=== PATIENT | male | born 1950 | race Caucasian/White ===

== ENCOUNTER 2021-01-02 08:30 | Day surgery (SDC) | payer MEDICARE, SELFPAY ==
[2020-12-22 12:40] VITALS: BMI 29.0
--- NOTE | 2020-12-29 07:45 | MHC.SHP ---
Pre-Procedural Eval Section A Date of Service: 12/29/20 The patient is an INPATIENT: No The History & Physical has been completed within 30 days and I have reviewed it.: Yes Section B Chief Complaint: Cataract Right Eye Allergies: Allergies Allergy/AdvReac Type Severity Reaction Status Date / Time bee pollen Allergy Severe RASH , Unverified 12/20/20 15:01 SWELLING, Anaphylaxis Plan Diagnosis/Plan: Unchanged I have reviewed the history and physical and performed a pertinent physical examination on my patient. No changes have occurred unless specified.
--- NOTE | 2020-12-30 10:06 | P.CONAN_ITS ---
Documented by User: Abby Wellerney 12/30/20 10:08 HPI - Anesthesia Eval Consult details Narrative: 70yo M for Right Cataract Extraction IOL Insertion PCP cleared No prev cataract on file Eliquis for afib PMFSH Past Medical History Medical History Atrial fibrillation COVID-19 vaccine series completed Decreased right ventricular systolic function Diverticulosis Dyspnea on exertion Elevated cholesterol Gout HTN (hypertension) Insomnia On anticoagulant therapy MUMTAZ (obstructive sleep apnea) Pulmonary hypertension Vertigo Surgical History Surgical History History of total right knee replacement (TKR) Hx of colonoscopy Social History Social History Are you a primary disabilities caregiver to a significant other at home: No Do you presently have visiting nurse or other home services: No Patient Tobacco Use Status: Former Tobacco user Quit Date: 1972 Tobacco use type: Cigarette Use of substances other than those prescribed or required for medical reasons: No Have you been hit, kicked, punched, or otherwise hurt by someone within the past year? If so, by whom?: No Are you DNR?: No Advance Directives: No Advance Directives Information Provided: No Advance Directives on File: No Recently lost weight without trying: No Eating poorly because of decreased appetite: No Nutrition Risks: No Nutritional Risk Meds Allergies Allergy/AdvReac Type Severity Reaction Status Date / Time bee pollen Allergy Severe RASH , Verified 01/02/21 09:17 SWELLING, Anaphylaxis Home Medications Medication Instructions Recorded Confirmed Last Taken Type allopurinol 300 mg PO DAILY 12/20/20 12/22/20 01/02/21 History apixaban [Eliquis] 5 mg PO BID 12/20/20 12/22/20 01/01/21 History diltiazem HCl 300 mg PO DAILY 12/20/20 12/22/20 01/02/21 History furosemide 40 mg PO DAILY 12/20/20 12/22/20 Unknown History multivitamin 1 tab PO DAILY 12/20/20 12/22/20 Unknown History pravastatin 80 mg PO DAILY 12/20/20 12/22/20 Unknown History turmeric root extract 1,500 mg PO DAILY 12/20/20 12/22/20 Unknown History valsartan 320 mg PO DAILY 12/20/20 12/22/20 Unknown History Exam Exam Date and Time: December 30, 2020 1006 Height,Weight and Vital Signs: Height 5 ft 7 in Weight 83.915 kg Assessment and Plan Assessment Anesthesia Assessment: Chart Reviewed Documented by User: Braxton Hilton 01/02/21 09:51 [facility] Past Medical History Medical History Atrial fibrillation COVID-19 vaccine series completed Decreased right ventricular systolic function Diverticulosis Dyspnea on exertion Elevated cholesterol Gout HTN (hypertension) Insomnia On anticoagulant therapy MUMTAZ (obstructive sleep apnea) Pulmonary hypertension Vertigo Surgical History Surgical History History of total right knee replacement (TKR) Hx of colonoscopy Social History Social History Are you a primary disabilities caregiver to a significant other at home: No Do you presently have visiting nurse or other home services: No Patient Tobacco Use Status: Former Tobacco user Quit Date: 1972 Tobacco use type: Cigarette Use of substances other than those prescribed or required for medical reasons: No Have you been hit, kicked, punched, or otherwise hurt by someone within the past year? If so, by whom?: No Are you DNR?: No Advance Directives: No Advance Directives Information Provided: No Advance Directives on File: No Recently lost weight without trying: No Eating poorly because of decreased appetite: No Nutrition Risks: No Nutritional Risk Meds Allergies Allergy/AdvReac Type Severity Reaction Status Date / Time bee pollen Allergy Severe RASH , Verified 01/02/21 09:17 SWELLING, Anaphylaxis Home Medications Medication Instructions Recorded Confirmed Last Taken Type allopurinol 300 mg PO DAILY 12/20/20 12/22/20 01/02/21 History apixaban [Eliquis] 5 mg PO BID 12/20/20 12/22/20 01/01/21 History diltiazem HCl 300 mg PO DAILY 12/20/20 12/22/20 01/02/21 History furosemide 40 mg PO DAILY 12/20/20 12/22/20 Unknown History multivitamin 1 tab PO DAILY 12/20/20 12/22/20 Unknown History pravastatin 80 mg PO DAILY 12/20/20 12/22/20 Unknown History turmeric root extract 1,500 mg PO DAILY 12/20/20 12/22/20 Unknown History valsartan 320 mg PO DAILY 12/20/20 12/22/20 Unknown History Exam Airway Mallampati Class: II TM Dist: >3cm Neck ROM: Full Loose/Missing/Broken Teeth: No Heart: irreg irreg s1s2 Lungs: +b/s bilaterally Assessment and Plan Assessment Anesthesia Assessment: Anesthesia Plan Discussed, PAT Visit and Chart Reviewed Final Anesthetic Review NPO: Yes ASA Class: III Final Preanesthetic Review: No Changes in Pt Med Stat, Meds/Allgs Chart Reviewed, Consent Obtained/Reviewed and Anes Risks/Benef Reviewed Patient Risk: Intermediate Procedure Risk: Low Assessment/Block/Sedation in SS: Assess/Block/Sedation-SS Anesthetic Plan Anesthetic Plan: MAC: and Agree w/ Assess. and Plan Disposition: Standard PACU
[2021-01-02 09:29] VITALS: BP 181/109; PULSE 65; RESP 20; TEMP 36.9; O2SAT 98
[2021-01-02] MEDS: Tropicamide 1 % Ophth Sol 3 ML BTL 1 DROP EYE-RIGHT ×3 (09:33→09:35)
[2021-01-02] MEDS: Tetracaine HCl/PF 0.5% Oph Sol 4 ML DROPS 1 DROP EYE-RIGHT (09:33)
[2021-01-02] MEDS: Lactated Ringers 500 ML 50 ML IV (09:33)
[2021-01-02] MEDS: Phenylephrine HCL 2.5% Oph SoL 2 ML BOTTLE 1 DROP EYE-RIGHT ×3 (09:34→09:35)
[2021-01-02 09:44] VITALS: BP 176/91; PULSE 59
--- NOTE | 2021-01-02 09:44 | PC.NURSE ---
anesthesia aware of b/p
--- NOTE | 2021-01-02 11:53 | HO.PNOPHT ---
Ophthalmology Procedure Procedure Date of Service: 01/02/21 Ophthalmology Viscoelastic: Healbrina Salast Dual Pack Pro Ophthalmology Lenses: TECVALORIE [id number] (16) Procedure Notes: PREOPERATIVE DIAGNOSIS: Decreased visual acuity right eye secondary to cataract POSTOPERATIVE DIAGNOSIS: Same PROCEDURE: Right cataract extraction with intraocular lens insertion SURGEON: Vikas Negron M.D. ANESTHESIA: Topical/MAC ESTIMATED BLOOD LOSS: None COMPLICATIONS: None After obtaining informed consent, the patient was brought to the operating room suite and placed in the supine position. After adequate sedation per anesthesia, topical drops of Tetracaine were given to the right eye. The eye was then prepped and draped in the usual sterile fashion. The operating room microscope was then positioned over the operative eye and a lid speculum placed. A paracentesis was created. Viscoelastic was then instilled into the anterior chamber. A three plane incision was then created temporally, utilizing a 2.85 mm keratome. Capsulotomy forceps were then utilized to create a circular tear capsulotomy. Hydrodissection and hydrodelineation were carried out until adequate mobilization of the nucleus occurred. Phacoemulsification was then utilized to remove the dense central nucleus followed by removal of the cortical material utilizing the automated aspiration irrigation unit. Viscoelastic was instilled into the posterior capsular bag followed by placement of a posterior chamber intraocular lens without difficulty. The residual Viscoelastic was then removed utilizing the automated IA machine. The wound was checked and found to be watertight. The patient tolerated the procedure well and the lid speculum was removed. Intracameral injection of Vigamox 0.1 mL followed by a subtenon injection of Kenalog-40 0.2 mL were administered. The patient will be seen in the a.m.
[2021-01-02 12:18] VITALS: BP 147/95; PULSE 60; RESP 16; TEMP 36.2; O2SAT 99
== END 2021-01-02 12:58 | disposition home or self-care (01) ==
PROVIDERS: PCP Internal Medicine; Visit Provider Ophthalmology
PROC: (CPT 66985; principal; 2021-01-02 10:50)
DX: H25.11 Age-related nuclear cataract, right eye (principal); H54.7 Unspecified visual loss; G47.33 Obstructive sleep apnea (adult) (pediatric); I10 Essential (primary) hypertension; I27.20 Pulmonary hypertension, unspecified; I48.91 Unspecified atrial fibrillation; Z79.01 Long term (current) use of anticoagulants; Z87.891 Personal history of nicotine dependence; Z79.899 Other long term (current) drug therapy
CPT/HCPCS: 66984; J2250; J3010; J3300; V2632

== ENCOUNTER 2021-01-16 05:48 | Day surgery (SDC) | payer MEDICARE, SELFPAY ==
[2020-12-22 12:47] VITALS: BMI 29.0
--- NOTE | 2021-01-11 09:24 | MHC.SHP ---
Pre-Procedural Eval Section A Date of Service: 01/11/21 The patient is an INPATIENT: No The History & Physical has been completed within 30 days and I have reviewed it.: Yes Section B Chief Complaint: Cataract Left Eye Allergies: Allergies Allergy/AdvReac Type Severity Reaction Status Date / Time bee pollen Allergy Severe RASH , Verified 01/02/21 09:17 SWELLING, Anaphylaxis Plan Diagnosis/Plan: Unchanged I have reviewed the history and physical and performed a pertinent physical examination on my patient. No changes have occurred unless specified.
--- NOTE | 2021-01-13 08:19 | HO.ANESPROP2 ---
Documented by User: Abby Wellerney 01/13/21 08:19 HPI - Anesthesia Eval Consult details Narrative: Left Cataract Extraction IOL Insertion PCP cleared Right eye 01/02/21 with Fent 75 PMFSH Past Medical History Medical History Atrial fibrillation COVID-19 vaccine series completed Decreased right ventricular systolic function Diverticulosis Dyspnea on exertion Elevated cholesterol Gout HTN (hypertension) Insomnia On anticoagulant therapy MUMTAZ (obstructive sleep apnea) Pulmonary hypertension Vertigo Surgical History Surgical History History of total right knee replacement (TKR) Hx of colonoscopy Social History Social History Are you a primary landcare facilitator to a significant other at home: No Do you presently have visiting nurse or other home services: No Patient Tobacco Use Status: Former Tobacco user Quit Date: 1972 Tobacco use type: Cigarette Use of substances other than those prescribed or required for medical reasons: No Have you been hit, kicked, punched, or otherwise hurt by someone within the past year? If so, by whom?: No Are you DNR?: No Advance Directives: No Advance Directives Information Provided: No Advance Directives on File: No Recently lost weight without trying: No Eating poorly because of decreased appetite: No Nutrition Risks: No Nutritional Risk Meds Allergies Allergy/AdvReac Type Severity Reaction Status Date / Time bee pollen Allergy Severe RASH , Verified 01/16/21 06:06 SWELLING, Anaphylaxis Home Medications Medication Instructions Recorded Confirmed Last Taken Type allopurinol 300 mg PO DAILY 12/20/20 12/22/20 01/02/21 History apixaban [Eliquis] 5 mg PO BID 12/20/20 12/22/20 01/15/21 20:00 History diltiazem HCl 300 mg PO DAILY 12/20/20 12/22/20 01/02/21 History furosemide 40 mg PO DAILY 12/20/20 12/22/20 Unknown History multivitamin 1 tab PO DAILY 12/20/20 12/22/20 Unknown History pravastatin 80 mg PO DAILY 12/20/20 12/22/20 Unknown History turmeric root extract 1,500 mg PO DAILY 12/20/20 12/22/20 Unknown History valsartan 320 mg PO DAILY 12/20/20 12/22/20 Unknown History Exam Exam Date and Time: January 13, [id number] Height,Weight and Vital Signs: Height 5 ft 7 in Weight 83.915 kg Assessment and Plan Assessment Anesthesia Assessment: Chart Reviewed Documented by User: Yesi Story 01/16/21 08:32 [facility] Past Medical History Medical History Atrial fibrillation COVID-19 vaccine series completed Decreased right ventricular systolic function Diverticulosis Dyspnea on exertion Elevated cholesterol Gout HTN (hypertension) Insomnia On anticoagulant therapy MUMTAZ (obstructive sleep apnea) Pulmonary hypertension Vertigo Surgical History Surgical History History of total right knee replacement (TKR) Hx of colonoscopy Social History Social History Are you a primary landcare facilitator to a significant other at home: No Do you presently have visiting nurse or other home services: No Patient Tobacco Use Status: Former Tobacco user Quit Date: 1972 Tobacco use type: Cigarette Use of substances other than those prescribed or required for medical reasons: No Have you been hit, kicked, punched, or otherwise hurt by someone within the past year? If so, by whom?: No Are you DNR?: No Advance Directives: No Advance Directives Information Provided: No Advance Directives on File: No Recently lost weight without trying: No Eating poorly because of decreased appetite: No Nutrition Risks: No Nutritional Risk Meds Allergies Allergy/AdvReac Type Severity Reaction Status Date / Time bee pollen Allergy Severe RASH , Verified 01/16/21 06:06 SWELLING, Anaphylaxis Home Medications Medication Instructions Recorded Confirmed Last Taken Type allopurinol 300 mg PO DAILY 12/20/20 12/22/20 01/02/21 History apixaban [Eliquis] 5 mg PO BID 12/20/20 12/22/20 01/15/21 20:00 History diltiazem HCl 300 mg PO DAILY 06/12/22/20 01/02/21 History furosemide 40 mg PO DAILY 12/20/20 12/22/20 Unknown History multivitamin 1 tab PO DAILY 12/20/20 12/22/20 Unknown History pravastatin 80 mg PO DAILY 12/20/20 12/22/20 Unknown History turmeric root extract 1,500 mg PO DAILY 12/20/20 12/22/20 Unknown History valsartan 320 mg PO DAILY 12/20/20 12/22/20 Unknown History Exam Airway Mallampati Class: I TM Dist: >3cm Neck ROM: Full Loose/Missing/Broken Teeth: No Heart: RRR Lungs: CTA Assessment and Plan Assessment Anesthesia Assessment: Anesthesia Plan Discussed and Chart Reviewed Final Anesthetic Review NPO: Yes ASA Class: III Final Preanesthetic Review: Meds/Allgs Chart Reviewed, Consent Obtained/Reviewed and Anes Risks/Benef Reviewed Patient Risk: Intermediate Procedure Risk: Low Anesthetic Plan Anesthetic Plan: MAC: Disposition: Standard PACU
[2021-01-16 06:15] VITALS: BP 145/86; PULSE 64; RESP 16; TEMP 36.3; O2SAT 100
[2021-01-16] MEDS: Tetracaine HCl/PF 0.5% Oph Sol 4 ML DROPS 1 DROP EYE-LEFT (06:25)
[2021-01-16] MEDS: Tropicamide 1 % Ophth Sol 3 ML BTL 1 DROP EYE-LEFT ×3 (06:27→06:39)
[2021-01-16] MEDS: Lactated Ringers 500 ML 50 ML IV (06:30)
[2021-01-16] MEDS: Phenylephrine HCL 2.5% Oph SoL 2 ML BOTTLE 1 DROP EYE-LEFT ×3 (06:31→06:43)
--- NOTE | 2021-01-16 08:06 | HO.PNOPHT ---
Ophthalmology Procedure Procedure Date of Service: 01/16/21 Ophthalmology Viscoelastic: Healbrina Duet Dual Pack Pro Ophthalmology Lenses: TECVALORIE [id number] (16) Procedure Notes: PREOPERATIVE DIAGNOSIS: Decreased visual acuity left eye secondary to cataract POSTOPERATIVE DIAGNOSIS: Same PROCEDURE: Left cataract extraction with intraocular lens insertion SURGEON: Vikas Negron M.D. ANESTHESIA: Topical/MAC ESTIMATED BLOOD LOSS: None COMPLICATIONS: None After obtaining informed consent, the patient was brought to the operation room suite and placed in the supine position. After adequate sedation per anesthesia, topical drops of Tetracaine were given to the left eye. The eye was then prepped and draped in the usual sterile fashion. The operating room microscope was then positioned over the operative eye and a lid speculum placed. A paracentesis was created. Viscoelastic was then instilled into the anterior chamber. A three plane incision was then created temporally, utilizing a 2.85 mm keratome. Capsulotomy forceps were then utilized to create a circular tear capsulotomy. Hydrodissection and hydrodelineation were carried out until adequate mobilization of the nucleus occurred. Phacoemulsification was then utilized to remove the dense central nucleus followed by removal of the cortical material utilizing the automated aspiration irrigation unit. Viscoat elastic was instilled into the posterior capsular bag followed by placement of a posterior chamber intraocular lens without difficulty. The residual Viscoat elastic was then removed utilizing the automated IA machine. The wound was check and found to be watertight. The patient tolerated the procedure well and the lid speculum was removed. Intracameral injection of Vigamox 0.1 mL followed by a subtenon injection of Kenalog-40 0.2 mL were administered. The patient will be seen in the a.m.
[2021-01-16 08:49] VITALS: BP 114/85; PULSE 87; RESP 18; TEMP 36.2; O2SAT 96
== END 2021-01-16 09:07 | disposition home or self-care (01) ==
PROVIDERS: PCP Internal Medicine; Visit Provider Ophthalmology
PROC: (CPT 66985; principal; 2021-01-16 08:10)
DX: H25.12 Age-related nuclear cataract, left eye (principal); H52.4 Presbyopia; I10 Essential (primary) hypertension; I48.91 Unspecified atrial fibrillation; M10.9 Gout, unspecified; G47.33 Obstructive sleep apnea (adult) (pediatric); I27.20 Pulmonary hypertension, unspecified; I51.9 Heart disease, unspecified; R42 Dizziness and giddiness; Z79.01 Long term (current) use of anticoagulants; Z79.899 Other long term (current) drug therapy; Z87.891 Personal history of nicotine dependence
CPT/HCPCS: 66984; J2250; J3010; J3300; V2632

== ENCOUNTER 2023-09-26 09:28 | Inpatient (IN) | payer MEDICARE, SELFPAY ==
[2023-09-26] VITALS (8 sets, daily range): BP systolic 109–138; BP diastolic 72–87; PULSE 65–73; RESP 15–30; TEMP 36.2–38.4; O2SAT 93–99; BMI 22.9; BMI 22.8
--- NOTE | ~2023-09-26 | XR_ITS ---
EXAMINATION: XR CHEST CLINICAL INFORMATION: Fever, possible aspiration COMPARISON: None available. TECHNIQUE: AP upright portable view of the chest was obtained. 11:02 AM FINDINGS: The lungs are slightly hypoinflated. Slight streaky density in the left lower lobe is consistent with atelectasis and/or pneumonia. This is not a typical location for aspiration. No interstitial pulmonary edema or pneumothorax. No pleural effusion. There is mild enlargement of the cardiac silhouette. Calcification of the aortic arch is indicative of atherosclerotic disease. AICD projects over the left hemithorax with the tip of the the lead in the region of the ventricle. XR/XR chest 1V IMPRESSION: Left lower lobe atelectasis and/or pneumonia. This is not a typical location for aspiration.
--- NOTE | ~2023-09-26 | CT_ITS ---
EXAMINATION: CT ABDOMEN AND PELVIS WITH CONTRAST CLINICAL INFORMATION: Fever. Abnormal liver function tests. Evaluate for cholecystitis. COMPARISON: None available. TECHNIQUE: Multidetector volumetric images were obtained from the superior aspect of the liver through the pubic symphysis following administration 85 mL of Omnipaque 350 intravenous contrast. Sagittal and coronal reformatted images were obtained on the technologist's workstation. Oral contrast: No This CT examination was performed using dose optimization techniques as appropriate, variously including the following: *Automated exposure control *Adjustment of mA and/or kV according to patient size (this includes techniques or standardized protocols for targeted exams where dose is matched to indication/reason for exam; i.e. extremities or head) *Use of iterative reconstruction technique DLP: 758 mGy-cm FINDINGS: LUNG BASES: Cardiomegaly with enlarged right ventricle, right atrium and left atrium. Aortic valve calcifications are noted. There are coronary artery atherosclerotic calcifications. A right ventricular lead is noted. Consolidative opacity, groundglass opacity and intralobular septal thickening in right lower lobe. Findings are consistent with pneumonia. Trace right pleural effusion is present. There is mild atelectasis in the dependent aspect of the left lower lobe. HEPATOBILIARY: Liver has normal size, shape, and attenuation. Gallbladder appears to contain sludge and possibly a few very small stones. No gallbladder wall thickening or pericholecystic fluid. No dilated bile ducts. PANCREAS: The pancreatic parenchyma is diffusely atrophied. No edema, pancreatic ductal dilatation or mass. SPLEEN: Normal. ADRENAL GLANDS: Normal. KIDNEYS AND URETERS: Kidneys have normal size and cortical thickness. No perinephric fluid collection, urolithiasis or hydroureteronephrosis. BLADDER: Urinary bladder is underdistended. The bladder wall appears to be diffusely, minimally thickened. No focal bladder lesion or stone. BOWEL AND PERITONEUM: Stomach and small bowel are unremarkable. No dilated loops. The appendix is normal. No overt colonic wall thickening or mesenteric fat stranding. There are diverticula of the descending and sigmoid colon without evidence of diverticulitis. No free fluid or pneumoperitoneum. ABDOMINAL WALL: Mild edema of subcutaneous tissues. VASCULATURE: There is extensive atherosclerotic calcification of the abdominal aorta and iliofemoral vessels. The infrarenal abdominal aorta measures up to 2.5 cm AP diameter. LYMPH NODES: No pathologic sized lymph nodes in the abdomen or pelvis. No inguinal lymphadenopathy. PELVIC VISCERA: Prostate gland measures approximately 4.8 x 2.8 x 4 cm. No pelvic free fluid. MUSCULOSKELETAL: Multilevel degenerative disc disease of the visualized lower thoracic and lumbar spine. No acute or suspicious osseous abnormality. Status post open reduction and internal fixation of the left femur. There is a healed intertrochanteric femur fracture. Foci of heterotopic ossification project superolateral to the greater trochanter. CT/CT abdomen pelvis w IV con IMPRESSION: * Right lower lobe pneumonia and trace right pleural effusion. * Cardiomegaly with automatic implantable cardioverter defibrillator generator in place. * Diverticula of the descending and sigmoid colon without diverticulitis. * Gallbladder likely contains sludge and possibly a few very small stones. There is no evidence of cholecystitis.
--- NOTE | 2023-09-26 09:48 | ED.GENADULT ---
HPI - General Adult General Chief complaint: General Medical Stated complaint: DIFF SWALLING,VOMITING,FROM HOME PER EMS Time Seen by Provider: 09/26/23 09:37 History of Present Illness HPI narrative: The patient is a 73-year-old male with a history of some form of dementia, possibly Lewy body dementia. He lives at home with his . His says that he has been doing very poorly over the last several months. He has been much worse over the last 2 days with difficulty swallowing and decreased appetite. Yesterday the patient had an episode of vomiting and the thought he may have aspirated. During the night tonight he seemed febrile and had a temperature of 100.9 degrees at home. Related Data Home Medications ?Medication ?Instructions ?Recorded ?Confirmed allopurinol 300 mg tablet 300 mg PO DAILY 12/20/20 12/22/20 apixaban 5 mg tablet (Eliquis) 5 mg PO BID 12/20/20 12/22/20 diltiazem HCl 300 mg 300 mg PO DAILY 12/20/20 12/22/20 capsule,extended release 24 hr furosemide 40 mg tablet 40 mg PO DAILY 12/20/20 12/22/20 multivitamin 1 tab PO DAILY 12/20/20 12/22/20 pravastatin 80 mg tablet 80 mg PO DAILY 12/20/20 12/22/20 turmeric root extract 500 mg 1,500 mg PO DAILY 12/20/20 12/22/20 capsule valsartan 320 mg tablet 320 mg PO DAILY 12/20/20 12/22/20 Allergies Allergy/AdvReac Type Severity Reaction Status Date / Time bee pollen Allergy Severe RASH , Verified 09/26/23 09:52 SWELLING, Anaphylaxis [facility] Past Medical History Medical History Atrial fibrillation COVID-19 vaccine series completed Decreased right ventricular systolic function Diverticulosis Dyspnea on exertion Elevated cholesterol Gout HTN (hypertension) Insomnia On anticoagulant therapy MUMTAZ (obstructive sleep apnea) Pulmonary hypertension Vertigo Surgical History History of total right knee replacement (TKR) Hx of colonoscopy Social History Social History Are you a primary resident care spec to a significant other at home: No Do you presently have visiting nurse or other home services: No Alcohol intake: former Patient Tobacco Use Status: Former Tobacco user Quit Date: 1972 Tobacco use type: Cigarette Smoked in Last 30 Days: No Use of substances other than those prescribed or required for medical reasons: No Advance Directives: No Advance Directives Information Provided: No Physical Exam ED Vital Signs: Vital Signs - 24 hr 09/26/23 09:40 09/26/23 10:28 09/26/23 10:28 Temperature 101.1 F H Pulse Rate 73 69 Respiratory Rate 24 H 29 H 24 H Blood Pressure 127/83 118/85 Pulse Oximetry 98 96 Oxygen Delivery Method Nasal Cannula Nasal Cannula Oxygen Flow Rate 2 09/26/23 10:28 09/26/23 12:38 09/26/23 13:54 Temperature 98.4 F Pulse Rate 69 66 66 Respiratory Rate 24 H 15 30 H Blood Pressure 113/79 138/85 128/87 Pulse Oximetry 95 97 93 Oxygen Delivery Method Nasal Cannula Nasal Cannula Nasal Cannula Oxygen Flow Rate 2 2 2 BMI result Body Mass Index 22.9 Medications Administered Generic Name Dose Route Start Last Admin Trade Name Freq PRN Reason Stop Dose Admin Sodium Chloride 1,000 mls @ 999 mls/hr 09/26/23 13:15 09/26/23 13:56 Ns IV 09/26/23 14:15 999 mls/hr .Q1H1M NIVIA Administration Discontinued Medications Generic Name Dose Route Start Last Admin Trade Name Freq PRN Reason Stop Dose Admin Sodium Chloride 1,000 mls @ 999 mls/hr 09/26/23 10:00 09/26/23 11:46 Ns IV 09/26/23 11:00 Infused .Q1H1M NIVIA Infusion Ceftriaxone Sodium 1 gm/ 50 mls @ 100 mls/hr 09/26/23 10:06 09/26/23 11:46 Sodium Chloride IV 09/26/23 10:35 Infused ONCE ONE Infusion Metronidazole 500 mg in 100 mls @ 100 mls/hr 09/26/23 10:07 09/26/23 12:41 Flagyl IV 09/26/23 11:06 Infused ONCE ONE Infusion Iohexol 85 ml 09/26/23 11:43 09/26/23 11:45 Iohexol 350 Mg/Ml 100 Ml Infus..Btl IV 09/26/23 11:44 85 ml ONCE ONE Administration Medical Decision Making Lab Data 09/26/23 10:15 09/26/23 10:15 Labs: Lab Results 09/26/23 Range/Units 10:15 WBC 15.7 H (4.8-10.8) X10*3/uL RBC 4.71 (4.60-5.80) X10*6/uL Hgb 14.1 (14.0-18.0) g/dl Hct 39.7 L (42.0-52.0) % MCV 84.3 (80.0-98.0) fL MCH 29.9 (27.0-33.0) pg MCHC 35.5 (31.0-36.0) g/dl RDW 16.9 H (11.0-16.0) % Plt Count 295 D (160-400) X10*3/uL MPV 10.2 (9.4-12.4) fL Immature Gran % (Auto) 1.0 H (0.0-0.4) % Neut % (Auto) 82.6 H (45-73) % Lymph % (Auto) 6.8 L (20-40) % [place] % (Auto) 9.5 (2-11) % Eos % (Auto) 0.0 (0-4) % Baso % (Auto) 0.1 (0-2) % Lymph # (Auto) 1.1 L (1.2-4.9) X10*3/uL [place] # (Auto) 1.5 H (0.1-1.2) X10*3/uL Eos # (Auto) 0.0 (0.0-0.4) X10*3/uL Baso # (Auto) 0.0 (0.0-0.2) X10*3/uL Abs Immat Gran (auto) 0.16 H (0.00-0.03) X10*3/uL Absolute Neuts (auto) 12.9 H (2.0-8.3) x10*3/uL Absolute Nucleated RBC 0.000 (0.0-0.012) X10*3/uL Nucleated RBC % (auto) 0.0 (0.0-0.2) /100WBC PT 20.2 H (11.1-13.3) SEC INR 1.7 H (0.9-1.1) Sodium 134 L (135-145) mmol/L Potassium 3.9 (3.3-5.1) mmol/L Chloride 103 (96-108) mmol/L Carbon Dioxide 22 (22-29) mmol/L Anion Gap 13 (12-20) BUN 19 H (9-16) mg/dL Creatinine 0.82 (0.5-1.4) mg/dL Estim Creat Clear Calc 75.0 Estimated GFR > 60 Random Glucose 105 (60-115) mg/dL Lactic Acid 1.6 (0.5-2.0) mmol/L Calcium 8.5 (8.4-10.2) mg/dL Magnesium 2.2 (1.6-2.6) mg/dL Total Bilirubin 3.0 H (0.0-1.0) mg/dL Direct Bilirubin 1.8 H (0.0-0.5) mg/dL AST 66 H (5-37) U/L ALT 67 H (0-40) U/L Alkaline Phosphatase 124 H (39-117) U/L C-Reactive Protein 24.78 H (< or = 0.50) mg/dL Total Protein 5.9 L (6.5-8.0) g/dL Albumin 2.8 L (3.5-5.0) g/dL Influenza Type A (PCR) NEGATIVE (Negative) Influenza Type B (PCR) NEGATIVE (Negative) RSV RNA Qual (PCR) NEGATIVE (Negative) SARS-CoV-2 RNA (RT-PCR) NEGATIVE (Negative) Discharge Plan Discharge Patient Disposition: Admitted As Inpatient Prescriptions: No Action multivitamin Tablet 1 tab PO DAILY furosemide 40 mg Tablet 40 mg PO DAILY pravastatin 80 mg Tablet 80 mg PO DAILY diltiazem HCl 300 mg Capsule,Extended Release 24hr 300 mg PO DAILY valsartan 320 mg Tablet 320 mg PO DAILY allopurinol 300 mg Tablet 300 mg PO DAILY turmeric root extract 500 mg Capsule 1,500 mg PO DAILY Eliquis 5 mg Tablet 5 mg PO BID Print Language: Khmer
--- NOTE | 2023-09-26 09:49 | ECG_ITS ---
Test Reason : WEAKNESS Blood Pressure : / mmHG Vent. Rate : 071 BPM Atrial Rate : 000 BPM P-R Int : 000 ms QRS Dur : 116 ms QT Int : 360 ms P-R-T Axes : 000 -64 -42 degrees QTc Int : 391 ms Atrial fibrillation Left axis deviation Inferior infarct (cited on or before 26-SEP-2023) Anteroseptal infarct , age undetermined Abnormal ECG When compared with ECG of 17-JAN-2007 14:37, Atrial fibrillation has replaced Sinus rhythm Questionable change in QRS duration Anteroseptal infarct is now Present Referred By: Dexter Dumont Electronically Signed By:CANELO MOCTEZUMA MD
[2023-09-26 10:25] LABS: MANUAL DIFF FLAG NO
[2023-09-26 10:28] LABS: Basophils Percent Auto 0.1 % (0-2); Hematocrit 39.7 % (42.0-52.0); Hemoglobin 14.1 g/dl (14.0-18.0); Imm Gran Abs Auto 0.16 X10*3/uL (0.00-0.03); Lymphocytes Absolute Auto 1.1 X10*3/uL (1.2-4.9); Lymphocytes Percent Auto 6.8 % (20-40); Mean Corpuscular HGB Conc 35.5 g/dl (31.0-36.0); Mean Corpuscular Hemoglobin 29.9 pg (27.0-33.0); Mean Corpuscular Volume 84.3 fL (80.0-98.0); Mean Platelet Volume 10.2 fL (9.4-12.4); Monocytes Absolute Auto 1.5 X10*3/uL (0.1-1.2); Monocytes Percent Auto 9.5 % (2-11); Neutrophils Absolute Auto 12.9 x10*3/uL (2.0-8.3); Neutrophils Percent Auto 82.6 % (45-73); Platelet Count 295 X10*3/uL (160-400); Red Blood Count 4.71 X10*6/uL (4.60-5.80); Red Cell Distribution Width 16.9 % (11.0-16.0); White Blood Count 15.7 X10*3/uL (4.8-10.8)
[2023-09-26] MEDS: 0.9 % Sodium Chloride 1,000 ML 999 ML IV ×2 (10:33→13:56)
[2023-09-26 10:34] LABS: INTERNATIONAL NORM RATIO 1.7 (0.9-1.1); Prothrombin Time 20.2 SEC (11.1-13.3)
--- NOTE | 2023-09-26 10:35 | HO.SKINPHOTO ---
Location:coccyx Category: Stage: Length: Width: Depth: cm Location: Category: Stage: Length: Width: Depth: cm Location: Category: Stage: Length: Width: Depth: cm Location: Category: Stage: Length: Width: Depth: cm Location: Category: Stage: Length: Width: Depth: cm Location: Category: Stage: Length: Width: Depth: cm
[2023-09-26 10:43] LABS: Lactic Acid 1.6 mmol/L (0.5-2.0)
[2023-09-26 10:47] LABS: Alanine Aminotransferase 67 U/L (0-40); Albumin Level 2.8 g/dL (3.5-5.0); Alkaline Phosphatase 124 U/L (39-117); Anion Gap 13 (12-20); Aspartate Amino Transferase 66 U/L (5-37); Bilirubin Direct 1.8 mg/dL (0.0-0.5); Blood Urea Nitrogen 19 mg/dL (9-16); C Reactive Protein 24.78 mg/dL (< or = 0.50); Calcium 8.5 mg/dL (8.4-10.2); Carbon Dioxide 22 mmol/L (22-29); Chloride 103 mmol/L (96-108); Estimated Glomerular Filt Rate > 60; Glucose Random 105 mg/dL (60-115); Magnesium 2.2 mg/dL (1.6-2.6); Potassium 3.9 mmol/L (3.3-5.1); Sodium 134 mmol/L (135-145); Total Protein 5.9 g/dL (6.5-8.0)
[2023-09-26] MEDS: cefTRIAXone sodium 1 GM in 0.9 % Sodium Chloride 50 ML IV (11:00)
[2023-09-26 11:18] LABS: Influenza A PCR NEGATIVE (Negative); Influenza B PCR NEGATIVE (Negative); Resp Syncy Virus RNA Qual PCR NEGATIVE (Negative); SARS COV2 PCR INHOUSE NEGATIVE (Negative)
[2023-09-26] MEDS: iohexoL 350 MG/ML 100 ML INFUS..BTL 85 ML IV (11:45)
[2023-09-26] MEDS: metroNIDAZOLE/NS 500 MG/100 ML PIGGYBACK 100 MG IV (11:47)
--- NOTE | 2023-09-26 14:38 | P.HPHOSP_ITS ---
<Statement entered by Cameron Leiva MD - 09/29/23 15:06> the patient was seen and evaluated with ANNIE Gallagher. I agree with his note, assessment and plan with the following. In summary, A 73 years old male with PMH of Afib, HLD, dementia, CMP w AICD among others who presents with incident of hypoxia after vomiting at home. chest CT suggestive of RLL pneumonia. # Sepsis 2/[address] showing right lower lobe pneumonia Pending cultures IV Zosyn for now BROACH OPERATOR eval Wean O2 down as tolerated Rest of evaluations by ANNIE note. History of Present Illness Date of Service: 09/26/23 Attending physician on admission: Cameron Leiva Chief Complaint: Fever, vomiting Pt is a 73-year-old male with a PMH significant for?HLD, persistent AFib not anticoagulated due to fall risk, HFrEF (EF 30-35% 02/2023), pulmonary hypertension, unspecified dementia, cardiomegaly with implantable cardioverter/defibrillator in place, and hx of gout who presents to the ED for evaluation?of vomiting and possible aspiration. Pt is alert and oriented to self only and thus incapable of providing accurate HPI which is instead taken from chart and provider review. Attempted to contact pt's /HCP but call immediately went to voicemail. Pt apparently has had significant decline over the past few months with difficulty ambulating, frequent falls, increased memory loss and confusion. Patient had recent hospitalization from 07/24-07/26 at [facility] [place] for evaluation of stroke-like symptoms. Workup there was largely negative and patient was discharged to [facility] and then back to home. Pt's reports he has had increased weakness, difficultly swallowing, and decreased appetite the past two days. Last night pt was witnessed to have episode of vomiting and this morning had a temperature of 100.9 at home. brought him to the ED out of concern for aspiration. She also apparently thought he was experiencing some right-sided discomfort. In the ED pt was febrile up to 101.1 and tachypneic to 30. Labs were significant for leukocytosis of 15.7, sodium 134, bilirubin 3.0, AST 66, ALT 67, alk-phos 124, C-reactive protein 24.78, protein 5.9, and albumin 2.8. Tested negative flu, RSV, COVID. CXR showed left lower lobe atelectasis and or pneumonia. CT of abdomen and pelvis found right lower lobe pneumonia and trace right pleural effusion. Also showed likely sludge and possibly small stones in gallbladder, but no evidence of cholecystitis. EKG demonstrated AFib without evidence of significant ST elevations or depressions. Pt was treated with IVF, ceftriaxone, metronidazole, and azithromycin. Pt will be admitted to the hospital for treatment and further evaluation of likely aspiration pneumonia with sepsis. Review of Systems 2 Review of Systems: Difficult to obtain due to pt's mentation, but states he has no acute medical complaints [facility] Medical History (Updated 09/27/23 @ 10:55 by Cameron Leiva MD) HFrEF (heart failure with reduced ejection fraction) CAD (coronary artery disease) COVID-19 vaccine series completed Gout Vertigo Decreased right ventricular systolic function Pulmonary hypertension MUMTAZ (obstructive sleep apnea) Insomnia Diverticulosis Dyspnea on exertion Atrial fibrillation Elevated cholesterol On anticoagulant therapy HTN (hypertension) Surgical History Hx of colonoscopy History of total right knee replacement (TKR) Social History Household Members: Spouse Housing: Apartment Are you a primary health care legal assistant to a significant other at home: No Do you presently have visiting nurse or other home services: No Alcohol intake: former Patient Tobacco Use Status: Former Tobacco user Quit Date: 20 years Tobacco use type: Cigarette Smoked in Last 30 Days: No Use of substances other than those prescribed or required for medical reasons: No Currently Displaying Signs/Symptoms of Drug Intoxication Withdrawal: No Have you been hit, kicked, punched, or otherwise hurt by someone within the past year? If so, by whom?: No Do you feel safe in your current relationship?: Yes Is there a partner from a previous relationship who is making you feel unsafe now?: No Are you made to feel afraid or neglected: No Advance Directives: No Advance Directives Information Provided: No Do you have thoughts of harming others: None Do you have a plan to hurt others: No Plan Recently lost weight without trying: No Eating poorly because of decreased appetite: No Nutrition Risks: On aspiration precautions Poor oral hygiene: No service: No Meds Allergies Allergy/AdvReac Type Severity Reaction Status Date / Time bee pollen Allergy Severe RASH , Verified 09/26/23 09:52 SWELLING, Anaphylaxis Home Medications ?Medication ?Instructions ?Recorded ?Confirmed ?Last Taken ?Type allopurinol 300 mg tablet 300 mg PO DAILY 12/20/20 09/26/23 09/25/23 History furosemide 40 mg tablet 40 mg PO DAILY 12/20/20 09/26/23 09/25/23 History multivitamin 1 tab PO DAILY 12/20/20 09/26/23 09/25/23 History amiodarone 200 mg tablet 200 mg PO DAILY 09/26/23 09/26/23 09/25/23 History aspirin 81 mg chewable tablet 81 mg PO DAILY 09/26/23 09/26/23 09/25/23 History atorvastatin 80 mg tablet 80 mg PO BEDTIME 09/26/23 09/26/23 09/25/23 History fluoxetine 40 mg capsule 40 mg PO DAILY 09/26/23 09/26/23 09/25/23 History metoprolol succinate 25 mg 25 mg PO DAILY 09/26/23 09/26/23 09/25/23 History tablet,extended release 24 hr spironolactone 25 mg tablet 12.5 mg PO DAILY 09/26/23 09/26/23 09/25/23 History terazosin 1 mg capsule 1 mg PO BEDTIME 09/26/23 09/26/23 09/25/23 History trazodone 50 mg tablet 50 mg PO BEDTIME 09/26/23 09/26/23 09/25/23 History Physical Exam 2 Vital Signs and Narrative: Vital Signs: Last Vital Signs Temp 98.4 F 09/26/23 13:54 Pulse 66 09/26/23 13:54 Resp 30 H 09/26/23 13:54 BP 128/87 09/26/23 13:54 Pulse Ox 93 09/26/23 13:54 O2 Del Method Nasal Cannula 09/26/23 13:54 O2 Flow Rate 2 09/26/23 13:54 Oxygen Flow Rate 2 09/26/23 09:40 BMI result Body Mass Index 22.9 Constitutional: Alert, pleasantly confused, in no acute distress. Mental Status: Oriented to person only, not to place, time, or situation. Eyes: Pupils are equal, round, and reactive to light. Ear, Nose, and Throat: Oropharynx clear, mucous membranes moist. Ears and nose without deformities. Trachea midline. Respiratory: Clear to auscultation bilaterally. No wheezing, rales, or rhonchi. Cardiovascular: Irregularly irregular rhythm. No murmurs, rubs, or gallops. Gastrointestinal: Abdomen soft, non-tender, non-distended. Normal bowel sounds. Neurologic: Cranial nerves II-XII are grossly intact bilaterally. No focal neurological deficits. Moves all extremities spontaneously. Skin: Warm, dry. Extremities: No edema. Results Labs 09/28/23 05:20 09/28/23 05:20 Labs: Laboratory Results - last 24 hr 09/26/23 10:15 MCV 84.3 MCH 29.9 MCHC 35.5 RDW 16.9 H Plt Count 295 D MPV 10.2 Immature Gran % (Auto) 1.0 H Neut % (Auto) 82.6 H Lymph % (Auto) 6.8 L Lewis % (Auto) 9.5 Eos % (Auto) 0.0 Baso % (Auto) 0.1 Lymph # (Auto) 1.1 L Lewis # (Auto) 1.5 H Eos # (Auto) 0.0 Baso # (Auto) 0.0 Abs Immat Gran (auto) 0.16 H Absolute Neuts (auto) 12.9 H Absolute Nucleated RBC 0.000 Nucleated RBC % (auto) 0.0 PT 20.2 H INR 1.7 H Anion Gap 13 Estim Creat Clear Calc 75.0 Estimated GFR > 60 Random Glucose 105 Lactic Acid 1.6 Calcium 8.5 Magnesium 2.2 Total Bilirubin 3.0 H Direct Bilirubin 1.8 H AST 66 H ALT 67 H Alkaline Phosphatase 124 H C-Reactive Protein 24.78 H Total Protein 5.9 L Albumin 2.8 L Influenza Type A (PCR) NEGATIVE Influenza Type B (PCR) NEGATIVE RSV RNA Qual (PCR) NEGATIVE SARS-CoV-2 RNA (RT-PCR) NEGATIVE Imaging Radiologist's Impressions: Impressions Chest X-Ray 09/26/23 11:03 IMPRESSION: Left lower lobe atelectasis and/or pneumonia. This is not a typical location for aspiration. Abdomen/Pelvis CT 09/26/23 11:48 IMPRESSION: * Right lower lobe pneumonia and trace right pleural effusion. * Cardiomegaly with automatic implantable cardioverter defibrillator generator in place. * Diverticula of the descending and sigmoid colon without diverticulitis. * Gallbladder likely contains sludge and possibly a few very small stones. There is no evidence of cholecystitis. Assessment and Plan (1) Aspiration pneumonia: Status: Acute Plan Pt is a 73-year-old male with a PMH significant for?HLD, persistent AFib not anticoagulated due to fall risk, HFrEF (EF 30-35% 02/2023), pulmonary hypertension, unspecified dementia, cardiomegaly with implantable cardioverter/defibrillator in place, and hx of gout who presents to the ED for evaluation?of vomiting and possible aspiration. Pt was treated with IVF, ceftriaxone, metronidazole, and azithromycin. Pt will be admitted to the hospital for treatment and further evaluation of likely aspiration pneumonia with sepsis. Likely aspiration pneumonia Patient with reported difficulty swallowing, episode of vomiting, CT showing right lower lobe pneumonia Patient meets sepsis criteria: Fever, tachypnea, leukocytosis; lactic acid WNL at 1.6 Patient given IVF and started on broad-spectrum antibiotics in the ED Will treat with Zosyn Pt chronically on 2L home O2, continue Transaminitis Pt's thought he was favoring right side, pt has no complaints, abd exam benign Unclear etiology: CT of abd/pelvis negative for acute abd, cholecystitis Will repeat CMB in the a.m. Diet Pt with reported difficulty swallowing, concern for aspiration Passed nurse's swallow screen Will get formal speech and swallow eval Mechanically ground diet for now Generalized weakness, hx of recent frequent falls PT consult AFib Not on anticoagulation due to fall risk Continue metoprolol, amiodarone CAD/HLD Continue statin, aspirin HFrEF Not in acute exacerbation Continue furosemide, spironolactone Mood disorder Continue fluoxetine Hx of gout Continue allopurinol Full Code, taken from documentation from recent hospitalization at [facility] [place] on 07/24- 07/26/2023 Attending:? DVT Prophylaxis: Lovenox Pt will require a hospitalization of at least two nights for treatment of likely aspiration with sepsis. Given patient's significant comorbidities and meeting sepsis criteria, patient will require hospitalization for administration of IV antibiotics, close monitoring labs and respiratory status, and ultimately PT consult for safe disposition. Quality Stroke Does the patient have a stroke diagnosis?: No VTE Prior VTE?: No VTE Risk Level:: Medical - moderate - high VTE Device Contraindication: Treatment Not Indicated VTE Drug Contraindication: N/A - Med Ordered
--- NOTE | 2023-09-26 15:22 | PHA.MEDREC ---
Pharmacy Consult ? Medication Reconciliation Pharmacy has completed the medication reconciliation. Patient's confirmed medicaitons. Jailyn Carrillo, DianaD
--- NOTE | 2023-09-26 15:55 | MHC.EDTECH ---
THIS PCT ASSUMED CARE OF PATIENT AT 1500 ,VITALS TAKEN ,PATIENT WAS CLEAN UP AND REPOSITION ON HIS SIDE WITH A PILLOW ,URINE SAMPLE COLLECTED AND SENT TO LAB ,CALL PATRICK WITHIN PATIENT REACH .
[2023-09-26] MEDS: Spironolactone 25 MG TABLET 12.5 MG PO (16:00)
[2023-09-26] MEDS: FLUoxetine HCl 20 MG CAPSULE 40 MG PO (16:00)
[2023-09-26] MEDS: Aspirin 81 MG TAB.CHEW PO (16:00)
[2023-09-26] MEDS: allopurinoL 300 MG TABLET PO (16:01)
[2023-09-26] MEDS: Furosemide 40 MG TABLET PO (16:01)
[2023-09-26] MEDS: Amiodarone HCL 200 MG TABLET PO (16:01)
[2023-09-26] MEDS: Multivitamin TABLET 1 TAB PO (16:01)
[2023-09-26 16:11] LABS: Appearance Urine Clear; Color Urine Dark Yellow; Glucose Urine UA Negative (Negative); Leukocyte Esterase Urine Negative (Negative); Nitrite Urine Negative (Negative); PH 5.5 (5.0-9.0); Specific Gravity - Urine >= 1.030 (1.005-1.025); UMIC TRIGGER UACC YES; Urine Blood Negative (Negative); Urine Ketones Negative (Negative); Urine Protein 30 (1+) mg/dL (Neg-Trace)
[2023-09-26 16:13] LABS: Bacteria Urine None Seen (None Seen); Hyaline Casts Urine 0-2 /LPF (0-2); RBC Urine 0-2 /HPF (0-2); Squamous Epithelial Cell Urine 0-2 /HPF (0-2); WBC Urine 0-5 /HPF (0-5)
--- NOTE | 2023-09-26 16:32 | MHC.EDTECH ---
PATIENT WAS MOVED INTO A HOSPITAL BED ,AND POSITION ON THE SIDE ,BARRIER CREAM APPLY TO COCCYX ,CALL PATRICK WITHIN PT REACH .
[2023-09-26] MEDS: 0.9 % Sodium Chloride Flush 3 ML SYRINGE IVFLUSH ×2 (17:50→21:06)
[2023-09-26] MEDS: Enoxaparin Sodium 40 MG/0.4 ML SYRINGE SUBCUT (17:50)
[2023-09-26] MEDS: Piperacillin Sodium/Tazobactam 3.375 GM in 0.9 % Sodium Chloride 50 ML IV ×2 (17:50→22:54)
[2023-09-26] MEDS: Atorvastatin Calcium 80 MG TABLET PO (21:05)
[2023-09-26] MEDS: Doxazosin Mesylate 1 MG TABLET PO (21:05)
[2023-09-26] MEDS: traZODone HCL 50 MG TABLET PO (21:05)
[2023-09-27 03:56] VITALS: BP 117/78; PULSE 72; RESP 18; TEMP 36.3; O2SAT 98
[2023-09-27] MEDS: Piperacillin Sodium/Tazobactam 3.375 GM in 0.9 % Sodium Chloride 50 ML IV ×4 (04:40→23:03)
[2023-09-27 05:37] LABS: Hematocrit 37.6 % (42.0-52.0); Hematocrit 38.1 % (42.0-52.0); Hemoglobin 13.3 g/dl (14.0-18.0); Hemoglobin 13.4 g/dl (14.0-18.0); Mean Corpuscular HGB Conc 35.2 g/dl (31.0-36.0); Mean Corpuscular HGB Conc 35.4 g/dl (31.0-36.0); Mean Corpuscular Hemoglobin 29.6 pg (27.0-33.0); Mean Corpuscular Hemoglobin 29.7 pg (27.0-33.0); Mean Corpuscular Volume 83.9 fL (80.0-98.0); Mean Corpuscular Volume 84.1 fL (80.0-98.0); Mean Platelet Volume 10.8 fL (9.4-12.4); Platelet Count 282 X10*3/uL (160-400); Platelet Count 287 X10*3/uL (160-400); Red Blood Count 4.48 X10*6/uL (4.60-5.80); Red Blood Count 4.53 X10*6/uL (4.60-5.80); Red Cell Distribution Width 16.8 % (11.0-16.0); Red Cell Distribution Width 16.9 % (11.0-16.0); White Blood Count 12.2 X10*3/uL (4.8-10.8)
[2023-09-27 05:53] LABS: Anion Gap 11 (12-20); Blood Urea Nitrogen 19 mg/dL (9-16); Calcium 8.1 mg/dL (8.4-10.2); Carbon Dioxide 20 mmol/L (22-29); Chloride 106 mmol/L (96-108); Creatinine Clr Calc Pharmacy 87.6; Estimated Glomerular Filt Rate > 60; Glucose Random 114 mg/dL (60-115); Potassium 3.5 mmol/L (3.3-5.1); Sodium 133 mmol/L (135-145)
[2023-09-27 05:54] LABS: Alanine Aminotransferase 53 U/L (0-40); Albumin Level 2.4 g/dL (3.5-5.0); Alkaline Phosphatase 109 U/L (39-117); Anion Gap 11 (12-20); Aspartate Amino Transferase 58 U/L (5-37); Bilirubin Total 2.2 mg/dL (0.0-1.0); Blood Urea Nitrogen 20 mg/dL (9-16); Carbon Dioxide 20 mmol/L (22-29); Chloride 106 mmol/L (96-108); Creatinine Clr Calc Pharmacy 86.4; Estimated Glomerular Filt Rate > 60; Glucose Random 115 mg/dL (60-115); Potassium 3.5 mmol/L (3.3-5.1); Sodium 133 mmol/L (135-145); Total Protein 5.2 g/dL (6.5-8.0)
[2023-09-27 06:58] VITALS: BP 134/86; PULSE 78; RESP 17; TEMP 36.1; O2SAT 94
[2023-09-27 08:22] VITALS: BP 134/86; PULSE 78; O2SAT 94
[2023-09-27] MEDS: Furosemide 40 MG TABLET PO (08:52)
[2023-09-27] MEDS: Aspirin 81 MG TAB.CHEW PO (08:52)
[2023-09-27] MEDS: FLUoxetine HCl 20 MG CAPSULE 40 MG PO (08:53)
[2023-09-27] MEDS: allopurinoL 300 MG TABLET PO (08:53)
[2023-09-27] MEDS: Spironolactone 25 MG TABLET 12.5 MG PO (08:53)
[2023-09-27] MEDS: Amiodarone HCL 200 MG TABLET PO (08:53)
[2023-09-27] MEDS: Metoprolol Succinate ER 25 MG TAB.ER.24H PO (08:53)
[2023-09-27] MEDS: Multivitamin TABLET 1 TAB PO (08:53)
[2023-09-27] MEDS: 0.9 % Sodium Chloride Flush 3 ML SYRINGE IVFLUSH ×3 (08:59→23:03)
--- NOTE | 2023-09-27 10:31 | MHC.CM.PN ---
IMM 09/27/23 DELIVERED TO PT'S /HCP EARL MOTA [phone] AT BEDSIDE, EARL REPORTS PT IS DEPENDENT W/CARE, AMBULATES W/WALKER AND ASSISTANCE BY FAMILY, BEDSIDE COMMODE, SHOWER CHAIR, TOILET RISER W/CARETENDERS (PLAN TO TRABNSITION TO PALLIATIVE FOR SN/PT AND ADDITIONAL PRIVATE DUTY PT BIWKLY AND EARL AND 2 SONS CARE FOR PT AT HOME, EARL ALSO REPORTS THEY HAVE HIRED A PRIVATE DUTTY HEAD OF HOUSEKEEPING/MARBLE MACHINE TENDER FOR SHOWERING. EARL WAS ASKING IF PT COULD BE SEEN BY NEURO BECAUSE PT HAS AN APPT W/NEURO ON 11/21, HOSPITALIST AWARE. COVID VACC X4, PCP VERIFIED ANSLEY HERNANDEZ, EARL BROUGHT IN COPY OF MOLST WHICH HAS BEEN UPLOADED TO [employer] AND PLACED IN CHART AND WILL BRING IN HCP.
--- NOTE | 2023-09-27 10:36 | MHC.SL.SWA ---
Speech Pathologist Impression: Risk of aspiration, oral phase dysphagia Risk of Aspiration Due to: History of Pneumonia Reduced Cognition Dysphasia Diet Status: UPGRADE from NDD2 to NDD3 Liquid Consistency and Strategies for Safe Swallow: Liquid Intake Recommendation: Thin Liquid Intake Strategies: Small Sips No Straws Solid Food Consistency: Dietary Recommendations: Chopped/Advanced (NDD3) Additional Modifications to Solid Foods: Patient seen for bedside dysphagia exam this morning. No overt s/s of aspiration noted with intake of solids and liquids. Patient demonstrated slowed oral phase, characterized by prolonged mastication and presence of oral residuals on harder solids. Recommend CHOPPED/ADVANCED (NDD3) diet for ease of mastication and THIN liquids, pills WHOLE or CRUSHED in PUREE per pt's tolerance. Patient attempts to feed himself, but may need some guidance bringing utensils to his mouth and assistance with tray set up, opening of containers, ensuring foods are within reach and accessible. Standard aspiration precautions apply. Oral Medication Intake: Whole with Puree Please contact the pharmacy regarding appropriate crushable or liquid drug formulations that are available whenever modified delivery is recommended. Compensatory Strategies and Precautions to be Taken for Safe Swallow: Sitting Upright (90 deg) Double Swallow No Straw Small Bites and Sips Alternate Liquids/Solids Rate of Ingestion Change Oral Check Avoid Specific Foods Supervision While Eating and Drinking for Safe Swallow: Total Supervision (1:1) Foods to Avoid: Hard, dry, or sticky foods Swallowing Recommended Treatments: Compens. Strategy Educat. Recommendation for Speech: Inpatient Speech Therapy Comment: APPEALS SPECIALIST will continue to follow while inpatient. Frequency/Duration: M-F PRN Date Range for Service Req: Timeline to reassess: Bias Cutting Machine Operator Clinican/Clinical Fellow: No Supervisory Statement: I have reviewed and agree with the student/clinical fellow's documentation: N/A Speech Language Pathologist: Merari Jenkins M.A., CCC-APPEALS SPECIALIST
--- NOTE | 2023-09-27 10:47 | P.PNIM_ITS ---
Subjective Subjective Date of Service: 09/27/23 Interval History: Seen and evaluated this morning Looks more comfortable No abnormal movements Decrease O2 supplement did well with LOGISTICS ASSISTANT Review of Systems Review of Systems: Yes all other systems are reviewed and are negative Physical Exam 2 Vital Signs: Vital Signs: Last Vital Signs Temp 97 F 09/27/23 06:58 Pulse 78 09/27/23 06:58 Resp 17 09/27/23 06:58 BP 134/86 09/27/23 06:58 Pulse Ox 94 09/27/23 06:58 O2 Del Method Nasal Cannula 09/27/23 06:58 O2 Flow Rate 2 09/27/23 06:58 Oxygen Flow Rate 2 09/26/23 09:40 BMI result Body Mass Index 22.8 Const: Other: Constitutional : Awake, interactive, not in distress Neck : Normal inspection, Supple Cardiovascular : RRR, no JVP, no lower extremity edema Respiratory : good bilateral air entry, basal fine crackles bilaterally Gastrointestinal: soft, lax, Normal bowel sounds, Non tender Skin : Warm, Dry Neurological : Alert & oriented to self and place, No focal deficit Objective Data Active Medications Acetaminophen (Acetaminophen 325 Mg Tablet) 650 mg PO Q6H PRN PRN Reason: Pain, Mild (Pain Scale 1-3) Allopurinol (Allopurinol 300 Mg Tablet) 300 mg PO DAILY [facility] Last Admin: 09/27/23 08:53 Dose: 300 mg Documented By: SOPHIA Amiodarone HCl (Amiodarone Hcl 200 Mg Tablet) 200 mg PO DAILY [facility] Last Admin: 09/27/23 08:53 Dose: 200 mg Documented By: SOPHIA Aspirin (Aspirin 81 Mg Tab.Chew) 81 mg PO DAILY [facility] Last Admin: 09/27/23 08:52 Dose: 81 mg Documented By: SOPHIA Atorvastatin Calcium (Atorvastatin Calcium 80 Mg Tablet) 80 mg PO BEDTIME [facility] Last Admin: 09/26/23 21:05 Dose: 80 mg Documented By: CORINA Benzonatate (Benzonatate 100 Mg Capsule) 100 mg PO TID PRN PRN Reason: Cough Docusate Sodium (Docusate Sodium 100 Mg Capsule) 100 mg PO DAILY PRN PRN Reason: Constipation Doxazosin Mesylate (Doxazosin Mesylate 1 Mg Tablet) 1 mg PO BEDTIME [facility] Last Admin: 09/26/23 21:05 Dose: 1 mg Documented By: CORINA Enoxaparin Sodium (Enoxaparin Sodium 40 Mg/0.4 Ml Syringe) 40 mg SUBCUT Q24H [facility] Last Admin: 09/26/23 17:50 Dose: 40 mg Documented By: MOO Fluoxetine HCl (Fluoxetine Hcl 20 Mg Capsule) 40 mg PO DAILY [facility] Last Admin: 09/27/23 08:53 Dose: 40 mg Documented By: SOPHIA Furosemide (Furosemide 40 Mg Tablet) 40 mg PO DAILY [facility]; Protocol Last Admin: 09/27/23 08:52 Dose: 40 mg Documented By: SOPHIA Piperacillin Sod/Tazobactam (Sod 3.375 gm/ Sodium Chloride) 50 mls @ 100 mls/hr IV Q6H [facility] Last Infusion: 09/27/23 05:17 Dose: Infused Documented By: CORINA Melatonin (Melatonin 3 Mg Tablet) 6 mg PO BEDTIME PRN PRN Reason: Insomnia Metoprolol Succinate (Metoprolol Succinate Er 25 Mg Tab.Er.24h) 25 mg PO DAILY [facility]; Protocol Last Admin: 09/27/23 08:53 Dose: 25 mg Documented By: SOPHIA Multivitamins/Vitamin C (Multivitamin Tablet) 1 tab PO DAILY [facility] Last Admin: 09/27/23 08:53 Dose: 1 tab Documented By: SOPHIA Ondansetron HCl (Ondansetron Hcl 4 Mg/2 Ml Vial) 4 mg IVPUSH Q8H PRN PRN Reason: Nausea and Vomiting Sodium Chloride (0.9 % Sodium Chloride Flush 3 Ml Syringe) 3 ml IVFLUSH QSHIFT [facility] Last Admin: 09/27/23 08:59 Dose: 3 ml Documented By: SOPHIA Spironolactone (Spironolactone 25 Mg Tablet) 12.5 mg PO DAILY [facility]; Protocol Last Admin: 09/27/23 08:53 Dose: 12.5 mg Documented By: SOPHIA Trazodone HCl (Trazodone Hcl 50 Mg Tablet) 50 mg PO BEDTIME [facility] Last Admin: 09/26/23 21:05 Dose: 50 mg Documented By: CORINA Labs 09/27/23 05:16 09/27/23 05:16 Labs: Laboratory Results - last 24 hr 09/26/23 09/26/23 09/27/23 10:15 16:03 05:16 MCV 83.9 MCH MCHC RDW Plt Count MPV Absolute Nucleated RBC Nucleated RBC % (auto) Anion Gap 13 Estim Creat Clear Calc 75.0 Estimated GFR > 60 Random Glucose 105 Calcium 8.5 Magnesium 2.2 Total Bilirubin 3.0 H Direct Bilirubin 1.8 H AST 66 H ALT 67 H Alkaline Phosphatase 124 H C-Reactive Protein 24.78 H Total Protein 5.9 L Albumin 2.8 L Urine Color Dark Yellow Urine Appearance Clear Urine pH 5.5 Ur Specific [place] >= 1.030 H Urine Protein 30 (1+) H Urine Glucose (UA) Negative Urine Ketones Negative Urine Blood Negative Urine Nitrite Negative Ur Leukocyte Esterase Negative Urine RBC 0-2 Urine WBC 0-5 Ur Squamous Epith Cells 0-2 Urine Bacteria None Seen Hyaline Casts 0-2 Influenza Type A (PCR) NEGATIVE Influenza Type B (PCR) NEGATIVE RSV RNA Qual (PCR) NEGATIVE SARS-CoV-2 RNA (RT-PCR) NEGATIVE 09/27/23 09/27/23 09/27/23 05:16 05:16 05:16 MCV 84.1 MCH 29.7 29.6 MCHC 35.4 35.2 RDW 16.8 H Plt Count MPV Absolute Nucleated RBC Nucleated RBC % (auto) Anion Gap Estim Creat Clear Calc Estimated GFR Random Glucose Calcium Magnesium Total Bilirubin Direct Bilirubin AST ALT Alkaline Phosphatase C-Reactive Protein Total Protein Albumin Urine Color Urine Appearance Urine pH Ur Specific [place] Urine Protein Urine Glucose (UA) Urine Ketones Urine Blood Urine Nitrite Ur Leukocyte Esterase Urine RBC Urine WBC Ur Squamous Epith Cells Urine Bacteria Hyaline Casts Influenza Type A (PCR) Influenza Type B (PCR) RSV RNA Qual (PCR) SARS-CoV-2 RNA (RT-PCR) 09/27/23 09/27/23 09/27/23 05:16 05:16 05:16 MCV MCH MCHC RDW 16.9 H Plt Count 282 287 MPV 10.8 10.8 Absolute Nucleated RBC 0.000 Nucleated RBC % (auto) Anion Gap Estim Creat Clear Calc Estimated GFR Random Glucose Calcium Magnesium Total Bilirubin Direct Bilirubin AST ALT Alkaline Phosphatase C-Reactive Protein Total Protein Albumin Urine Color Urine Appearance Urine pH Ur Specific [place] Urine Protein Urine Glucose (UA) Urine Ketones Urine Blood Urine Nitrite Ur Leukocyte Esterase Urine RBC Urine WBC Ur Squamous Epith Cells Urine Bacteria Hyaline Casts Influenza Type A (PCR) Influenza Type B (PCR) RSV RNA Qual (PCR) SARS-CoV-2 RNA (RT-PCR) 09/27/23 09/27/23 09/27/23 05:16 05:16 05:16 MCV MCH MCHC RDW Plt Count MPV Absolute Nucleated RBC 0.000 Nucleated RBC % (auto) 0.0 0.0 Anion Gap 11 L 11 L Estim Creat Clear Calc 86.4 Estimated GFR Random Glucose Calcium Magnesium Total Bilirubin Direct Bilirubin AST ALT Alkaline Phosphatase C-Reactive Protein Total Protein Albumin Urine Color Urine Appearance Urine pH Ur Specific [place] Urine Protein Urine Glucose (UA) Urine Ketones Urine Blood Urine Nitrite Ur Leukocyte Esterase Urine RBC Urine WBC Ur Squamous Epith Cells Urine Bacteria Hyaline Casts Influenza Type A (PCR) Influenza Type B (PCR) RSV RNA Qual (PCR) SARS-CoV-2 RNA (RT-PCR) 09/27/23 09/27/23 09/27/23 05:16 05:16 05:16 MCV MCH MCHC RDW Plt Count MPV Absolute Nucleated RBC Nucleated RBC % (auto) Anion Gap Estim Creat Clear Calc 87.6 Estimated GFR > 60 > 60 Random Glucose 115 114 Calcium 8.0 L Magnesium Total Bilirubin Direct Bilirubin AST ALT Alkaline Phosphatase C-Reactive Protein Total Protein Albumin Urine Color Urine Appearance Urine pH Ur Specific [place] Urine Protein Urine Glucose (UA) Urine Ketones Urine Blood Urine Nitrite Ur Leukocyte Esterase Urine RBC Urine WBC Ur Squamous Epith Cells Urine Bacteria Hyaline Casts Influenza Type A (PCR) Influenza Type B (PCR) RSV RNA Qual (PCR) SARS-CoV-2 RNA (RT-PCR) 09/27/23 05:16 MCV MCH MCHC RDW Plt Count MPV Absolute Nucleated RBC Nucleated RBC % (auto) Anion Gap Estim Creat Clear Calc Estimated GFR Random Glucose Calcium 8.1 L Magnesium Total Bilirubin 2.2 H Direct Bilirubin AST 58 H ALT 53 H Alkaline Phosphatase 109 C-Reactive Protein Total Protein 5.2 L Albumin 2.4 L Urine Color Urine Appearance Urine pH Ur Specific [place] Urine Protein Urine Glucose (UA) Urine Ketones Urine Blood Urine Nitrite Ur Leukocyte Esterase Urine RBC Urine WBC Ur Squamous Epith Cells Urine Bacteria Hyaline Casts Influenza Type A (PCR) Influenza Type B (PCR) RSV RNA Qual (PCR) SARS-CoV-2 RNA (RT-PCR) Assessment and Plan (1) Aspiration pneumonia: Status: Acute (2) Sepsis: Status: Acute (3) Swallowing problem: Status: Acute Plan Pt is a 73-year-old male with a PMH significant for?HLD, persistent AFib not anticoagulated due to fall risk, HFrEF (EF 30-35% 02/2023), pulmonary hypertension, unspecified dementia, cardiomegaly with implantable cardioverter/defibrillator in place, and hx of gout who presents to the ED for evaluation?of vomiting and possible aspiration. Pt was treated with IVF, ceftriaxone, metronidazole, and azithromycin. Pt will be admitted to the hospital for treatment and further evaluation of likely aspiration pneumonia with sepsis. Sepsis 2/2 aspiration pneumonia Pending cultures Continue Zosyn chronically on 2L home O2 LOGISTICS ASSISTANT eval: 1:1, precautions Transaminitis CT of abd/pelvis negative for acute abd, cholecystitis Trending down could be related to sepsis, vomiting follow LFT Diet LOGISTICS ASSISTANT input appreciated, chopped diet Generalized weakness, hx of recent frequent falls PT consult AFib Not on anticoagulation due to fall risk Continue metoprolol, amiodarone CAD/HLD Continue statin, aspirin HFrEF Not in acute exacerbation Continue furosemide, spironolactone Mood disorder Continue fluoxetine Hx of gout Continue allopurinol Full Code DVT Prophylaxis: Lovenox Pt will require a hospitalization overnight for treatment of likely aspiration with sepsis. will require hospitalization for administration of IV antibiotics, close monitoring labs and respiratory status, and ultimately PT consult for safe disposition. Quality Stroke Does the patient have a stroke diagnosis?: No VTE Prior VTE?: No VTE Risk Level:: Medical - moderate - high VTE Device Contraindication: Treatment Not Indicated VTE Drug Contraindication: N/A - Med Ordered
[2023-09-27] MEDS: Docusate Sodium 100 MG CAPSULE PO ×3 (10:58→20:29)
[2023-09-27 11:28] LABS: Glucose, Whole Blood 189 mg/dL (60-115)
[2023-09-27] MEDS: Lactulose 20 GM/30 ML SOLUTION PO (14:48)
[2023-09-27 15:21] VITALS: BP 117/59; PULSE 65; RESP 17; TEMP 36.2; O2SAT 93
[2023-09-27] MEDS: Enoxaparin Sodium 40 MG/0.4 ML SYRINGE SUBCUT (17:31)
[2023-09-27 19:48] VITALS: BP 143/87; PULSE 65; RESP 16; TEMP 36.3; O2SAT 93
[2023-09-27] MEDS: Atorvastatin Calcium 80 MG TABLET PO (20:29)
[2023-09-27] MEDS: traZODone HCL 50 MG TABLET PO (20:29)
[2023-09-27] MEDS: Doxazosin Mesylate 1 MG TABLET PO (20:29)
[2023-09-28 03:22] VITALS: BP 127/86; PULSE 69; RESP 16; TEMP 36.6; O2SAT 97
[2023-09-28 05:45] LABS: Hematocrit 35.4 % (42.0-52.0); Hemoglobin 12.8 g/dl (14.0-18.0); Mean Corpuscular HGB Conc 36.2 g/dl (31.0-36.0); Mean Corpuscular Hemoglobin 29.9 pg (27.0-33.0); Mean Corpuscular Volume 82.7 fL (80.0-98.0); Mean Platelet Volume 10.6 fL (9.4-12.4); Platelet Count 276 X10*3/uL (160-400); Red Blood Count 4.28 X10*6/uL (4.60-5.80); Red Cell Distribution Width 16.8 % (11.0-16.0); White Blood Count 10.2 X10*3/uL (4.8-10.8)
[2023-09-28] MEDS: Piperacillin Sodium/Tazobactam 3.375 GM in 0.9 % Sodium Chloride 50 ML IV ×4 (05:46→22:07)
[2023-09-28 06:01] LABS: Anion Gap 10 (12-20); Blood Urea Nitrogen 19 mg/dL (9-16); Carbon Dioxide 21 mmol/L (22-29); Chloride 105 mmol/L (96-108); Creatinine Clr Calc Pharmacy 82.9; Estimated Glomerular Filt Rate > 60; Glucose Random 102 mg/dL (60-115); Potassium 3.3 mmol/L (3.3-5.1); Sodium 133 mmol/L (135-145)
[2023-09-28 07:01] VITALS: BP 135/72; PULSE 67; RESP 16; TEMP 36.3; O2SAT 97
[2023-09-28] MEDS: Aspirin 81 MG TAB.CHEW PO (08:10)
[2023-09-28] MEDS: FLUoxetine HCl 20 MG CAPSULE 40 MG PO (08:10)
[2023-09-28] MEDS: Multivitamin TABLET 1 TAB PO (08:10)
[2023-09-28] MEDS: Metoprolol Succinate ER 25 MG TAB.ER.24H PO (08:10)
[2023-09-28] MEDS: Lactulose 20 GM/30 ML SOLUTION PO ×2 (08:10→22:08)
[2023-09-28] MEDS: Spironolactone 25 MG TABLET 12.5 MG PO (08:11)
[2023-09-28] MEDS: Amiodarone HCL 200 MG TABLET PO (08:11)
[2023-09-28] MEDS: Docusate Sodium 100 MG CAPSULE PO ×2 (08:11→22:08)
[2023-09-28] MEDS: allopurinoL 300 MG TABLET PO (08:11)
[2023-09-28] MEDS: Furosemide 40 MG TABLET PO (08:11)
[2023-09-28] MEDS: 0.9 % Sodium Chloride Flush 3 ML SYRINGE IVFLUSH ×3 (08:17→22:08)
--- NOTE | 2023-09-28 10:03 | MHC.CM.PN ---
MESSAGE LEFT FOR , EARL, PER PATIENT REQUEST, AT [phone]. PLAN IS TO DISCUSS DC PLAN, P.T. IS RECOMMENDED STR.
--- NOTE | 2023-09-28 10:27 | HO.PM.IMPN ---
Subjective Subjective Date of Service: 09/28/23 Interval History: Seen and evaluated this morning Looks comfortable , on 2L O2 did well with LACE CUTTER Pending final cultures Review of Systems Review of Systems: Yes all other systems are reviewed and are negative Physical Exam Vital Signs: Vital Signs: Last Vital Signs Temp 97.4 F 09/28/23 07:01 Pulse 67 09/28/23 07:01 Resp 16 09/28/23 07:01 BP 135/72 09/28/23 07:01 Pulse Ox 97 09/28/23 07:01 O2 Del Method Nasal Cannula 09/28/23 07:01 O2 Flow Rate 2 09/28/23 07:01 Oxygen Flow Rate 2 09/26/23 09:40 BMI result Body Mass Index 22.8 Const: Other: Constitutional : Awake, interactive, not in distress Neck : Normal inspection, Supple Cardiovascular : RRR, no JVP, no lower extremity edema Respiratory : good bilateral air entry, basal fine crackles bilaterally Gastrointestinal: soft, lax, Normal bowel sounds, Non tender Skin : Warm, Dry Neurological : Alert & oriented to self and place, No focal deficit Objective Data Active Medications Acetaminophen (Acetaminophen 325 Mg Tablet) 650 mg PO Q6H PRN PRN Reason: Pain, Mild (Pain Scale 1-3) Allopurinol (Allopurinol 300 Mg Tablet) 300 mg PO DAILY [facility] Last Admin: 09/28/23 08:11 Dose: 300 mg Documented By: JYOTI Amiodarone HCl (Amiodarone Hcl 200 Mg Tablet) 200 mg PO DAILY [facility] Last Admin: 09/28/23 08:11 Dose: 200 mg Documented By: JYOTI Aspirin (Aspirin 81 Mg Tab.Chew) 81 mg PO DAILY [facility] Last Admin: 09/28/23 08:10 Dose: 81 mg Documented By: JYOTI Atorvastatin Calcium (Atorvastatin Calcium 80 Mg Tablet) 80 mg PO BEDTIME [facility] Last Admin: 09/27/23 20:29 Dose: 80 mg Documented By: LYSZ Benzonatate (Benzonatate 100 Mg Capsule) 100 mg PO TID PRN PRN Reason: Cough Docusate Sodium (Docusate Sodium 100 Mg Capsule) 100 mg PO DAILY PRN PRN Reason: Constipation Last Admin: 09/27/23 10:58 Dose: 100 mg Documented By: GRAZIC Docusate Sodium (Docusate Sodium 100 Mg Capsule) 100 mg PO BID [facility] Last Admin: 09/28/23 08:11 Dose: 100 mg Documented By: JYOTI Doxazosin Mesylate (Doxazosin Mesylate 1 Mg Tablet) 1 mg PO BEDTIME [facility] Last Admin: 09/27/23 20:29 Dose: 1 mg Documented By: KIM Enoxaparin Sodium (Enoxaparin Sodium 40 Mg/0.4 Ml Syringe) 40 mg SUBCUT Q24H [facility] Last Admin: 09/27/23 17:31 Dose: 40 mg Documented By: SOPHIA Fluoxetine HCl (Fluoxetine Hcl 20 Mg Capsule) 40 mg PO DAILY [facility] Last Admin: 09/28/23 08:10 Dose: 40 mg Documented By: JYOTI Furosemide (Furosemide 40 Mg Tablet) 40 mg PO DAILY [facility]; Protocol Last Admin: 09/28/23 08:11 Dose: 40 mg Documented By: JYOTI Piperacillin Sod/Tazobactam (Sod 3.375 gm/ Sodium Chloride) 50 mls @ 100 mls/hr IV Q6H [facility] Last Infusion: 09/28/23 06:56 Dose: Infused Documented By: CALLI Lactulose (Lactulose 20 Gm/30 Ml Solution) 20 gm PO BID [facility] Last Admin: 09/28/23 08:10 Dose: 20 gm Documented By: JYOTI Melatonin (Melatonin 3 Mg Tablet) 6 mg PO BEDTIME PRN PRN Reason: Insomnia Metoprolol Succinate (Metoprolol Succinate Er 25 Mg Tab.Er.24h) 25 mg PO DAILY [facility]; Protocol Last Admin: 09/28/23 08:10 Dose: 25 mg Documented By: JYOTI Multivitamins/Vitamin C (Multivitamin Tablet) 1 tab PO DAILY [facility] Last Admin: 09/28/23 08:10 Dose: 1 tab Documented By: JYOTI Ondansetron HCl (Ondansetron Hcl 4 Mg/2 Ml Vial) 4 mg IVPUSH Q8H PRN PRN Reason: Nausea and Vomiting Sodium Chloride (0.9 % Sodium Chloride Flush 3 Ml Syringe) 3 ml IVFLUSH QSHIFT [facility] Last Admin: 09/28/23 08:17 Dose: 3 ml Documented By: JYOTI Spironolactone (Spironolactone 25 Mg Tablet) 12.5 mg PO DAILY [facility]; Protocol Last Admin: 09/28/23 08:11 Dose: 12.5 mg Documented By: JYOTI Trazodone HCl (Trazodone Hcl 50 Mg Tablet) 50 mg PO BEDTIME [facility] Last Admin: 09/27/23 20:29 Dose: 50 mg Documented By: KIM Labs 09/28/23 05:20 09/28/23 05:20 Labs: Laboratory Results - last 24 hr 09/27/23 09/28/23 11:09 05:20 MCV 82.7 MCH 29.9 MCHC 36.2 H RDW 16.8 H Plt Count 276 MPV 10.6 Absolute Nucleated RBC 0.000 Nucleated RBC % (auto) 0.0 Anion Gap 10 L Estim Creat Clear Calc 82.9 Estimated GFR > 60 POC Glucose 189 H Random Glucose 102 Calcium 8.0 L Microbiology Microbiology Results: Microbiology 09/26/23 10:28 Blood Culture - Preliminary Blood - Venous No growth after 24 hours. 09/26/23 10:15 Blood Culture - Preliminary Blood - Venous No growth after 24 hours. Assessment and Plan (1) Swallowing problem: Status: Acute (2) Sepsis: Status: Acute (3) Aspiration pneumonia: Status: Acute (4) Physical deconditioning: Status: Acute Plan Pt is a 73-year-old male with a PMH significant for?HLD, persistent AFib not anticoagulated due to fall risk, HFrEF (EF 30-35% 02/2023), pulmonary hypertension, unspecified dementia, cardiomegaly with implantable cardioverter/defibrillator in place, and hx of gout who presents to the ED for evaluation?of vomiting and possible aspiration. Pt was treated with IVF, ceftriaxone, metronidazole, and azithromycin. Pt will be admitted to the hospital for treatment and further evaluation of likely aspiration pneumonia with sepsis. Sepsis 2/2 aspiration pneumonia Pending cultures Continue Zosyn chronically on 2L home O2 LACE CUTTER eval: 1:1, precautions Transaminitis CT of abd/pelvis negative for acute abd, cholecystitis Trending down could be related to sepsis, vomiting follow LFT Diet LACE CUTTER input appreciated, chopped diet Generalized weakness, hx of recent frequent falls PT rec STR vs Home 14/01 service Has neurology evaluation by the end of October AFib Not on anticoagulation due to fall risk Continue metoprolol, amiodarone CAD/HLD Continue statin, aspirin HFrEF Not in acute exacerbation Continue furosemide, spironolactone Mood disorder Continue fluoxetine Hx of gout Continue allopurinol Full Code DVT Prophylaxis: Lovenox Pt will require a hospitalization overnight for treatment of likely aspiration with sepsis. will require hospitalization for administration of IV antibiotics, close monitoring labs and respiratory status, and ultimately PT consult for safe disposition. Quality Stroke Does the patient have a stroke diagnosis?: No VTE Prior VTE?: No VTE Risk Level:: Medical - moderate - high VTE Device Contraindication: Treatment Not Indicated VTE Drug Contraindication: N/A - Med Ordered
--- NOTE | 2023-09-28 11:12 | MHC.CM.PN ---
PER DISCUSSION WITH AND HOSPITALIST, NO PLAN FOR DC TODAY. NO SNF REFERRALS WILL BE PLACED. PATIENT HAS AMPLE ASSISTANCE IN THE HOME AND WANTS PATIENT HOME WITH RESUMPTION OF HIS [facility] VNA AND P.T. SERVICES. SON WILL BE HOME AND ABLE TO ASSIST WITH PATIENT CARE THIS COMING SATURDAY, September. PATIENT WILL REQUIRE BLS HOME. , EARL, CAN BE REACHED AT [phone], AND NOT THE NUMBER LISTED IN EXPANSE.
[2023-09-28 15:10] VITALS: BP 134/88; PULSE 62; RESP 18; TEMP 37; O2SAT 97
[2023-09-28] MEDS: Enoxaparin Sodium 40 MG/0.4 ML SYRINGE SUBCUT (17:11)
[2023-09-28 20:00] VITALS: BP 147/91; PULSE 62; RESP 14; TEMP 36.3; O2SAT 98
[2023-09-28] MEDS: traZODone HCL 50 MG TABLET PO (22:08)
[2023-09-28] MEDS: Doxazosin Mesylate 1 MG TABLET PO (22:08)
[2023-09-28] MEDS: Atorvastatin Calcium 80 MG TABLET PO (22:08)
[2023-09-29 03:31] VITALS: BP 125/80; PULSE 64; RESP 18; TEMP 36; O2SAT 96
[2023-09-29] MEDS: Piperacillin Sodium/Tazobactam 3.375 GM in 0.9 % Sodium Chloride 50 ML IV ×4 (05:16→22:37)
[2023-09-29 07:28] VITALS: BP 133/85; PULSE 63; RESP 16; TEMP 36.2; O2SAT 96
[2023-09-29] MEDS: Lactulose 20 GM/30 ML SOLUTION PO ×2 (09:08→20:15)
[2023-09-29] MEDS: 0.9 % Sodium Chloride Flush 3 ML SYRINGE IVFLUSH ×3 (09:08→20:15)
[2023-09-29] MEDS: Aspirin 81 MG TAB.CHEW PO (09:09)
[2023-09-29] MEDS: Spironolactone 25 MG TABLET 12.5 MG PO (09:09)
[2023-09-29] MEDS: Furosemide 40 MG TABLET PO (09:09)
[2023-09-29] MEDS: Multivitamin TABLET 1 TAB PO (09:09)
[2023-09-29] MEDS: allopurinoL 300 MG TABLET PO (09:09)
[2023-09-29] MEDS: FLUoxetine HCl 20 MG CAPSULE 40 MG PO (09:09)
[2023-09-29] MEDS: Metoprolol Succinate ER 25 MG TAB.ER.24H PO (09:09)
[2023-09-29] MEDS: Amiodarone HCL 200 MG TABLET PO (09:10)
[2023-09-29] MEDS: Docusate Sodium 100 MG CAPSULE PO ×2 (09:10→20:15)
--- NOTE | 2023-09-29 12:14 | P.PNIM_ITS ---
Subjective Subjective Date of Service: 09/29/23 Interval History: Seen and evaluated this morning Looks comfortable , weaned down to RA tolerating diet negative final cultures Review of Systems Review of Systems: Yes all other systems are reviewed and are negative Physical Exam 2 Vital Signs: Vital Signs: Last Vital Signs Temp 97.2 F 09/29/23 07:28 Pulse 63 09/29/23 07:28 Resp 16 09/29/23 07:28 BP 133/85 09/29/23 07:28 Pulse Ox 96 09/29/23 07:28 O2 Del Method Room Air 09/29/23 07:28 O2 Flow Rate 2 09/28/23 07:01 Oxygen Flow Rate 2 09/26/23 09:40 BMI result Body Mass Index 22.8 Const: Other: Constitutional : Awake, interactive, not in distress Neck : Normal inspection, Supple Cardiovascular : RRR, no JVP, no lower extremity edema Respiratory : good bilateral air entry, no crackles Gastrointestinal: soft, lax, Normal bowel sounds, Non tender Skin : Warm, Dry Neurological : Alert & oriented to self and place, No focal deficit Objective Data Active Medications Acetaminophen (Acetaminophen 325 Mg Tablet) 650 mg PO Q6H PRN PRN Reason: Pain, Mild (Pain Scale 1-3) Allopurinol (Allopurinol 300 Mg Tablet) 300 mg PO DAILY [facility] Last Admin: 09/29/23 09:09 Dose: 300 mg Documented By: JYOTI Amiodarone HCl (Amiodarone Hcl 200 Mg Tablet) 200 mg PO DAILY [facility] Last Admin: 09/29/23 09:10 Dose: 200 mg Documented By: JYOTI Aspirin (Aspirin 81 Mg Tab.Chew) 81 mg PO DAILY [facility] Last Admin: 09/29/23 09:09 Dose: 81 mg Documented By: JYOTI Atorvastatin Calcium (Atorvastatin Calcium 80 Mg Tablet) 80 mg PO BEDTIME [facility] Last Admin: 09/28/23 22:08 Dose: 80 mg Documented By: LYSZ Benzonatate (Benzonatate 100 Mg Capsule) 100 mg PO TID PRN PRN Reason: Cough Docusate Sodium (Docusate Sodium 100 Mg Capsule) 100 mg PO DAILY PRN PRN Reason: Constipation Last Admin: 09/27/23 10:58 Dose: 100 mg Documented By: GRAZIC Docusate Sodium (Docusate Sodium 100 Mg Capsule) 100 mg PO BID [facility] Last Admin: 09/29/23 09:10 Dose: 100 mg Documented By: JYOTI Doxazosin Mesylate (Doxazosin Mesylate 1 Mg Tablet) 1 mg PO BEDTIME [facility] Last Admin: 09/28/23 22:08 Dose: 1 mg Documented By: KIM Enoxaparin Sodium (Enoxaparin Sodium 40 Mg/0.4 Ml Syringe) 40 mg SUBCUT Q24H [facility] Last Admin: 09/28/23 17:11 Dose: 40 mg Documented By: JYOTI Fluoxetine HCl (Fluoxetine Hcl 20 Mg Capsule) 40 mg PO DAILY [facility] Last Admin: 09/29/23 09:09 Dose: 40 mg Documented By: JYOTI Furosemide (Furosemide 40 Mg Tablet) 40 mg PO DAILY [facility]; Protocol Last Admin: 09/29/23 09:09 Dose: 40 mg Documented By: JYOTI Piperacillin Sod/Tazobactam (Sod 3.375 gm/ Sodium Chloride) 50 mls @ 100 mls/hr IV Q6H [facility] Last Infusion: 09/29/23 11:23 Dose: Infused Documented By: JYOTI Lactulose (Lactulose 20 Gm/30 Ml Solution) 20 gm PO BID [facility] Last Admin: 09/29/23 09:08 Dose: 20 gm Documented By: JYOTI Melatonin (Melatonin 3 Mg Tablet) 6 mg PO BEDTIME PRN PRN Reason: Insomnia Metoprolol Succinate (Metoprolol Succinate Er 25 Mg Tab.Er.24h) 25 mg PO DAILY [facility]; Protocol Last Admin: 09/29/23 09:09 Dose: 25 mg Documented By: JYOTI Multivitamins/Vitamin C (Multivitamin Tablet) 1 tab PO DAILY [facility] Last Admin: 09/29/23 09:09 Dose: 1 tab Documented By: JYOTI Ondansetron HCl (Ondansetron Hcl 4 Mg/2 Ml Vial) 4 mg IVPUSH Q8H PRN PRN Reason: Nausea and Vomiting Sodium Chloride (0.9 % Sodium Chloride Flush 3 Ml Syringe) 3 ml IVFLUSH QSHIFT [facility] Last Admin: 09/29/23 09:08 Dose: 3 ml Documented By: JYOTI Spironolactone (Spironolactone 25 Mg Tablet) 12.5 mg PO DAILY [facility]; Protocol Last Admin: 09/29/23 09:09 Dose: 12.5 mg Documented By: JYOTI Trazodone HCl (Trazodone Hcl 50 Mg Tablet) 50 mg PO BEDTIME [facility] Last Admin: 09/28/23 22:08 Dose: 50 mg Documented By: KIM Labs 09/28/23 05:20 09/28/23 05:20 Microbiology Microbiology Results: Microbiology 09/26/23 10:28 Blood Culture - Preliminary Blood - Venous No growth after 48 hours. 09/26/23 10:15 Blood Culture - Preliminary Blood - Venous No growth after 48 hours. Assessment and Plan (1) Physical deconditioning: Status: Acute (2) Sepsis: Status: Acute (3) Aspiration pneumonia: Status: Acute (4) Swallowing problem: Status: Acute Plan Pt is a 73-year-old male with a PMH significant for?HLD, persistent AFib not anticoagulated due to fall risk, HFrEF (EF 30-35% 02/2023), pulmonary hypertension, unspecified dementia, cardiomegaly with implantable cardioverter/defibrillator in place, and hx of gout who presents to the ED for evaluation?of vomiting and possible aspiration. Pt was treated with IVF, ceftriaxone, metronidazole, and azithromycin. Pt will be admitted to the hospital for treatment and further evaluation of likely aspiration pneumonia with sepsis. Sepsis 2/2 aspiration pneumonia negative cultures Continue Zosyn chronically on 2L home O2 INSIDE UPHOLSTERER eval: 1:1, precautions Transaminitis could be related to sepsis, vomiting CT of abd/pelvis negative for acute abd, cholecystitis Trending down follow LFT Diet INSIDE UPHOLSTERER input appreciated, chopped diet Generalized weakness, hx of recent frequent falls PT rec STR vs Home 14/01 service Has neurology evaluation by the end of October for movement disorder AFib Not on anticoagulation due to fall risk Continue metoprolol, amiodarone CAD/HLD Continue statin, aspirin HFrEF Not in acute exacerbation Continue furosemide, spironolactone Mood disorder Continue fluoxetine Hx of gout Continue allopurinol Full Code DVT Prophylaxis: Lovenox Pt will require a hospitalization overnight for treatment of likely aspiration pneumonia for administration of IV antibiotics pending safe placement as PT rec STR vs 24 hours services. Quality Stroke Does the patient have a stroke diagnosis?: No VTE Prior VTE?: No VTE Risk Level:: Medical - moderate - high VTE Device Contraindication: Treatment Not Indicated VTE Drug Contraindication: N/A - Med Ordered
[2023-09-29 15:04] VITALS: BP 137/79; PULSE 63; RESP 16; TEMP 36.6; O2SAT 96
[2023-09-29] MEDS: Enoxaparin Sodium 40 MG/0.4 ML SYRINGE SUBCUT (16:57)
[2023-09-29 19:28] VITALS: BP 141/94; PULSE 63; RESP 18; TEMP 36.7; O2SAT 94
[2023-09-29] MEDS: traZODone HCL 50 MG TABLET PO (20:15)
[2023-09-29] MEDS: Atorvastatin Calcium 80 MG TABLET PO (20:15)
[2023-09-29] MEDS: Doxazosin Mesylate 1 MG TABLET PO (20:15)
[2023-09-30 02:34] VITALS: BP 149/93; PULSE 64; RESP 18; TEMP 36.3; O2SAT 97
[2023-09-30] MEDS: Piperacillin Sodium/Tazobactam 3.375 GM in 0.9 % Sodium Chloride 50 ML IV ×2 (04:59→10:36)
[2023-09-30 06:59] VITALS: BP 137/78; PULSE 61; RESP 18; TEMP 36.5; O2SAT 95
[2023-09-30] MEDS: Multivitamin TABLET 1 TAB PO (09:11)
[2023-09-30] MEDS: FLUoxetine HCl 20 MG CAPSULE 40 MG PO (09:11)
[2023-09-30] MEDS: Metoprolol Succinate ER 25 MG TAB.ER.24H PO (09:11)
[2023-09-30] MEDS: Amiodarone HCL 200 MG TABLET PO (09:11)
[2023-09-30] MEDS: Furosemide 40 MG TABLET PO (09:11)
[2023-09-30] MEDS: Aspirin 81 MG TAB.CHEW PO (09:11)
[2023-09-30] MEDS: Spironolactone 25 MG TABLET 12.5 MG PO (09:11)
[2023-09-30] MEDS: allopurinoL 300 MG TABLET PO (09:11)
--- NOTE | 2023-09-30 10:17 | MHC.SL.SWA ---
Speech Pathologist Impression: Risk of aspiration Risk of Aspiration Due to: History of Pneumonia Reduced Cognition Dysphasia Diet Status: UPGRADE to REGULAR textures Liquid Consistency and Strategies for Safe Swallow: Liquid Intake Recommendation: Thin Liquid Intake Strategies: Small Sips Solid Food Consistency: Dietary Recommendations: Regular Additional Modifications to Solid Foods: UPGRADE from chopped/advanced (NDD3) diet to REGULAR texture solids, continue on THIN liquids, pills WHOLE in puree or liquid per pt's tolerance, periodic supervision to ensure tolerance, PROCESSING TECH to f/u 1x Oral Medication Intake: Whole with Puree Please contact the pharmacy regarding appropriate crushable or liquid drug formulations that are available whenever modified delivery is recommended. Compensatory Strategies and Precautions to be Taken for Safe Swallow: Sitting Upright (90 deg) Small Bites and Sips Alternate Liquids/Solids Rate of Ingestion Change Supervision While Eating and Drinking for Safe Swallow: Intermittent Supervision Swallowing Recommended Treatments: Compens. Strategy Educat. Recommendation for Speech: 1 f/u Home Health Care Provider Clinican/Clinical Fellow: No Supervisory Statement: I have reviewed and agree with the student/clinical fellow's documentation: N/A Speech Language Pathologist: Merari Jenkins M.A., [facility])-PROCESSING TECH
--- NOTE | 2023-09-30 11:42 | PM.DS ---
DS: Providers Provider Date of Service: 09/30/23 Date of admission: 09/26/23 15:32 Primary care physician: Elmer Puentes MD Consults: 09/28/23 09:49 Consult to Wound Care Routine Reason for consultation: stage 2 to coccyx DS: Diagnosis Discharge Diagnosis (1) Physical deconditioning: Status: Acute (2) Sepsis: Status: Acute (3) Aspiration pneumonia: Status: Acute (4) Swallowing problem: Status: Acute DS: Summary Hospital Course Hospital Course: Admission note Pt is a 73-year-old male with a PMH significant for?HLD, persistent AFib not anticoagulated due to fall risk, HFrEF (EF 30-35% 02/2023), pulmonary hypertension, unspecified dementia, cardiomegaly with implantable cardioverter/defibrillator in place, and hx of gout who presents to the ED for evaluation?of vomiting and possible aspiration. Pt is alert and oriented to self only and thus incapable of providing accurate HPI which is instead taken from chart and provider review. Attempted to contact pt's /HCP but call immediately went to voicemail. Pt apparently has had significant decline over the past few months with difficulty ambulating, frequent falls, increased memory loss and confusion. Patient had recent hospitalization from 07/24-07/26 at [facility] [facility] for evaluation of stroke-like symptoms. Workup there was largely negative and patient was discharged to [facility] and then back to home. Pt's reports he has had increased weakness, difficultly swallowing, and decreased appetite the past two days. Last night pt was witnessed to have episode of vomiting and this morning had a temperature of 100.9 at home. brought him to the ED out of concern for aspiration. She also apparently thought he was experiencing some right-sided discomfort. In the ED pt was febrile up to 101.1 and tachypneic to 30. Labs were significant for leukocytosis of 15.7, sodium 134, bilirubin 3.0, AST 66, ALT 67, alk-phos 124, C-reactive protein 24.78, protein 5.9, and albumin 2.8. Tested negative flu, RSV, COVID. CXR showed left lower lobe atelectasis and or pneumonia. CT of abdomen and pelvis found right lower lobe pneumonia and trace right pleural effusion. Also showed likely sludge and possibly small stones in gallbladder, but no evidence of cholecystitis. EKG demonstrated AFib without evidence of significant ST elevations or depressions. Pt was treated with IVF, ceftriaxone, metronidazole, and azithromycin. Pt will be admitted to the hospital for treatment and further evaluation of likely aspiration pneumonia with sepsis. Hospital course # Sepsis secondary to aspiration pneumonia that was treated with IV Zosyn as blood cultures remained negative. He was evaluated by Speech therapist who recommended upgrading him to regular diet. # Transaminitis likely related to sepsis as CT of abd/pelvis negative for acute abd, cholecystitis. trended down during hospital stay. # Generalized weakness, hx of recent frequent falls. PT rec STR vs Home 14/01 service. His would like to take him back home with services. Has neurology evaluation by the end of October for movement disorder. Discharge Plan Continue Augmentin as prescribed Chew well, take your time with food Continue physical therapy at home Time Attestation Discharge Coordination Time (in mins): 37 Quality: Safe Use of Opioids Does Pt have an Active Cancer Diagnosis on the Problem List?: No Quality: Stroke Does the patient have a stroke diagnosis?: No Physical Exam Vital Signs: Vital Signs: Last Vital Signs Temp 97.7 F 09/30/23 06:59 Pulse 61 09/30/23 06:59 Resp 18 09/30/23 06:59 BP 137/78 09/30/23 06:59 Pulse Ox 95 09/30/23 06:59 O2 Del Method Room Air 09/30/23 06:59 O2 Flow Rate 2 09/28/23 07:01 Oxygen Flow Rate 2 09/26/23 09:40 BMI result Body Mass Index 22.8 Const: Other: Constitutional : Awake, interactive, not in distress Neck : Normal inspection, Supple Cardiovascular : RRR, no JVP, no lower extremity edema Respiratory : good bilateral air entry, no crackles Gastrointestinal: soft, lax, Normal bowel sounds, Non tender Skin : Warm, Dry Neurological : Alert & oriented to self and place, No focal deficit DS: Data Data Completed and Pending Labs on day of discharge: Preliminary micro results at discharge 09/26/23 10:28 Blood Culture - Preliminary Blood - Venous No growth after 48 hours. 09/26/23 10:15 Blood Culture - Preliminary Blood - Venous No growth after 48 hours. Imaging Chest x-ray: Radiologist's impression: ITS Impressions Chest X-Ray 09/26/23 11:03 IMPRESSION: Left lower lobe atelectasis and/or pneumonia. This is not a typical location for aspiration. Abdomen/Pelvis CT 09/26/23 11:48 IMPRESSION: * Right lower lobe pneumonia and trace right pleural effusion. * Cardiomegaly with automatic implantable cardioverter defibrillator generator in place. * Diverticula of the descending and sigmoid colon without diverticulitis. * Gallbladder likely contains sludge and possibly a few very small stones. There is no evidence of cholecystitis. Discharge Plan Discharge Anticipated Discharge Date/Time: 09/30/23 11:22 Patient Disposition: Home Health Service Discharge Diagnosis: Aspiration pneumonia Referrals: Elmer Puentes MD [Primary Care Provider] - 1 Week Discharge Medications: New amoxicillin-pot clavulanate 400-57 mg/5 mL suspension for reconstitution 10 ml PO BID Qty: 100 0RF Continued multivitamin Tablet 1 tab PO DAILY furosemide 40 mg Tablet 40 mg PO DAILY allopurinol 300 mg Tablet 300 mg PO DAILY fluoxetine 40 mg capsule 40 mg PO DAILY atorvastatin 80 mg tablet 80 mg PO BEDTIME trazodone 50 mg tablet 50 mg PO BEDTIME amiodarone 200 mg tablet 200 mg PO DAILY terazosin 1 mg capsule 1 mg PO BEDTIME metoprolol succinate 25 mg tablet extended release 24 hr 25 mg PO DAILY spironolactone 25 mg tablet 12.5 mg PO DAILY aspirin 81 mg Tablet,Chewable 81 mg PO DAILY Discharge Orders: Discharge Order (Routine); Ordered 09/30/23 Ordered By: Cameron Leiva Diet: Advance to usual diet Activity on Discharge: As tolerated Stand Alone Forms: Patient Portal Discharge page Print Language: Polish Care Plan Goals: Read below Health Concerns: Read below Plan of Treatment: Read below Assessment: You were treated for pneumonia with good response over the course of hospital stay. Seen by speech therapist who felt comfortable with you having regular diet. Continue Augmentin as prescribed Chew well, take your time with food Continue physical therapy at home
[2023-09-30 12:41] VITALS: BP 137/78; PULSE 61; O2SAT 95
[2023-09-30 15:04] VITALS: BP 148/78; PULSE 62; RESP 20; TEMP 36.3; O2SAT 93
--- NOTE | 2023-09-30 15:16 | HO.WOUND ---
Wound Consult: Initial 73yr old? admitted to [facility] on 09/26/23 - See progress notes and H&P for detailed history.? Wound consult placed for Coccyx / Sacrum.? Patient agreeable to assessment and photo documentation.? Sacrum Etiology: Deep Tissue Injury in Evolution ??Present on Admission Measurements: see charting for detailed measurement Wound Bed: central adhernt yellow slough, dark purple nonblancahble tissue with epidermal lifting Drainage / Odor: None Edges: ? irregular Millie wound: red pink erythema remains blanchable - ? No Induration, Fluctuance or Warmth noted Pain: denies Goals of Treatment: ? Traid and foam to protect from friction and allow for autolytic healing Recommendations: 1. Turn and Reposition every 2 hours and as needed for patient comfort.? Use pillows or wedges to support off loading positions. 2. Off Load all bony prominences with use of pillows and heel boots if needed.? Apply Preventative foams where needed. ? 3. Monitor for incontinence and moisture control, use barrier creams when needed for prevention and treatment. 4. Provide adequate and supplemental nutrition.? 5. Order or Continue low air loss mattress. 6. When applicable maintain blood glucose levels per Providers order. 7. Sacrum - Off Load Pressure - Cleanse with PH balance spray or wipes, pat dry. ?Apply thin layer of Triad to wound bed. Do not remove all of paste between applications as this may cause further skin damage.? Cover with foam dressing to aid in off loading and protection from friction. Re-consult wound care Nurse for wound deterioration or wound changes.
--- NOTE | 2023-09-30 15:33 | MHC.CLN ---
NUTRITION CONSULT FOR WOUND. SEEN BY WOUND RN. DTI TO SACRUM. PO INTAKE VARIABLE WITH MOST MEALS LESS THAN 50%. ADDING ENSURE TID TO PROMOTE WOUND HEALING AND INCREASE KCAL INTAKE. SUPPLEMENT PROVIDES 1050 KCALS, 60 G PROTEIN. FOLLOW FOR INTAKE AND SKIN INTEGRITY.
--- NOTE | 2023-09-30 16:41 | MHC.CM.PN ---
PT CLEARED TO DC TODAY, HOME WITH RESUMPTION OF FAMILY CARE AND [facility] MET WITH PTS WHO INITIALLY HAD CONCERNS, BUT THEN REPORTED FEELING BETTER AFTER SPEAKING TO THE MD SHE REPORTS THE PT DOES HAVE A HOSPITAL BED COMING, HOWEVER SHE DOES NOT KNOW HOW LONG IT WILL BE, SHE SAYS THE PCP IS WORKING ON IT SHE CONFIRMS PT WAS ACTIVE WITH [facility] [employer] [employer] [facility], AND IS AWARE THEY WILL RESUME SHE SAYS SHE CARES FOR PT PRIMARILY, AND HER SON HELPS DAILY PER DSICUSSION, BLS TRANSPORT BOOKED VIA [employer] FOR 1600 HOURS
== END 2023-09-30 18:47 | disposition home health service (06) | DRG 871 ==
LOC: HO.ED 13:59 → HO.EDOVER 15:49 → HO.S3 16:43
PROVIDERS: Admitting Provider Student in an Organized Health Care Education/Training Program; Emergency Provider Emergency Medicine; PCP Internal Medicine; Visit Provider Student in an Organized Health Care Education/Training Program
DX: A41.9 Sepsis, unspecified organism (principal); J69.0 Pneumonitis due to inhalation of food and vomit; I50.22 Chronic systolic (congestive) heart failure; I48.19 Other persistent atrial fibrillation; I25.10 Atherosclerotic heart disease of native coronary artery without angina pectoris; F03.90 Unspecified dementia, unspecified severity, without behavioral disturbance, psychotic disturbance, mood disturbance, and anxiety; R74.01 Elevation of levels of liver transaminase levels; I27.20 Pulmonary hypertension, unspecified; E78.5 Hyperlipidemia, unspecified; M10.9 Gout, unspecified; G47.33 Obstructive sleep apnea (adult) (pediatric); Z20.822 Contact with and (suspected) exposure to COVID-19; Z95.810 Presence of automatic (implantable) cardiac defibrillator; Z87.891 Personal history of nicotine dependence; Z79.82 Long term (current) use of aspirin; Z79.899 Other long term (current) drug therapy
CPT/HCPCS: 0241U; 36415; 71045; 74177; 80048; 80053; 80076; 81001; 82947; 83605; 83735; 85025; 85027; 85610; 86140; 87040; 92526; 92610; 93005; 97161; 99285; J0696; J1650; J1836; J2543; Q9967

== ENCOUNTER → 2023-09-26 09:49 | Outpatient (BNV) | payer MEDICARE, SELFPAY | PROVIDERS: Admitting Provider Student in an Organized Health Care Education/Training Program; Emergency Provider Emergency Medicine; PCP Internal Medicine; Visit Provider Internal Medicine Cardiovascular Disease | DX: I48.91 Unspecified atrial fibrillation (principal) | CPT/HCPCS: 93010 ==

== ENCOUNTER → 2023-09-26 15:32 | Outpatient (BNV) | payer MEDICARE, SELFPAY | PROVIDERS: Admitting Provider Student in an Organized Health Care Education/Training Program; Emergency Provider Emergency Medicine; PCP Internal Medicine; Visit Provider Student in an Organized Health Care Education/Training Program | DX: R53.81 Other malaise (principal); A41.9 Sepsis, unspecified organism; J69.0 Pneumonitis due to inhalation of food and vomit; R13.10 Dysphagia, unspecified | CPT/HCPCS: 99223; 99232; 99239 ==

== ENCOUNTER 2023-11-21 10:41 | Outpatient (AMB) | payer MEDICARE, SELFPAY ==
--- NOTE | 2023-11-21 10:41 | A.OFFVIS_ITS ---
Intake Visit Reasons: ENP-Movement disorder Intake Note: Pt's , Radha is his historian. She reports about a year ago, he fell and broke his hip and hit his head as well. She has since seen a decline in his mental state despite all imaging was initially negative. He is currently confined to bed and does not speak anymore. Pt is currently on hospice. Chief Investment Officer Required: No Allergies bee pollen Allergy (Severe, Verified 11/21/23 10:44) RASH , SWELLING, Anaphylaxis Medication List - Last Reconciled 11/21/23 by Danielle Mares MD amiodarone 200 mg PO DAILY aspirin 81 mg PO DAILY fluoxetine 40 mg PO DAILY furosemide 40 mg PO DAILY metoprolol succinate ER 25 mg PO DAILY morphine ER 30 mg PO DAILY PRN spironolactone 12.5 mg PO DAILY terazosin 1 mg PO BEDTIME trazodone 50 mg PO BEDTIME HPI Comments Details: TELEVISIT- Patient in bedbound and he unable to get transportation 73y/o male with Dementia diagnosed in 2021 by PCP calls for opinion regrading diagnosis of Parkinsons. His Radha Castro, his HCP is the main historian. He had Congestive heart failure in Feb 2023 but recovered . In Jun 2023 he was admitted with HTN crisis at [facility] - his sytolic was over 200 and diastolic was 145 as per , Buts he says the wait in the ER was long ( 16 hrs ) and he developed mental status changes. Brain MRI showed T2 Flair and chronic small vessel disease.while he was hospitalized he developed hoarseness of voice , swallowing difficulties.He was also diagnosed with parkinsons and started on carbidopa/levodopa . After being on the medication for 1 week everytime he stood up his legs collapsed and it was discontinued. Since then he has declined significantly and mostly bed ridden . He is currently on Hospice services. ON LICENSE OF [facility] Medical History Dysphonia Dysphagia Weakness generalized HFrEF (heart failure with reduced ejection fraction) CAD (coronary artery disease) COVID-19 vaccine series completed Gout Vertigo Decreased right ventricular systolic function Pulmonary hypertension MUMTAZ (obstructive sleep apnea) Insomnia Diverticulosis Dyspnea on exertion Atrial fibrillation Elevated cholesterol On anticoagulant therapy HTN (hypertension) Surgical History Hx of colonoscopy History of total right knee replacement (TKR) Social History Household Members: Spouse Housing: Apartment Are you a primary healthcare business analyst to a significant other at home: No Do you presently have visiting nurse or other home services: No Alcohol intake: former Patient Tobacco Use Status: Former Tobacco user Tobacco use type: Cigarette service: No Physical Exam Const Other: Limited exam as this was a tele visit General: cooperative Nutritional Appearance: thin Orientation/consciousness: oriented to person Neuro Other: follows simple commands Decreased blink and facial expression Voice- hoarse No tremors In hospital bed- he was not able to sit up He was able to move all his extremities FFM decreased General: oriented to person Telehealth Telehealth Telehealth Platform: [employer] Location of provider rendering services: practice address Location of patient: address on file Patient Identification confirmed using: Name, : Yes Telehealth method: video Patient verbally consented to treatment: Yes Patient verbally consented to billing insurance company: Yes Patient informed of any privacy concerns related to visit: Yes Minutes spent on Phone/Video with Pt.: 35 Assessment & Plan Assessment & Plan (1) Weakness generalized: Comment: white matter disease, dementia , encephelopathy related to HTN ? Code(s): R53.1 - Weakness Category: Medical (2) Dysphagia: Code(s): R13.10 - Dysphagia, unspecified Category: Medical (3) Dysphonia: Code(s): R49.0 - Dysphonia Category: Medical Plan Patient had mild parkinsonism - on my limited exam but unlikely to be parkinsons disease due to his acute deterioration , atypical symptoms etc I suggested to continue supportive services He can trial sinemet but his declined as he did not tolerate in the past. Medications: Discontinued amoxicillin-pot clavulanate 400-57 mg/5 mL Discontinued Reason: Patient no longer taking 10 mL PO BID 100 mL 0RF Coding Level of Care Code Tele New Pt Level 4 (00854) Diagnoses Weakness generalized R53.1 Dysphagia R13.10 Dysphonia R49.0 Time Spent (min) 60 Comment 35 min with patient 20 min documenting 15 min reviewing records
--- OUTSIDE RECORDS SUMMARY | 2023-11-21 10:42 | XMS_ITS | Continuity of Care Document ---
Author Organization [facility] Jcarlos lt Address [address] [place] [id number]- Care Team Providers Care Cheese Supervisor Name Role Phone Deloris MEDINA, Elmer Bill Primary Care Physician Encounter [facility] [place] [place] Date(s): 11/20/22 - 12/20/22 [facility] Adult [address] [place] [address]- Allergies, Adverse Reactions, Alerts Substance Reaction Severity Status Bee Stings Active Immunizations Given and Recorded Vaccine Date Status Refusal Reason SARS-CoV-2 mRNA ([id number]) vax 1 03/23/22 Recorded influenza virus vaccine, inactivated 03/23/22 Andrea rded influenza virus vaccine, inactivated 03/29/21 Andrea rded influenza virus vaccine, inactivated 03/21/18 Give n influenza virus vaccine, inactivated 2 03/18/17 Gi ratna influenza virus vaccine, inactivated 04/04/16 Give n influenza virus vaccine, inactivated 03/28/15 Give n influenza virus vaccine, inactivated 04/27/13 Give n influenza virus vaccine, inactivated 04/07/10 Give n influenza virus vaccine, inactivated 04/22/08 Give n SARS-CoV-2 (COVID-19) mRNA BNT-162b2 vac 11/03/21 Given pneumococcal 23-valent vaccine 11/03/21 Given SARS-CoV-2 (COVID-19) mRNA-1273 vaccine 04/14/21 R ecorded SARS-CoV-2 (COVID-19) mRNA-1273 vaccine 08/22/20 R ecorded SARS-CoV-2 (COVID-19) mRNA-1273 vaccine 07/25/20 R ecorded Influenza Virus Vaccine (oldterm) 03/24/20 Recorde d tetanus-diphtheria toxoids (Td) 09/30/19 Given pneumococcal 13-valent vaccine 10/08/14 Given Fluzone (oldterm) 03/10/14 Given Pneumococcal Vacc (oldterm) 10/23/12 Given Fluarix (oldterm) 3 04/14/12 Given FluLaval (oldterm) 4 03/14/11 Given FluLaval (oldterm) 5 04/07/10 Given tetanus/diphtheria/pertussis, acel(Tdap) 09/26/09 Given Zoster Vaccine Live 05/31/09 Given Tetanus Toxoid Vaccine (oldterm) 06/24/99 Given 1Result Comment: Moderna Covid Bivalent Booster, [facility] Pharmacy 2Result Comment: [03/18/2017] [facility]: [id number] HIGH DOSE 3Admin Note: given by LB 4Admin Note: [facility] 5Admin Note: [facility] Medications allopurinol 300 mg oral tablet 1, tablet, By Mouth, Daily, # 90 tablet, Refills 3, Maintenance, 05/29/22 14:30:00 EST, Route to Pharmacy Electronically, [facility] STORE [id number], 175.26, cm, 02/21/22 14:25:00 EDT, Height, 84, kg, 10/31/20 13:29:00 EDT, Dry Weight Start Date: 05/29/22 Status: Ordered celecoxib 200 mg oral capsule 1 capsule = 200 mg, By Mouth, 2 times a day, 0 Refills, Maintenance, 01/02/22 15:27:00 EDT, Capsule, Partial fill upon patient request if the prescription is for a schedule II opioid drug. Start Date: 01/02/22 Status: Ordered DilTIAZem (Eqv-Cardizem CD) 300 mg/24 hours oral capsule, extended release 1 capsule, By Mouth, Daily, # 90 capsule, 3 Refills, Maintenance, 12/03/22 14:08:00 EDT, [facility] STORE [id number], 173, cm, 09/17/22 13:09:00 EDT, Height, 79.5, kg, 06/13/22 15:11:00 EST, Dry Weight Start Date: 12/03/22 Status: Ordered Eliquis 5 mg oral tablet 1 tablet, By Mouth, 2 times a day, # 60 tablet, 11 Refills, Maintenance, 03/12/22 18:53:00 EDT, [id number], 175.26, cm, 02/21/22 14:25:00 EDT, Height, 84, kg, 10/31/20 13:29:00 EDT, Dry Weight Start Date: 03/12/22 Status: Ordered FLUoxetine 20 mg oral capsule 1, capsule, By Mouth, Daily, # 30 capsule, Refills 6, Maintenance, 06/21/22 14:13:00 EST, Route to Pharmacy Electronically, [facility] STORE [id number], 173, cm, 06/14/22 10:32:00 EST, Height, 79.5, kg, 06/13/2215:11:00 EST, Dry Weight Start Date: 06/21/22 Status: Ordered furosemide 40 mg oral tablet 2, tablet, By Mouth, Daily, # 180 tablet, Refills 3, Tot. Refills 3, Maintenance, 06/05/22 16:04:00EST, Route to Pharmacy Electronically, [facility]/pharmacy #[id number], 175.26, cm, 02/21/22 14:25:00 EDT, Height, 84, kg, 10/31/20 13:29:00 EDT, Dry Weight Start Date: 06/05/22 Stop Date: 05/31/23 Status: Ordered Multivitamin By Mouth, Daily, 0 Refills, Maintenance Start Date: 08/19/12 Status: Ordered pravastatin 80 mg oral tablet 1 tablet, By Mouth, Daily, # 90 tablet, 1 Refills, 05/29/22 13:47:00 EST, [facility]/pharmacy #[id number], 175.26, cm, 02/21/22 14:25:00 EDT, Height, 84, kg, 10/31/20 13:29:00 EDT, Dry Weight Start Date: 05/29/22 Status: Ordered terazosin 2 mg oral capsule 2 mg, 1, capsule, By Mouth, Daily at bedtime, # 90 capsule, Refills 3, Tot. Refills 3, Maintenance,11/21/22 13:39:00 EDT, Route to Pharmacy Electronically, [facility]/pharmacy #[id number], Partial fill upon patient request if the prescription is for a schedule II... Start Date: 11/21/22 Stop Date: 11/16/23 Status: Ordered uses nightly uses nightly, See Instructions, # 1 each, Refills 0, Tot. Refills 0, Maintenance, ASV EPAP 6 [facility], 01/05/18 12:43:07 EDT, Compound Start Date: 01/05/18 Status: Ordered valsartan 160 mg oral tablet See Instructions, TAKE 1 + 1/2 TABLET BY MOUTH EVERY DAY, # 135 tablet, Refills 3, Tot. Refills 3, Maintenance, 11/21/22 13:40:00 EDT, Instructions Replace Required Details, Route to Pharmacy Electronically, [facility]/pharmacy #[id number], 173, cm, 09/17/22 13:09... 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 Bee sting-induced anaphylaxis Confirmed Active Chronic low back pain Confirmed Active Colonoscopy 1, 2 Confirmed Active Diastolic dysfunction Confirmed Active Diverticulosis 3 Confirmed Active Dyspnea on exertion Confirmed Active Erectile dysfunction Confirmed Active Gout Confirmed Active H/O total knee replacement 4 Confirmed Active HTN (hypertension) Confirmed Active Hypercholesterolemia Confirmed Active Insomnia Confirmed Active Internal hemorrhoids 5 Confirmed Active Major depression in complete remission Confirmed Active OA (osteoarthritis) of knee Confirmed Active Obstructive sleep apnea Confirmed Active Onychomycosis Confirmed Active Osteoarthritis of shoulder Confirmed Active Left wrist pain Confirmed Active Polyp of colon 6 Confirmed Active Memory loss, short term Confirmed Active Pulmonary hypertension Confirmed Active Decreased right ventricular systolic function Confirmed Active Pain in right shoulder Confirmed Active Vertigo Confirmed Active 1Colonoscopy 2013 positive polyp, repeat 2018. 32316 negative, repeat 2012 3colo 2018 4Right knee 2014. 5colo 2019 6colo 2019 Social History Social History Type Response Smoking Status Former smoker; Tobac co user in household: Yes entered on: 06/03/14 Sex Male Patient Care team information Care Team Personnel Name: Elmer Puentes MD Position: [facility] Physician - Primary Care Member Role: PCP Address: Address: [address] [place] [id number]- Name: Sidra Banda RN Position: [facility] AMB Nurse Member Role: Primary Care Nurse Name: Judith Duron RN Position: [facility] ED RN W/OE and Tasks Member Role: Primary Care Nurse Care Team Related Persons Name: ROBIN MOTA Address: home [address] [address]
--- OUTSIDE RECORDS SUMMARY | 2023-11-21 10:42 | XMS_ITS | Continuity of Care Document ---
Author Organization [facility] Jcarlos Address [address] [place] [id number]- Care Team Providers Care Track Hoe Operator Name Role Phone Deloris MEDINA, Elmer Bill Primary Care Physician [facility]counter [facility] Date(s): 10/05/20 - 11/04/20 [facility] Adult [address] [place] [address]- Allergies, Adverse Reactions, Alerts Substance Reaction Severity Status Bee Stings Active Immunizations Given and Recorded Vaccine Date Status Refusal Reason SARS-CoV-2 (COVID-19) mRNA-1273 vaccine 08/22/20 R ecorded SARS-CoV-2 (COVID-19) mRNA-1273 vaccine 07/25/20 R ecorded Influenza Virus Vaccine (oldterm) 03/24/20 Recorde d tetanus-diphtheria toxoids (Td) 09/30/19 Given influenza virus vaccine, inactivated 03/21/18 Give n influenza virus vaccine, inactivated 1 03/18/17 Gi ratna influenza virus vaccine, inactivated 04/04/16 Give n influenza virus vaccine, inactivated 03/28/15 Give n influenza virus vaccine, inactivated 04/27/13 Give n influenza virus vaccine, inactivated 04/07/10 Give n influenza virus vaccine, inactivated 04/22/08 Give n pneumococcal 13-valent vaccine 10/08/14 Given Fluzone (oldterm) 03/10/14 Given Pneumococcal Vacc (oldterm) 10/23/12 Given Fluarix (oldterm) 2 04/14/12 Given FluLaval (oldterm) 3 03/14/11 Given FluLaval (oldterm) 4 04/07/10 Given tetanus/diphtheria/pertussis, acel(Tdap) 09/26/09 Given Zoster Vaccine Live 05/31/09 Given Tetanus Toxoid Vaccine (oldterm) 06/24/99 Given 1Result Comment: [03/18/2017] [facility] [place]: [id number] HIGH DOSE 2Admin Note: given by LB 3Admin Note: [employer] [facility] 4Admin Note: [employer] [facility] Medications allopurinol 300 mg oral tablet 300 mg, 1, tablet, By Mouth, Daily, # 90 tablet, Refills 0, Tot. Refills 0, Maintenance, 08/27/20 9:17:00 EST, Route to Pharmacy Electronically, [facility]/pharmacy #[id number], 175.26, cm, 04/01/20 11:21:00 EDT,Height Start Date: 08/27/20 Status: Ordered diltiazem 240 mg/24 hours oral capsule, extended release 240 mg, 1, capsule, By Mouth, Daily, # 30 capsule, Refills 0, Tot. Refills 0, Maintenance, 09/02/2013:51:00 EDT, Route to Pharmacy Electronically, [facility]/pharmacy #[id number], 175.26, cm, 08/18/19 14:43:00 EST, Height Start Date: 09/03/19 Status: Ordered Eliquis 5 mg oral tablet 1 tablet = 5 mg, By Mouth, 2 times a day, # 180 tablet, 3 Refills, Maintenance, 12/30/19 15:45:00 EDT, Tablet, [facility]/pharmacy #[id number], 175.26, cm, 09/30/19 10:57:00 EDT, Height Start Date: 12/30/19 Status: Ordered furosemide 40 mg oral tablet 80 mg, 2, tablet, By Mouth, Daily, # 90 tablet, Refills 3, Tot. Refills 3, Maintenance, 03/31/19 11:18:45 EDT, Route to Pharmacy Electronically, [facility]/pharmacy #[id number] Start Date: 03/31/19 Status: Ordered Multivitamin By Mouth, Daily, 0 Refills, Maintenance Start Date: 08/19/12 Status: Ordered pravastatin 80 mg oral tablet See Instructions, TAKE 1 TABLET BY MOUTH EVERY DAY, # 90 tablet, 1 Refills, Soft Stop, 07/20/20 10:47:00 EST, [facility]/pharmacy #1, 175.26, cm, 04/01/20 11:21:00 EDT, Height Start Date: 07/20/20 Status: Ordered turmeric 500 mg oral capsule 3 capsule = 1,500 mg, By Mouth, Daily, # 60 capsule, 0 Refills, Maintenance, 03/31/19 11:20:01 EDT,Capsule Start Date: 03/31/19 Status: Ordered uses nightly uses nightly, See Instructions, # 1 each, Refills 0, Tot. Refills 0, Maintenance, ASV EPAP 6 [facility], 01/05/18 12:43:07 EDT, Compound Start Date: 01/05/18 Status: Ordered valsartan 320 mg oral tablet 1 tablet = 320 mg, By Mouth, Daily, # 90 tablet, 3 Refills, Maintenance, 11/04/20 14:17:00 EDT, Tablet, [facility]/pharmacy #[id number], Partial fill upon patient request if the prescription is for a schedule II opioid drug., 175.26, cm, 11/04/20 14:11:00 EDT, Hei... 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 Bee sting-induced anaphylaxis(Confirmed) Active Chronic low back pain(Confirmed) Active Colonoscopy(Confirmed) 1, 2 Active Diastolic dysfunction(Confirmed) Active Diverticulosis(Confirmed) 3 Active Dyspnea on exertion(Confirmed) Active Erectile dysfunction(Confirmed) Active Gout(Confirmed) Active H/O total knee replacement(C onfirmed) 4 Active HTN (hypertension)(Confirmed) Active Hypercholesterolemia(Confirmed) Active Insomnia(Confirmed) Active Internal hemorrhoids(Confirmed) 5 Active OA (osteoarthritis) of knee(Confirmed) Active Obstructive sleep apnea(Confirmed) Active Osteoarthritis of shoulder(Confirmed) Active Left wrist pain(Confirmed) Active Polyp of colon(Confirmed) 6 Active Memory loss, short term(Confirmed) Active Pulmonary hypertension(Confirmed) Active Decreased right ventricular systolic function(Confirmed) Active Pain in right shoulder(Confirmed) Active Vertigo(Confirmed) Active 1Colonoscopy 2012 positive polyp, repeat 2018. 99565 negative, repeat 2012 3colo 2018 4Right knee 2014. 5colo 2018 6colo 2018 Social History Social History Type Response Smoking Status Former smoker; Tobac co user in household: Yes entered on: 06/03/14 Sex
--- OUTSIDE RECORDS SUMMARY | 2023-11-21 10:42 | XMS_ITS | Continuity of Care Document ---
Author Organization [facility] Jcarlos Address [address] [place] [id number]- Care Team Providers Care Telephone Lines Repairer Name Role Phone Elmer Puentes MD Primary Care Physician [phone] Encounter [facility] Date(s): 05/15/21 - 05/22/21 [facility] Adult [address] [place] [address]- Attending Physician: Elmer Puentes MD Allergies, Adverse Reactions, Alerts Substance Reaction Severity Status Bee Stings Active Immunizations Given and Recorded Vaccine Date Status Refusal Reason SARS-CoV-2 (COVID-19) mRNA-1273 vaccine 04/14/21 R ecorded [...] Vaccine (oldterm) 06/24/99 Given 1Result Comment: [03/18/2017] [facility]: [id number] HIGH DOSE 2Admin Note: given by LB 3Admin Note: [facility] 4Admin Note: [facility] Medications allopurinol 300 mg oral tablet 1, tablet, By Mouth, Daily, # 90 tablet, Refills 1, Route to Pharmacy Electronically, [facility] [id number], 175.26, cm, 01/30/21 16:19:00 EDT, Height, 84, kg, 10/31/20 13:29:00 EDT, Dry Weight Start Date: 02/21/21 Status: Ordered diltiazem 300 mg/24 hours oral capsule, extended release 300 mg, 1, capsule, By Mouth, Daily, # 90 capsule, Refills 3, Tot. Refills 3, Maintenance, 219:53:00 EDT, [id number] Partial fill upon patient request if the prescription is for a schedule II opioid . Start Date: 11/18/20 Status: Ordered Eliquis 5 mg oral tablet 1 tablet, By Mouth, 2 times a day, # 60 tablet, 11 Refills, Maintenance, 02/20/21 9:23:00 EDT, [facility]/pharmacy #[id number], 175.26, cm, 01/30/21 16:19:00 EDT, Height, 84, kg, 10/31/20 13:29:00 EDT, Dry Weight Start Date: 02/20/21 Status: Ordered furosemide 40 mg oral tablet 80 mg, 2, tablet, By Mouth, Daily, # 90 tablet, Refills 3, Tot. Refills 3, Maintenance, 03/31/19 11:18:45 EDT, Route to Pharmacy Electronically, [facility]/pharmacy #[id number] Start Date: 03/31/19 Status: Ordered Multivitamin By Mouth, Daily, 0 Refills, Maintenance Start Date: 08/19/12 Status: Ordered pravastatin 80 mg oral tablet See Instructions, TAKE 1 TABLET BY MOUTH EVERY DAY, # 90 tablet, 1 Refills, Soft Stop, 01/10/21 9:51:00 EDT, [facility]/pharmacy #[id number], 175.26, cm, 12/19/20 9:28:00 EDT, Height, 84, kg, 10/31/20 13:29:00 EDT, Dry Weight Start Date: 01/10/21 Status: Ordered turmeric 500 mg oral capsule 3 capsule = 1,500 mg, By Mouth, Daily, # 60 capsule, 0 Refills, Maintenance, 03/31/19 11:20:01 EDT,Capsule Start Date: 03/31/19 Status: Ordered uses nightly uses nightly, See Instructions, # 1 each, Refills 0, Tot. Refills 0, Maintenance, ASV EPA 6 [facility], 01/05/18 12:43:07 EDT, Compound Start Date: 01/05/18 Status: Ordered valsartan 320 mg oral tablet 1 tablet = 320 mg, By Mouth, Daily, # 90 tablet, 3 Refills, Maintenance, 11/04/20 14:17:00 EDT, Tablet, [id number], Partial fill upon patient request if [...] in right shoulder(Confirmed) Active Vertigo(Confirmed) Active 1Colonoscopy 2013 positive polyp, repeat 2017. negative, repeat 2012 3colo 2018 4Right knee 2013. 5colo 2018 6c2018 Vital Signs Most recent to oldest [Reference Range]: 1 Blood Pressure [90-138/55-84 mm Hg] 120/ 72mm Hg (05/15/21 11:50 AM) Blood pressure sites Arm, left (05/15/21 11:50 AM) Social History Social History Type Response Smoking Status Former smoker; Tobac co user in household: Yes entered on: 06/03/14 Sex Male
--- OUTSIDE RECORDS SUMMARY | 2023-11-21 10:42 | XMS_ITS | Continuity of Care Document ---
Author Organization [facility]ian Jcarlos Address [address] [place] [id number]- Care Team Providers Care Dramatic Coach Name Role Phone Deloris MEDINA, Elmer Bill Primary Care Physician [facility]counter [facility] Date(s): 02/22/23 - 03/24/23 [facility] Adult [address] [place] [address]- Allergies, Adverse Reactions, Alerts Substance Reaction Severity Status Bee Stings Active Immunizations Given and Recorded Vaccine Date Status Refusal Reason influenza virus vaccine, inactivated 03/17/23 Give n influenza virus vaccine, inactivated 03/23/22 Andrea rded [...] virus vaccine, inactivated 04/22/08 Give n SARS-CoV-2 mRNA ([id number]) vax 2 03/23/22 Recorded SARS-CoV-2 (COVID-19) mRNA BNT-162b2 vac 11/03/21 Given [...] Vaccine (oldterm) 06/24/99 Given 1Result Comment: [03/18/2017] [facility]: [id number] HIGH DOSE 2Result Comment: Moderna Covid Bivalent Booster, [facility] Pharm[facility] 3Admin Note: given by LB 4Admin Note: [employer] 5Admin Note: [employer] [facility] Medications acetaminophen 325 mg oral tablet 650 mg, By Mouth, Every 4 hours, PRN, Temperature Greater than 100.5, Refills 0, Maintenance, Pain , Mild, 03/22/23 12:50:00 EDT, Partial fill upon patient request if the prescription is for a schedule II opioid drug. Start Date: 03/22/23 Status: Ordered allopurinol 300 mg oral tablet 1, tablet, By Mouth, Daily, # 90 tablet, Refills 3, Maintenance, 05/29/22 14:30:00 EST, Route to Pharmacy Electronically, [facility]ORE [id number], 175.26, cm, 02/21/22 14:25:00 EDT, Height, 84, kg, 10/31/20 13:29:00 EDT, Dry Weight Start Date: 05/29/22 Status: Ordered amiodarone 200 mg oral tablet 200 mg, 1, tablet, By Mouth, Daily, # 30 tablet, Refills 0, Maintenance, 02/20/23 12:16:00 EDT, Partial fill upon patient request if the prescription is for a schedule II opioid drug. Start Date: 02/20/23 Status: Ordered aspirin 81 mg oral tablet, chewable 81 mg, By Mouth, Daily, Refills 0, Maintenance, 03/22/23 12:50:00 EDT, Partial fill upon patient request if the prescription is for a schedule II opioid drug. Start Date: 03/22/23 Status: Ordered atorvastatin 80 mg oral tablet = 80 mg, By Mouth, Daily at bedtime, 0 Refills, Maintenance, 03/22/23 12:50:00 EDT, Tablet, Partialfill upon patient request if the prescription is for a schedule II opioid drug. Start Date: 03/22/23 Status: Ordered Eliquis 5 mg oral tablet 1 tablet, By Mouth, 2 times a day, # 60 tablet, 11 Refills, Maintenance, 03/12/22 18:53:00 EDT, [facility], 175.26, cm, 02/21/22 14:25:00 EDT, Height, 84, kg, 10/31/20 13:29:00 EDT, Dry Weight Start Date: 03/12/22 Status: Ordered FLUoxetine 20 mg oral capsule 1, capsule, By Mouth, Daily, # 30 capsule, Refills 12, Maintenance, 02/12/23 16:46:00 EDT, Route toPharmacy Electronically, [facility], 173, cm, 09/17/22 13:09:00 EDT, Height, 79.5, kg, 06/13/22 15:11:00 EST, Dry Weight Start Date: 02/12/23 Status: Ordered furosemide 40 mg oral tablet 40 mg, 1, tablet, By Mouth, Daily, # 90 tablet, Refills 3, Tot. Refills 3, Maintenance, 06/05/22 16:04:00 EST, Route to Pharmacy Electronically, [facility]/pharmacy #[id number], 175.26, cm, 02/21/22 14:25:00 EDT,Height, 84, kg, 10/31/20 13:29:00 EDT, Dry Weight Start Date: 06/05/22 Stop Date: 05/31/23 Status: Ordered metoprolol 25 mg oral tablet, extended release 25 mg, By Mouth, Daily, Refills 0, Maintenance, 03/22/23 12:50:00 EDT, Partial fill upon patient request if the prescription is for a schedule II opioid drug. Start Date: 03/22/23 Status: Ordered Multivitamin By Mouth, Daily, 0 Refills, Maintenance Start Date: 08/19/12 Status: Ordered spironolactone 25 mg oral tablet 12.5 mg, By Mouth, Daily, Refills 0, Maintenance, 03/22/23 12:50:00 EDT, Partial fill upon patient request if the prescription is for a schedule II opioid drug. Start Date: 03/22/23 Status: Ordered terazosin 2 mg oral capsule 2 mg, 1, capsule, By Mouth, Daily at bedtime, # 90 capsule, Refills 3, Tot. Refills 3, Maintenance,11/21/22 13:39:00 EDT, Route to Pharmacy Electronically, [facility]/pharmacy #[id number], Partial fill upon patient request if the prescription is for a schedule II... Start Date: 11/21/22 Stop Date: 11/16/23 Status: Ordered traMADol 50 mg oral tablet 1 tablet = 50 mg, By Mouth, Every 6 hours, PRN as needed for pain, # 30 tablet, 1 Refills, Maintenance, 02/20/23 12:17:00 EDT, Tablet, [facility]/pharmacy #[id number], Partial fill upon patient request if the prescription is for a schedule II opioid drug., 173, cm... Start Date: 02/20/23 Status: Ordered uses nightly uses nightly, See Instructions, # 1 each, Refills 0, Tot. Refills 0, Maintenance, ASV EPA 6 [facility], 01/05/18 12:43:07 EDT, Compound Start Date: 01/05/18 Status: Ordered valsartan 160 mg oral tablet 160 mg, 1, tablet, By Mouth, Daily, # 90 tablet, Refills 3, Tot. 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 Bee sting-induced anaphylaxis Confirmed Active Chronic low back pain Confirmed Active Colonoscopy 1, 2 Confirmed Active Diastolic dysfunction Confirmed Active Diverticulosis 3 Confirmed Active Dyspnea on exertion Confirmed Active Erectile dysfunction Confirmed Active Femur fracture 4 Confirmed Active Gout Confirmed Active H/O total knee replacement 5 Confirmed Active HTN (hypertension) Confirmed Active Hypercholesterolemia Confirmed Active Insomnia Confirmed Active Internal hemorrhoids 6 Confirmed Active Major 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 negative, repeat 2012 3colo 2018 4Left femur fracture 2022 5Right knee 2013. 6colo 2018 7colo 2018 Social History Social History Type Response Smoking Status Former smoker; Tobac co user in household: Yes entered on: 06/03/14 Sex Male Patient Care team information Care Team Personnel Name: Elmer Puentes MD Position: [facility] Physician - Primary Care Member Role: PCP Address: Address: [address] [place] [id number]- Name: Solo BURKS, Sidra Rosen Position: [facility] AMB Nurse Member Role: Primary Care Nurse Name: Alyssa Renteria RN Position: [facility] RN Member Role: Primary Care Nurse Name: Judith Duron RN Position: [facility] [place] RN W/OE and Tasks Member Role: Primary Care Nurse Name: Samy Arenas RN Position: [facility] RN Member Role: Primary Care Nurse Care Team Related Persons Name: ROBIN MOTA Address: home [address] [address]
--- OUTSIDE RECORDS SUMMARY | 2023-11-21 10:42 | XMS_ITS | Continuity of Care Document ---
Author Organization [facility] Kristian Jcarlos lt Address [address] [place] [id number]- Care Team Providers Care Pump House Operator Name Role Phone Deloris MEDINA, Elmer Bill Primary Care Physician Encounter [facility] Date(s): 05/24/23 - 06/23/23 [facility] Adult [address] [place] [address]- Allergies, Adverse Reactions, Alerts Substance Reaction Severity Status Bee Stings Active Immunizations Given and Recorded Vaccine Date Status Refusal Reason RSV vaccine preF3, recombinant 04/27/23 Recorded influenza virus vaccine, inactivated 03/17/23 Give n influenza virus vaccine, inactivated 03/23/22 Andrea rded influenza virus vaccine, inactivated 03/29/21 Andrea rded influenza virus vaccine, inactivated 04/02/19 Andrea rded influenza virus vaccine, inactivated 03/21/18 Give n influenza virus vaccine, inactivated 1 03/18/17 Gi ratna influenza virus vaccine, inactivated 04/04/16 Give n influenza virus vaccine, inactivated 03/28/15 Give n influenza virus vaccine, inactivated 04/27/13 Give n influenza virus vaccine, inactivated 04/07/10 Give n influenza virus vaccine, inactivated 04/22/08 Give n SARS-CoV-2 mRNA ([id number]) vax 2 03/23/22 Recorded SARS-CoV-2 (COVID-19) mRNA BNT-162b2 vac 11/03/21 Given pneumococcal 23-valent vaccine 11/03/21 Given SARS-CoV-2 (COVID-19) mRNA-1273 vaccine 04/14/21 R ecorded SARS-CoV-2 (COVID-19) mRNA-1273 vaccine 09/15/20 R ecorded SARS-CoV-2 (COVID-19) mRNA-1273 vaccine 08/22/20 R ecorded SARS-CoV-2 (COVID-19) mRNA-1273 vaccine 08/18/20 R ecorded SARS-CoV-2 (COVID-19) mRNA-1273 vaccine 07/25/20 [...] Vaccine (oldterm) 06/24/99 Given 1Result Comment: [03/18/2017] [facility]: [id number] HIGH DOSE 2Result Comment: Moderna Covid Bivalent Booster, [facility] 3Admin Note: given by LB 4Admin Note: [facility] 5Admin Note: [facility] Medications acetaminophen 325 mg oral tablet 650 mg, By Mouth, Every 4 hours, PRN, Temperature Greater than 100.5, Refills 0, Maintenance, Pain , Mild, 03/22/23 12:50:00 EDT, Partial fill upon patient request if the prescription is for a schedule II opioid drug. Start Date: 03/22/23 Status: Ordered allopurinol 300 mg oral tablet 1, tablet, By Mouth, Daily, # 90 tablet, Refills 1, Tot. Refills 1, Maintenance, 06/18/23 13:03:00 EST, Route to Pharmacy Electronically, [facility] # [facility], 172, cm, 05/17/23 14:43:00 EST, Height, 79.5, kg, 03/16/23 13:06:00 EDT, Dry Weight Start Date: 06/18/23 Status: Ordered amiodarone 200 mg oral tablet [...] Status: Ordered atorvastatin 80 mg oral tablet 1 tablet = 80 mg, By Mouth, Daily at bedtime, # 30 tablet, 11 Refills, Maintenance, 04/08/23 14:31:00 EDT, Tablet, [facility] # [facility], Partial fill upon patient request if the prescription is for a schedule II opioid drug., alexei Thomas, 03/22/23 14:14:00... Start Date: 04/08/23 Stop Date: 04/02/24 Status: Ordered Bedside Commode See Instructions, # 1 each, Maintenance, Bedside commode for generalized weakness, 04/17/23 10:52:00 EDT, Supply Start Date: 04/17/23 Status: Ordered Eliquis 5 mg oral tablet 1 tablet, By Mouth, 2 times a day, # 60 tablet, 11 Refills, Maintenance, 04/08/23 14:30:00 EDT, [facility] # [facility], alexei Thomas, 03/22/23 14:14:00 EDT, Height, 79.5, kg, 03/16/23 13:06:00 EDT, Dry Weight Start Date: 04/08/23 Status: Ordered FLUoxetine 40 mg oral capsule 1 capsule = 40 mg, By Mouth, Daily, # 30 capsule, 11 Refills, Maintenance, 04/08/23 11:49:00 EDT, Capsule, [facility] # [facility], Partial fill upon patient request if the prescription is for a scheduleII opioid drug., alexei Thomas, 03/22/23 14:14:00 EDT, He... Start Date: 04/08/23 Stop Date: 04/02/24 Status: Ordered furosemide 40 mg oral tablet 2, tablet, By Mouth, Daily, # 180 tablet, Refills 1, Maintenance, 06/10/23 6:07:00 EST, Route to Pharmacy Electronically, [id number], alexei Thomas, 05/17/23 14:43:00 EST, Height, 79.5, kg, 03/16/23 13:06:00 EDT, Dry Weight Start Date: 06/10/23 Status: Ordered metoprolol 25 mg oral tablet, extended release 25 mg, 1, tablet, By Mouth, Daily, # 30 tablet, Refills 11, Tot. Refills 11, Maintenance, 04/08/23 14:32:00 EDT, Route to Pharmacy Electronically, [facility] # [facility], Partial fill upon patient request if the prescription is for a schedule II opioid d... Start Date: 04/08/23 Stop Date: 04/02/24 Status: Ordered Multivitamin By Mouth, Daily, 0 Refills, Maintenance Start Date: 08/19/12 Status: Ordered spironolactone 25 mg oral tablet 12.5 mg, 0.5, tablet, By Mouth, Daily, # 15 tablet, Refills 11, Tot. Refills 11, Maintenance, 04/08/23 14:31:00 EDT, Route to Pharmacy Electronically, [facility] # 50, Partial fill upon patient request if the prescription is for a schedule II opio... Start Date: 04/08/23 Stop Date: 04/02/24 Status: Ordered terazosin 2 mg oral capsule 2 mg, 1, capsule, By Mouth, Daily at bedtime, # 90 capsule, Refills 3, Tot. Refills 3, Maintenance,11/21/22 13:39:00 EDT, Route to Pharmacy Electronically, [facility]/pharmacy #[id number], Partial fill upon patient request if the prescription is for a schedule II... Start Date: 11/21/22 Stop Date: 11/16/23 Status: Ordered uses nightly uses nightly, See Instructions, # 1 each, Refills 0, Tot. Refills 0, Maintenance, ASV EPAP 6 [facility], 01/05/18 12:43:07 EDT, Compound Start Date: 01/05/18 Status: Ordered valsartan 160 mg oral tablet 160 mg, 1, tablet, By Mouth, Daily, for 90 days, # 90 tablet, Refills 3, Tot. Refills 3, Hard Stop 02/21/24 11:16:00 EDT, 02/26/23 11:16:00 EDT, Route to Pharmacy Electronically, [facility],173, cm, 02/26/23 11:03:00 EDT, Height, 79.5, kg, 1... 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 Generalized weakness Confirmed Active Bee sting-induced anaphylaxis Confirmed Active Chronic low back pain Confirmed Active Colonoscopy 1, 2 Confirmed Active Coronary artery disease Confirmed Active Decreased appetite Confirmed Active Diastolic dysfunction Confirmed Active Diverticulosis 3 Confirmed Active Dyspnea on exertion Confirmed Active Erectile dysfunction Confirmed Active Femur fracture 4 Confirmed Active Gout Confirmed Active H/O total knee replacement 5 Confirmed Active S/P ICD (internal cardiac defibrillator) procedure Confirmed Active H/O ventricular tachycardia Confirmed Active HTN (hypertension) Confirmed Active Hypercholesterolemia [...] in household: Yes entered on: 06/03/14 Sex Patient Care team information Care Team Personnel Name: Elmer Puentes MD Position: [facility] Physician - Primary Care Member Role: PCP Address: Address: [address] [place] [id number]- Name: Sidra Banda RN Position: [facility] AMB Nurse Member Role: Primary Care Nurse Name: Judith Duron RN Position: [facility] ED RN W/OE and Tasks Member Role: Primary Care Nurse Name: Samy Arenas RN Position: [facility] RN Member Role: Primary Care Nurse Care Team Related Persons Name: ROBIN MOTA Address: home [address] [address]
--- OUTSIDE RECORDS SUMMARY | 2023-11-21 10:42 | XMS_ITS | Continuity of Care Document ---
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 Name Role Phone Deloris MEDINA, Elmer Bill Primary Care Physician [phone] Encounter [facility] Date(s): 03/16/23 - 03/22/[address] [address]- Encounter Diagnosis Monomorphic ventricular tachycardia(Final) - 03/16/23 Chest pain(Final) - 03/16/23 Right ventricular dysfunction(Final) - 03/16/23 Femur fracture(Final) - 03/16/23 Hypertension(Final) - 03/16/23 Hyperlipidemia(Final) - 03/16/23 Discharge Disposition: A-Transfer SNF Attending Physician: Richard Zeng MD Admitting Physician: Richard Zeng MD Referring Physician: Not on Staff, Referring MD Allergies, Adverse Reactions, Alerts Substance Reaction [...] vaccine, inactivated 04/22/08 Give n SARS-CoV-2 mRNA ([id number]) vax 2 03/23/22 Recorded SARS-CoV-2 (COVID-19) mRNA [...] Vaccine (oldterm) 06/24/99 Given 1Result Comment: [03/18/2017] [facility]: [id number] HIGH DOSE 2Result Comment: Moderna Covid Bivalent Booster, [facility] 3Admin Note: given by LB 4Admin Note: [facility] 5Admin Note: [employer] [facility] Medications acetaminophen 325 mg oral tablet 650 [...] 05/29/22 14:30:00 EST, Route to Pharmacy Electronically, [id number], 175.26, cm, 02/21/22 14:25:00 EDT, Height, 84, [...] 11 Refills, Maintenance, 03/12/22 18:53:00 EDT, [id number], 175.26, cm, 02/21/22 14:25:00 EDT, Height, 84, kg, 10/31/20 13:29:00 EDT, Dry Weight Start Date: 03/12/22 Status: Ordered FLUoxetine 20 mg oral capsule 1, capsule, By Mouth, Daily, # 30 capsule, Refills 12, Maintenance, 02/12/23 16:46:00 EDT, Route toPharmacy Electronically, [facility] [id number], 173, cm, 09/17/22 13:09:00 EDT, Height, 79.5, kg, 06/13/22 15:11:00 EST, Dry Weight Start Date: 02/12/23 Status: Ordered furosemide 40 mg oral tablet 40 mg, 1, tablet, By Mouth, Daily, # 90 tablet, Refills 3, Tot. Refills 3, Maintenance, 06/05/22 16:04:00 EST, Route to Pharmacy Electronically, [facility]/pharmacy #[id number], 175.26, cm, 02/21/22 14:25:00 EDT,Height, 84, [...] Maintenance,11/21/22 13:39:00 EDT, Route to Pharmacy Electronically, [facility]/pharmacy #[id number], Partial fill upon patient request if the prescription is for a schedule II... Start Date: 11/21/22 Stop Date: 11/16/23 Status: Ordered traMADol 50 mg oral tablet 1 tablet = 50 mg, By Mouth, Every 6 hours, PRN as needed for pain, # 30 tablet, 1 Refills, Maintenance, 02/20/23 12:17:00 EDT, Tablet, [facility]/pharmacy #[id number], Partial fill upon patient request if the prescription is for a schedule II opioid drug., 173, cm... Start Date: 02/20/23 Status: Ordered uses nightly uses nightly, See Instructions, # 1 each, Refills 0, Tot. Refills 0, Maintenance, [facility], 01/05/18 12:43:07 EDT, Compound Start Date: 01/05/18 Status: Ordered valsartan 160 mg oral tablet 160 mg, 1, tablet, By Mouth, Daily, # 90 tablet, Refills 3, Tot. Refills 3, Maintenance, 02/26/23 11:16:00 EDT, Route to Pharmacy Electronically, [facility] # [facility], 173, cm, 02/26/23 11:03:00 [...] Active 1Colonoscopy 2012 positive polyp, repeat 2017. 26242 negative, repeat 2012 3colo 2018 4Left femur fracture 2022 5Right knee 2013. 6colo 2018 7colo 2018 Results Radiology Reports * Exam Date Time Procedure Performing Provider Status 03/21/23 7:59 AM Chest 2 Views Frontal and Lat Talia Rolon; Alek (Verified) Notes: (Chest 2 Views Frontal and Lat) Reason For Exam: Postop RESULT: Chest 2 Views Frontal and Lat Chest 2 Views Frontal and Lat Reason: Postop; Clinical Question(s): Line Placement; Pneumothorax; COMPARISON: March 19, 2023 FINDINGS: LINES AND TUBES: Single lead left subclavian pacer/ ICD wire is intact. LUNGS AND PLEURA: Clear lungs. Normal pulmonary vascularity. No pleural effusion. No pneumothorax. HEART, MEDIASTINUM AND NORBERTO: Stable cardiac enlargement. Partially calcified aorta. BONES AND SOFT TISSUES: No acute abnormality. IMPRESSION: No acute abnormality. WSN: [id number] Ordering Physician: Shabbir Cedeno Dictated By: Carlos Harrison MD Dictated Date/Time: 03/21/23 8:08 am Reviewed By: Carlos Harrison MD Signed By: Carlos Harrison MD Signed Date/Time: 03/21/23 8:08 am Transcribed By: ARLENE Transcribed Date/Time: 03/21/23 8:04 am * Exam Date Time Procedure Performing Provider Status 03/19/23 12:11 PM Chest Portable Mikey Edwards; Auth (V erified) Notes: (Chest Portable) Reason For Exam: Shortness of Breath RESULT: Chest Portable Chest Portable Reason: Shortness of Breath; Clinical Question(s): CHF COMPARISON: Multiple prior examinations with the most recent dated 03/18/2023 at 7:54 PM. FINDINGS: LINES AND TUBES: None. LUNGS AND PLEURA: Clear lungs. Normal pulmonary vascularity. No pleural effusion. No pneumothorax. HEART, MEDIASTINUM AND NORBERTO: Moderate to moderate cardiomegaly and/or pericardial effusion essentially unchanged. Normal mediastinal and hilar contour. BONES AND SOFT TISSUES: No acute abnormality. Mild degenerative change right shoulder. The left shoulder is not included onthis examination. IMPRESSION: Mild to moderate cardiomegaly and/or pericardial effusion essentially unchanged. WSN: [id number] Ordering Physician: Yolanda Moya Dictated By: Terrence Villalpando MD, V Dictated Date/Time: 03/19/23 3:39 pm Reviewed By: Terrence Villalpando MD, V Signed By: Terrence Villalpando MD, V Signed Date/Time: 03/19/23 3:39 pm Transcribed By: ARLENE Transcribed Date/Time: 03/19/23 3:38 pm * Exam Date Time Procedure Performing Provider Status 03/18/23 8:02 PM Chest Single Frontal View Larry Coyne ; Auth (Verified) Notes: (Chest Single Frontal View) Reason For Exam: CHF RESULT: Chest Single Frontal View Chest Single Frontal View Reason: CHF COMPARISON: CXR 06/13/2022. FINDINGS: LINES AND TUBES: None. LUNGS AND PLEURA: Clear lungs. Normal pulmonary vascularity. No pleural effusion. No pneumothorax. HEART, MEDIASTINUM AND NORBERTO: Moderate prominence of the cardiac silhouette. Aortic calcifications. Normal mediastinal and hilar contour. BONES AND SOFT TISSUES: Degenerative changes of the spine. IMPRESSION: No acute cardiopulmonary abnormality. I have personally reviewed the images and I agree with this report. WSN: [id number] Ordering Physician: Jailyn Ramirez Dictated By: Flaco Lizama MD Dictated Date/Time: 03/18/23 8:23 pm Reviewed By: Tam Kwan MD Signed By: Tam Kwan MD Signed Date/Time: 03/18/23 8:28 pm Transcribed By: ARLENE Transcribed Date/Time: 03/18/23 8:20 pm * Exam Date Time Procedure Performing Provider Status 03/16/23 9:[address] Angio Abdomen Kiel Yesi Z; Au th (Verified) Notes: (CT Angio Abdomen) Reason For Exam: Renal artery dissection suspected;Other: RESULT: CT Angio Abdomen EXAMINATION: CT Angio Chest, CT Angio Abdomen INDICATION: Reason: Other:; Aortic disease, nontraumatic; Clinical Question(s): Other:; Aortic Dissection TECHNIQUE: An initial noncontrast CT of the chest was performed. Spiral CTA of the chest and abdomen was performed after rapid IV contrast administration without cardiac gating triggered by an HITESH onthe aorta. Images are formatted in multiple planes using 2-D multiplanar and 3-D maximum intensity projection. Obliqued images through the aortic root were reconstructed. 100 cc of Omnipaque 300 was administered intravenously. Weight-based protocol using automatic tube modulation was used to optimize exposure parameters. CTDIvol Body: 18.34 mGy, DLP Body: 400 mGy*cm. COMPARISONS: None. ANGIOGRAPHIC FINDINGS: Moderate atherosclerotic calcification of the aortic valve. No aortic dissection or aneurysm. Normal three vessel arch without branch vessel stenosis. Pulmonary arteries are normal in caliber. No evidence of pulmonary embolism. Abdominal aorta: Moderate to severe atherosclerotic calcification. No aortic aneurysm or dissection. Slight focal ectasia of the infrarenal abdominal aortic measuring up to 2.2 cm. Celiac axis: Patent. Superior mesenteric artery: Patent. Right renal artery: Mild atherosclerotic disease at the origin. Patent. Left renal artery: Mild atherosclerotic disease at the origin. Patent. Inferior mesenteric artery: Patent. Visualized iliac arteries: Patent. NON-ANGIOGRAPHIC FINDINGS: Photographic Hand Developer View Findings, Lines and Tubes: None. Trachea and Airways: Patent without evidence of tracheal or endobronchial lesion. Lungs and Pleura: Mild dependent atelectasis. No focal consolidation. No effusion or pneumothorax. Mediastinum and norberto: No mass or hematoma. No mediastinal or hilar lymphadenopathy. No esophageal abnormality. Heart: Moderate cardiomegaly, with prominently biatrial enlargement, right greater than left. Smallpericardial recess fluid. No pericardial effusion. Severe coronary artery calcification. Chest Wall Soft Tissues: Normal. Diaphragm : Diaphragm is intact. Liver: Normal. Gallbladder: Sludge within the gallbladder. No surrounding inflammation. Bile ducts: No bile duct dilation. Spleen: Normal. Pancreas: No peripancreatic inflammatory changes. Adrenal glands: Normal. Kidneys and ureters: No hydronephrosis, stones, or suspicious masses. Stomach, small bowel, and large bowel: The stomach is normal. The visualized loops of small bowel are normal in caliber with no evidence of obstruction. There is mild scattered diverticulosis within the visualized colon. No inflammatory changes. Appendix is normal.. Peritoneum and retroperitoneum: No ascites or pneumoperitoneum. No omental or mesenteric lesions. Lymph nodes: No enlarged lymph nodes. Abdominal wall: Unremarkable. Bones: No acute abnormality. Degenerative changes in the right shoulder. Degenerative changes in the spine. IMPRESSION: 1. No evidence of aortic dissection or aneurysm. 2. No evidence of pulmonary embolism. 3. No acute findings within the chest or abdomen. 4. Moderate cardiomegaly, and severe coronary artery calcification. Moderate aortic valvular calcification. 5. Scattered colonic diverticulosis. WSN: [id number] Ordering Physician: Hong Ordaz Dictated By: Roe Atkins MD Dictated Date/Time: 03/16/23 10:06 a Reviewed By: Roe Atkins MD Signed By: Roe Atkins MD Signed Date/Time: 03/16/23 10:06 am Transcribed By: ARLENE Transcribed Date/Time: 03/16/23 9:54 am * Exam Date Time Procedure Performing Provider Status 03/16/23 9:[address] Angio Chest Yesi Dyson; Auth (Verified) Notes: (CT Angio Chest) Reason For Exam: Aortic disease, nontraumatic;Other: RESULT: CT Angio Chest EXAMINATION: CT Angio Chest, CT Angio Abdomen INDICATION: Reason: Other:; Aortic disease, nontraumatic; Clinical Question(s): Other:; Aortic Dissection TECHNIQUE: An initial noncontrast CT of the chest was performed. Spiral CTA of the chest and abdomen was performed after rapid IV contrast administration without cardiac gating triggered by an HITESH onthe aorta. Images are formatted in multiple planes using 2-D multiplanar and 3-D maximum intensity projection. Obliqued images through the aortic root were reconstructed. 100 cc of Omnipaque 300 was administered intravenously. Weight-based protocol using automatic tube modulation was used to optimize exposure parameters. CTDIvol Body: 18.34 mGy, DLP Body: 400 mGy*cm. COMPARISONS: None. ANGIOGRAPHIC FINDINGS: Moderate atherosclerotic calcification of the aortic valve. No aortic dissection or aneurysm. Normal three vessel arch without branch vessel stenosis. Pulmonary arteries are normal in caliber. No evidence of pulmonary embolism. Abdominal aorta: Moderate to severe atherosclerotic calcification. No aortic aneurysm or dissection. Slight focal ectasia of the infrarenal abdominal aortic measuring up to 2.2 cm. Celiac axis: Patent. Superior mesenteric artery: Patent. Right renal artery: Mild atherosclerotic disease at the origin. Patent. Left renal artery: Mild atherosclerotic disease at the origin. Patent. Inferior mesenteric artery: Patent. Visualized iliac arteries: Patent. NON-ANGIOGRAPHIC FINDINGS: Photographic Hand Developer View Findings, Lines and Tubes: None. Trachea and Airways: Patent without evidence of tracheal or endobronchial lesion. Lungs and Pleura: Mild dependent atelectasis. No focal consolidation. No effusion or pneumothorax. Mediastinum and norberto: No mass or hematoma. No mediastinal or hilar lymphadenopathy. No esophageal abnormality. Heart: Moderate cardiomegaly, with prominently biatrial enlargement, right greater than left. Smallpericardial recess fluid. No pericardial effusion. Severe coronary artery calcification. Chest Wall Soft Tissues: Normal. Diaphragm : Diaphragm is intact. Liver: Normal. Gallbladder: Sludge within the gallbladder. No surrounding inflammation. Bile ducts: No bile duct dilation. Spleen: Normal. Pancreas: No peripancreatic inflammatory changes. Adrenal glands: Normal. Kidneys and ureters: No hydronephrosis, stones, or suspicious masses. Stomach, small bowel, and large bowel: The stomach is normal. The visualized loops of small bowel are normal in caliber with no evidence of obstruction. There is mild scattered diverticulosis within the visualized colon. No inflammatory changes. Appendix is normal.. Peritoneum and retroperitoneum: No ascites or pneumoperitoneum. No omental or mesenteric lesions. Lymph nodes: No enlarged lymph nodes. Abdominal wall: Unremarkable. Bones: No acute abnormality. Degenerative changes in the right shoulder. Degenerative changes in the spine. IMPRESSION: 1. No evidence of aortic dissection or aneurysm. 2. No evidence of pulmonary embolism. 3. No acute findings within the chest or abdomen. 4. Moderate cardiomegaly, and severe coronary artery calcification. Moderate aortic valvular calcification. 5. Scattered colonic diverticulosis. WSN: [id number] Ordering Physician: Hong Ordaz Dictated By: Roe Atkins MD Dictated Date/Time: 03/16/23 10:06 a Reviewed By: Roe Atkins MD Signed By: Roe Atkins MD Signed Date/Time: 03/16/23 10:06 am Transcribed By: ARLENE Transcribed Date/Time: 03/16/23 9:54 am Vital Signs Most recent to oldest [Reference Range]: 1 2 3 Height 172 cm (03/22/23 2:14 PM) 172 cm (03/20/23 8:36 AM) Weight 81.8 kg (03/22/23 4:00 AM) 84.5 kg (03/21/23 4:00 AM) 85.8 kg (03/20/23 8:36 AM) Oxygen Saturation [94-100 %] 96 % (03/22/23 2:14 PM) 96 % (03/22/23 12:00 PM) 99 % (03/22/23 10:00 AM) Pulse Rate [55-90 bpm] 59 bpm (03/22/23 2:14 PM) 56 bpm (03/22/23 12:00 PM) 62 bpm (03/22/23 8:00 AM) Blood Pressure [90-138/55-84 mm Hg] 128/97mm Hg (03/22/23 2:14 PM) 132/92mm Hg (03/22/23 12:00 PM) 127/96mm Hg (03/22/23 10:00 AM) Respiratory Rate [16-30 br/min] 18 br/min (03/22/23 2:14 PM) 20 br/min (03/22/23 12:00 PM) 11 br/min *L* (03/22/23 10:00 AM) Temperature [96.8-100.4 DegF] 97.4 DegF (03/22/23 2:14 PM) 97.6 DegF (03/22/23 12:00 PM) 98.0 DegF (03/22/23 8:00 AM) Liters per Minute 2 L/min (03/21/23 12:00 PM) 2 L/min (03/21/23 10:00 AM) 2 L/min (03/21/23 8:00 AM) Mode of Delivery (Oxygen) Room air (03/22/23 2:14 PM) Room air (03/22/23 12:00 PM) Room air (03/22/23 10:00 AM) Blood pressure sites Arm, left (03/22/23 2:14 PM) Arm, right (03/22/23 12:00 PM) Arm, right (03/22/23 10:00 AM) Temperature Route Oral (03/22/23 2:14 PM) Axillary (03/22/23 12:00 PM) Oral (03/22/23 8:00 AM) Dry Weight 79.5 kg (03/16/23 1:06 PM) 79.5 kg (03/16/23 11:48 AM) 79.5 kg (03/16/23 10:06 AM) Weight Obtained Via Bed scale (03/22/23 4:00 AM) Bed scale (03/21/23 4:00 AM) Bed scale (03/21/23 12:00 AM) Social History Social History Type Response Smoking Status Former smoker; Tobac co user in household: Yes entered on: 06/03/14 Sex Male Note * Event Display: Hemodynamic Procedure Report Authored Date: [id number] * Event Display: Provider Clarification Note Please click on pdf link to open report * Hailey Gallardo RN: PERFORM Event Display: Discharge/Transfer Note Hospital Authored Date: [id number] Nursing Discharge Note Entered On: 03/22/2023 16:29 EDT Performed On: 03/22/2023 16:29 EDT by Hailey Gallardo RN Nursing Discharge Note 2 Discharge Time : 03/22/2023 16:28 EDT Discharge Level of Care at Discharge : nursing home facility Discharge Nursing Homes/Rehab Facilities : [facility] Patient Left Unit Via : Wheelchair Patient Accompanied Off Unit with : Responsible adult DC Instructions Provided & Signed by Pt : Yes Patient Understands D/C Instructions : Yes Patient Instructions Discharge Signed : Yes Did Pt have Specialty Bed or Wound Vac : No Hailey Gallardo RN - 03/22/2023 16:29 EDT * Catracho MEDINA, Alexandr Rosen: PERFORM, MODIFY Event Display: Discharge/Transfer Note Hospital Authored Date: [id number] Patient: ??CARLOS MOTA ? Age:??72 Years?Sex:??Male?:??1950?? Patient Information Discharge Location: Primary Care Physician: Elmer Puentes MD Admit Date/Time: 03/16/23 11:33 Discharge Disposition Discharge Disposition: Shelter Facility/Rehab Discharge Diagnosis Chest pain (R07.9) Monomorphic ventricular tachycardia (I47.29) Biventricular heart failure Ischemic cardiomyopathy Atrial fibrillation Coronary artery disease [D1 90%, OM1 95%] Femur fracture (S72.90XA) Hyperlipidemia (E78.5) Hypertension (I10) Right ventricular dysfunction (I51.9) ?? _ Discharge Medications Acetaminophen (acetaminophen 325 mg oral tablet)?650?Milligram?By Mouth?Every 4 hours?as needed?Temperature Greater than 100.5?Pain , Mild Allopurinol (allopurinol 300 mg oral tablet)?1?tablet?By Mouth?Daily amiODARONE (amiodarone 200 mg oral tablet)?200?Milligram?1?tablet?By Mouth?Daily apixaban (Eliquis 5 mg oral tablet)?1?tab(s)?By Mouth?2 times a day Aspirin (aspirin 81 mg oral tablet, chewable)?81?Milligram?By Mouth?Daily Atorvastatin (atorvastatin 80 mg oral tablet)?80?Milligram?By Mouth?Daily at bedtime Durable Medical Equipment (uses nightly)?See Instructions?[facility] Fluoxetine (FLUoxetine 20 mg oral capsule)?1?capsule?By Mouth?Daily Furosemide (furosemide 40 mg oral tablet)?40?Milligram?1?tablet?By Mouth?Daily?for 90?Days Metoprolol (metoprolol 25 mg oral tablet, extended release)?25?Milligram?By Mouth?Daily Multivitamin?By Mouth?Daily Spironolactone (spironolactone 25 mg oral tablet)?12.5?Milligram?By Mouth?Daily Terazosin (terazosin 2 mg oral capsule)?2?Milligram?1?capsule?By Mouth?Daily at bedtime?for 90?Days Tramadol (traMADol 50 mg oral tablet)?1?tab(s)?50?Milligram?By Mouth?Every 6 hours?as needed?as needed for pain Valsartan (valsartan 160 mg oral tablet)?160?Milligram?1?tablet?By Mouth?Daily?for 90?Days ? Medications Started Metoprolol 25mg BID Spironolactone 25 mg daily Lasix 40 mg daily Atorvastatin 80 mg daily ?? Medications Discontinued Diltiazem Pravastatin Doses Changed none PCP Follow-Up/Heads-Up ensure follow up with EP and [facility] cardiology ensure follow up with PCP need outpatient cardiac MRI ? Future Appointments Saturday 10:10 AM EDT ?? With: Deloris MEDINA, Elmer Bill Where: [facility] [address] [place] [address]- Status: Pending Hospital Course This 72-year-old male with past medical medical dementia, A-fib on amiodarone, hypertension, hyperlipidemia, noncompliant with CPAP, right heart failure with pulmonary hypertension, moderate to severe TR, fracture status post internal fixation??(2 years ago), who??presents to the ED for nausea/vomiting, chest pain, and??back pain and was??found to be in monomorphic V tach.?? Heart rate was in tex519g??and he was??mentating well and not hypotensive at that time. He underwent cardioversion with success, underlying rhythm subsequently showed A- fib rate controlled.??Started on heparin drip, loaded with amiodarone by EMS.?? ECHO 2018, EF of 55-60% ECHO 03/17/23 : Left ventricular systolic function moderately reduced 30 to 35% EF.?? LA severely dilated.?? Mild .?? Moderate MR.?? Right ventricle severely dilated. Flattening of interventricular septum consistent with RV volume overload. RA massively dilated. Moderate TR.?? Of note patient underwent successful??cardioversion [address] Barajas at [facility] forhis afib. Patient is currently on amiodarone. Patient has had some intermittent bouts of atrial fibrillation since that cardioversion that he??picked up on his [employer]. ?? CT scan upon admission showed severe coronary artery calcification.?? Cardiac cath on??03/18 showed LM 20%, left circumflex 50% ostial stenosis, OM1 95%, RCA 70%. ??Also showed elevated biventricular filling pressure with pulmonary hypertension. ??Recommendation was aggressive cardiovascular risk factor modification no stenting was done as it was felt that coronary artery disease is not contributing to VT ?? Patient received ICD 03/20 . ??No postprocedure??complications. ??Patient need cardiac MRI to evaluate for??infiltrative cardiomyopathy??however can be done outpatient ? Monomorphic VT s/p shock x1 Afib on??Amiodarone and Eliquis Biventricular??ischemic cardiomyopathy, EF 30%. Coronary artery disease [D1??50%, OM1 90%,??RCA 70%) HTN HLD Presenting to the ED with monomorphic VT heart rate of??170. ??Patient was??mentating well and not hypotensive.?? Patient??underwent??cardioversion with success, with HR subsequently A-fib with rate in 80s. Patient's heart rate now currently A-fib??rate controlled.?? CT scan upon admission showed severe coronary artery calcification.?? Cardiac cath on??03/18 showed LM 20%, left circumflex 50% ostial stenosis, OM1 95%, RCA 70%. ??Also showed elevated biventricular filling pressure with pulmonary hypertension. ??Recommendation was aggressive cardiovascular risk factor modification no stenting was done as it was felt that coronary artery disease is not contributing to VT ?? Patient received ICD 03/20 . ??No postprocedure??complications. ??Patient need cardiac MRI to evaluate for??infiltrative cardiomyopathy??however can be done outpatient ?? Recommendations Continue??amiodarone 200 mg??daily Continue metoprolol 25 mg??twice daily Continue apixaban??5 mg twice daily Continue valsartan??160 mg Continue spironolactone 12.5 mg daily Continue aspirin 81 mg daily Acute atorvastatin 80 mg daily Cardiac MRI outpatient Follow-up with cardiology [facility]??outpatient Follow-up with EP, device clinic outpatient ? Resolved medical problems ?? Gastroenteritis Nausea and Vomiting High Anion Gap Metabolic Acidosis Lactic Acidosis JED on CKD (stage??3a??Baseline Cr of 1.3 to 1.2) ? Chronic Medical Conditions Sleep apnea - CPAP bedtime BP: home prazosin Depression - we will restart fluoxetine, Objective Measurements?? Height: 172 cm (03/20/23) Weight: 81.8 kg (03/22/23) Dry Weight: 79.5 kg (03/16/23) ? Vital Signs?? Temperature: 97.6 DegF (03/22/23 12:00:00) Temperature Route: Axillary (03/22/23 12:00:00) Pulse Rate: 56 bpm (03/22/23 12:00:00) Heart Rate Monitored: 57 bpm (03/22/23 10:00:00) Respiratory Rate: 20 br/min (03/22/23 12:00:00) Systolic Blood Pressure: 132 mm Hg (03/22/23 12:00:00) Diastolic Blood Pressure:??92 mm Hg??High (03/22/23 12:00:00) Blood pressure sites: Arm, right (03/22/23 12:00:00) Pulse Pressure: 40 mm Hg (03/22/23 12:00:00) Oxygen Saturation: 96 % (03/22/23 12:00:00) Mode of Delivery (Oxygen): Room air (03/22/23 12:00:00) Early Warning Score: 2 (03/22/23 12:12:46) ? . Physical Exam General: In no acute distress HEENT: Sclerae anicteric Cardiovascular: Regular rhythm, normal first and second heart sounds. No Murmur . No JVP Respiratory: Clear to auscultation all lung anna GI: Normoactive bowel sounds, soft Extremities: Warm, no edema Neuro: Nonfocal? Consultants EP: Charlie Acosta Interventional Cardiology: Shaniqua MEDINA, Vinnie Martínez ?? Patient Education Titles Ventricular Arrhythmia?? Follow-Up Appointments Added Follow Up ?Time Frame ?Comments Deloris MEDINA, Elmer Bill?Within one week?call for appointment Patient Instructions You were found to be in an abnormal heart arrhythmia called ventricular tachycardia that required shocking. You were treated with some medications and were started on new ones. Please continue to take them as prescribed. Please follow up [facility] cardiology for further management. Please follow up with your PCP in 1-2 weeks. ?? If you feel chest pain, short of breath, fast heart rate, please come back to the ED or go to a health care provider. Post Discharge Care Rehab Results Discharge Labs BLOOD COUNT & DIFF WBC 7.3 k/mm3 ()?? 03/22/2023 00:37 RBC 4.01 m/mm3 (Low)?? 03/22/2023 00:37 Hgb 12.9 Gm/dL (Low)?? 03/22/2023 00:37 Hct 37.9 % (Low)?? 03/22/2023 00:37 MCV 94.5 femtoliters (High)?? 03/22/2023 00:37 MCH 32.2 pg ()?? 03/22/2023 00:37 MCHC 34.0 g/dL ()?? 03/22/2023 00:37 Platelet Count 184 k/mm3 ()?? 03/22/2023 00:37 RDW-SD 44.1 femtoliters ()?? 03/22/2023 00:37 MPV 11.3 femtoliters ()?? 03/22/2023 00:37 Nucleated RBC (Automated) 0.0 #/100 WBC'S ()?? 03/22/2023 00:37 Abs. NRBC 0.0 k/mm3 ()?? 03/22/2023 00:37 Abs. Neut 7.7 k/mm3 (High)?? 03/16/2023 08:53 Abs. Lymph 1.4 k/mm3 ()?? 03/16/2023 08:53 Abs. [place] 0.5 k/mm3 ()?? 03/16/2023 08:53 Abs. Eo 0.0 k/mm3 ()?? 03/16/2023 08:53 Abs. Baso 0.0 k/mm3 ()?? 03/16/2023 08:53 Neut % 79.8 % (High)?? 03/16/2023 08:53 Lymph % 14.4 % (Low)?? 03/16/2023 08:53 [place] % 4.9 % ()?? 03/16/2023 08:53 Eos % 0.0 % ()?? 03/16/2023 08:53 Baso % 0.1 % ()?? 03/16/2023 08:53 Hemoglobin (POC) POC Cartridge 15.3 Gm/dL ()?? 03/16/2023 08:49 Hematocrit (POC) POC Cartridge 45 % ()?? 03/16/2023 08:49 Imm Gran 0.8 % ()?? 03/16/2023 08:53 Abs. Imm Gran 0.1 k/mm3 ()?? 03/16/2023 08:53 ?? BLOOD GAS pH Venous (POC) POC Cartridge 7.42 ()?? 03/16/2023 08:49 pCO2 Venous (POC) POC Cartridge 22.2 mm Hg (Low)?? 03/16/2023 08:49 pO2 Venous (POC) POC Cartridge 38 mm Hg ()?? 03/16/2023 08:49 Est Bicarbonate (POC) POC Cartridge 14.3 mmol/L (Low)?? 03/16/2023 08:49 % O2 Sat Venous (POC) POC Cartridge 75 ()?? 03/16/2023 08:49 Base Excess (POC) POC Cartridge NEGATIVE 10 ()?? 03/16/2023 08:49 Specimen Type - Blood Gas VENOUS ()?? 03/16/2023 08:49 ? CARDIAC Nt-Probnp 7734 pg/mL (High)?? 03/18/2023 06:11 High Sensitivity Troponin (HSTnT) 959 ng/L (Critical)?? 03/20/2023 06:49 ?? CHEM GENERAL Sodium 138 mmol/L ()?? 03/22/2023 00:37 Potassium 3.6 mmol/L ()?? 03/22/2023 00:37 Chloride 102 mmol/L ()?? 03/22/2023 00:37 Bicarbonate Level 22 mmol/L ()?? 03/22/2023 00:37 Anion Gap 14 ()?? 03/22/2023 00:37 Sodium (POC) POC Cartridge 133 mmol/L ()?? 03/16/2023 08:49 Potassium (POC) POC Cartridge 4.8 mmol/L ()?? 03/16/2023 08:49 Glucose Level 91 mg/dL ()?? 03/22/2023 00:37 Glucose (POC) POC Cartridge 162 (High)?? 03/16/2023 08:49 Hemoglobin A1C (Monitoring) 5.5 % ()?? 03/16/2023 08:53 BUN 27 mg/dL (High)?? 03/22/2023 00:37 Creatinine-Blood 1.6 mg/dL (High)?? 03/22/2023 00:37 Estimated GFR Creatinine 47 ML/MIN/1.73 M2 ()?? 03/22/2023 00:37 Calcium 8.6 mg/dL ()?? 03/22/2023 00:37 Ionized Calcium (POC) POC Cartridge 0.99 mmol/L (Critical)?? 03/16/2023 08:49 Phosphorus 3.0 mg/dL ()?? 03/19/2023 01:14 Magnesium 2.5 mg/dL (High)?? 03/19/2023 01:14 Protein, Total 5.4 Gm/dL (Low)?? 03/22/2023 00:37 Albumin 3.3 Gm/dL (Low)?? 03/22/2023 00:37 AG Ratio 1.6 ()?? 03/22/2023 00:37 Alkaline Phosphatase 172 units/L (High)?? 03/22/2023 00:37 Lipase 25 units/L ()?? 03/16/2023 08:53 AST (SGOT) 33 units/L ()?? 03/22/2023 00:37 ALT (SGPT) 43 units/L (High)?? 03/22/2023 00:37 Bilirubin, Total 0.6 mg/dL ()?? 03/22/2023 00:37 Lactate 1.7 mmol/L ()?? 03/22/2023 00:37 ?? COAG INR 2.0 (High)?? 03/16/2023 00:05 Protime (PT) 19.7 seconds (High)?? 03/16/2023 00:05 APTT 36.9 seconds (High)?? 03/22/2023 00:37 POC ACT-LR 284.0 seconds ()?? 03/18/2023 14:22 ?? ENDOCRINE/TUMOR MARKER TSH 4.03 uIU/mL ()?? 03/16/2023 11:30 Free T4 2.30 ng/dL (High)?? 03/16/2023 11:30 ?? HEME OTHER Hold Lavender Top SPECIMEN DISCARDED AFTER 24 HOURS. ()?? 03/21/2023 07:23 ? LIPID STUDIES Cholesterol 145 mg/dL ()?? 03/16/2023 11:30 Triglycerides 78 mg/dL ()?? 03/16/2023 11:30 HDL Cholesterol 35 mg/dL (Low)?? 03/16/2023 11:30 LDL Cholesterol 94 mg/dL ()?? 03/16/2023 11:30 Non HDL Cholesterol 110 mg/dL ()?? 03/16/2023 11:30 ? UA/URINALYSIS Appear/Color, Urine YELLOW ()?? 03/16/2023 21:30 Specific [place], Urine 1.045 (High)?? 03/16/2023 21:30 pH, Urine 5.5 ()?? 03/16/2023 21:30 Albumin, Urine 1+ (Abnormal)?? 03/16/2023 21:30 Glucose, Urine NEGATIVE ()?? 03/16/2023 21:30 Ketones, Urine NEGATIVE ()?? 03/16/2023 21:30 Bilirubin, Urine NEGATIVE ()?? 03/16/2023 21:30 Hemoglobin, Urine NEGATIVE ()?? 03/16/2023 21:30 Nitrite, Urine NEGATIVE ()?? 03/16/2023 21:30 Leukocyte, Urine NEGATIVE ()?? 03/16/2023 21:30 Urobilinogen NORMAL mg/dL ()?? 03/16/2023 21:30 WBC's, Urine 4 /HPF ()?? 03/16/2023 21:30 RBC's, Urine NONE SEEN /HPF ()?? 03/16/2023 21:30 Squamous Epith <1 /HPF ()?? 03/16/2023 21:30 Mucus SLIGHT /LPF ()?? 03/16/2023 21:30 ? URINE OTHER Creatinine, Urine Random 151.6 mg/dL ()?? 03/16/2023 21:30 Sodium, Urine Random <20 mmol/L ()?? 03/16/2023 21:30 Urea Nitrogen, Urine Random 555.7 mg/dL ()?? 03/16/2023 21:30 Est Creatinine Clearance 38.81 mL/min ()?? 03/21/2023 08:16 ?? VIROLOGY COVID-19 by RT-PCR NEGATIVE ()?? 03/16/2023 08:52 ? Blood Glucose Trend Glucose Level: 91 mg/dL (03/22/23 00:37:00) ? Microbiology ?? COVID-19 (Novel Coronavirus), Rapid PCR?? Completed?? Source: Nasal Body Site: Nose Collected Dt/Tm: 03/16/2023 10:59 Last Updated Dt/Tm: 03/16/2023 12:33 ?(03/19/2023 12:11 EDT Chest Portable) * Final Report * ?? Reason For Exam Shortness of Breath ?? RESULT: Chest Portable Chest Portable? Reason: Shortness of Breath; Clinical Question(s): CHF ?? COMPARISON: Multiple prior examinations with the most recent dated 03/18/2023 at 7:54 PM. ?? FINDINGS: ?? LINES AND TUBES:?? None. ?? LUNGS AND PLEURA: Clear lungs. Normal pulmonary vascularity.?? No pleural effusion.?? No pneumothorax. ?? HEART, MEDIASTINUM AND NORBERTO:?? Moderate to moderate cardiomegaly and/or pericardial effusion essentially unchanged. Normal mediastinal and hilar contour. ?? BONES AND SOFT TISSUES:?? No acute abnormality. Mild degenerative change right shoulder. The left shoulder is not included onthis examination. ?? IMPRESSION: ?? Mild to moderate cardiomegaly and/or pericardial effusion essentially unchanged. ? WSN: [id number] [1] (03/18/2023 20:02 EDT Chest Single Frontal View) ?? * Final Report * ?? Reason For Exam CHF ?? RESULT: Chest Single Frontal View Chest Single Frontal View? Reason: CHF ?? COMPARISON: CXR 06/13/2022. ?? FINDINGS: ?? LINES AND TUBES:?? None. ?? LUNGS AND PLEURA: Clear lungs. Normal pulmonary vascularity.?? No pleural effusion.?? No pneumothorax. ?? HEART, MEDIASTINUM AND NORBERTO:?? Moderate prominence of the cardiac silhouette. Aortic calcifications. Normal mediastinal and hilar contour. ?? BONES AND SOFT TISSUES:?? Degenerative changes of the spine. ?? IMPRESSION: ?? No acute cardiopulmonary abnormality. ?? I have personally reviewed the images and I agree with this report. WSN: [id number] ? [2] (03/16/2023 09:[address] Angio Chest) ?? Reason For Exam Aortic disease, nontraumatic;Other: ?? RESULT: CT Angio Chest EXAMINATION: CT Angio Chest, CT Angio Abdomen? INDICATION: Reason: Other:; Aortic disease, nontraumatic; Clinical Question(s): Other:; Aortic Dissection ?? TECHNIQUE: An initial noncontrast CT of the chest was performed. Spiral CTA of the chest and abdomen was performed after rapid IV contrast administration without cardiac gating triggered by an HITESH onthe aorta. Images are formatted in multiple planes using 2-D multiplanar and 3-D maximum intensity projection. Obliqued images through the aortic root were reconstructed. 100 cc of Omnipaque 300 was administered intravenously. Weight-based protocol using automatic tube modulation was used to optimize exposure parameters.? CTDIvol Body: 18.34 mGy, ??DLP Body: 400 mGy*cm. ? COMPARISONS: None. ?? ANGIOGRAPHIC FINDINGS: ?? Moderate atherosclerotic calcification of the aortic valve. No aortic dissection or aneurysm. Normal three vessel arch without branch vessel stenosis.? Pulmonary arteries are normal in caliber. No evidence of pulmonary embolism.? Abdominal aorta: Moderate to severe atherosclerotic calcification. No aortic aneurysm or dissection. Slight focal ectasia of the infrarenal abdominal aortic measuring up to 2.2 cm. ?? Celiac axis: Patent. ?? Superior mesenteric artery: Patent. ?? Right renal artery: Mild atherosclerotic disease at the origin. Patent. ?? Left renal artery: Mild atherosclerotic disease at the origin. Patent. ?? Inferior mesenteric artery: Patent. ?? Visualized iliac arteries: Patent. ?? NON-ANGIOGRAPHIC FINDINGS: ?? Photographic Hand Developer View Findings, Lines and Tubes: None. ?? Trachea and Airways: Patent without evidence of tracheal or endobronchial lesion. ?? Lungs and Pleura: Mild dependent atelectasis. No focal consolidation. ??No effusion or pneumothorax. ?? Mediastinum and norberto: No mass or hematoma. No mediastinal or hilar lymphadenopathy. No esophageal abnormality. ?? Heart: Moderate cardiomegaly, with prominently biatrial enlargement, right greater than left. Smallpericardial recess fluid. ??No pericardial effusion. Severe coronary artery calcification. ?? Chest Wall Soft Tissues: Normal.? Diaphragm : Diaphragm is intact.? Liver: Normal. ?? Gallbladder: Sludge within the gallbladder. No surrounding inflammation.? Bile ducts: No bile duct dilation.? Spleen: Normal.? Pancreas: No peripancreatic inflammatory changes.? Adrenal glands: Normal. ?? Kidneys and ureters: No hydronephrosis, stones, or suspicious masses. ?? Stomach, small bowel, and large bowel: The stomach is normal. The visualized loops of small bowel are normal in caliber with no evidence of obstruction. There is mild scattered diverticulosis within the visualized colon. No inflammatory changes. Appendix is normal..? Peritoneum and retroperitoneum: No ascites or pneumoperitoneum. No omental or mesenteric lesions. ?? Lymph nodes: No enlarged lymph nodes. ?? Abdominal wall: Unremarkable. ?? Bones: No acute abnormality. Degenerative changes in the right shoulder. Degenerative changes in the spine. ?? IMPRESSION:? 1. ??No evidence of aortic dissection or aneurysm. 2. ??No evidence of pulmonary embolism. 3. ??No acute findings within the chest or abdomen. 4. ??Moderate cardiomegaly, and severe coronary artery calcification. Moderate aortic valvular calcification.?? 5. ??Scattered colonic diverticulosis. ? WSN: [id number] ? Ordering Physician: Hong Ordaz?? [3] ?? Echo Complete-Doppler, Colorflow, M-Mode Transthoracic Echocardiography Report (TTE) ?Patient Demographics ?Patient Name ?CARLOS MOTA ?Date of Study ?03/17/2023 ?Corporate ?Gender ? Male ?Facility ?Race ? Ethnicity ?Date of ? 1950 ? Height: ?67.72 inches ?Age ? 72 year(s) ? Weight: ?185 pounds ?Accession Number ?[id number] ? BSA: ? 1.97 m2 ?Room Number ? M510 ? BMI: ? 28.37 kg/m2 ?Referring Physician Pam Martínez DO ?Interpreting Physician Jcarlos Conner MD ?[employer]r ? Delvis Castro RDCS ?? Indications Arrhythmia. ?? Clinical History Hypertension. Hypercholesterolemia. Atrial fibrillation. MUMTAZ ?? Study Data ?? Type of Study ?TTE procedure:Echo Complete-Doppler, Colorflow, M-Mode. ?? Study Date03/17/2023 Start Time: 01:51 PM Study Location: [facility] [place] Adult Echo Study Status: Echo lab Patient Status: Routine Technical Quality: Fair EKG: Atrial fibrillation HR: 73 bpm ?? 2D Measurements ?LV Diastolic Dimension: 4.9 cm LV Systolic Dimension: 3.8 cm ??LV Septum Diastolic: 1.3 cm ??LV PW Diastolic: 1 cm ?AO Root Dimension: 4 cm ?LA ESV (BP):106 ml ??LVOT Stroke Volume: 38.58 ml ?? LA ESV Index: 54 ml/m2 ??Stroke Volume Index19.58 ml/m2 LVOT: 2.6 cm ??Cardiac Index:1.43 l/min/m2 ?? Doppler Measurements ?AV Peak Velocity: 152 cm/s ??AV Peak Gradient: 9.24 mmHg ??AV Mean Gradient: 6 mmHg ??AV VTI:25.9 cm ??LVOT Peak Velocity: 47.9 cm/s ??LVOT VTI7.27 cm ??AV Area (Continuity):1.49 cm2 ?TR Velocity:250 cm/s ??TR Gradient:25 mmHg ??Estimated RAP:8 mmHg ??Estimated RVSP: 33 mmHg ?Cardiac Anatomy ?Left Ventricle/Interventricular Septum ??The left ventricular size is normal. The left ventricular wall thickness is ??mildly increased. The LV systolic function is moderately reduced. The left ??ventricular ejection fraction is 30-35%. No obvious wall motion ??abnormalities seen on limited views. Unable to assess diastolic function due ??to atrial fibrillation. ?Left Atrium/Interatrial Septum ??The left atrium is severely dilated. ??The left atrial volume index is 75 mL/m2. ??The interatrial septum appears intact. ?Aortic Valve ??The aortic valve is trileaflet . The aortic valve appears moderately ??calcified. The aortic valve leaflet opening is moderately decreased. ??There is trace aortic regurgitation. ??There is mild aortic stenosis. ??The aortic valve area is 1.5 cm by continuity equation . ??The mean gradient is 6 mmHg. ?Mitral Valve ??Mitral leaflet excursion is mildly reduced . There is moderate mitral ??regurgitation. ??The mitral valve appears mildly thickened. ?Aorta ??There is mild dilation of the aortic root (4.0 cm) and ascending aorta (4.2 ??cm). ??The aorta is not well visualized. ?Right Ventricle ??The right ventricle is severely dilated. Right ventricular systolic function ??is moderate to severely reduced. There is flattening of the interventricular ??septum during diastole consistent with RV volume overload . ?Right Atrium ??The right atrium is massively dilated. The right atrial volume index is 115 ??mL/m2. ?Pulmonic Valve ??The pulmonic valve is poorly visualized. ??The pulmonic valve is functionally normal. ?Tricuspid Valve ??The tricuspid valve appears mildly thickened. There is moderate tricuspid ??valve regurgitation. ?Pumonary Artery ??The pulmonary artery appears normal. ??The pulmonary artery systolic pressure estimation is 30-35 mmHg. ?Venous Structures ??The inferior vena cava appears moderately dilated. ??Inferior vena cava inspiratory collapse is blunted . ??The central venous pressure estimation is 8 mmHg. ?Pericardium/Extracardiac ??There is no significant pericardial effusion. ?Summary ??1. The LV systolic function is moderately reduced. The left ventricular ??ejection fraction is 30-35%. No obvious wall motion abnormalities seen on ??limited views. ??2. The left atrium is severely dilated. The left atrial volume index is 75 ??mL/m2. ??3. There is mild aortic stenosis. The aortic valve area is 1.5 cm by ??continuity equation. The mean gradient is 6 mmHg. ??4. There is moderate mitral regurgitation. ??5. The right ventricle is severely dilated. Right ventricular systolic ??function is moderate to severely reduced. ??6. There is flattening of the interventricular septum during diastole ??consistent with RV volume overload . ??7. The right atrium is massively dilated. The right atrial volume index is ??115 mL/m2. ??8. There is moderate tricuspid valve regurgitation. ?Comparison ??Comparison is made to the study of November 29, 2017. The LVEF appears lower. ?Signature ? [4] (03/16/2023 09:[address] Angio Abdomen) ?? Reason For Exam Renal artery dissection suspected;Other: ?? RESULT: CT Angio Abdomen EXAMINATION: CT Angio Chest, CT Angio Abdomen? INDICATION: Reason: Other:; Aortic disease, nontraumatic; Clinical Question(s): Other:; Aortic Dissection ?? TECHNIQUE: An initial noncontrast CT of the chest was performed. Spiral CTA of the chest and abdomen was performed after rapid IV contrast administration without cardiac gating triggered by an [facility] aorta. Images are formatted in multiple planes using 2-D multiplanar and 3-D maximum intensity projection. Obliqued images through the aortic root were reconstructed. 100 cc of Omnipaque 300 was administered intravenously. Weight-based protocol using automatic tube modulation was used to optimize exposure parameters.? CTDIvol Body: 18.34 mGy, ??DLP Body: 400 mGy*cm. ? COMPARISONS: None. ?? ANGIOGRAPHIC FINDINGS: ?? Moderate atherosclerotic calcification of the aortic valve. No aortic dissection or aneurysm. Normal three vessel arch without branch vessel stenosis.? Pulmonary arteries are normal in caliber. No evidence of pulmonary embolism.? Abdominal aorta: Moderate to severe atherosclerotic calcification. No aortic aneurysm or dissection. Slight focal ectasia of the infrarenal abdominal aortic measuring up to 2.2 cm. ?? Celiac axis: Patent. ?? Superior mesenteric artery: Patent. ?? Right renal artery: Mild atherosclerotic disease at the origin. Patent. ?? Left renal artery: Mild atherosclerotic disease at the origin. Patent. ?? Inferior mesenteric artery: Patent. ?? Visualized iliac arteries: Patent. ?? NON-ANGIOGRAPHIC FINDINGS: ?? Photographic Hand Developer View Findings, Lines and Tubes: None. ?? Trachea and Airways: Patent without evidence of tracheal or endobronchial lesion. ?? Lungs and Pleura: Mild dependent atelectasis. No focal consolidation. ??No effusion or pneumothorax. ?? Mediastinum and norberto: No mass or hematoma. No mediastinal or hilar lymphadenopathy. No esophageal abnormality. ?? Heart: Moderate cardiomegaly, with prominently biatrial enlargement, right greater than left. Smallpericardial recess fluid. ??No pericardial effusion. Severe coronary artery calcification. ?? Chest Wall Soft Tissues: Normal.? Diaphragm : Diaphragm is intact.? Liver: Normal. ?? Gallbladder: Sludge within the gallbladder. No surrounding inflammation.? Bile ducts: No bile duct dilation.? Spleen: Normal.? Pancreas: No peripancreatic inflammatory changes.? Adrenal glands: Normal. ?? Kidneys and ureters: No hydronephrosis, stones, or suspicious masses. ?? Stomach, small bowel, and large bowel: The stomach is normal. The visualized loops of small bowel are normal in caliber with no evidence of obstruction. There is mild scattered diverticulosis within the visualized colon. No inflammatory changes. Appendix is normal..? Peritoneum and retroperitoneum: No ascites or pneumoperitoneum. No omental or mesenteric lesions. ?? Lymph nodes: No enlarged lymph nodes. ?? Abdominal wall: Unremarkable. ?? Bones: No acute abnormality. Degenerative changes in the right shoulder. Degenerative changes in the spine. ?? IMPRESSION:? 1. ??No evidence of aortic dissection or aneurysm. 2. ??No evidence of pulmonary embolism. 3. ??No acute findings within the chest or abdomen. 4. ??Moderate cardiomegaly, and severe coronary artery calcification. Moderate aortic valvular calcification.?? 5. ??Scattered colonic diverticulosis. ?? [5] * Final Report * ?? Diagnostic Cardiac Cath Cardiac Diagnostic Report ?Demographics ?Patient Name ?NAKUL CARLOS ? Gender ? Male ?Corporate ?Race ?Facility MRN ?[id number] ?Room Number ?M510 ? Height ? 67.72 inches ?Date of ? 1950 ? Weight ? 185 pounds ?Age ? 72 year(s) ? BSA ?1.97 m2 ?Accession Number ?[id number] ? BMI ?28.37 kg/m2 ?Referring Physician ? Vinnie Mcgovern MD ??Date of Study ??03/18/2023 ?Performing Physician ?Vinnie Mcgovern MD ??Fellow ?Interventional Physician ?Procedure ?? Procedure Type ?Diagnostic procedure:Coronary Angiography, RHC, LHC ?Miscellaneous:ACT , ULTRASOUND GUIDANCE ?? ACC Diagnostic Catheterization Status:Urgent ?Indications ?Indications: ??Chest pain. ?Clinical History ?? Clinical Evaluation Leading to Procedure ?- There were no CAD presentation symptoms. ?- The patient was diagnosed with a heart failure condition. Heart failure ?type: Systolic. ?- The patient's heart failure status was assessed as NYHA Class III ?ACC Risk Factors ?The patient risk factors include:hypercholesterolemia, hypertension, chronic ??lung disease, last creatinine: 1.5 mg/dl, creatinine clearance: 51.28 ??ml/min, dyslipidemia and former tobacco use. ?? Additional Clinical History:72-year-old male with past medical history of mild dementia, A-fib on amiodarone and Eliquis, hypertension, hyperlipidemia, sleep apnea non compliant with CPAP recent, Progressive Right HF with Pulmonary HTN and Moderate to severe tricuspid regurgitation EF of 55 to 60% back in 2018, presenting to the ED for nausea and vomiting as well as a 2-day history of chest and back pain now being admitted to PCU for monomorphic VT. Echo now shows moderately reduced LVEF 30-35% with moderate MR and moderate TR. He is referred to the roofing laborer for right and left heart catheterization. ?Procedure Data ?? Procedure Date Date: 03/18/2023Start: 13:27End: 14:41 ?? The procedure was explained in detail to the patient. Risks, complications and alternative treatments were reviewed. Written consent was obtained. ?? Entry Locations ?- Percutaneous access was performed through the Right Radial artery. A 6 Fr ?sheath was inserted. Hemostasis was successfully obtained using Prelude ?Sync EZ. ?? Closure Comments: 11 cc. ?- Antegrade Percutaneous access was performed through the Right Brachial ?vein. A 5 Fr sheath was inserted. Hemostasis was successfully obtained ?using Manual Compression. ?? Procedure Medications ?- Versed (Midazolam) I.V. 0.5 mg. ?- Fentanyl I.V. 25 mcg. ?- Lidocaine 2% S.C. Right Wrist 5 ml. ?- Heparin I.V. 5000 units. ?? Sedation: My intra-service moderate sedation time was: from 13:44 to 14:39. Refer to procedural log for detailed chronological information. ?? Contrast Material ?- Omnipaque 50 ml ?? Diagnostic Catheters ?- A5F JR 4.0 DxTERITY DIAGNOSTIC CATHETERwas used for: Left heart ?catheterization. ?- A5F JL 3.5 INFINITI CATHETERwas used for: Left coronary angiography.Unable ?to cannulate the vessel. ?- A5F JL 4.0 DxTERITY DIAGNOSTIC CATHETERwas used for: Left coronary ?angiography. ?- [id number] BALLOON WEDGE PRESSURE CATHETERwas used for: Right heart ?catheterization. ?? Fluoroscopy Time: Diagnostic: 6:57 minutes. Total: 6:57 minutes. ?? Fluoroscopy Dose: Diagnostic: 229 mGy. Total: 229 mGy. ?? Dose Area Product:Diagnostic: 74673 mGy/cm2. Total: 81173 mGy/cm2. ?Procedure Narrative ?Timeout was performed prior to the procedure. Right ultrasound-guided radial ??access obtained using a 6 Kuwaiti sheath. Selective right coronary ??angiography was performed using a 5 Kuwaiti JR4 catheter. Selective left ??coronary angiography was performed using a 5 Kuwaiti JL 4 catheter. Left ??heart catheterization was performed using a 5 [place]i JR4 catheter. Right ??ultrasound-guided right basilic venous access obtained using a 5 [place]i ??sheath. Right heart catheterization was performed using a 5 [place]i Perry-Max ??catheter. Hemostasis of the right basilic vein was performed using manual ??compression. Hemostasis of the right radial artery was performed using a TR ??band. ?Angiographic Findings ?Cardiac Arteries and Lesion Findings ?? LMCA: ?Lesion in LMCA: Ostial.20% stenosis . ?? LAD: ?Lesion in Mid LAD: 30% stenosis . ?Lesion in 1st Diag: Mid subsection.90% stenosis . ?? LCx: ?Lesion in 2nd Ob Shruthi: Proximal subsection.95% stenosis . ?Lesion in Prox CX: Ostial.50% stenosis . ?? RCA: ?Lesion in Mid RCA: 65% stenosis . ?Hemodynamics ?Condition: Rest ?O2 Consumption: Estimated: 226.30Heart Rate: 70 bpm ?? Oxygen Saturation +--------+-----+----+ +----+ + !Location!pCO2 !pO2 !% Saturation!Hgb !O2 Content! +--------+-----+----+ +----+ + !PA ?! ? ! ?!44 ?!11.8! ?! +--------+-----+----+ +----+ + !AO ?! ? ! ?!94.6 ?!11.8! ?! +--------+-----+----+ +----+ + !RA ?! ? ! ?!45.5 ?!11.8! ?! +--------+-----+----+ +----+ + ?? Pressures (mmHg) +-----+ + !Site !Pressure ?! +-----+ + !LV ?? !134/76 ,69 ??! +-----+ + !AO ?? !129/86 (105)! +-----+ + !RA ?? ! () ??! +-----+ + !RA ?? !06/06 () ??! +-----+ + !RV ?? !37 ,13 ?! +-----+ + !RV ?? !36/ ,12 ?! +-----+ + !PCW ??! (16) ??! +-----+ + !PCW ??! (15) ??! +-----+ + !PA ?? !37/16 (25) ??! +-----+ + !PA ?? !37 (26) ??! +-----+ + ?? Cardiac Output +------+ + +-------+ !Method!CO (l/min)!CI (l/min/m2)!SV (ml)! +------+ + +-------+ !Juan ??!1.73 ?!0.9 ?!24.79 ??! +------+ + +-------+ ?? Vascular Resistance (dynes x sec x cm-5) ?? +---------+-----+-----+-----+----+---------+-------+ !CO method!TSVR !SVR ??!TPVR !PVR !TPVR/TSVR!PVR/SVR! +---------+-----+-----+-----+----+---------+-------+ !Juan ? !60.48!54.05!14.79!5.85!0.24 ? !0.11 ?? ! +---------+-----+-----+-----+----+---------+-------+ !Qp or Qs !58.78!52.53! ? ! ?! ? ! ? ! +---------+-----+-----+-----+----+---------+-------+ Shunts ?? Oxygen Values ?O2 Consumption 226.3 ?Flows (l/min) ?Qs 1.78 ?Interventional Procedure ?Conclusions ?Diagnostic Summary ??RHC showed: RA mean 11 mmHg, RV 37/6, PCWP mean 15 mmHg, PA 37/16 (25 mmHg). ?Coronary angiogram showed: ??1. Co-dominant circulation. ??2. Left main is a large size vessel. There is 20% ostial left main stenosis. ??3. LAD is a large size vessel and gives a moderate size first diagonal ??branch. There is 30% mid LAD stenosis. There is 90% mid D1 stenosis. ??4. LCx is a large size vessel. There is 50% ostial stenosis of the LCx. OM2 ??or the inferior branch of OM1 has a 95% diffuse proximal stenosis. ??5. RCA is a large size vessel with moderate diffuse disease. There is 60-70% ??tubular distal RCA stenosis. ??6. LVEDP is 15 mmHg. ?Conclusion: ??1. Elevated biventricular filling pressures with mild pre-capillary ??pulmonary HTN and Low cardiac output. ??2. Severe CAD involving small-moderate size branches (OM2 and D1). ?Diagnostic Recommendations ??Aggressive cardiovascular risk factor modification. ??Evidence based optimal medical therapy. ??Hydrate with IV NS to prevent REX. ??Heart team discussion including CCU team, EP and interventional team on ??medical management versus PCI of OM +/- Diagonal. ?Complications:None. ?Signatures [6] 50_ minutes spent on discharge ?? Case discussed with Dr. Montes [1]??Chest Portable; Irasema MEDINA, Terrence V 03/19/2023 12:11 EDT [2]??Chest Single Frontal View; Tam Kwan MD 03/18/2023 20:02 EDT [3]??CT Angio Chest; Roe Atkins MD 03/16/2023 09:36 EDT [4]??Echo Complete-Doppler, Colorflow, M-Mode; Jcarlos Conner MD 03/17/2023 13:51 EDT [5]??CT Angio Abdomen; Roe Atkins MD 03/16/2023 09:36 EDT [6]??Diagnostic Cardiac Cath; Shaniqua MEDINA, Vinnie Martínez 03/18/2023 13:27 EDT * Chuck Montes MD: PERFORM Event Display: Discharge/Transfer Note Hospital Authored Date: [id number] ?Patient was seen and examined along with the CCU team. ??We reviewed the past history, current hospital course, physical exam. ??We reviewed all of the current problems and all of the currentdata including any imaging studies such as echo and cardiac cath. ??We reviewed the EKGs, radiology. ??Medications and laboratories. ??We answered all questions in layman's terms to the best of our ability. I am responsible for the clinical decision making outlined in our note. I agree with the current medical regimen.?? He will be following up with [facility] cardiology.?? They can order an MRI to be done in the future. * Pennie CRYSTAL EVALUATOR, Savanna Escalante: PERFORM Event Display: Discharge/Transfer Note Hospital Authored Date: PAP therapy order: ?? iVAPS intel Vol ASS Pressure Support for MUMTAZ Epap 9cmH2O, Tvi Liters 3.0 ,TVa 6.3L, PS min20 cm H2O, target pt rate 20bpm, Rise time 300, Timin (secs) 0.3 ,Timax (secs) 2.0, ex sense trigger medium, insp sensitivity cycle medium, hgt 70 FiO2 none - use daily at bedtime and with naps; sleep study; mask per pt comfort ?? * Scoo Capone RN: PERFORM, SIGN, VERIFY Event Display: Case Management Discharge Plan Authored Date: [id number] Patient: CARLOS MOTA Age: 72 years Sex: Male : 1950 Associated Diagnoses: None Author: Soco Capone RN Discharge Plan Case Management Discharge Plan : Case Management Discharge Plan Data 03/22/2023 12:05 EDT Discharge Level of Care at Discharge nursing home facility Discharge Nursing Homes/Rehab Facilities [facility] Discharge Transportation Arranged [facility] [address] [place] [id number] [phone] Discharge Arranged Transport Date/Time 03/22/2023 15:30 Mode of Transportation Arranged Ambulance * Hailey Gallardo RN: PERFORM Event Display: Patient Education/Instruction Authored Date: [id number] Inpatient Adult Discharge Instructions [address] [id number] Name: CARLOS MOTA : 1950 Visit: 03/16/2023 11:33:00 Current Date: 03/22/2023 14:55 Account: [id number] Inpatient Adult Discharge Instructions We would like to thank you for allowing us to assist you with your healthcare needs. The following includes patient education materials and information regarding your injury/illness. Our entire staffstrives to provide an excellent experience for our patients and their families. PLEASE ENSURE YOU FOLLOW-UP PER THE INSTRUCTIONS BELOW! ?? YOUR OPINION IS IMPORTANT TO US! Please complete the survey you may receive by mail or email. Your feedback will be used to make improvements to the healthcare experiences of our patients and their families. Surveys are administered by [employer]. ?? If further treatment with your primary care physician or another doctor is recommended, it is important for you to keep the appointment. Call your primary care physician or return to the Emergency Department immediately if your condition worsens, fails to improve, or new symptoms develop. If you need to find a doctor, you can call [facility] for a referral at [phone] or toll free at [phone] [email or web address] [phone]) or log in to [email or web address].. ?? [facility], in keeping with [facility] guidance, no longer requires face masks for staff, patientsor visitors in most situations. Similiar to time spent indoors at other locations, there is the chance that you were exposed to repiratory viruses during your time with us (such as flu or COVID-19). If you develop symptoms concerning for a viral respiratory infection, please seek testing (and treatment if indicated) from your medical provider or home test kit. ?? You can view and manage your care through the patient portal or by using a health care isi of your choosing. [employer] is a website that allows you to securely view your medical information including your hospital discharge summary, office visit summaries, medications and follow-up visits. You can also request appointments, renew medications, and request access to your medical information using a health care isi of your choosing, or just ask a question. You can enroll at [email or web address] or register during your next office visit. You have been discharged from [facility], Patient Care Unit: S3. If you have any questions regarding these instructions after you leave, please call us and we will be happy to assist you. [facility] Your Care Team Attending Physician Karri MEDINA, Richard Kamara Consulting Providers Ron MEDINA, Barrett; Richard Zeng MD; Carlos MEDINA, Juan Reynaga; Dank Luciano MD Discharging Providers Catracho MEDINA, Alexandr Rosen Reason for Admission General medical Your Diagnosis Monomorphic ventricular tachycardia Chest pain Right ventricular dysfunction Femur fracture Hypertension Hyperlipidemia Tests Performed Below is a partial list of the tests performed during your hospitalization. You may have had other tests and procedures not included in this list. Please discuss all test results with your provider. Alk Phos ALT AST BASE EXCESS POC CARTRIDGE Basic Metabolic Panel BUN CALCIUM IONIZED POC CART Calcium Level CBC CBC w/ Differential Comprehensive Metabolic Panel COVID-19 (Novel Coronavirus), Rapid PCR Creatinine Electrolytes FREE T4 Glucose Level GLUCOSE POC CARTRIDGE HEMATOCRIT POC CARTRIDGE HEMOGLOBIN A1C HEMOGLOBIN POC CARTRIDGE High Sensitivity Troponin T HOLD LAVENDER TUBE INR Lactate Level LACTIC ACID Lipase LIPID PANEL Magnesium Level Phosphorus Level POC Hemochron ACT-LR Potassium Level POTASSIUM POC CARTRIDGE ProBNP PROBNP PTT SODIUM POC CARTRIDGE Total Bilirubin Troponin T, High Sensitivity TSH WITH REFLEX TO FT4 UREA NITROGEN, URINE MG/DL Urinalysis Complete Urine Creatinine Urine Sodium Urine Urea Nitrogen?-- Results Pending -- VBG POC CARTRIDGE CT Angio Abdomen CT Angio Chest CXR Portable MRI Cardiac W+W/O Contrast?-- Results Pending -- XR Chest 2 Views Frontal and Lat XR Chest Single Frontal View You will be contacted within 72 hours with your results. Primary Care Provider Deloris MEDINA, Elmer Bill Advance Directive Health Care Proxy on File Yes - Health Care Proxy Discharge Vitals Temperature: 97.4 DegF Height: 172 cm Pulse Rate: 59 bpm Weight: 81.8 kg Respiratory Rate: 18 br/min ?? Systolic Blood Pressure: 128 mm Hg ?? Diastolic Blood Pressure:??97 mm Hg??High ?? Oxygen Saturation: 96 % ?? Studies Pending All tests and labs ordered during this hospital stay have been completed unless listed below. Please discuss all pending results with your provider listed above in these instructions. ?? Add On Lab Order CBC Comprehensive Metabolic Panel Lactic Acid Level (Lactate Level) MRI Cardiac W+W/O Contrast PTT Urea Nitrogen Urine (Urine Urea Nitrogen) What to do next Instructions From Your Doctor You were found to be in an abnormal heart arrhythmia called ventricular tachycardia that required shocking. You were treated with some medications and were started on new ones. Please continue to take them as prescribed. Please follow up [facility] cardiology for further management. Please follow up with your PCP in 1-2 weeks. ?? If you feel chest pain, short of breath, fast heart rate, please come back to the ED or go to a health care provider. Discharge Orders Scheduled Follow-Up Appointments Saturday 10:10 AM EDT ?? With: Elmer Puentes MD Where: [address] [address]- Status: Pending You Need to Schedule the Following Appointments Follow Up with??Elmer Puentes MD When:??Within Within one week Why: call for appointment Where: ?? Discharge Medications CARLOS MOTA :1950 Visit Date:03/16/2023 Medications: Please continue your medications until treatment is completed or stopped by your provider. Medications not listed below should be discontinued. Discuss any questions related to medications with your provider. What How Much When Instructions Next Dose New Acetaminophen (acetaminophen 325 mg oral tablet) 650 Milligram Oral Every 4 hours as needed for Pain , Mild Temperature Greater than 100.5 ?? as needed New Aspirin (aspirin 81 mg oral tablet, chewable) 81 Milligram Oral Daily 03/23 AM New Atorvastatin (atorvastatin 80 mg oral tablet) 80 Milligram Oral Daily at Bedtime 03/22 PM New Metoprolol (metoprolol 25 mg oral tablet, extended release) 25 Milligram Oral Daily 03/23 AM New Spironolactone (spironolactone 25 mg oral tablet) 12.5 Milligram Oral Daily 03/23 AM Unchanged Allopurinol (allopurinol 300 mg oral tablet) 1 tab(s) Oral Daily 03/23 AM Unchanged amiODARONE (amiodarone 200 mg oral tablet) 1 tab(s) Oral Daily 03/23 AM Unchanged apixaban (Eliquis 5 mg oral tablet) 1 tab(s) Oral Twice a day 03/22 PM Unchanged Fluoxetine (FLUoxetine 20 mg oral capsule) 1 capsule Oral Daily 03/23 AM Unchanged Furosemide (furosemide 40 mg oral tablet) 1 tab(s) Oral Daily Duration: 90 Days 03/23 AM Unchanged Multivitamin Oral Daily 03/23 AM Unchanged Terazosin (terazosin 2 mg oral capsule) 1 capsule Oral Daily at Bedtime Duration: 90 Days 03/22 PM Unchanged Tramadol (traMADol 50 mg oral tablet) 1 tab(s) Oral Every 6 hours as needed for as needed for pain as needed Unchanged Valsartan (valsartan 160 mg oral tablet) 1 tab(s) Oral Daily Duration: 90 Days 03/23 AM ?? What How Much When Comments Stop Taking Diltiazem (DilTIAZem (Eqv-Cardizem CD) 120 mg/ 24 hours oral capsule, extended release) 1 capsule Oral Daily Stop Taking Pravastatin (pravastatin 80 mg oral tablet) 1 tab(s) Oral Daily Test Results Below is a partial list of the most recent Laboratory test results done prior to this discharge. You may have had other tests and procedures not included in this list. Please discuss all test resultswith your provider. Est Creatinine Clearance - 38.81 mL/min (03/21/2023) Alk Phos (03/16/2023) ???Alkaline Phosphatase - 261 units/L ALT (03/16/2023) ???ALT (SGPT) - 134 units/L AST (03/16/2023) ???AST (SGOT) - 171 units/L BASE EXCESS POC CARTRIDGE (03/16/2023) ???Base Excess (POC) POC Cartridge - NEGATIVE 10 Basic Metabolic Panel (03/19/2023) ???Sodium - 135 mmol/L???Potassium - 3.8 mmol/L???Chloride - 101 mmol/L???Bicarbonate Level - 20 mmol/L???Anion Gap - 14???Glucose Level - 112 mg/dL???BUN - 24 mg/dL???Creatinine-Blood - 1.3 mg/dL???Estimated GFR Creatinine - 56 ML/MIN/1.73 M2???Calcium - 8.9 mg/dL BUN (03/16/2023) ???BUN - 34 mg/dL CALCIUM IONIZED POC CART (03/16/2023) ???Ionized Calcium (POC) POC Cartridge - 0.99 mmol/L Calcium Level (03/16/2023) ???Calcium - 9.9 mg/dL CBC (03/22/2023) ???WBC - 7.3 k/mm3???RBC - 4.01 m/mm3???Hgb - 12.9 Gm/dL???Hct - 37.9 %???MCV - 94.5 femtoliters???MCH - 32.2 pg???MCHC - 34.0 g/dL???Platelet Count - 184 k/mm3???RDW-SD - 44.1 femtoliters???MPV - 11.3 femtoliters???Nucleated RBC (Automated) - 0.0 #/100 WBC'S???Abs. NRBC - 0.0 k/mm3 CBC w/ Differential (03/16/2023) ???WBC - 9.6 k/mm3???RBC - 5.24 m/mm3???Hgb - 16.4 Gm/dL???Hct - 48.9 %???MCV - 93.3 femtoliters???MCH - 31.3 pg???MCHC - 33.5 g/dL???Platelet Count - 316 k/mm3???RDW-SD - 43.4 femtoliters???MPV - 11.2 femtoliters???Nucleated RBC (Automated) - 0.2 #/100 WBC'S???Abs. NRBC - 0.0 k/mm3???Abs. Neut - 7.7 k/mm3???Abs. Lymph - 1.4 k/mm3???Abs. [place] - 0.5 k/mm3???Abs. Eo - 0.0 k/mm3???Abs. Baso - 0.0 k/mm3???Neut % - 79.8 %???Lymph % - 14.4 %???[place] % - 4.9 %???Eos % - 0.0 %???Baso % - 0.1 %???Imm Gran - 0.8 %???Abs. Imm Gran - 0.1 k/mm3 Comprehensive Metabolic Panel (03/22/2023) ???Sodium - 138 mmol/L???Potassium - 3.6 mmol/L???Chloride - 102 mmol/L???Bicarbonate Level - 22 mmol/L???Anion Gap - 14???Glucose Level - 91 mg/dL???BUN - 27 mg/dL???Creatinine-Blood - 1.6 mg/dL???Estimated GFR Creatinine - 47 ML/MIN/1.73 M2???Calcium - 8.6 mg/dL???Protein, Total - 5.4 Gm/dL???[place] min - 3.3 Gm/dL???AG Ratio - 1.6???Alkaline Phosphatase - 172 units/L???AST (SGOT) - 33 units/L???ALT (SGPT) - 43 units/L???Bilirubin, Total - 0.6 mg/dL COVID-19 (Novel Coronavirus), Rapid PCR (03/16/2023) ???COVID-19 by RT-PCR - NEGATIVE Creatinine (03/16/2023) ???Creatinine-Blood - 2.5 mg/dL???Estimated GFR Creatinine - 26 ML/MIN/1.73 M2 Electrolytes (03/16/2023) ???Sodium - 139 mmol/L???Potassium - HEMOLYZED???Chloride - 97 mmol/L???Bicarbonate Level - 15 mmol/L???Anion Gap - 27 FREE T4 (03/16/2023) ???Free T4 - 2.30 ng/dL Glucose Level (03/16/2023) ???Glucose Level - 162 mg/dL GLUCOSE POC CARTRIDGE (03/16/2023) ???Glucose (POC) POC Cartridge - 162 HEMATOCRIT POC CARTRIDGE (03/16/2023) ???Hematocrit (POC) POC Cartridge - 45 % HEMOGLOBIN A1C (03/16/2023) ???Hemoglobin A1C (Monitoring) - 5.5 % HEMOGLOBIN POC CARTRIDGE (03/16/2023) ???Hemoglobin (POC) POC Cartridge - 15.3 Gm/dL High Sensitivity Troponin T (03/19/2023) ???High Sensitivity Troponin (HSTnT) - 969 ng/L HOLD LAVENDER TUBE (03/21/2023) ???Hold Lavender Top - SPECIMEN DISCARDED AFTER 24 HOURS. INR (03/16/2023) ???INR - 2.0???Protime (PT) - 19.7 seconds Lactate Level (03/22/2023) ???Lactate - 1.7 mmol/L LACTIC ACID (03/19/2023) ???Lactate - 2.0 mmol/L Lipase (03/16/2023) ???Lipase - 25 units/L LIPID PANEL (03/16/2023) ???Cholesterol - 145 mg/dL???Triglycerides - 78 mg/dL???HDL Cholesterol - 35 mg/dL???LDL Cholesterol - 94 mg/dL???Non HDL Cholesterol - 110 mg/dL Magnesium Level (03/19/2023) ???Magnesium - 2.5 mg/dL Phosphorus Level (03/19/2023) ???Phosphorus - 3.0 mg/dL POC Hemochron ACT-LR (03/18/2023) ???POC ACT-LR - 284.0 seconds Potassium Level (03/16/2023) ???Potassium - 4.0 mmol/L POTASSIUM POC CARTRIDGE (03/16/2023) ???Potassium (POC) POC Cartridge - 4.8 mmol/L ProBNP (03/16/2023) ???Nt-Probnp - 77872 pg/mL PROBNP (03/18/2023) ???Nt-Probnp - 7734 pg/mL PTT (03/22/2023) ???APTT - 36.9 seconds SODIUM POC CARTRIDGE (03/16/2023) ???Sodium (POC) POC Cartridge - 133 mmol/L Total Bilirubin (03/16/2023) ???Bilirubin, Total - 1.0 mg/dL Troponin T, High Sensitivity (03/20/2023) ???High Sensitivity Troponin (HSTnT) - 959 ng/L TSH WITH REFLEX TO FT4 (03/16/2023) ???TSH - 4.03 uIU/mL UREA NITROGEN, URINE MG/DL (03/16/2023) ???Urea Nitrogen, Urine Random - 555.7 mg/dL Urinalysis Complete (03/16/2023) ???Appear/Color, Urine - YELLOW???Specific [place], Urine - 1.045???pH, Urine - 5.5???Albumin, Urine - 1+???Glucose, Urine - NEGATIVE???Ketones, Urine - NEGATIVE???Bilirubin, Urine - NEGATIVE???Hemoglobin, Urine - NEGATIVE???Nitrite, Urine - NEGATIVE???Leukocyte, Urine - NEGATIVE???Urobilinogen - NORMAL? ?WBC's, Urine - 4 /HPF? ?RBC's, Urine - NONE SEEN? ?Squamous Epith - <1 /HPF? ?Mucus - SLIGHT Urine Creatinine (03/16/2023) ???Creatinine, Urine Random - 151.6 mg/dL Urine Sodium (03/16/2023) ? ?Sodium, Urine Random - <20 mmol/L VBG POC CARTRIDGE (03/16/2023) ???pH Venous (POC) POC Cartridge - 7.42???pCO2 Venous (POC) POC Cartridge - 22.2 mm Hg???pO2 Venous(POC) POC Cartridge - 38 mm Hg???Est Bicarbonate (POC) POC Cartridge - 14.3 mmol/L???% O2 Sat Venous (POC) POC Cartridge - 75???Specimen Type - Blood Gas - VENOUS Immunizations This Visit Given Vaccine Date influenza virus vaccine, inactivated 03/17/2023 Allergies (NKA means No Known Allergies) Bee Stings Problems Active Problems??(31) Adenomatous polyp of colon?? AF (atrial fibrillation)?? Alcohol withdrawal?? Anomalous muscle bands, right ventricle?? Bee sting-induced anaphylaxis?? Chronic low back pain?? Colonoscopy?? Decreased right ventricular systolic function?? Diastolic dysfunction?? Diverticulosis?? Dyspnea on exertion?? Elevated alkaline phosphatase level?? Erectile dysfunction?? Femur fracture?? Gout?? H/O total knee replacement?? HTN (hypertension)?? Hypercholesterolemia?? Insomnia?? Internal hemorrhoids?? Left wrist pain?? Major depression in complete remission?? Memory loss, short term?? OA (osteoarthritis) of knee?? Obstructive sleep apnea?? Onychomycosis?? Osteoarthritis of shoulder?? Pain in right shoulder?? Polyp of colon?? Pulmonary hypertension?? Vertigo?? Education Materials Below is the list of Educational Leaflet Providered with your Discharge Instructions. Ventricular Arrhythmia?? Valuables and Belongings I fully understand and agree that [facility] accepts no responsibility for all my personal property including clothing, toilet articles, radios, jewelry, dentures, hearing aids, rings, money, or any other property that is in my possession or is brought to me after admission. I understand certain valuables may be placed in a hospital safe for a short period of time. I understand that the hospital is not liable for loss or damage due to accident, fire, or other natural occurrence while said property is in the safe. I accept full responsibility for any personal property that I keep with me, and will not hold the hospital responsible in case of loss or disappearance. I acknowledge that i have been encouraged to send valuables and belongings home. ?? No Valuables/Belongings: No valuables/belongings present Date for Pt to Sign Valuables/Belongings: 03/22/23 14:14:00 ?? Other Discharge Information ? Case Management Discharge Plan?? Discharge Plan?? Discharge Level of Care at Discharge: nursing home facility Discharge Transportation Arranged: [facility] [address] [facility] [address] [phone] Mode of Transportation Arranged: Ambulance Discharge Arranged Transport Date/Time: 03/22/23 15:30:00 Discharge Nursing Homes/Rehab Facilities: [facility] ?? Pulmonary Rehab Status?? Pulmonary Rehab Discharge Status?? CPAP/BiPAP Mask Type: Full CPAP/BiPAP Mask Size: Medium Respiratory Rate: 18 br/min ? Common Emergency Awareness Tips IS IT A STROKE? Act FAST and Check for these signs: FACE Does the face look uneven? ARM Does one arm drift down? SPEECH Does their speech sound strange? TIME Call at any sign of stroke ?? Heart Attack Signs Chest discomfort: Most heart attacks involve discomfort in the center of the chest and lasts more than a few minutes, or goes away and comes back. It can feel like uncomfortable pressure, squeezing, fullness or pain. Discomfort in upper body: Symptoms can include pain or discomfort in one or both arms, back, neck, jaw or stomach. Shortness of breath: With or without discomfort. Other signs: Breaking out in a cold sweat, nausea, or lightheaded. Remember, MINUTES DO MATTER. If you experience any of these heart attack warning signs, call to get immediate medical attention! ?? Smoking can increase your chances of developing chronic health problems and can cause harmful effects to other family members in your house. If you smoke, you are strongly encouraged to quit. Please call [facility] at [phone] or [phone] or log in to [email or web address] for referrals to smoking cessation programs. ?? 819 Suicide & Crisis Lifeline is available 14/01 if you or someone you know needs to find a reason to keep living. By calling 780 you'll be connected to a skilled, trained counselor at a crisis center in your area. INPATIENT DISCHARGE INSTRUCTIONS SIGNATURE PAGE CARLOS MOTA Location:[facility] Registration Date and Time:03/16/2023 11:33 EDT Primary Care Physician: Deloris MEDINA, Elmer Bill, Attending Physician: Karri MEDINA, Richard Kamara, I CARLOS MOTA, have received the above patient education materials/instructions and have verbalized understanding. If ambulance or transport services are being used I further acknowledge being given a choice of service. ?? If you need to contact me, please call me at this number: . Patient/Website Designer Name: Patient/Website Designer Signature: Relationship to Patient: Witness Name/Signature: Date: * Catracho MEDINA, Alexandr Rosen: PERFORM Event Display: Patient Education Leaflets Authored Date: [id number] Ventricular Arrhythmia ?? [address] Ventricular Arrhythmia The heart has its own electrical system to regulate the heartbeat. An abnormal change in the rate or pattern of the heartbeat is called an arrhythmia. It can cause the heart to move blood less efficiently. Four chambers hold blood as it moves through the heart. The??2 lower chambers of the heart are called ventricles. Problems with the electrical signals in the heart can make the ventricles beat faster than normal. Ventricular tachycardia (VT) Rapid electrical signals from the ventricles can result in a fast heart rhythm called ventricular tachycardia (VT). ??? With VT, abnormal electrical pathways or circuits form in the ventricles. This can be caused byany disease that damages the heart muscle. Or it can be caused by a problem you've inherited. It's most often seen as a result of a heart attack or coronary artery disease. ??? Electrical signals enter the abnormal circuit and loop around. With each loop, the signal tells the ventricles to contract. This makes the heart beat very fast. The heart may be beating too fast to pump blood. This can cause you to pass out. It can also cause cardiac arrest, leading to sudden .? A less serious form of VT happens when overly excited ventricular muscle cells take over the heart rhythm. The heart is otherwise normal. ??? In some cases, VT develops into ventricular fibrillation. This is the most serious type of arrhythmia. It's fatal if not promptly treated. ?? Ventricular fibrillation (VF) At times, electrical signals may be sent so fast and unevenly that the heart muscle quivers and doesn???t beat at all. This is called fibrillation: ??? VF can occur if the ventricles have several abnormal circuits. Or it can happen if the heart muscle is suddenly injured such as from a heart attack, and becomes electrically unstable. ??? Signalscaught in the circuits make the ventricles beat very quickly and unevenly. This keeps the heart muscle from pumping correctly. ??? The heart can get to the point that it can???t pump at all. This is called cardiac arrest. will occur if emergency treatment isn't given to return the heart rhythm to normal. This treatment includes CPR and an energy shock to the heart (defibrillation). ?? Last Reviewed Date: 2021 ?? 5988-1353 [employer]. All rights reserved. This information is not intended as a substitute for professional medical care. Always follow your healthcare professional's instructions. ?? * Event Display: Hemodynamic Procedure Report Authored Date: Cardiac catheterization study * Event Display: Cardiac Glass Forming Engineer Report Authored Date: [id number] Cardiac Diagnostic Report Demographics Patient Name NAKUL ALEJANDRE Gender Male [employer] Room Number M510 Height 67.72 inches Date of 1950 Weight 185 pounds Age 72 year(s) BSA 1.97 m2 Accession Number [id number] BMI 28.37 kg/m2 Referring Physician Vinnie Mcgovern MD Date of Study 03/18/2023 Performing Physician Vinnie Mcgovern MD Fellow Interventional Physician Procedure Procedure Type Diagnostic procedure:Coronary Angiography, RHC, LHC Miscellaneous:ACT , ULTRASOUND GUIDANCE ACC Diagnostic Catheterization Status:Urgent Indications Indications: Chest pain. Clinical History Clinical Evaluation Leading to Procedure - There were no CAD presentation symptoms. - The patient was diagnosed with a heart failure condition. Heart failure type: Systolic. - The patient's heart failure status was assessed as NYHA Class III ACC Risk Factors The patient risk factors include:hypercholesterolemia, hypertension, chronic lung disease, last creatinine: 1.5 mg/dl, creatinine clearance: 51.28 ml/min, dyslipidemia and former tobacco use. Additional Clinical History:72-year-old male with past medical history of mild dementia, A-fib on amiodarone and Eliquis, hypertension, hyperlipidemia, sleep apnea non compliant with CPAP recent, Progressive Right HF with Pulmonary HTN and Moderate to severe tricuspid regurgitation EF of 55 to 60% back in 2018, presenting to the ED for nausea and vomiting as well as a 2-day history of chest and back pain now being admitted to PCU for monomorphic VT. Echo now shows moderately reduced LVEF 30-35% with moderate MR and moderate TR. He is referred to the roofing laborer for right and left heart catheterization. Procedure Data Procedure Date Date: 03/18/2023Start: 13:27End: 14:41 The procedure was explained in detail to the patient. Risks, complications and alternative treatments were reviewed. Written consent was obtained. Entry Locations - Percutaneous access was performed through the Right Radial artery. A 6 Fr sheath was inserted. Hemostasis was successfully obtained using Prelude Sync EZ. Closure Comments: 11 cc. - Antegrade Percutaneous access was performed through the Right Brachial vein. A 5 Fr sheath was inserted. Hemostasis was successfully obtained using Manual Compression. Procedure Medications - Versed (Midazolam) I.V. 0.5 mg. - Fentanyl I.V. 25 mcg. - Lidocaine 2% S.C. Right Wrist 5 ml. - Heparin I.V. 5000 units. Sedation: My intra-service moderate sedation time was: from 13:44 to 14:39. Refer to procedural log for detailed chronological information. Contrast Material - Omnipaque 50 ml Diagnostic Catheters - A5F JR 4.0 DxTERITY DIAGNOSTIC CATHETERwas used for: Left heart catheterization. - A5F JL 3.5 INFINITI CATHETERwas used for: Left coronary angiography.Unable to cannulate the vessel. - A5F JL 4.0 DxTERITY DIAGNOSTIC CATHETERwas used for: Left coronary angiography. - [id number] BALLOON WEDGE PRESSURE CATHETERwas used for: Right heart catheterization. Fluoroscopy Time: Diagnostic: 6:57 minutes. Total: 6:57 minutes. Fluoroscopy Dose: Diagnostic: 229 mGy. Total: 229 mGy. Dose Area Product:Diagnostic: 65617 mGy/cm2. Total: 38639 mGy/cm2. Procedure Narrative Timeout was performed prior to the procedure. Right ultrasound-guided radial access obtained using a 6 Kuwaiti sheath. Selective right coronary angiography was performed using a 5 Kuwaiti JR4 catheter. Selective left coronary angiography was performed using a 5 Kuwaiti JL 4 catheter. Left heart catheterization was performed using a 5 Kuwaiti JR4 catheter. Right ultrasound-guided right basilic venous access obtained using a 5 Kuwaiti sheath. Right heart catheterization was performed using a 5 Kuwaiti Perry-Max catheter. Hemostasis of the right basilic vein was performed using manual compression. Hemostasis of the right radial artery was performed using a TR band. Angiographic Findings Cardiac Arteries and Lesion Findings LMCA: Lesion in LMCA: Ostial.20% stenosis . LAD: Lesion in Mid LAD: 30% stenosis . Lesion in 1st Diag: Mid subsection.90% stenosis . LCx: Lesion in 2nd Ob Shruthi: Proximal subsection.95% stenosis . Lesion in Prox CX: Ostial.50% stenosis . RCA: Lesion in Mid RCA: 65% stenosis . Hemodynamics Condition: Rest O2 Consumption: Estimated: 226.30Heart Rate: 70 bpm Oxygen Saturation +--------+-----+----+ +----+ + !Location!pCO2 !pO2 !% Saturation!Hgb !O2 Content! +--------+-----+----+ +----+ + !PA ! ! !44 !11.8! ! +--------+-----+----+ +----+ + !AO ! ! !94.6 !11.8! ! +--------+-----+----+ +----+ + !RA ! ! !45.5 !11.8! ! +--------+-----+----+ +----+ + Pressures (mmHg) +-----+ + !Site !Pressure ! +-----+ + !LV !134/76 ,69 ! +-----+ + !AO !129/86 (105)! +-----+ + !RA !13/14 (11) ! +-----+ + !RA !/ (11) ! +-----+ + !RV !37/7 ,13 ! +-----+ + !RV !36/6 ,12 ! +-----+ + !PCW ! (16) ! +-----+ + !PCW ! (15) ! +-----+ + !PA !37/ (25) ! +-----+ + !PA !37/ (26) ! +-----+ + Cardiac Output +------+ + +-------+ !Method!CO (l/min)!CI (l/min/m2)!SV (ml)! +------+ + +-------+ !Juan !1.73 !0.9 !24.79 ! +------+ + +-------+ Vascular Resistance (dynes x sec x cm-5) +---------+-----+-----+-----+----+---------+-------+ !CO method!TSVR !SVR !TPVR !PVR !TPVR/TSVR!PVR/SVR! +---------+-----+-----+-----+----+---------+-------+ !Juan !60.48!54.05!14.79!5.85!0.24 !0.11 ! +---------+-----+-----+-----+----+---------+-------+ !Qp or Qs !58.78!52.53! ! ! ! ! +---------+-----+-----+-----+----+---------+-------+ Shunts Oxygen Values O2 Consumption 226.3 Flows (l/min) Qs 1.78 Interventional Procedure Conclusions Diagnostic Summary RHC showed: RA mean 11 mmHg, RV 37/6, PCWP mean 15 mmHg, PA 37/16 (25 mmHg). Coronary angiogram showed: 1. Co-dominant circulation. 2. Left main is a large size vessel. There is 20% ostial left main stenosis. 3. LAD is a large size vessel and gives a moderate size first diagonal branch. There is 30% mid LAD stenosis. There is 90% mid D1 stenosis. 4. LCx is a large size vessel. There is 50% ostial stenosis of the LCx. OM2 or the inferior branch of OM1 has a 95% diffuse proximal stenosis. 5. RCA is a large size vessel with moderate diffuse disease. There is 60-70% tubular distal RCA stenosis. 6. LVEDP is 15 mmHg. Conclusion: 1. Elevated biventricular filling pressures with mild pre-capillary pulmonary HTN and Low cardiac output. 2. Severe CAD involving small-moderate size branches (OM2 and D1). Diagnostic Recommendations Aggressive cardiovascular risk factor modification. Evidence based optimal medical therapy. Hydrate with IV NS to prevent REX. Heart team discussion including CCU team, EP and interventional team on medical management versus PCI of OM +/- Diagonal. Complications:None. Signatures * Event Display: Cardiac Glass Forming Engineer Report Authored Date: [id number] Admission evaluation note * Natanael Orozco DO: PERFORM, MODIFY, MODIFY, MODIFY, MODIFY, MODIFY, MODIFY, MODIFY, MODIFY, MODIFY, MODIFY, MODIFY, MODIFY, MODIFY, MODIFY, MODIFY, MODIFY, MODIFY, MODIFY, MODIFY, MODIFY, MODIFY, MODIFY, MODIFY, MODIFY, MODIFY, MODIFY, MODIFY, MODIFY, MODIFY, MODIFY, MODIFY, MODIFY, MODIFY, MODIFY, MODIFY, MODIFY, MODIFY, MODIFY, MODIFY, MODIFY, MODIFY, MODIFY, MODIFY, MODIFY, MODIFY, MODIFY, MODIFY, MODIFY, MODIFY, MODIFY, MODIFY, MODIFY, MODIFY, MODIFY, MODIFY, MODIFY, MODIFY, MODIFY, MODIFY, MODIFY, MODIFY, MODIFY, MODIFY, MODIFY, MODIFY, MODIFY, MODIFY, MODIFY, MODIFY, MODIFY, MODIFY, MODIFY, MODIFY, MODIFY, MODIFY, MODIFY, MODIFY, MODIFY, MODIFY, MODIFY, MODIFY, MODIFY, MODIFY, MODIFY, MODIFY, MODIFY, MODIFY Event Display: Admission Note Authored Date: [id number] Patient: ??CARLOS MOTA ? Age:??72 Years?Sex:??Male?:??1950?? Chief Complaint/Reason for Consultation VT History of Present Illness 72-year-old male with past medical history of mild dementia,??A-fib on amiodarone and Eliquis, hypertension, hyperlipidemia, sleep apnea non compliant with CPAP recent, Progressive Right HF with Pulmonary HTN and Moderate to severe tricuspid regurgitation, EF??of 55 to 60% back in??2018??left femurfracture status post internal fixation, presenting to the ED for nausea and vomiting as well as a 2-day history of chest and back pain not being admitted to PCU for monomorphic VT. ?? Per ED Note: Per EMS, on their arrival patient to be in a wide-complex tachycardia with a rate in the 170s.?? He continues to mentate appropriately and in no specific complaints aside from reports ofback pain and mild chest pain. On arrival to the ED, patient continues to endorse chest pain and back pain however denies any nausea, vomiting or diaphoresis. Back Pain located on upper back and has never had pain like that before. er EMS he does have mild dementia at baseline and his will be coming to provide additional information. Pt's vitals upon presentation were: afebrile with temp of 97.2, with a HR at 176, BP at 119/109, saturating on 2L NC at 100%. ?? EMS had already administered aspirin and 150 mg of amnio, an additional 150 mg of Amio trialed to see if we could convert patient back to sinus rhythm however this was unsuccessful.?? Patient was then given 10 mg of etomidate and underwent synchronized cardioversion and was found to be back in sinus rhythm after the cardioversion. ?? CT chest abdomen pelvis angio was done to rule out dissection which showed 1.?? No evidence of aortic dissection or aneurysm. 2.?? No evidence of pulmonary embolism. 3.?? No acute findings within the chest or abdomen. 4.?? Moderate cardiomegaly, and severe coronary artery calcification. Moderate aortic valvular calcification. 5.?? Scattered colonic diverticulosis. ?? Pt was started on Heparin drip and continued on Amio gtt with 1mg/min. Labs showed CBC within normal limits, sodium 139, potassium hemolyzed, bicarb of 15, anion gap of 27, glucose of 162, BUN of 34,creatinine of 2.5, alk phos of 261, AST of 171, ALT 134, proBNP is 31,909, high-sensitivity troponin is 495, Baseline Cr is around 1.2 to 1.3, INR is 2,?? EKG upon arrival showed monomorphic VT with rate of 173.? Of Note, Patient??underwent cardioversion in [place] [address] Barajas at [facility]??for his atrial fibrillation and it was successful.?? Patient is currently on amiodarone. Patient has had some intermittent bouts of atrial fibrillation??since his??cardioversion??picked up on his Apple Watch. ?? Upon initial evaluation in the unit, Hemodynamically stable heart rate at 67, in A-fib, blood pressure of 125/92, saturating well on room air at 100%, doing history obtained from patient's . ??On patient had 2 episodes of nausea/vomiting. ??Nonbloody vomitus. ??Denies coffee-ground emesis. ?? reported that he was in A-fib however when she showed the rate on her phone it appeared to be rate controlled in the 70s to 80s. ??Saturday he had the same symptoms and was not able to keep down fluids. ??Patient denies diarrhea. ?? reports that vomitus was dark brown this morning. ??Patient appeared to be pale and struggling to breathe this morning. ??Thus this warranted them to bring him to the hospital. ??Last night he had chest pain that will last for minutes and was not constant. Pt denies chest pain at this time. Pt's chest pain was in the center of his chest but also points to is left upper quadrant. Pt reports that the pain that consists in the center of his chest was non radiating, pressure like, not associated with dizziness/lightheadedness, would last fro a few m inutes at a time and then subside. reports that urine output decreased since last night. was unsure if patient was absorbing medications especially his Eliquis. Pt uses O2 at however familyis unsure of how much he uses. Pt is not compliant with CPAP. Review of Systems Additional review of systems information:??All other systems reviewed and otherwise negative as mentioned above. Objective Measurements?? Dry Weight: 79.5 kg (03/16/23) ?? Vital Signs?? Temperature: 97.2 DegF (03/16/23 09:41:00) Temperature Route: Oral (03/16/23 09:41:00) Pulse Rate: 61 bpm (03/16/23 09:41:00) Respiratory Rate: 16 br/min (03/16/23 09:41:00) Systolic Blood Pressure: 119 mm Hg (03/16/23 09:41:00) Diastolic Blood Pressure:??109 mm Hg??High (03/16/23 09:41:00) Mean Arterial Pressure: 112 mm Hg (03/16/23 09:41:00) Pulse Pressure: 10 mm Hg (03/16/23 09:41:00) Oxygen Saturation: 100 % (03/16/23 09:08:00) Liters per Minute: 2 L/min (03/16/23 09:08:00) Mode of Delivery (Oxygen): Nasal cannula (03/16/23 09:08:00) ? Physical Exam Constitutional: Alert, in no distress. Mental Status: Oriented to person, place and time. Head: Normocephalic. Eyes: Pupils are equal, round and reactive to light. Extraocular muscles intact. Ear, Nose and Throat: Oropharynx clear, mucous membranes moist. Ears and nose without masses, lesions or deformities. Trachea midline. Neck: Supple, Full range of motion. Respiratory: Clear to auscultation. No wheezing, rales or rhonchi. Cardiovascular: S1 S2 normal??regular rate and irregular rhythm. No murmurs, rubs or gallops. No JVD. No peripheral edema. Gastrointestinal: Abdomen soft, non-tender, non-distended. Normal bowel sounds. No pulsatile mass. No hepatosplenomegaly. Neurologic: Cranial nerves II-XII grossly intact. No focal neurological deficits. Moves all extremities spontaneously. Sensation intact bilaterally. Skin: No rashes or lesions. No petechiae or purpura.?? Musculoskeletal: No cyanosis or clubbing. No gross deformities. Normal range of motion. Psychiatric: Normal mood and affect Assessment/Plan 72-year-old male with past medical history of mild dementia, A-fib on amiodarone and Eliquis, hypertension, hyperlipidemia, sleep apnea non compliant with CPAP recent, Progressive Right HF with Pulmonary HTN and Moderate to severe tricuspid regurgitation EF??of 55 to 60% back in??2018??left femur fracture status post internal fixation, presenting to the ED for nausea and vomiting as well as a 2-day history of chest and back pain not being admitted to PCU for monomorphic VT. ?? 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 HTN HLD prolonged QTc Presenting to the ED with monomorphic VT with heart rate of??170. ??Patient was??mentating well andnot hypotensive.?? Patient??underwent??cardioversion with success. Patient's heart rate now currently A-fib??rate controlled.?? Patient was started??on heparin gtt and loaded on Amiodarone by EMS and also started on Amio gtt. EKG after cardioversion showed rate of 80s and in afib Likely trigger unclear, pt did endorse chest pain yesterday and 2 days ago however pt denies chest pain at this time Pt's chest pain was in the center of his chest but also points to is left upper quadrant. Pt reports that the pain that consists in the center of his chest was non radiating, pressure like, not associated with dizziness/lightheadedness, would last fro a few minutes at a time and then subside. Trops have been 495 and then 690 with EKG post cardioversion showing resolution of monomorphic VT with flattened TV in leads V3 to V6, EKG appears to possibly have prolonged QTc Patient appears to be hypovolemic versus euvolemic at this time.?? Patient is saturating well on room air 100%. ??Patient does not appear to be volume overloaded on exam. Pt has never had a cath before however CT scan upon admission showed Moderate cardiomegaly, and severe coronary artery calcification. Moderate aortic valvular calcification. Trigger is likely due to the severe coronary artery calcification vs hypovolemia ?? Plan - DC Amio gtt due to QTc - NPO after midnight for possible cath on Saturday depending on Echo results - Avoid QTc prolonging meds - Heparin gtt - Continue to hold Eliquis - I/Os - Date Night Sitter - trend troponin q6 hours - Echo tomorrow - HbA1c - TSH with reflex T4 - Lipid panel - trend lactate q4 hours - EKG tomorrow in the AM ?? Gastroenteritis Nausea and Vomiting High Anion Gap Metabolic Acidosis Lactic Acidosis JED on CKD (stage??3a??Baseline Cr of 1.3 to 1.2) Most likely prerenal due to hypoperfusion in state of arrhythmia or could be due to hypovolemia in the setting of gastroenteritis Lactate elevated at 4.9 Pt did have urine output of around 350cc when arriving to the unit ?? Plan - trend lactate q4 hours - avoid nephrotoxic drugs - continue to monitor BUN/ Cr - continue to hold home valsartan - holding home lasix - consider maintenance fluids, 75cc/ hr LR for 1LR - bladder scan q 4 hours - U/A - urine studies - Clear Liquid diet, progress if pt tolerates - hold alopurinol due to JED ?? Transaminitis AST/ALT 171??and 134??likely in the setting of Hypoperfusion??from monomorphic VT. ?? Plan - continue to monitor LFTs daily - we will hold pravastatin??at this time and trend LFTs. ?? Chest/ Back Pain- improving Pt's chest pain was in the center of his chest but also points to is left upper quadrant. Pt reports that the pain that consists in the center of his chest was non radiating, pressure like, not associated with dizziness/lightheadedness, would last fro a few minutes at a time and then subside. Back pain is resolved at this time. ??Patient reports that pain??was located in the upper back.?? Patient believes that this is due to??to??staying in bed due to his recent??femur fracture. ?? Plan - EKG PRN - lidocaine patch for back - continue to trend troponin ?? Chronic Medical Conditions sleep apnea- non compliant at home, will order CPAP while inpatient. BPH- hold home prazosin due elevated lactate Depression- continue to hold Fluoxetine due to concern for prolonged QTc ?? Quality Measures Diet: Clear Liquid diet, progress if pt tolerates DVT prophylaxis: Heparin gtt Code Status: Full Code ?? Pt seen and discussed with Attending ??Karri ?? Natanael Orozco,??DO PGY-2 Internal Medicine Pager [phone]/ cortext? Histories Allergies Allergies ?(Active and Proposed Allergies Only) Bee Stings? (Severity: Unknown severity, Onset: Unknown) ? Past Medical History/Problem List Active Problems??(31) Adenomatous polyp of colon AF (atrial fibrillation) Alcohol withdrawal Anomalous muscle bands, right ventricle Bee sting-induced anaphylaxis Chronic low back pain Colonoscopy Decreased right ventricular systolic function Diastolic dysfunction Diverticulosis Dyspnea on exertion Elevated alkaline phosphatase level Erectile dysfunction Femur fracture Gout H/O total knee replacement HTN (hypertension) Hypercholesterolemia Insomnia Internal hemorrhoids Left wrist pain Major depression in complete remission Memory loss, short term OA (osteoarthritis) of knee Obstructive sleep apnea Onychomycosis Osteoarthritis of shoulder Pain in right shoulder Polyp of colon Pulmonary hypertension Vertigo ? Past Surgical History Colonoscopy: 08/20/18 ? Social History Alcohol Details:??Use: Current. ??Frequency: Daily. ??Type: Wine. ??Other: 14 drinks week. 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 Exercise Details:??Self assessment: Excellent condition. Home/Environment Details:??Living situation: Home/Independent. ??Lives with: Spouse. Nutrition/Health Details:??Diet: Regular. Substance Abuse Details:??Use: Never. Tobacco Details:??Former smoker, Tobacco user in household: Yes. Electronic Cigarette/Vaping Details:??Electronic Cigarette Use: Never. ? Family History Mother (): CAD - Coronary artery disease; Hypertension; Stroke Other: Alcoholism ? Medications Home Medications Allopurinol (allopurinol 300 mg oral tablet)?1?tablet?By Mouth?Daily amiODARONE (amiodarone 200 mg oral tablet)?200?Milligram?1?tablet?By Mouth?Daily apixaban (Eliquis 5 mg oral tablet)?1?tab(s)?By Mouth?2 times a day Diltiazem (DilTIAZem (Eqv-Cardizem CD) 120 mg/24 hours oral capsule, extended release)?1?capsule?120?Milligram?By Mouth?Daily Durable Medical Equipment (uses nightly)?See Instructions?ASV EPAP [facility] Fluoxetine (FLUoxetine 20 mg oral capsule)?1?capsule?By Mouth?Daily Furosemide (furosemide 40 mg oral tablet)?40?Milligram?1?tablet?By Mouth?Daily?for 90?Days Multivitamin?By Mouth?Daily Pravastatin (pravastatin 80 mg oral tablet)?1?tab(s)?By Mouth?Daily Terazosin (terazosin 2 mg oral capsule)?2?Milligram?1?capsule?By Mouth?Daily at bedtime?for 90?Days Tramadol (traMADol 50 mg oral tablet)?1?tab(s)?50?Milligram?By Mouth?Every 6 hours?as needed?as needed for pain Valsartan (valsartan 160 mg oral tablet)?160?Milligram?1?tablet?By Mouth?Daily?for 90?Days ? Inpatient Medications Medications (4) Active SCHEDULED: (0) CONTINUOUS: (2) Amiodarone 900 mg Cont IV 900 mg [1 mg/min] + D5%W (500mL) Cont IV 500 mL (amiODARONE Cont IV 900 mg [1 mg/min] + D5%W Normalized 500 mL) ??500 mL, IV Infusion, 33.33 mL/hr Heparin 25,000 units / 250 mL D5W premix 25,000 units [11 units/kg/hr] + D5%W Premixed IV 250 mL (Heparin 25,000 units in 250 mL Premix 25,000 units [11 units/kg/hr] + D5%W Premixed IV 250 mL) ??250 mL, IV Infusion, 8.8 mL/hr PRN: (2) Heparin 5000 units/mL Inj (1 mL) (Heparin Inj) ??5,000 units 1 mL, IV Push, Every 6 hours Heparin 5000 units/mL Inj (1 mL) (Heparin Inj) ??2,500 units 0.5 mL, IV Push, Every 6 hours ? Results Recent Labs BLOOD COUNT & DIFF WBC 9.6 k/mm3 ()?? 03/16/2023 08:53 RBC 5.24 m/mm3 ()?? 03/16/2023 08:53 Hgb 16.4 Gm/dL ()?? 03/16/2023 08:53 Hct 48.9 % ()?? 03/16/2023 08:53 MCV 93.3 femtoliters ()?? 03/16/2023 08:53 MCH 31.3 pg ()?? 03/16/2023 08:53 MCHC 33.5 g/dL ()?? 03/16/2023 08:53 Platelet Count 316 k/mm3 ()?? 03/16/2023 08:53 RDW-SD 43.4 femtoliters ()?? 03/16/2023 08:53 MPV 11.2 femtoliters ()?? 03/16/2023 08:53 Nucleated RBC (Automated) 0.2 #/100 WBC'S ()?? 03/16/2023 08:53 Abs. NRBC 0.0 k/mm3 ()?? 03/16/2023 08:53 Abs. Neut 7.7 k/mm3 (High)?? 03/16/2023 08:53 Abs. Lymph 1.4 k/mm3 ()?? 03/16/2023 08:53 Abs. [place] 0.5 k/mm3 ()?? 03/16/2023 08:53 Abs. Eo 0.0 k/mm3 ()?? 03/16/2023 08:53 Abs. Baso 0.0 k/mm3 ()?? 03/16/2023 08:53 Neut % 79.8 % (High)?? 03/16/2023 08:53 Lymph % 14.4 % (Low)?? 03/16/2023 08:53 [place] % 4.9 % ()?? 03/16/2023 08:53 Eos % 0.0 % ()?? 03/16/2023 08:53 Baso % 0.1 % ()?? 03/16/2023 08:53 Hemoglobin (POC) POC Cartridge 15.3 Gm/dL ()?? 03/16/2023 08:49 Hematocrit (POC) POC Cartridge 45 % ()?? 03/16/2023 08:49 Imm Gran 0.8 % ()?? 03/16/2023 08:53 Abs. Imm Gran 0.1 k/mm3 ()?? 03/16/2023 08:53 ?? BLOOD GAS pH Venous (POC) POC Cartridge 7.42 ()?? 03/16/2023 08:49 pCO2 Venous (POC) POC Cartridge 22.2 mm Hg (Low)?? 03/16/2023 08:49 pO2 Venous (POC) POC Cartridge 38 mm Hg ()?? 03/16/2023 08:49 Est Bicarbonate (POC) POC Cartridge 14.3 mmol/L (Low)?? 03/16/2023 08:49 % O2 Sat Venous (POC) POC Cartridge 75 ()?? 03/16/2023 08:49 Base Excess (POC) POC Cartridge NEGATIVE 10 ()?? 03/16/2023 08:49 Specimen Type - Blood Gas VENOUS ()?? 03/16/2023 08:49 ?? CARDIAC Nt-Probnp 91310 pg/mL (High)?? 03/16/2023 08:53 High Sensitivity Troponin (HSTnT) 495 ng/L (Critical)?? 03/16/2023 08:53 ?? CHEM GENERAL Sodium 139 mmol/L ()?? 03/16/2023 08:53 Potassium HEMOLYZED mmol/L ()?? 03/16/2023 08:53 Chloride 97 mmol/L (Low)?? 03/16/2023 08:53 Bicarbonate Level 15 mmol/L (Low)?? 03/16/2023 08:53 Anion Gap 27 (High)?? 03/16/2023 08:53 Sodium (POC) POC Cartridge 133 mmol/L ()?? 03/16/2023 08:49 Potassium (POC) POC Cartridge 4.8 mmol/L ()?? 03/16/2023 08:49 Glucose Level 162 mg/dL (High)?? 03/16/2023 08:53 Glucose (POC) POC Cartridge 162 (High)?? 03/16/2023 08:49 BUN 34 mg/dL (High)?? 03/16/2023 08:53 Creatinine-Blood 2.5 mg/dL (High)?? 03/16/2023 08:53 Estimated GFR Creatinine 26 ML/MIN/1.73 M2 ()?? 03/16/2023 08:53 Calcium 9.9 mg/dL ()?? 03/16/2023 08:53 Ionized Calcium (POC) POC Cartridge 0.99 mmol/L (Critical)?? 03/16/2023 08:49 Magnesium 2.5 mg/dL (High)?? 03/16/2023 08:53 Alkaline Phosphatase 261 units/L (High)?? 03/16/2023 08:53 Lipase 25 units/L ()?? 03/16/2023 08:53 AST (SGOT) 171 units/L (High)?? 03/16/2023 08:53 ALT (SGPT) 134 units/L (High)?? 03/16/2023 08:53 Bilirubin, Total 1.0 mg/dL ()?? 03/16/2023 08:53 ?? COAG INR 2.0 (High)?? 03/16/2023 00:05 Protime (PT) 19.7 seconds (High)?? 03/16/2023 00:05 APTT 34.7 seconds (High)?? 03/16/2023 00:05 ? * Karri MEDINA, Richard T: PERFORM Event Display: Admission Note Authored Date: Attending Attestation:??I have seen and evaluated this patient. ??I have discussed the case and itsmanagement with the resident and agree with the findings and plan as documented in the resident???snote. EKG study * Event Display: EKG Authored Date: * Event Display: ECG 12-Lead Authored Date: Please click on pdf link to open report * Event Display: ECG 12-Lead Authored Date: Ventricular Rate: 63 BPM QRS Duration: 116 ms Q-T Interval: 492 ms QTC Calculation(Bazett): 503 ms R [place]: -23 degrees T [place]: 127 degrees Atrial fibrillation Septal infarct , age undetermined ST and T wave abnormality, consider lateral ischemia Abnormal ECG Confirmed by ELIEL SMITH ([id number]) on 03/19/2023 4:30:38 PM [place]: ELIEL SMITH * Event Display: ECG 12-Lead Authored Date: Please click on pdf link to open report * Event Display: ECG 12-Lead Authored Date: [id number] Ventricular Rate: 70 BPM QRS Duration: 110 ms Q-T Interval: 448 ms QTC Calculation(Bazett): 483 ms R [place]: -36 degrees T [place]: 98 degrees Atrial fibrillation with premature ventricular or aberrantly conducted complexes Left axis deviation Septal infarct , age undetermined ST and T wave abnormality, consider anterior ischemia Abnormal ECG When compared with ECG of 16-MAR-2023 14:34, No significant change was found Confirmed by RICHARD ZENG MD ([id number]) on 03/20/2023 3:19:54 PM [place]: RICHARD ZENG MD * Event Display: ECG 12-Lead Authored Date: [id number] Please click on pdf link to open report * Event Display: ECG 12-Lead Authored Date: [id number] Ventricular Rate: 66 BPM QRS Duration: 110 ms Q-T Interval: 474 ms QTC Calculation(Bazett): 496 ms R [place]: -37 degrees T [place]: 96 degrees Atrial fibrillation with premature ventricular or aberrantly conducted complexes Left axis deviation ST and T wave abnormality, consider anterior ischemia Prolonged QT Abnormal ECG When compared with ECG of 16-MAR-2023 14:31, No significant change was found Confirmed by RICHARD ZENG MD ([id number]) on 03/20/2023 3:19:42 PM [place]: RICHARD ZENG MD Heart * Event Display: Echocardiogram - Complete Authored Date: [id number] Transthoracic Echocardiography Report (TTE) Patient Demographics Patient Name CARLOS MOTA Date of Study 03/17/2023 Corporate Gender Male Facility Race Ethnicity Date of 1950 Height: 67.72 inches Age 72 year(s) Weight: 185 pounds Accession Number [id number] BSA: 1.97 m2 Room Number [id number] BMI: 28.37 kg/m2 Referring Physician Pam Martínez DO Interpreting Physician Jcarlos Conner MD [employer] Delvis Castro [facility] Indications Arrhythmia. Clinical History Hypertension. Hypercholesterolemia. Atrial fibrillation. MUMTAZ Study Data Type of Study TTE procedure:Echo Complete-Doppler, Colorflow, M-Mode. Study Date03/17/2023 Start Time: 01:51 PM Study Location: [facility] [place] Adult Echo Study Status: Echo lab Patient Status: Routine Technical Quality: Fair EKG: Atrial fibrillation HR: 73 bpm 2D Measurements LV Diastolic Dimension: 4.9 cm LV Systolic Dimension: 3.8 cm LV Septum Diastolic: 1.3 cm LV PW Diastolic: 1 cm AO Root Dimension: 4 cm LA ESV (BP):106 ml LVOT Stroke Volume: 38.58 ml LA ESV Index: 54 ml/m2 Stroke Volume Index19.58 ml/m2 LVOT: 2.6 cm Cardiac Index:1.43 l/min/m2 Doppler Measurements AV Peak Velocity: 152 cm/s AV Peak Gradient: 9.24 mmHg AV Mean Gradient: 6 mmHg AV VTI:25.9 cm LVOT Peak Velocity: 47.9 cm/s LVOT VTI7.27 cm AV Area (Continuity):1.49 cm2 TR Velocity:250 cm/s TR Gradient:25 mmHg Estimated RAP:8 mmHg Estimated RVSP: 33 mmHg Cardiac Anatomy Left Ventricle/Interventricular Septum The left ventricular size is normal. The left ventricular wall thickness is mildly increased. The LV systolic function is moderately reduced. The left ventricular ejection fraction is 30-35%. No obvious wall motion abnormalities seen on limited views. Unable to assess diastolic function due to atrial fibrillation. Left Atrium/Interatrial Septum The left atrium is severely dilated. The left atrial volume index is 75 mL/m2. The interatrial septum appears intact. Aortic Valve The aortic valve is trileaflet . The aortic valve appears moderately calcified. The aortic valve leaflet opening is moderately decreased. There is trace aortic regurgitation. There is mild aortic stenosis. The aortic valve area is 1.5 cm by continuity equation . The mean gradient is 6 mmHg. Mitral Valve Mitral leaflet excursion is mildly reduced . There is moderate mitral regurgitation. The mitral valve appears mildly thickened. Aorta There is mild dilation of the aortic root (4.0 cm) and ascending aorta (4.2 cm). The aorta is not well visualized. Right Ventricle The right ventricle is severely dilated. Right ventricular systolic function is moderate to severely reduced. There is flattening of the interventricular septum during diastole consistent with RV volume overload . Right Atrium The right atrium is massively dilated. The right atrial volume index is 115 mL/m2. Pulmonic Valve The pulmonic valve is poorly visualized. The pulmonic valve is functionally normal. Tricuspid Valve The tricuspid valve appears mildly thickened. There is moderate tricuspid valve regurgitation. Pumonary Artery The pulmonary artery appears normal. The pulmonary artery systolic pressure estimation is 30-35 mmHg. Venous Structures The inferior vena cava appears moderately dilated. Inferior vena cava inspiratory collapse is blunted . The central venous pressure estimation is 8 mmHg. Pericardium/Extracardiac There is no significant pericardial effusion. Summary 1. The LV systolic function is moderately reduced. The left ventricular ejection fraction is 30-35%. No obvious wall motion abnormalities seen on limited views. 2. The left atrium is severely dilated. The left atrial volume index is 75 mL/m2. 3. There is mild aortic stenosis. The aortic valve area is 1.5 cm by continuity equation. The mean gradient is 6 mmHg. 4. There is moderate mitral regurgitation. 5. The right ventricle is severely dilated. Right ventricular systolic function is moderate to severely reduced. 6. There is flattening of the interventricular septum during diastole consistent with RV volume overload . 7. The right atrium is massively dilated. The right atrial volume index is 115 mL/m2. 8. There is moderate tricuspid valve regurgitation. Comparison Comparison is made to the study of November 29, 2017. The LVEF appears lower. Signature * Event Display: Echocardiogram - Complete Authored Date: Cardiology * Event Display: Cardiac Rhythm Strips Authored Date: * Event Display: Cardiac Device Reports Authored Date: Hospital Progress note * Jude Nye RN: PERFORM, SIGN, VERIFY Event Display: Progress Note Hospital Authored Date: Patient: CARLOS MOTA Age: 72 years Sex: Male : 1950 Associated Diagnoses: None Author: Jude Nye RN Findings Problem Related to Alteration in Cardiac Function (new) : Alteration in Cardiac Function/new 03/22/2023 10:00 EDT Alteration in Cardiac Status Related to Dysrhythmia, Heart failure, Hypertension Goals & Outcomes, Cardiac Status Pt will resume/maintain adequate hemodynamic status, Pt will resume/maintain adequate respiratory function, Pt will resume/maintain intact neuro function, Pt willmaintain adequate GI/ function appropriate for pt, Pt will maintain adequate nutrition status, Heart rate control/rhythm is maintained, Pt will state importance of adhering to med regime Cardiac Interventions Implemented Assess/monitor cardiac status, Assess/monitor neuro status, Assess/monitor respiratory status, Ensure adequate caloric intake, Obtain 12 Lead ECG and CXR as ordered,Assess for sleep apnea, caffeine intake, stress, Assess for symptoms: blurred vision, headaches, Other: ICD placement BH Goals/Interventions, Cardiac Yes Cardiac, Problem Start 03/16/2023 15:15 Reviewed Plan with, Cardiac Status Patient Patient Progression, Cardiac Status Patient progressing according to plan Comment: Cardiac Status Patient has ICD . Narrative/Incidental Patient is alert and oriented to person and place. Patient forgetful and is re- directable when confused. Patient reports minimal soreness on left shoulder from ICD placement, patient was given Tylenol with good effect. Reviewed arm restrictions with patient, but does require repetition. Patient was weaned off oxygen and has remained on Room Air successfully. Awaiting for CCU to round for further planning. Case management is searching for a bed at a rehab. . Discharge Information Pulmonary Rehab Discharge : Pulmonary Rehab Discharge Status 03/20/2023 20:06 EDT CPAP/BiPAP Mask Type Full CPAP/BiPAP Mask Size Medium 03/20/2023 4:01 EDT CPAP/BiPAP Mask Type Full CPAP/BiPAP Mask Size Medium 03/19/2023 22:54 EDT CPAP/BiPAP Mask Type Full CPAP/BiPAP Mask Size Medium 03/18/2023 4:22 EDT CPAP/BiPAP Mask Type Full CPAP/BiPAP Mask Size Medium 03/18/2023 1:04 EDT CPAP/BiPAP Mask Type Full CPAP/BiPAP Mask Size Medium Rehabilitation Discharge : Rehab Discharge Index 03/19/2023 8:16 EDT Comments on treatment indicated 72 M p/w nausea and vomiting and 2-day history of chest/back pain found c monomorphic VT. PT to progress functional mobility. Rec home vs. rehab pending progress and stairs Full chart review completed Yes Hospital course See comment Plan of care PT Gait training, Transfer training, Therapeutic exercise, Functional Activities, Balance training * Alyssa Renteria RN: PERFORM, SIGN, VERIFY Event Display: Progress Note Hospital Authored Date: [id number] Patient: CALROS MOTA Age: 72 years Sex: Male : 1950 Associated Diagnoses: None Author: Alyssa Renteria RN Findings Nursing Data Vital Signs : VITAL SIGNS SECTION 03/20/2023 4:00 EDT Temperature 97.4 DegF Temperature Route Axillary Pulse Rate 54 bpm L Respiratory Rate 18 br/min Respiratory Rate 18 br/min Systolic Blood Pressure 116 mm Hg Systolic Blood Pressure 116 mm Hg Diastolic Blood Pressure 89 mm Hg H Diastolic Blood Pressure 89 mm Hg H Blood pressure sites Arm, left Blood pressure sites Arm, left Pulse Pressure 27 mm Hg Pulse Pressure 27 mm Hg Liters per Minute 6 L/min Mode of Delivery (Oxygen) CPAP Mode of Delivery (Oxygen) CPAP . Narrative/Incidental Pt hadan uneventful night. He was slightly confused and impulsive about getting up to use his urinal and he was re-educated several times about the need for him to call before getting out of bed withgood effect. He remains AIB on tele and he was chest pain free. His left chest wall pacer site was also intact. Will continue to monitor & will report any issues to the provider. * Charlie Acosta: PERFORM Event Display: Progress Note Hospital Authored Date: [id number] Patient: ??CARLOS MOTA ? Age:??72 Years?Sex:??Male?:??1950?? History of Present Illness/Interval History Patient seen and examined at bedside HD stable No acute overnight event Review of Systems 12 point review of symptoms as noted in the??HPI and reviewed in detail with the patient; pertinentpositives noted otherwise??negative. Physical Exam Vitals & Measurements T:??97.9?F?? HR:??60??(Monitored)?? RR:??22?? BP:??122/98?? SpO2:??72%?? HT:??172??cm?? WT:??84.5??kg?? Weight lb/oz: 186 lb 5 oz Gen: well appearing, NAD HEENT: mmm, no oral exudates Neck: Normal JVD CV: rrr, no m/r/g Abd: soft, NT, ND Lungs/chest: normal breath sounds, no crackles or wheezes Extremities: no pitting edema, 2+ pulses Neuro: moving all 4 extremities spontaneously Skin: no rash Assessment/Plan 72-year-old male with past medical history of mild dementia, A-fib on amiodarone and Eliquis, hypertension, hyperlipidemia, sleep apnea non compliant with CPAP recent, Progressive Right HF with Pulmonary HTN and Moderate to severe tricuspid regurgitation EF??of 55 to 60% back in??2018??left femur fracture status post internal fixation, presenting to the ED for nausea and vomiting as well as a 2-day history of chest and back pain now being admitted to CCU for monomorphic VT. ? Plan: 1) Vtach - Patient presented to the ED and was found to have monomorphic VT with a heart rate 170 bpm.?? He underwent successful cardioversion.?? History of A-fib with good rate control.?? - Patient underwent [place] Simperium ICD. Post procedure hospitalization was uneventful. Tele revealed paced rhythm, and patient ??denied chest pain, shortness of breath, headache, palpitations, all other systems were reviewed and negative. Chest X-Day showed proper leads and device placement with no signs of pneumothorax. Device interrogation showed normal functioning??with no new events. ??I discussed with patient??device functioning and post care??instructions. -From the EP standpoint patient can be discharged home.?? He will follow-up??in the EP clinic for wound check within??2 weeks. ?? Thank you for allowing us to participate in the care of this patient. EP will sign off at this time. Please call if any questions/concerns or further services needed. ?? Patient seen and discussed with Dr. Zeng. ?? Charlie Candelaria PA-C Cardiac Electrophysiology ?? I personally spent a total of??50 minutes, including both umdn-vq-jijx and lbw-velk-cp-face time onthe date of the encounter, addressing the above diagnoses, and answering all questions.? Available by [employer].?? Please note that this document was generated with the assistance of??DRAGON?voice recognition technology, and may contain vocabulary/syntax errors.?Please do not hesitate to contact me in case of any questions or concerns? Problem List/Past Medical History Ongoing Adenomatous polyp of colon AF (atrial fibrillation) Alcohol withdrawal Anomalous muscle bands, right ventricle Bee sting-induced anaphylaxis Chronic low back pain Colonoscopy Decreased right ventricular systolic function Diastolic dysfunction Diverticulosis Dyspnea on exertion Elevated alkaline phosphatase level Erectile dysfunction Femur fracture Gout H/O total knee replacement HTN (hypertension) Hypercholesterolemia Insomnia Internal hemorrhoids Left wrist pain Major depression in complete remission Memory loss, short term OA (osteoarthritis) of knee Obstructive sleep apnea Onychomycosis Osteoarthritis of shoulder Pain in right shoulder Polyp of colon Pulmonary hypertension Vertigo Procedure/Surgical History Colonoscopy: 08/20/18 Hospital Medications Medications (22) Active SCHEDULED: (10) Amiodarone 200 mg Tablet (amiodarone 200 mg oral tablet) ??200 mg, By Mouth, Daily Aspirin 81 mg Chew Tablet (aspirin 81 mg oral tablet, chewable) ??81 mg, By Mouth, Daily Atorvastatin 80 mg Tablet (atorvastatin 80 mg oral tablet) ??80 mg, By Mouth, Daily at bedtime CeFAZolin 2 Gm Inj (ceFAZolin Inj) ??2 Gm, IV Push, Every 8 hours Fluoxetine 20 mg Capsule (FLUoxetine 20 mg oral capsule) ??20 mg, By Mouth, Daily Furosemide Inj (Lasix ??Inj) ??40 mg 4 mL, IV Push Slowly, 2 times a day Metoprolol 25 mg XL Tablet (metoprolol 25 mg oral tablet, extended release) ??25 mg, By Mouth, Daily Multivitamin Tablet ??1 tablet, By Mouth, Daily NaCl 0.9% Flush 3ml (NaCL 0.9% Flush) ??3 mL, IV Push, Every 8 hours Valsartan 160 mg Tablet (valsartan 160 mg oral tablet) ??160 mg, By Mouth, Daily CONTINUOUS: (2) Lactated Ringers (1000 mL) Cont IV 1,000 mL (LR 1,000 mL) ??1,000 mL, IV Infusion, 100 mL/hr NaCL 0.9% (500 mL) Cont IV 500 mL (NaCL 0.9% 500 mL) ??500 mL, IV Infusion, 75 mL/hr PRN: (10) Acetaminophen 325 mg Tablet (Acetaminophen Tablet) ??650 mg, By Mouth, Every 4 hours Docusate Sodium 100 mg Capsule (Docusate Sodium Capsule) ??100 mg 1 capsule, By Mouth, 2 times a day Heparin 5000 units/mL Inj (1 mL) (Heparin Inj) ??5,000 units 1 mL, IV Push, Every 6 hours Heparin 5000 units/mL Inj (1 mL) (Heparin Inj) ??2,500 units 0.5 mL, IV Push, Every 6 hours hydrALAZINE 10 mg Tablet (hydrALAZINE 10 mg oral tablet) ??10 mg, By Mouth, Every 4 hours HYDROmorphone 2 mg Tablet (Dilaudid 2 mg oral tablet) ??1 mg, By Mouth, Every 4 hours Melatonin 3 mg Tablet (Melatonin Tablet) ??3 mg, By Mouth, Daily at bedtime NaCl 0.9% Flush 3ml (NaCL 0.9% Flush) ??3 mL, IV Push, Every 8 hours Polyethylene Glycol 17 Gm Powder (MiraLax Powder) ??17 Gm 1 pack/packet, By Mouth, Daily Senna Tablet ??8.6 mg 1 tablet, By Mouth, 2 times a day Lab Results Cardiology Labs WBC: 8.5 k/mm3 (03/21/23) RBC:??4.07 m/mm3??Low (03/21/23) Hgb:??13 Gm/dL??Low (03/21/23) Hct:??38.2 %??Low (03/21/23) MCV: 93.9 femtoliters (03/21/23) MCH: 31.9 pg (03/21/23) MCHC: 34 g/dL (03/21/23) Platelet Count: 197 k/mm3 (03/21/23) RDW-SD: 44.1 femtoliters (03/21/23) Nucleated RBC (Automated): 0.2 #/100 WBC'S (03/21/23) Abs. Neut:??7.7 k/mm3??High (03/16/23) Abs. Lymph: 1.4 k/mm3 (03/16/23) Abs. [place]: 0.5 k/mm3 (03/16/23) Abs. Eo: 0 k/mm3 (03/16/23) Abs. Baso: 0 k/mm3 (03/16/23) Neut %:??79.8 %??High (03/16/23) [place] %: 4.9 % (03/16/23) Eos %: 0 % (03/16/23) Baso %: 0.1 % (03/16/23) Imm Gran: 0.8 % (03/16/23) Abs. Imm Gran: 0.1 k/mm3 (03/16/23) INR:??2??High (03/16/23) Protime (PT):??19.7 seconds??High (03/16/23) APTT: 31.8 seconds (03/21/23) Sodium: 137 mmol/L (03/21/23) Potassium: 3.7 mmol/L (03/21/23) Chloride: 103 mmol/L (03/21/23) Bicarbonate Level: 23 mmol/L (03/21/23) Glucose Level:??102 mg/dL??High (03/21/23) Hemoglobin A1C (Monitoring): 5.5 % (03/16/23) BUN:??26 mg/dL??High (03/21/23) Creatinine-Blood:??1.6 mg/dL??High (03/21/23) Calcium: 8.8 mg/dL (03/21/23) Protein, Total:??5.4 Gm/dL??Low (03/21/23) Albumin: 3.4 Gm/dL (03/21/23) Alkaline Phosphatase:??172 units/L??High (03/21/23) AST (SGOT): 40 units/L (03/21/23) ALT (SGPT):??68 units/L??High (03/21/23) Bilirubin, Total: 0.6 mg/dL (03/21/23) Nt-Probnp:??7734 pg/mL??High (03/18/23) Cholesterol: 145 mg/dL (03/16/23) Triglycerides: 78 mg/dL (03/16/23) HDL Cholesterol:??35 mg/dL??Low (03/16/23) LDL Cholesterol: 94 mg/dL (03/16/23) Non HDL Cholesterol: 110 mg/dL (03/16/23) Direct Low Density Lipoprotein: 103 mg/dL (09/25/22) TSH: 4.03 uIU/mL (03/16/23) Free T4:??2.3 ng/dL??High (03/16/23) Diagnostic Impression ECG ECG 12-Lead ?? 13:32:03 Please click on pdf link to open report ?? Signed By: Eliel Smith MD ?? ECG 12-Lead ?? 13:32:03 Ventricular Rate: 63 BPM QRS Duration: 116 ms Q-T Interval: 492 ms QTC Calculation(Bazett): 503 ms R [place]: -23 degrees T [place]: 127 degrees Atrial fibrillation Septal infarct , age undetermined ST and T wave abnormality, consider lateral ischemia Abnormal ECG Confirmed by ELIEL SMITH ([id number]) on 03/19/2023 4:30:38 PM ?? [place]: ELIEL SMITH ?? Signed By: Eliel Smith MD Stress Test NM Myocard Perf SPECT Single ?? 07/29/19 10:43:47 Summary Normal stress only study. No evidence of stress induced ischemia or prior myocardial infarction. Normal left ventricular ejection fraction, no wall motion abnormalities, normal chamber size. Low likelihood of hemodynamically significant coronary artery disease. ?? Compared with report of study from 2018 there has been no change . ?? Signatures ?? Signed By: Ramses Marrufo MD Echo Echocardiogram - Complete ?? 13:51:30 Summary 1. The LV systolic function is moderately reduced. The left ventricular ejection fraction is 30-35%. No obvious wall motion abnormalities seen on limited views. 2. The left atrium is severely dilated. The left atrial volume index is 75 mL/m2. 3. There is mild aortic stenosis. The aortic valve area is 1.5 cm by continuity equation. The mean gradient is 6 mmHg. 4. There is moderate mitral regurgitation. 5. The right ventricle is severely dilated. Right ventricular systolic function is moderate to severely reduced. 6. There is flattening of the interventricular septum during diastole consistent with RV volume overload . 7. The right atrium is massively dilated. The right atrial volume index is 115 mL/m2. 8. There is moderate tricuspid valve regurgitation. ?? Comparison Comparison is made to the study of November 29, 2017. The LVEF appears lower. ?? Signature ?? Signed By: Jcarlos Conner MD VL Studies VL Carotid Duplex Scan Bilat ?? 10:03:17 Summary: Right side: 1-49% stenosis of the Internal Carotid Artery. Antegrade Vertebral artery flow. Multiphasic Subclavian artery flow. ?? Left side: 1-49% stenosis of the Internal Carotid Artery. The Vertebral Artery could not be visualized. The patient has a history of left vertebral occlusion. Multiphasic Subclavian artery flow. ?? Comparison is made to the previous ultrasound study dated 06/26/19. Stable exam. ?? Signed By: Reed Weston MD Patient Care team information Care Team Personnel Name: Elmer Puentes MD Position: [facility] Physician - Primary Care Member Role: PCP Address: Address: [address] [place] [id number] Name: Sidra Banda RN Position: [facility] AMB Nurse Member Role: Primary Care Nurse Name: Alyssa Renteria RN Position: [facility] RN Member Role: Primary Care Nurse Name: Judith Duron RN Position: [facility] ED RN W/OE and Tasks Member Role: Primary Care Nurse Name: Samy Arenas RN Position: [facility] RN Member Role: Primary Care Nurse Name: Jami DAVIS Attending Position: [facility] ED Medicine MD Name: Raya Yepez Position: [facility] ED TA [facility] Member Role: Patient Care Provider Name: Mague Sainz Position: [facility] ED OA Charge Member Role: ED Associate Name: Sunil Ernandez RN Position: [facility] ED RN W/OE and Tasks Member Role: Patient Care Provider Name: Iva Perez MD Position: [facility] Resident Member Role: ED Resident Address: Address: [address] [place] [id number] Name: Alexandra Julio RN Position: [facility] ED RN W/OE and Tasks Member Role: Patient Care Provider Care Team Related Persons Name: ROBIN MOTA Address: home [address] [address]
--- OUTSIDE RECORDS SUMMARY | 2023-11-21 10:42 | XMS_ITS | Continuity of Care Document ---
Author Organization [facility] Jcarlos lt Address [address] [place] [address]- Care Team Providers Care Wall Steamer Name Role Phone Elmer Puentes MD Primary Care Physician [place] [facility] [place] 08/02/21 [facility] Adult [address] [place] [address]- Attending Physician: Elmer Puentes MD Allergies, Adverse Reactions, Alerts Substance Reaction Severity Status Bee Stings Active Immunizations Given and Recorded Vaccine Date Status Refusal Reason SARS-CoV-2 (COVID-19) mRNA-1273 vaccine 04/14/21 R ecorded SARS-CoV-2 (COVID-19) mRNA-1273 vaccine 08/22/20 R ecorded SARS-CoV-2 (COVID-19) mRNA-1273 vaccine 07/25/20 R ecorded influenza virus vaccine, inactivated 03/29/21 Andrea rded influenza virus vaccine, inactivated 03/21/18 Give n influenza virus vaccine, inactivated 1 03/18/17 Gi ratna influenza virus vaccine, inactivated 04/04/16 Give n influenza virus vaccine, inactivated 03/28/15 Give n influenza virus vaccine, inactivated 04/27/13 Give n influenza virus vaccine, inactivated 04/07/10 Give n influenza virus vaccine, inactivated 04/22/08 Give n Influenza Virus Vaccine (oldterm) 03/24/20 Recorde d tetanus-diphtheria toxoids (Td) 09/30/19 Given pneumococcal 13-valent vaccine 10/08/14 Given Fluzone (oldterm) 03/10/14 Given Pneumococcal Vacc (oldterm) 10/23/12 Given Fluarix (oldterm) 2 04/14/12 Given FluLaval (oldterm) 3 03/14/11 Given FluLaval (oldterm) 4 04/07/10 Given tetanus/diphtheria/pertussis, acel(Tdap) 09/26/09 Given Zoster Vaccine Live 05/31/09 Given Tetanus Toxoid Vaccine (oldterm) 06/24/99 Given 1Result Comment: [03/18/2017] [facility]: 69885-007-93 HIGH DOSE 2Admin Note: given by LB 3Admin Note: [employer] 4Admin Note: [employer] [facility] Medications allopurinol 300 mg oral tablet 1, tablet, By Mouth, Daily, # 90 tablet, Refills 1, Route to Pharmacy Electronically, [facility]ORE [id number], 175.26, cm, 06/30/21 15:13:00 EST, Height, 84, kg, 10/31/20 13:29:00 EDT, Dry Weight Start Date: 07/14/21 Status: Ordered Diflucan 200 mg oral tablet 1 tablet = 200 mg, By Mouth, Daily, # 30 tablet, 0 Refills, Maintenance, 05/25/21 11:51:00 EST, Tablet, [facility]/pharmacy #[id number], Partial fill upon patient request if the prescription is for a schedule II opioid drug., 175.26, cm, 05/25/21 11:22:00 EST, Hei... Start Date: 05/25/21 Status: Ordered diltiazem 300 mg/24 hours oral capsule, extended release 300 mg, 1, capsule, By Mouth, Daily, # 90 capsule, Refills 3, Tot. Refills 3, Maintenance, :53:00 EDT, Route to Pharmacy Electronically, [facility]/pharmacy #[id number], Partial fill upon patient request if the prescription is for a schedule II opioid dr... Start Date: 11/18/20 Status: Ordered Eliquis 5 mg oral tablet 1 tablet, By Mouth, 2 times a day, # 60 tablet, 11 Refills, Maintenance, 02/20/21 9:23:00 EDT, [facility]/pharmacy #[id number], 175.26, cm, 01/30/21 16:19:00 EDT, Height, 84, kg, 10/31/20 13:29:00 EDT, Dry Weight Start Date: 02/20/21 Status: Ordered FLUoxetine 20 mg oral capsule 20 mg, 1, capsule, By Mouth, Daily, # 30 capsule, Refills 11, Tot. Refills 11, Maintenance, 05/25/21 11:49:00 EST, Route to Pharmacy Electronically, [facility]/pharmacy #[id number], Partial fill upon patient request if the prescription is for a schedule II opioid... Start Date: 05/25/21 Status: Ordered furosemide 40 mg oral tablet 80 mg, 2, tablet, By Mouth, Daily, # 90 tablet, Refills 3, Tot. Refills 3, Maintenance, 03/31/19 11:18:45 EDT, Route to Pharmacy Electronically, [facility]/pharmacy #[id number] Start Date: 03/31/19 Status: Ordered Multivitamin By Mouth, Daily, 0 Refills, Maintenance Start Date: 08/19/12 Status: Ordered pravastatin 80 mg oral tablet 1 tablet, By Mouth, Daily, # 90 tablet, 1 Refills, [facility] STORE [id number], 175.26, cm, 06/30/21 15:13:00 EST, Height, 84, kg, 10/31/20 13:29:00 EDT, Dry Weight Start Date: 07/14/21 Status: Ordered terazosin 2 mg oral capsule 2 mg, 1, capsule, By Mouth, Daily at bedtime, # 90 capsule, Refills 3, Tot. Refills 3, Maintenance,06/30/21 15:25:00 EST, Route to Pharmacy Electronically, [facility]/pharmacy #[id number], Partial fill upon patient request if the prescription is for a schedule II... Start Date: 06/30/21 Stop Date: 06/25/22 Status: Ordered turmeric 500 mg oral capsule 3 capsule = 1,500 mg, By Mouth, Daily, # 60 capsule, 0 Refills, Maintenance, 03/31/19 11:20:01 EDT,Capsule Start Date: 03/31/19 Status: Ordered uses nightly uses nightly, See Instructions, # 1 each, Refills 0, Tot. Refills 0, Maintenance, ASV EPAP 6 [facility], 01/05/18 12:43:07 EDT, Compound Start Date: 01/05/18 Status: Ordered valsartan 320 mg oral tablet 1 tablet = 320 mg, By Mouth, Daily, # 90 tablet, 3 Refills, Maintenance, 11/04/20 14:17:00 EDT, Tablet, [id number], Partial fill upon patient request if the [...] Active Insomnia(Confirmed) Active Internal hemorrhoids(Confirmed) 5 Active Major depression in complete remission(Confirmed) Active OA (osteoarthritis) of knee(Confirmed) Active Obstructive sleep apnea(Confirmed) Active Onychomycosis(Confirmed) Active Osteoarthritis of shoulder(Confirmed) Active Left wrist pain(Confirmed) Active Polyp of colon(Confirmed) 6 Active Memory loss, short term(Confirmed) Active Pulmonary hypertension(Confirmed) Active Decreased right ventricular systolic function(Confirmed) Active Pain in right shoulder(Confirmed) Active Vertigo(Confirmed) Active 1Colonoscopy 2013 positive polyp, repeat 2018. 91429 negative, repeat 2012 3colo 2018 4Right knee 2014. 5colo 2019 6colo 2019 Social History Social History Type Response Smoking Status Former smoker; Tobac co user in household: Yes entered on: 06/03/14 Sex Male
--- OUTSIDE RECORDS SUMMARY | 2023-11-21 10:43 | XMS_ITS | Continuity of Care Document ---
Author Organization [facility] Kristian Jcarlos Address [address] [place] [address]- Care Team Providers Care A And P Mechanic Name Role Phone Elmer Puentes MD Primary Care Physician Encounter [facility] Date(s): 07/18/23 - 07/25/23 [facility] Olivaley Adult [address] [place] [address]- Encounter Diagnosis AF (atrial fibrillation)(Discharge Diagnosis) - 07/18/23 Dyspnea on exertion(Discharge Diagnosis) - 07/18/23 Attending Physician: Elmer Puentes MD Allergies, Adverse [...] vaccine, inactivated 04/22/08 Give n SARS-CoV-2 mRNA ([id number]) vax 2 03/23/22 Recorded SARS-CoV-2 (COVID-19) mRNA [...] Vaccine (oldterm) 06/24/99 Given 1Result Comment: [03/18/2017] [facility]: 56811-810-99 HIGH DOSE 2Result Comment: Moderna Covid Bivalent Booster, [facility] Pharmacy 3Admin Note: given by LB 4Admin Note: [employer] [facility] 5Admin Note: [employer] [facility] Medications acetaminophen 325 mg oral tablet 650 [...] 11 Refills, Maintenance, 04/08/23 14:31:00 EDT, Tablet, [facility] # 50, Partial fill upon patient request if the prescription is for a schedule II opioid drug., 172, cm, 03/22/23 14:14:00... Start Date: 04/08/23 Stop Date: 04/02/24 Status: Ordered Bedside Commode See Instructions, # 1 each, Maintenance, Bedside commode for generalized weakness, 04/17/23 10:52:00 EDT, Supply Start Date: 04/17/23 Status: Ordered Eliquis 5 mg oral tablet 1 tablet, By Mouth, 2 times a day, # 60 tablet, 11 Refills, Maintenance, 04/08/23 14:30:00 EDT, [facility] # [facility], 172, cm, 03/22/23 14:14:00 EDT, Height, 79.5, kg, 03/16/23 13:06:00 EDT, Dry Weight Start Date: 04/08/23 Status: Ordered FLUoxetine 40 mg oral capsule 1 capsule = 40 mg, By Mouth, Daily, # 30 capsule, 11 Refills, Maintenance, 04/08/23 11:49:00 EDT, Capsule, [facility], Partial fill upon patient request if the prescription is for a scheduleII opioid drug., 172, cm, 03/22/23 14:14:00 EDT, He... Start Date: 04/08/23 Stop Date: 04/02/24 Status: Ordered furosemide 40 mg oral tablet 60 mg, 1.5, tablet, By Mouth, Daily, # 180 tablet, Refills 1, Maintenance, 06/10/23 6:07:00 EST, Route to Pharmacy Electronically, [id number], 172, cm, 05/17/23 14:43:00 EST, Height, 79.5, kg, 03/16/23 13:06:00 EDT, Dry Weight Start Date: 06/10/23 Status: Ordered metoprolol 25 mg oral tablet, extended release 25 mg, 1, tablet, By Mouth, Daily, # 30 tablet, Refills 11, Tot. Refills 11, Maintenance, 04/08/23 14:32:00 EDT, Route to Pharmacy Electronically, [facility], Partial fill upon patient request if the prescription is for a schedule II opioid d... Start Date: 04/08/23 Stop Date: 04/02/24 Status: Ordered Multivitamin By Mouth, Daily, 0 Refills, Maintenance Start Date: 08/19/12 Status: Ordered spironolactone 25 mg oral tablet 25 mg, 1, tablet, By Mouth, Daily, # 30 tablet, Refills 11, Tot. Refills 11, Maintenance, 04/08/23 14:31:00 EDT, Route to Pharmacy Electronically, [facility] # [facility], Partial fill upon patient request if the prescription is for a schedule II opioid d... Start Date: 04/08/23 Stop Date: 04/02/24 Status: Ordered terazosin 2 mg oral capsule 2 mg, 1, capsule, By Mouth, Daily at bedtime, # 90 capsule, Refills 3, Tot. Refills 3, Maintenance,11/21/22 13:39:00 EDT, Route to Pharmacy Electronically, [facility]/pharmacy #[id number], Partial fill upon patient request if the prescription is for a schedule II... Start Date: 11/21/22 Stop Date: 11/16/23 Status: Ordered traZODone 50 mg oral tablet 50 mg, 1, tablet, By Mouth, Daily at bedtime, # 30 tablet, Refills 11, Tot. Refills 11, Maintenance, 07/18/23 11:18:00 EST, Route to Pharmacy Electronically, [facility], Partial fill upon patient request if the prescription is for a schedule... Start Date: 07/18/23 Stop Date: 07/12/24 Status: Ordered uses nightly uses nightly, See Instructions, # 1 each, Refills 0, Tot. Refills 0, Maintenance, ASV EPAP 6 [facility], 01/05/18 12:43:07 EDT, Compound Start Date: 01/05/18 Status: Ordered Problem List Condition Confirmation Course [...] exertion Confirmed Active Erectile dysfunction Confirmed Active Dependent rubor Confirmed Active Femur fracture 4 Confirmed Active Gout Confirmed Active H/O total knee replacement 5 Confirmed Active S/P ICD (internal cardiac defibrillator) procedure Confirmed Active Hearing loss of left ear Confirmed Active H/O ventricular tachycardia Confirmed Active HTN (hypertension) Confirmed Active Hypercholesterolemia Confirmed Active Insomnia Confirmed Active Internal hemorrhoids 6 Confirmed Active Disequilibrium Confirmed Active Major depression in complete remission [...] 2012 positive polyp, repeat 2017. negative, repeat 2012olo 2018 4Left femur fracture 2022 5Right knee 2013. 6colo 2018 7colo 2018 Diagnosis Diagnosis Type Effective Dates Health Status Cl inical Service Informant AF (atrial fibrillation) Discharge Diagnosis 07/18/23 Dyspnea on exertion Discharge Diagnosis 07/18/23 Vital Signs Most recent to oldest [Reference Range]: 1 2 Height 172 cm (07/18/23 10:49 AM) 172 cm (07/18/23 10:37 AM) Oxygen Saturation [94-100 %] 95 % (07/18/23 10:37 AM) Pulse Rate [55-90 bpm] 67 bpm (07/18/23 10:37 AM) Blood Pressure [90-138/55-84 mm Hg] 135/ 89mm Hg (07/18/23 10:49 AM) 142/94mm Hg *H* (07/18/23 10:37 AM) Mode of Delivery (Oxygen) Room air (07/18/23 10:37 AM) Blood pressure sites Arm, left (07/18/23 10:49 AM) Arm, left (07/18/23 10:37 AM) Weight Obtained Via Standing scale (07/18/23 10:37 AM) Social History Social History Type Response Smoking Status Former smoker; Tobac co user in household: Yes entered on: 06/03/14 Sex Patient Care team information Care Team Personnel Name: Elmer Puentes MD Position: [facility] Physician - Primary Care Member Role: PCP Address: Address: [address] [place] [address]- Name: Sidra Banda RN Position: [facility] AMB Nurse Member Role: Primary Care Nurse Name: Judith Duron RN Position: [facility] DOMINGA RN W/OE and Tasks Member Role: Primary Care Nurse Care Team Related Persons Name: ROBIN MOTA Address: home [address] [address]
--- OUTSIDE RECORDS SUMMARY | 2023-11-21 10:43 | XMS_ITS | Continuity of Care Document ---
Author Organization [facility] Jcarlos lt Address [address] [place] [address]- Care Team Providers Care Production Department Supervisor Name Role Phone Deloris MEDINA, Elmer Bill Primary Care Physician Encounter [facility] Date(s): 02/26/23 - 03/28/23 [facility] Adult [address] [place] [address]- Attending Physician: AdmNohemi villafuerte Admitting Physician: AdmtrNohemi Referring Physician: Admtr, Ar8 Allergies, Adverse Reactions, Alerts Substance Reaction Severity [...] vaccine, inactivated 04/22/08 Give n SARS-CoV-2 mRNA ([id number]) vax 2 03/23/22 Recorded SARS-CoV-2 (COVID-19) mRNA [...] Vaccine (oldterm) 06/24/99 Given 1Result Comment: [03/18/2017] [facility]: [id number] HIGH DOSE 2Result Comment: Moderna Covid Bivalent Booster, [facility] Pharmacy 3Admin Note: given by LB 4Admin Note: [employer] 5Admin Note: [employer] Medications acetaminophen 325 mg oral tablet 650 [...] 05/29/22 14:30:00 EST, Route to Pharmacy Electronically, [facility] 80969, 175.26, cm, 02/21/22 14:25:00 EDT, Height, 84, [...] 11 Refills, Maintenance, 03/12/22 18:53:00 EDT, [facility], 175.26, cm, 02/21/22 14:25:00 EDT, Height, 84, kg, 10/31/20 13:29:00 EDT, Dry Weight Start Date: 03/12/22 Status: Ordered FLUoxetine 20 mg oral capsule 1, capsule, By Mouth, Daily, # 30 capsule, Refills 12, Maintenance, 02/12/23 16:46:00 EDT, Route [facility]Ph[facility]acy Electronically, [facility], 173, cm, 09/17/22 13:09:00 EDT, Height, 79.5, kg, 06/13/22 15:11:00 EST, Dry Weight Start Date: 02/12/23 Status: Ordered furosemide 40 mg oral tablet 40 mg, 1, tablet, By Mouth, Daily, # 90 tablet, Refills 3, Tot. Refills 3, Maintenance, 06/05/22 16:04:00 EST, Route to Pharmacy Electronically, [facility]/pharmacy #[id number], 175.26, cm, 02/21/22 14:25:00 EDT,Height, [...] 1 Refills, Maintenance, 02/20/23 12:17:00 EDT, Tablet, [facility]/pharmacy #[id number], Partial fill upon patient request if the prescription is for a schedule II opioid drug., 173, cm... Start Date: 02/20/23 Status: Ordered uses nightly uses nightly, See Instructions, # 1 each, Refills 0, Tot. Refills 0, Maintenance, ASV [facility] 6 [facility], 01/05/18 12:43:07 EDT, Compound Start Date: 01/05/18 Status: Ordered valsartan 160 mg oral tablet 160 mg, 1, tablet, By Mouth, Daily, # 90 tablet, Refills 3, Tot. Refills 3, Maintenance, 02/26/23 11:16:00 EDT, Route to Pharmacy Electronically, [id number] # [facility], 173, cm, 02/26/23 11:03:00 [...] 5Right knee 2013. 6colo 2018 7colo 2018 Vital Signs Most recent to oldest [Reference Range]: 1 2 Pulse Rate [55-90 bpm] 68 bpm (02/27/23 8:45 AM) Blood Pressure [90-138/55-84 mm Hg] 142/ 80mm Hg *H* (02/27/23 8:45 AM) 140/100mm Hg *H* (01/08/14 9:43 AM) Blood pressure sites Arm, left (01/08/14 9:43 AM) Social History Social History Type Response Smoking Status Former smoker; Tobac co user in household: Yes entered on: 06/03/14 Sex Male Cardiology * Event Display: Cardiology Office Note, Non-BH Authored Date: * Event Display: Cardiology Office Note, Non-BH Authored Date: * Event Display: Non BH Cardiovascular Results Authored Date: EKG study * Event Display: EKG Authored Date: * Event Display: EKG Authored Date: Laboratory * Event Display: Non BH Lab Results Authored Date: Cardiology Consult note * Event Display: Consult Note Cardiology Authored Date: Radiology * Event Display: Radiology Result Scanned Authored Date: * Edith Murray: PERFORM Event Display: Radiology Results Scanned Authored Date: * Lesli Epperson: PERFORM Event Display: Radiology Results Scanned Authored Date: [id number] Patient Care team information Care Team Personnel Name: Elmer Puentes MD Position: [facility] Physician - Primary Care Member Role: PCP Address: Address: [address] [place] [address]- Name: Sidra Banda RN Position: [facility] AMB Nurse Member Role: Primary Care Nurse Name: Alyssa Renteria RN Position: [facility] RN Member Role: Primary Care Nurse Name: Judith Duron RN Position: [facility] ED RN W/OE and Tasks Member Role: Primary Care Nurse Name: Samy Arenas RN Position: [facility] RN Member Role: Primary Care Nurse Care Team Related Persons Name: ROBIN MOTA Address: home [address] [address]
--- OUTSIDE RECORDS SUMMARY | 2023-11-21 10:43 | XMS_ITS | Continuity of Care Document ---
Author Organization [facility] Kristian Jcarlos Address [address] [place] [address]- Care Team Providers Care Automatic Driller And Reamer Name Role Phone Elmer Puentes MD Primary Care Physician Encounter [facility] Date(s): 05/25/21 - 06/01/21 [facility] Adult [address] [place] [address]- Encounter Diagnosis AF (atrial fibrillation)(Discharge Diagnosis) - 05/25/21 HTN (hypertension)(Discharge Diagnosis) - 05/25/21 Gout(Discharge Diagnosis) - 05/25/21 Hypercholesterolemia(Discharge Diagnosis) - 05/25/21 Dyspnea on exertion(Discharge Diagnosis) - 05/25/21 Attending Physician: Elmer Puentes MD Allergies, Adverse [...] Vaccine (oldterm) 06/24/99 Given 1Result Comment: [03/18/2017] [facility]: [id number] HIGH DOSE 2Admin Note: given by LB 3Admin Note: [employer] 4Admin Note: [employer] [facility] Medications allopurinol 300 mg oral tablet 1, tablet, By Mouth, Daily, # 90 tablet, Refills 1, Route to Pharmacy Electronically, [facility] STORE 66949, 175.26, cm, 01/30/21 16:19:00 EDT, Height, 84, kg, 10/31/20 13:29:00 EDT, Dry Weight Start Date: 02/21/21 Status: Ordered Diflucan 200 mg oral tablet 1 tablet = 200 mg, By Mouth, Daily, # 30 tablet, 0 Refills, Maintenance, 05/25/21 11:51:00 EST, Tablet, [facility]/pharmacy #[id number], Partial fill upon patient request if the prescription is for a schedule II opioid drug., 175.26, cm, 05/25/21 11:22:00 EST, Hei... Start Date: 05/25/21 Status: Ordered diltiazem 300 mg/24 hours oral capsule, extended release 300 mg, 1, capsule, By Mouth, Daily, # 90 capsule, Refills 3, Tot. Refills 3, Maintenance, :53:00 EDT, Route to Pharmacy Electronically, [facility]/pharmacy #[id number], Partial fill upon patient request if the prescription is for a schedule II opioid dr... Start Date: 11/18/20 Status: Ordered Eliquis 5 mg oral tablet 1 tablet, By Mouth, 2 times a day, # 60 tablet, 11 Refills, Maintenance, 02/20/21 9:23:00 EDT, [facility]/pharmacy #[id number], 175.26, cm, 01/30/21 16:19:00 EDT, Height, 84, kg, 10/31/20 13:29:00 EDT, Dry Weight Start Date: 02/20/21 Status: Ordered FLUoxetine 20 mg oral capsule 20 mg, 1, capsule, By Mouth, Daily, # 30 capsule, Refills 11, Tot. Refills 11, Maintenance, 05/25/21 11:49:00 EST, Route to Pharmacy Electronically, [facility]/pharmacy #[id number], Partial fill upon patient request if the prescription is for a schedule II opioid... Start Date: 05/25/21 Status: Ordered furosemide 40 mg oral tablet 80 mg, 2, tablet, By Mouth, Daily, # 90 tablet, Refills 3, Tot. Refills 3, Maintenance, 03/31/19 11:18:45 EDT, Route to Pharmacy Electronically, [facility]/pharmacy #2071 Start Date: 03/31/19 Status: Ordered Multivitamin By Mouth, Daily, 0 Refills, Maintenance Start Date: 08/19/12 Status: Ordered pravastatin 80 mg oral tablet See Instructions, TAKE 1 TABLET BY MOUTH EVERY DAY, # 90 tablet, 1 Refills, Soft Stop, 01/10/21 9:51:00 EDT, [facility]/pharmacy #[id number], 175.26, cm, 12/19/20 9:28:00 EDT, Height, 84, kg, 10/31/20 13:29:00 EDT, Dry Weight Start Date: 01/10/21 Status: Ordered terazosin 1 mg oral capsule 1 mg, 1, capsule, By Mouth, Daily at bedtime, # 90 capsule, Refills 3, Tot. Refills 3, Maintenance,05/25/21 11:49:00 EST, Route to Pharmacy Electronically, [facility]/pharmacy #[id number], Partial fill upon patient request if the prescription is for a schedule II... Start Date: 05/25/21 Stop Date: 05/20/22 Status: Ordered turmeric 500 mg oral capsule 3 capsule = 1,500 mg, By Mouth, Daily, # 60 capsule, 0 Refills, Maintenance, 03/31/19 11:20:01 EDT,Capsule Start Date: 03/31/19 Status: Ordered uses nightly uses nightly, See Instructions, # 1 each, Refills 0, Tot. Refills 0, Maintenance, ASV EPAP 6 [facility], 01/05/18 12:43:07 EDT, Compound Start Date: 01/05/18 Status: Ordered valsartan 320 mg oral tablet 1 tablet = 320 mg, By Mouth, Daily, # 90 tablet, 3 Refills, Maintenance, 11/04/20 14:17:00 EDT, Tablet, [facility]/pharmacy #[id number], Partial fill upon patient request if the [...] Active Insomnia(Confirmed) Active Internal hemorrhoids(Confirmed) 5 Active Moderate major depression(Confirmed) Active OA (osteoarthritis) of knee(Confirmed) Active Obstructive sleep apnea(Confirmed) Active Onychomycosis(Confirmed) Active Osteoarthritis of shoulder(Confirmed) Active Left wrist pain(Confirmed) Active Polyp of colon(Confirmed) 6 Active Memory loss, short term(Confirmed) Active Pulmonary hypertension(Confirmed) Active Decreased right ventricular systolic function(Confirmed) Active Pain in right shoulder(Confirmed) Active Vertigo(Confirmed) Active 1Colonoscopy 2012 positive polyp, repeat 2018. 87535 negative, repeat 2012 3colo 2018 4Right knee 2014. 5colo 2018 6colo 2018 Diagnosis Diagnosis Type Effective Dates Health Status Clinical Service Informant AF (atrial fibrillation) Discharge Diagnosis 05/25/21 HTN (hypertension) Discharge Diagnosis 05/25/21 Gout Discharge Diagnosis 05/25/21 Hypercholesterolemia Discharge Diagnosis 05/25/21 Dyspnea on exertion Discharge Diagnosis 05/25/21 Vital Signs Most recent to oldest [Reference Range]: 1 2 Height 175.26 cm (05/25/21 11:22 AM) 175.26 cm (05/25/21 11:10 AM) Weight 85.0 kg (05/25/21 11:10 AM) Body Mass Index [18.5-24.99] 27.67 *H* (05/25/21 11:10 AM) Blood Pressure [90-138/55-84 mm Hg] 146/ 86mm Hg *H* (05/25/21 11:22 AM) 162/92mm Hg *H* (05/25/21 11:10 AM) Mode of Delivery (Oxygen) Room air (05/25/21 11:10 AM) Blood pressure sites Arm, left (05/25/21 11:22 AM) Arm, left (05/25/21 11:10 AM) Weight Obtained Via Standing scale (05/25/21 11:10 AM) Social History Social History Type Response Smoking Status Former smoker; Tobac co user in household: Yes entered on: 06/03/14 Sex Male
--- OUTSIDE RECORDS SUMMARY | 2023-11-21 10:43 | XMS_ITS | Continuity of Care Document ---
Author Organization [facility] Kristian Jcarlos lt Address [address] [place] [address]- Care Team Providers Care Dairy Processing Equipment Operator Name Role Phone Deloris MEDINA, Elmer Bill Primary Care Physician [facility] Date[facility]s): 10/03/23 - 11/02/23 [facility] Adult [address] [place] [address]- Allergies, Adverse Reactions, Alerts Substance Reaction Severity [...] vaccine, inactivated 04/22/08 Give n SARS-CoV-2 mRNA ([id number]) vax 2 03/23/22 Recorded SARS-CoV-2 (COVID-19) mRNA [...] Vaccine (oldterm) 06/24/99 Given 1Result Comment: [03/18/2017] [facility]: 07451-760-58 HIGH DOSE 2Result Comment: Moderna Covid Bivalent Booster, [facility] 3Admin Note: given by LB 4Admin Note: [employer] 5Admin Note: [employer] Medications acetaminophen 325 mg oral tablet 650 [...] EDT, Supply Start Date: 04/17/23 Status: Ordered FLUoxetine 40 mg oral capsule [...] 06/10/23 6:07:00 EST, Route to Pharmacy Electronically, [facility], 172, cm, 05/17/23 14:43:00 EST, Height, 79.5, kg, 03/16/23 13:06:00 EDT, Dry Weight Start Date: 06/10/23 Status: Ordered metoprolol 25 mg oral tablet, extended release 25 mg, 1, tablet, By Mouth, Daily, # 30 tablet, Refills 11, Tot. Refills 11, Maintenance, 04/08/23 14:32:00 EDT, Route to Pharmacy Electronically, [facility] # 50, Partial fill upon patient request if the prescription is for a schedule II opioid d... Start Date: 04/08/23 Stop Date: 04/02/24 Status: Ordered Multivitamin By Mouth, Daily, 0 Refills, Maintenance Start Date: 08/19/12 Status: Ordered rollator walker with seat rollator walker with seat, See Instructions, # 1 each, Refills 0, Tot. Refills 0, Maintenance, DX: Dizziness (R42), Generalized weakness (R53.1), H/O total knee replacement (Z96.659), Disequilibrium (R42), Chronic low back pain (M54.5) HT: 170cm WT... Start Date: 09/23/23 Status: Ordered spironolactone 25 mg oral tablet 12.5 mg, 0.5, tablet, By Mouth, Daily, # 15 tablet, Refills 11, Tot. Refills 11, Maintenance, 04/08/23 14:31:00 EDT, Route to Pharmacy Electronically, [facility] # 50, Partial fill upon patient request if the prescription is for a schedule II opio... Start Date: 04/08/23 Stop Date: 04/02/24 Status: Ordered terazosin 2 mg oral capsule 2 mg, 1, capsule, By Mouth, Daily at bedtime, # 90 capsule, Refills 3, Tot. Refills 3, Maintenance,11/21/22 13:39:00 EDT, Route to Pharmacy Electronically, [facility]/pharmacy #[id number], Partial fill upon patient request if the prescription is for a schedule II... Start Date: 11/21/22 Stop Date: 11/16/23 Status: Ordered traZODone 50 mg oral tablet 50 mg, 1, tablet, By Mouth, Daily at bedtime, # 30 tablet, Refills 11, Tot. Refills 11, Maintenance, 07/18/23 11:18:00 EST, Route to Pharmacy Electronically, [facility] # 50, Partial fill upon patient request if the prescription is for a schedule... Start Date: 07/18/23 Stop Date: 07/12/24 Status: Ordered uses nightly uses nightly, See Instructions, # 1 each, Refills 0, Tot. 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 Generalized weakness Confirmed Active Bee sting-induced anaphylaxis Confirmed Active Cardiomyopathy Confirmed Active Chronic low back pain Confirmed Active Colonoscopy 1, 2 Confirmed Active Coronary artery disease Confirmed Active Decreased appetite Confirmed Active Macular degeneration Confirmed Active Dementia Confirmed Active Diastolic dysfunction Confirmed Active Diverticulosis [...] HTN (hypertension) Confirmed Active Hypercholesterolemia Confirmed Active Bowel incontinence Confirmed Active Insomnia Confirmed Active Internal hemorrhoids 6 Confirmed Active Disequilibrium Confirmed Active Major depression in complete remission Confirmed Active Movement disorder Confirmed Active OA (osteoarthritis) of knee Confirmed Active Obstructive sleep apnea Confirmed Active Onychomycosis Confirmed Active Osteoarthritis of shoulder Confirmed Active Left wrist pain Confirmed Active Polyp of colon 7 Confirmed Active Decubitus ulcer of sacral region, stage 2 Confirmed Active Pulmonary hypertension Confirmed Active Decreased right ventricular systolic function Confirmed Active Pain in right shoulder Confirmed Active Bladder incontinence Confirmed Active Vertigo Confirmed Active 1Colonoscopy 2012 positive polyp, repeat 2017. negative, repeat 2012 3colo 2018 4Left femur fracture 2022 5Right knee 2013. 6colo 2018 7colo 2018 Social History Social History Type Response Smoking Status Former smoker; Tobac co user in household: Yes entered on: 06/03/14 Sex Patient Care team information Care Team Personnel Name: Elmer Puentes MD Position: [facility] Physician - Primary Care Member Role: PCP Address: Address: [address] [place] [address]- Name: Sidra Banda RN Position: [facility] ISABELLA Nurse Member Role: Primary Care Nurse Name: Fdielia (Aristeo) Jenni Position: [facility] package line operator Member Role: Brake Lining Maker Name: Judith Duron RN Position: [facility] ED RN W/OE and Tasks Member Role: Primary Care Nurse Name: Jewell Polo Position: [facility] [place] State Archivist Member Role: Brake Lining Maker Care Team Related Persons Name: ROBIN MOTA Address: home [address] [address]
--- OUTSIDE RECORDS SUMMARY | 2023-11-21 10:43 | XMS_ITS | Continuity of Care Document ---
Author Organization [facility] Kristian Jcarlos Address [address] [place] [address]- Care Team Providers Care Annealing Oven Operator Name Role Phone Elmer Puentes MD Primary Care Physician [phone] [facility] Date(s): 07/02/19 - 10/30/19 [facility] Adult [address] [place] [address]- [facility] Attending Physician: Elmer Puentes MD Allergies, Adverse Reactions, Alerts Substance Reaction Severity Status Bee Stings Active Immunizations Given and Recorded Vaccine Date Status Refusal Reason tetanus-diphtheria toxoids (Td) 09/30/19 Given influenza virus [...] Vaccine (oldterm) 06/24/99 Given 1Result Comment: [03/18/2017] [facility]: 89362-060-10 HIGH DOSE 2Admin Note: given by LB 3Admin Note: [facility] [facility] 4Admin Note: [employer] [facility] Medications allopurinol 300 mg oral tablet 300 mg, 1, tablet, By Mouth, Daily, # 90 tablet, Refills 3, Tot. Refills 3, Maintenance, 01/21/19 16:49:02 EDT, Route to Pharmacy Electronically, [id number], [facility]/pharmacy #[id number] Start Date: 01/21/19 Status: Ordered diltiazem 240 mg/24 hours oral capsule, extended release 240 mg, 1, capsule, By Mouth, Daily, # 30 capsule, Refills 0, Tot. Refills 0, Maintenance, 09/02/2013:51:00 EDT, [facility] 175.26, cm, 08/18/19 14:43:00 EST, Height Start Date: 09/03/19 Status: Ordered Eliquis 5 mg oral tablet 1 tablet = 5 mg, By Mouth, 2 times a day, # 180 tablet, 3 Refills, Maintenance, 11/21/18 9:37:08 EDT, Tablet Start Date: 11/21/18 Stop Date: 11/16/19 Status: Ordered furosemide 40 mg oral tablet 80 mg, 2, tablet, By Mouth, Daily, # 90 tablet, Refills 3, Tot. Refills 3, Maintenance, 03/31/19 11:18:45 EDT, Route to Pharmacy Electronically, [facility]/pharmacy #[id number] Start Date: 03/31/19 Status: Ordered losartan 50 mg oral tablet 50 mg, 1, tablet, By Mouth, Daily, # 90 tablet, Refills 3, Tot. Refills 3, Maintenance, 03/31/19 11:17:44 EDT, Route to Pharmacy Electronically, [id number], [facility]/pharmacy #[id number] Start Date: 03/31/19 Status: Ordered Multivitamin By Mouth, Daily, 0 Refills, Maintenance Start Date: 08/19/12 Status: Ordered pravastatin 80 mg oral tablet See Instructions, TAKE 1 TABLET BY MOUTH EVERY DAY, # 90 tablet, 1 Refills, Soft Stop, 07/09/19 14:02:00 EST, [facility][id number], 175.26, cm, 06/26/19 14:39:00 EST, Height Start Date: 07/09/19 Status: Ordered turmeric 500 mg oral capsule 3 capsule = 1,500 mg, By Mouth, Daily, # 60 capsule, 0 Refills, Maintenance, 03/31/19 11:20:01 EDT,Capsule Start Date: 03/31/19 Status: Ordered uses nightly uses nightly, See Instructions, # 1 each, Refills 0, Tot. Refills 0, Maintenance, ASV EPAP 6 [facility], 01/05/18 12:43:07 EDT, Compound Start Date: 01/05/18 Status: Ordered Problem List Condition Effective Dates Status Health Status Inform ant AF (atrial fibrillation)(Confirmed) Active Elevated alkaline phosphatas [...] sleep apnea(Confirmed) Active Osteoarthritis of shoulder(Confirmed) Active Polyp of colon(Confirmed) 6 Active Pulmonary hypertension(Confirmed) Active Decreased right ventricular systolic function(Confirmed) Active Pain in right shoulder(Confirmed) Active Vertigo(Confirmed) Active 1Colonoscopy 2013 positive polyp, repeat 2017. negative, repeat 2012 3colo 2018 4Right knee 2014. 5colo 2019 6colo 2019 Social History Social History Type Response Smoking Status Former smoker; Tobac co user in household: Yes entered on: 06/03/14 Sex
--- OUTSIDE RECORDS SUMMARY | 2023-11-21 10:43 | XMS_ITS | Continuity of Care Document ---
Author Organization [facility] Address [address] [place] [address]- Care Team Providers Care Barrel Lathe Operator Inside Name Role Phone Elmer Puentes MD Primary Care Physician Encounter [facility] Date(s): 04/22/21 - 08/20/21 [facility] [address] [place] [address]- Attending Physician: Johnna PEMBERTON, Treasure Escalante Admitting Physician: Johnna PEMBERTON, Treasure Escalante Referring Physician: Elmer Puentes MD Allergies, Adverse Reactions, [...] Vaccine (oldterm) 06/24/99 Given 1Result Comment: [03/18/2017] [facility]: 55601-847-02 HIGH DOSE 2Admin Note: given by LB 3Admin Note: [employer] 4Admin Note: [email or web address] [facility] Medications allopurinol 300 mg oral tablet 1, tablet, By Mouth, Daily, # 90 tablet, Refills 1, Route to Pharmacy Electronically, [facility]10, 175.26, cm, 06/30/21 15:13:00 EST, Height, 84, kg, 10/31/20 13:29:00 EDT, Dry Weight Start Date: 07/14/21 Status: Ordered Diflucan 200 mg oral tablet 1 tablet = 200 mg, By Mouth, Daily, # 30 tablet, 0 Refills, Maintenance, 05/25/21 11:51:00 EST, Tablet, [facility]/pharmacy #[id number], Partial fill upon patient request if the prescription is for a schedule II opioid drug., 175.26, cm, 05/25/21 11:22:00 EST, Hei... Start Date: 05/25/21 Status: Ordered diltiazem 300 mg/24 hours oral capsule, extended release 300 mg, 1, capsule, By Mouth, Daily, # 90 capsule, Refills 3, Tot. Refills 3, Maintenance, :53:00 EDT, Route to Pharmacy Electronically, [facility]/pharmacy #[id number], Partial fill upon patient request if the prescription is for a schedule II opioid dr... Start Date: 11/18/20 Status: Ordered Eliquis 5 mg oral tablet 1 tablet, By Mouth, 2 times a day, # 60 tablet, 11 Refills, Maintenance, 02/20/21 9:23:00 EDT, [facility]/pharmacy #[id number], 175.26, cm, 01/30/21 16:19:00 EDT, Height, 84, kg, 10/31/20 13:29:00 EDT, Dry Weight Start Date: 02/20/21 Status: Ordered FLUoxetine 20 mg oral capsule 20 mg, 1, capsule, By Mouth, Daily, # 30 capsule, Refills 11, Tot. Refills 11, Maintenance, 05/25/21 11:49:00 EST, Route to Pharmacy Electronically, [facility]/pharmacy #[id number], Partial fill upon patient request if the prescription is for a schedule II opioid... Start Date: 05/25/21 Status: Ordered furosemide 40 mg oral tablet 80 mg, 2, tablet, By Mouth, Daily, # 90 tablet, Refills 3, Tot. Refills 3, Maintenance, 03/31/19 11:18:45 EDT, Route to Pharmacy Electronically, [facility]/pharmacy #[id number] Start Date: 03/31/19 Status: Ordered Multivitamin By Mouth, Daily, 0 Refills, Maintenance Start Date: 08/19/12 Status: Ordered pravastatin 80 mg oral tablet 1 tablet, By Mouth, Daily, # 90 tablet, 1 Refills, [facility]ORE [id number], 175.26, cm, 06/30/21 15:13:00 EST, Height, 84, kg, 10/31/20 13:29:00 EDT, Dry Weight Start Date: 07/14/21 Status: Ordered terazosin 2 mg oral capsule 2 mg, 1, capsule, By Mouth, Daily at bedtime, # 90 capsule, Refills 3, Tot. Refills 3, Maintenance,06/30/21 15:25:00 EST, Route to Pharmacy Electronically, [facility]/pharmacy #[id number], Partial fill upon patient [...] Tot. Refills 0, Maintenance, ASV EPAP 6 [facility], 01/05/18 12:43:07 EDT, Compound Start Date: 01/05/18 Status: Ordered valsartan 320 mg oral tablet 1 tablet = 320 mg, By Mouth, Daily, # 90 tablet, 3 Refills, Maintenance, 11/04/20 14:17:00 EDT, Tablet, [facility]/pharmacy #[id number], Partial fill upon patient request if the prescription is for a schedule II opioid drug., 175.26, cm, 11/04/20 14:11:00 EDT, Her[facility].. Start Date: 11/04/20 Status: Ordered Problem List [...] Active 1Colonoscopy 2013 positive polyp, repeat 2018. 63419 negative, repeat 2012 3colo 2018 4Right knee 2014. 5colo 2018 6colo 2019 Social History Social History Type Response Smoking Status Former smoker; Tobac co user in household: Yes entered on: 06/03/14 Sex Male
--- OUTSIDE RECORDS SUMMARY | 2023-11-21 10:43 | XMS_ITS | Continuity of Care Document ---
Author Organization [facility] Kristian Jcarlos Address [address] [place] [address]- Care Team Providers Care Intern Architect Name Role Phone Elmer Puentes MD Primary Care Physician [facility]counter [facility] Date(s): 09/17/22 - 09/24/22 [facility] Adult [address] [place] [address]- Attending Physician: Elmer Puentes MD Allergies, Adverse Reactions, Alerts Substance Reaction Severity Status Bee Stings Active Immunizations Given and Recorded Vaccine Date Status Refusal Reason SARS-CoV-2 mRNA (psaejlg-[id number]-ppwoj) vax 1 03/23/22 Recorded influenza virus vaccine, [...] Given 1Result Comment: Moderna Covid Bivalent Booster, [facility] 2Result Comment: [03/18/2017] [facility]: 58596-113-01 HIGH DOSE 3Admin Note: given by LB 4Admin Note: [facility] 5Admin Note: [facility] Medications allopurinol 300 mg oral tablet 1, tablet, By Mouth, Daily, # 90 tablet, Refills 3, Maintenance, 05/29/22 14:30:00 EST, Route to Pharmacy Electronically, [facility]4869, 175.26, cm, 02/21/22 14:25:00 EDT, Height, 84, [...] 300 mg/24 hours oral capsule, extended release See Instructions, TAKE 1 CAPSULE BY MOUTH EVERY DAY, # 90 capsule, 3 Refills, [facility] 36446, 175.26, cm, 11/03/21 10:48:00 EDT, Height, 84, kg, 10/31/20 13:29:00 EDT, Dry Weight Start Date: 12/19/21 Status: Ordered Eliquis 5 mg oral tablet 1 tablet, By Mouth, 2 times a day, # 60 tablet, 11 Refills, Maintenance, 03/12/22 18:53:00 EDT, [facility], 175.26, cm, 02/21/22 14:25:00 EDT, Height, 84, kg, 10/31/20 13:29:00 EDT, Dry Weight Start Date: 03/12/22 Status: Ordered FLUoxetine 20 mg oral capsule 1, capsule, By Mouth, Daily, # 30 capsule, Refills 6, Maintenance, 06/21/22 14:13:00 EST, Route to Pharmacy Electronically, [facility] 86401, 173, cm, 06/14/22 10:32:00 EST, Height, 79.5, kg, 06/13/2215:11:00 EST, Dry Weight Start Date: 06/21/22 Status: Ordered furosemide 40 mg oral tablet 2, tablet, By Mouth, Daily, # 180 tablet, Refills 3, Tot. Refills 3, Maintenance, 06/05/22 16:04:00EST, Route to Pharmacy Electronically, [facility]/pharmacy #[id number], 175.26, cm, 02/21/22 14:25:00 EDT, Height, 84, kg, 10/31/20 13:29:00 EDT, Dry Weight Start Date: 06/05/22 Stop Date: 05/31/23 Status: Ordered Multivitamin By Mouth, Daily, 0 Refills, Maintenance Start Date: 08/19/12 Status: Ordered pravastatin 80 mg oral tablet 1 tablet, By Mouth, Daily, # 90 tablet, 1 Refills, 05/29/22 13:47:00 EST, [facility]/pharmacy #[id number], 175.26, cm, 02/21/22 14:25:00 EDT, Height, 84, kg, 10/31/20 13:29:00 EDT, Dry Weight Start Date: 05/29/22 Status: Ordered terazosin 2 mg oral capsule 2 mg, 1, capsule, By Mouth, Daily at bedtime, # 90 capsule, Refills 3, Tot. Refills 3, Maintenance,06/30/21 15:25:00 EST, Route to Pharmacy Electronically, [facility]/pharmacy #[id number], Partial fill upon patient request if the prescription is for a schedule II... Start Date: 06/30/21 Stop Date: 06/25/22 Status: Ordered uses nightly uses nightly, See Instructions, # 1 each, Refills 0, Tot. Refills 0, Maintenance, ASV EPAP 6 [facility], 01/05/18 12:43:07 EDT, Compound Start Date: 01/05/18 Status: Ordered valsartan 160 mg oral tablet See Instructions, TAKE 1 + 1/2 TABLET BY MOUTH EVERY DAY, # 135 tablet, Refills 3, Maintenance, 09/18/22 16:21:00 EDT, Instructions Replace Required Details, Route to Pharmacy Electronically, [facility] 65744, 173, cm, 09/17/22 13:09:00 EDT, Height, 79... Start Date: 09/18/22 Status: Ordered Problem List Condition Confirmation Course [...] Confirmed Active 1Colonoscopy 2012 positive polyp, repeat 2018. 01128 negative, repeat 2012 3colo 2018 4Right knee 2014. 5colo 2018 6colo 2019 Vital Signs Most recent to oldest [Reference Range]: 1 Height 173 cm (09/17/22 1:09 PM) Weight 88.4 kg (09/17/22 1:09 PM) Oxygen Saturation [94-100 %] 99 % (09/17/22 1:09 PM) Pulse Rate [55-90 bpm] 60 bpm (09/17/22 1:09 PM) Body Mass Index [18.5-24.99 kg/m2] 29.54 kg/m2 *H* (09/17/22 1:09 PM) Blood Pressure [90-138/55-84 mm Hg] 132/ 78mm Hg (09/17/22 1:09 PM) Mode of Delivery (Oxygen) Room air (09/17/22 1:09 PM) Blood pressure sites Arm, left (09/17/22 1:09 PM) Weight Obtained Via Standing scale (09/17/22 1:09 PM) Social History Social History Type Response Smoking Status Former smoker; Tobac co user in household: Yes entered on: 06/03/14 Sex Male Note * Edith Madison: PERFORM, SIGN, VERIFY Event Display: Patient Education/Instruction Authored Date: [id number] [facility] *BMP So Kristian Yee Clinical Summary Name HILL MOTA Age 72 Years 1950 PCP Elmer Puentes MD PCP Visit Date 09/17/2022 12:59:00 Additional Instructions: Scheduled Appointments?? Future Appointments ?No Future Appointments Scheduled Follow-Up Instructions ?? With: Address: When: Elmer Puentes MD In 6 months Comments: Physical examination Diagnosis Obstructive sleep apnea (adult) (pediatric); Unspecified atrial fibrillation; Major depressive disorder, single episode, in full remission; Essential (primary) hypertension; Pure hypercholesterolemia, unspecified; Pulmonary hypertension, unspecified; Gout, unspecified Medications: Please continue your medications until treatment is completed or stopped by your provider. Discuss any questions related to medications with your provider. Medications to Continue Taking That Have Changed These medications were not printed or sent to your pharmacy - apixaban (Eliquis 5 mg oral tablet) 1 tab(s) Oral twice a day. Refills: 11. Next Dose: - Diltiazem (DilTIAZem (Eqv-Cardizem CD) 300 mg/24 hours oral capsule, extended release) TAKE 1 CAPSULE BY MOUTH EVERY DAY. Refills: 3. Next Dose: - Terazosin (terazosin 2 mg oral capsule) 1 capsule Oral Daily at Bedtime for 90 Days. Refills: 3. Next Dose: Medications to Continue with No Changes These medications were not printed or sent to your pharmacy Allopurinol (allopurinol 300 mg oral tablet) 1 tab(s) Oral Daily. Refills: 3. Next Dose: Celecoxib (celecoxib 200 mg oral capsule) 1 capsule Oral twice a day. Next Dose: Durable Medical Equipment (uses nightly) ASV EPAP 6 [facility]. Refills: 0. Next Dose: Fluoxetine (FLUoxetine 20 mg oral capsule) 1 capsule Oral Daily. Refills: 6. Next Dose: Furosemide (furosemide 40 mg oral tablet) 2 tab(s) Oral Daily for 90 Days. Refills: 3. Next Dose: Multivitamin Oral Daily. Next Dose: Pravastatin (pravastatin 80 mg oral tablet) 1 tab(s) Oral Daily. Refills: 1. Next Dose: Valsartan (valsartan 160 mg oral tablet) TAKE 1 + 1/2 TABLET BY MOUTH EVERY DAY. Refills: 0. Next Dose: No Longer Take the Following Medications turmeric (turmeric 500 mg oral capsule) 3 capsule Oral Daily. Allergy Info:?? Bee Stings Medications Given This Visit Future Orders ?Direct LDL? Order Date:09/17/22?- Complete on or after?09/17/22 ?Uric Acid? Order Date:09/17/22?- Complete on or after?09/17/22 ?CBC? Order Date:09/17/22?- Complete on or after?09/17/22 ?Comprehensive Metabolic Panel? Order Date:09/17/22?- Complete on or after?09/17/22 ?Hemoglobin A1C (Monitoring)? Order Date:09/17/22?- Complete on or after?09/17/22 ?PSA? Order Date:09/17/22?- Complete on or after?09/17/22 Vital Signs Height 173 cm Weight 88.4 kg BMI 29.54 kg/m2 Blood Pressure 132 mm Hg/78 mm Hg Temperature Pulse Rate 60 bpm Respiratory Rate 02 Sat Mode of Delivery 99 %/Room air You can now view a summary of your hospital visit from the comfort of your home through a free online portal called [employer]. [employer] is a website that allows you to securely view your medical information including discharge summary, medications and follow-up visits. ??You can alsosend a secure electronic message to your doctor???s office to request appointments, renew medications or just ask a question. You can enroll at [email or web address] or register during your next office visit. Disclaimer:?? The information provided is of a general nature and is intended to be used in conjunction with the recommendations and advice of your health care practitioner. ??Every effort has been made to ensure that the information provided is accurate and complete at the time it is provided to you however, as your needs change, or, as new ??information becomes available, different or additional instructions may be required. If you have questions, please consult with your primary care provider or pharmacist, as appropriate. ??This information is not intended to serve as substitution for assessment and evaluation by a qualified health care provider. If you do not have a primary care provider, you may find a [facility] provider by calling [facility] at [phone]. For information about the plan of care including goals and instructions for your diagnosis, please see the patient education orders section of this document. Patient Education Materials?? The content of this educational material or handout may have been modified, supplemented, or adapted from its original content and format to support your individualized medical care. Patient Care team information Care Team Personnel Name: Deloris MEDINA, Elmer Bill Position: [facility] Primary Care Physician Member Role: PCP Address: Address: [address] [place] [id number] Name: Solo BURKS, Sidra Rosen Position: S RN Member Role: Primary Care Nurse Name: Judith Duron RN Position: S RN Member Role: Primary Care Nurse Care Team Related Persons Name: ROBIN MOTA Address: home [address] [address]
--- OUTSIDE RECORDS SUMMARY | 2023-11-21 10:43 | XMS_ITS | Continuity of Care Document ---
Author Organization [facility] Kristian Jcarlos Address [address] [place] [address]- Care Team Providers Care Client Engagement Specialist Name Role Phone Elmer Puentes MD Primary Care Physician [phone] Encounter [facility] Date(s): 06/10/23 - 07/10/23 [facility] Vern Townsend Adult [address] [place] [address]- Allergies, Adverse Reactions, Alerts Substance Reaction Severity [...] vaccine, inactivated 04/22/08 Give n SARS-CoV-2 mRNA ([id number]) vax 2 03/23/22 Recorded SARS-CoV-2 (COVID-19) mRNA [...] Vaccine (oldterm) 06/24/99 Given 1Result Comment: [03/18/2017] [facility]: [id number] HIGH DOSE 2Result Comment: Moderna Covid Bivalent Booster, [facility] Pharm[facility] 3Admin Note: given by LB 4Admin Note: Nulogy 5Admin Note: [facility] Medications acetaminophen 325 mg oral tablet 650 [...] 11 Refills, Maintenance, 04/08/23 14:31:00 EDT, Tablet, [facility] # 50, Partial fill upon [...] tablet, 11 Refills, Maintenance, 04/08/23 14:30:00 EDT, [facility] # [facility], 172, cm, 03/22/23 14:14:00 EDT, Height, 79.5, kg, 03/16/23 13:06:00 EDT, Dry Weight Start Date: 04/08/23 Status: Ordered FLUoxetine 40 mg oral capsule 1 capsule = 40 mg, By Mouth, Daily, # 30 capsule, 11 Refills, Maintenance, 04/08/23 11:49:00 EDT, Capsule, [facility] # 50, Partial fill upon patient request if the prescription is for a scheduleII opioid drug., 172, cm, 03/22/23 14:14:00 EDT, He... Start Date: 04/08/23 Stop Date: 04/02/24 Status: Ordered furosemide 40 mg oral tablet 2, tablet, By Mouth, Daily, # 180 tablet, Refills 1, Maintenance, 06/10/23 6:07:00 EST, Route to Pharmacy Electronically, [id number], 172, cm, 05/17/23 14:43:00 EST, Height, 79.5, kg, 03/16/23 13:06:00 EDT, Dry Weight Start Date: 06/10/23 Status: Ordered metoprolol 25 mg oral tablet, extended release 25 mg, 1, tablet, By Mouth, Daily, # 30 tablet, Refills 11, Tot. Refills 11, Maintenance, 04/08/23 14:32:00 EDT, Route to Pharmacy Electronically, [facility] # [facility], Partial fill upon patient [...] 04/08/23 14:31:00 EDT, Route to Pharmacy Electronically, [facility] # 50, Partial fill upon patient request if the prescription is for a schedule II opio... Start Date: 04/08/23 Stop Date: 04/02/24 Status: Ordered terazosin 2 mg oral capsule 2 mg, 1, capsule, By Mouth, Daily at bedtime, # 90 capsule, Refills 3, Tot. Refills 3, Maintenance,11/21/22 13:39:00 EDT, Route to Pharmacy Electronically, [facility]/pharmacy #[id number], Partial fill upon patient request if the prescription is for a schedule II... Start Date: 11/21/22 Stop Date: 11/16/23 Status: Ordered uses nightly uses nightly, See Instructions, # 1 each, Refills 0, Tot. Refills 0, Maintenance, ASV EPAP 6 [facility], 01/05/18 12:43:07 EDT, Compound Start Date: 01/05/18 Status: Ordered valsartan 160 mg oral tablet 160 mg, 1, tablet, By Mouth, Daily, for 90 days, # 90 tablet, Refills 3, Tot. Refills 3, Hard Stop 02/21/24 11:16:00 EDT, 02/26/23 11:16:00 EDT, Route to Pharmacy Electronically, [facility] # 50,173, cm, 02/26/23 11:03:00 EDT, [...] Confirmed Active 1Colonoscopy 2013 positive polyp, repeat 2017. negative, repeat 2012 3colo 2018 4Left femur fracture 2022 5Right knee 2013. 6colo 2018 7colo 2018 Social History Social History Type Response Smoking Status Former smoker; Tobac co user in household: Yes entered on: 06/03/14 Sex Patient Care team information Care Team Personnel Name: Elmer Puentes MD Position: [facility] Physician - Primary Care Member Role: PCP Address: Address: [address] [place] [address]- Name: Solo BURKS, Sidra Rosen Position: [facility] AMB Nurse Member Role: Primary Care Nurse Name: Judith Duron RN Position: [facility] ED RN W/OE and Tasks Member Role: Primary Care Nurse Name: Samy Arenas RN Position: [facility] RN Member Role: Primary Care Nurse Care Team Related Persons Name: ROBIN MOTA Address: home [address] [address]
--- OUTSIDE RECORDS SUMMARY | 2023-11-21 10:43 | XMS_ITS | Continuity of Care Document ---
Author Organization [facility] Address [address] [place], [place] [address]i ve [address] [place] [address]- Care Team Providers Care Sandwich Maker Name Role Phone Elmer Puentes MD Primary Care Physician [phone] Encounter [facility] Date(s): 10/31/20 - 11/07/20 [facility] [address] [place] [address]- Attending Physician: Tadeo Degroot MD Referring Physician: Elmer Puentes MD Allergies, Adverse [...] Given 1Result Comment: [03/18/2017] [facility]: [id number] HIGH DOSE 2Admin Note: given by LB 3Admin Note: [facility] 4Admin Note: [employer] [facility] Medications allopurinol 300 mg oral tablet 300 mg, 1, tablet, By Mouth, Daily, # 90 tablet, Refills 0, Tot. Refills 0, Maintenance, 08/27/20 9:17:00 EST, Route to Pharmacy Electronically, [facility]/pharmacy #[id number], 175.26, cm, 04/01/20 11:21:00 EDT,Height Start Date: 08/27/20 Status: Ordered diltiazem 240 mg/24 hours oral capsule, extended release 240 mg, 1, capsule, By Mouth, Daily, # 30 capsule, Refills 0, Tot. Refills 0, Maintenance, 09/02/2013:51:00 EDT, Route to Pharmacy Electronically, [facility]/pharmacy #1, 175.26, cm, 08/18/19 14:43:00 EST, Height Start Date: 09/03/19 Status: Ordered Eliquis 5 mg oral tablet 1 tablet = 5 mg, By Mouth, 2 times a day, # 180 tablet, 3 Refills, Maintenance, 12/30/19 15:45:00 EDT, Tablet, [facility]/pharmacy #1, 175.26, cm, 09/30/19 10:57:00 EDT, Height Start Date: 12/30/19 Status: Ordered furosemide 40 mg oral tablet 80 mg, 2, tablet, By Mouth, Daily, # 90 tablet, Refills 3, Tot. Refills 3, Maintenance, 03/31/19 11:18:45 EDT, Route to Pharmacy Electronically, [facility]/pharmacy #[id number] Start Date: 03/31/19 Status: Ordered Multivitamin By Mouth, Daily, 0 Refills, Maintenance Start Date: 08/19/12 Status: Ordered pravastatin 80 mg oral tablet See Instructions, TAKE 1 TABLET BY MOUTH EVERY DAY, # 90 tablet, 1 Refills, Soft Stop, 07/20/20 10:47:00 EST, [facility][id number], 175.26, cm, 04/01/20 11:21:00 EDT, Height Start Date: 07/20/20 Status: Ordered turmeric 500 mg oral capsule 3 capsule = 1,500 mg, By Mouth, Daily, # 60 capsule, 0 Refills, Maintenance, 03/31/19 11:20:01 EDT,Capsule Start Date: 03/31/19 Status: Ordered uses nightly uses nightly, See Instructions, # 1 each, Refills 0, Tot. Refills 0, Maintenance, ASV EPAP 6 [facility], 01/05/18 12:43:07 EDT, [...] Vertigo(Confirmed) Active 1Colonoscopy 2012 positive polyp, repeat 2017. negative, repeat 2013 3colo 2018 4Right knee 2014. 5colo 2018 6colo 2018 Vital Signs Most recent to oldest [Reference Range]: 1 Height 175.26 cm (10/31/20 1:29 PM) Weight 84 kg (10/31/20 1:29 PM) Body Mass Index [18.5-24.99] 27.35 *H* (10/31/20 1:29 PM) Temperature [96.8-100.4 DegF] 98.6 DegF (10/31/20 1:29 PM) Dry Weight 84 kg (10/31/20 1:29 PM) Social History Social History Type Response Smoking Status Former smoker; Tobac co user in household: Yes entered on: 06/03/14 Sex
--- OUTSIDE RECORDS SUMMARY | 2023-11-21 10:43 | XMS_ITS | Continuity of Care Document ---
Author Organization [facility] [place] Jcarlos lt Address [address] [place] [address]- Care Team Providers Care Metallurgical Engineering Technician Name Role Phone Elmer Puentes MD Primary Care Physician Encounter [facility] Date(s): 09/10/23 - 09/17/23 [facility] Adult [address] [place] [address]- Attending Physician: Elmer Puentes MD Allergies, Adverse [...] vaccine, inactivated 04/22/08 Give n SARS-CoV-2 mRNA ([id number]) vax 2 03/23/22 Recorded SARS-CoV-2 (COVID-19) mRNA [...] 1Result Comment: [03/18/2017] [facility]: [id number] HIGH DOSE 2Result Comment: Moderna Covid Bivalent Booster, [facility] Pharmacy 3Admin Note: given by LB 4Admin Note: [facility] 5Admin Note: [facility] Medications acetaminophen 325 mg oral tablet 650 [...] 06/10/23 6:07:00 EST, Route to Pharmacy Electronically, [id number], 172, alexei, 05/17/23 14:43:00 EST, Height, 79.5, kg, 03/16/23 13:06:00 EDT, Dry Weight Start Date: 06/10/23 Status: Ordered metoprolol 25 mg oral tablet, extended release 25 mg, 1, tablet, By Mouth, Daily, # 30 tablet, Refills 11, Tot. Refills 11, Maintenance, 04/08/23 14:32:00 EDT, Route to Pharmacy Electronically, [facility] # 50, Partial fill upon [...] pain (M54.5) HT: 170cm WT... Start Date: 08/21/23 Status: Ordered spironolactone 25 mg oral tablet 12.5 mg, 0.5, tablet, By Mouth, Daily, # 15 tablet, Refills 11, Tot. Refills 11, Maintenance, 04/08/23 14:31:00 EDT, Route to Pharmacy Electronically, [facility] # 50, Partial fill upon patient request if the prescription is for a schedule II opio... Start Date: 04/08/23 Stop Date: 04/02/24 Status: Ordered terazosin 2 mg oral capsule 2 mg, 1, capsule, By Mouth, Daily at bedtime, # 90 capsule, Refills 3, Tot. Refills 3, Maintenance,11/21/22 13:39:00 EDT, Route to Pharmacy Electronically, [facility]/pharmacy #[id number], Partial fill upon patient request if the prescription is for a schedule II... Start Date: 11/21/22 Stop Date: 11/16/23 Status: Ordered traZODone 50 mg oral tablet 50 mg, 1, tablet, By Mouth, Daily at bedtime, # 30 tablet, Refills 11, Tot. Refills 11, Maintenance, 07/18/23 11:18:00 EST, Route to Pharmacy Electronically, [facility] # 50, Partial fill upon patient request if the prescription is for a schedule... Start Date: 07/18/23 Stop Date: 07/12/24 Status: Ordered uses nightly uses nightly, See Instructions, # 1 each, Refills 0, Tot. Refills 0, Maintenance, ASV EPAP 6 [facility], 01/05/18 12:43:07 EDT, Compound Start [...] Active Polyp of colon 7 Confirmed Active Pulmonary hypertension Confirmed Active Decreased right ventricular systolic function Confirmed Active Pain in right shoulder Confirmed Active Bladder incontinence Confirmed Active Vertigo Confirmed Active 1Colonoscopy 2012 positive polyp, repeat 2017. negative, repeat 2012 3colo 2018 4Left femur fracture 2022 5Right knee 2013. 6colo 2018 7colo 2018 Vital Signs Most recent to oldest [Reference Range]: 1 Height 170 cm (09/10/23 10:22 AM) Blood Pressure [90-138/55-84 mm Hg] 138/ 80mm Hg (09/10/23 10:22 AM) Blood pressure sites Arm, left (09/10/23 10:22 AM) Social History Social History Type Response Smoking Status Former smoker; Tobac co user in household: Yes entered on: 06/03/14 Sex Note * Edith Madison: PERFORM, SIGN, VERIFY Event Display: Patient Education/Instruction Authored Date: [id number] [facility] *BMP Miriam Yee Clinical Summary Name HILL MOTA Age 73 Years 1950 PCP [place] Elmer MEDINA PCP Visit Date 09/10/2023 10:26:00 Additional Instructions: Scheduled Appointments?? Future Appointments ?[facility] ?[address]??[place],??[place],??[address] ?Phone:??[phone]?Fax:??-- ?Appt. Date:??09/20/2023?2:30 PM ?Scheduled Provider:??[facility] MRI 1.5T ?*BMP??[facility]??[place] ?[address],??[address] ?Phone:??--?Fax:??-- ?Appt. Date:??10/24/2023?10:30 AM ?Scheduled Provider:??Elmer Puentes MD ?*[facility]Lab??[address] ?Phone:??--?Fax:??-- ?Appt. Date:??11/27/2023?10:00 AM ?Scheduled Provider:??[facility] Room ?*[facility] ?Phone:??--?Fax:??-- ?Appt. Date:??11/27/2023?10:30 AM ?Scheduled Provider:??Ultrasound Room 3 [facility] ?*[facility],??[place],??[address] ?Phone:??--?Fax:??-- ?Appt. Date:??11/28/2023?11:40 AM ?Scheduled Provider:??Hosea MEDINA, Isaiah Dyer Follow-Up Instructions ?? Diagnosis Medications: Please continue your medications until treatment is completed or stopped by your provider. Discuss any questions related to medications with your provider. Medications to Continue Taking That Have Changed These medications were not printed or sent to your pharmacy - Spironolactone (spironolactone 25 mg oral tablet) 0.5 tab(s) Oral Daily for 30 Days. Refills: 11. Next Dose: Medications to Continue with No Changes These medications were not printed or sent to your pharmacy Acetaminophen (acetaminophen 325 mg oral tablet) 650 Milligram Oral every 4 hours as needed Pain , Mild. Temperature Greater than 100.5. Next Dose: Allopurinol (allopurinol 300 mg oral tablet) 1 tab(s) Oral Daily. Refills: 1. Next Dose: amiODARONE (amiodarone 200 mg oral tablet) 1 tab(s) Oral Daily. Next Dose: Aspirin (aspirin 81 mg oral tablet, chewable) 81 Milligram Oral Daily. Next Dose: Atorvastatin (atorvastatin 80 mg oral tablet) 1 tab(s) Oral Daily at Bedtime for 30 Days. Refills: 11. Next Dose: Durable Medical Equipment (Bedside Commode) Bedside commode for generalized weakness. Refills: 0. Next Dose: Durable Medical Equipment (uses nightly) [facility]V [facility] 6 [facility]. Refills: 0. Next Dose: Fluoxetine (FLUoxetine 40 mg oral capsule) 1 capsule Oral Daily for 30 Days. Refills: 11. Next Dose: Furosemide (furosemide 40 mg oral tablet) 1.5 tab(s) Oral Daily. Refills: 1. Next Dose: Metoprolol (metoprolol 25 mg oral tablet, extended release) 1 tab(s) Oral Daily for 30 Days. Refills: 11. Next Dose: Miscellaneous Rx (rollator walker with seat) DX: Dizziness (R42), Generalized weakness (R53.1), H/Ototal knee replacement (Z96.659), Disequilibrium (R42), Chronic low back pain (M54.5) HT: 170cm WT: 76kg Length of Need: Lifetime. Refills: 0. Next Dose: Multivitamin Oral Daily. Next Dose: Terazosin (terazosin 2 mg oral capsule) 1 capsule Oral Daily at Bedtime for 90 Days. Refills: 3. Next Dose: Trazodone (traZODone 50 mg oral tablet) 1 tab(s) Oral Daily at Bedtime for 30 Days. Refills: 11. Next Dose: No Longer Take the Following Medications apixaban (Eliquis 5 mg oral tablet) 1 tab(s) Oral twice a day. Refills: 11. Allergy Info:?? Bee Stings Medications Given This Visit Future Orders ?No future orders Future Orders ?No future orders Vital Signs Height 170 cm Weight BMI Blood Pressure 138 mm Hg/80 mm Hg Temperature Pulse Rate Respiratory Rate 02 Sat Mode of Delivery / You can now view a summary of your hospital visit from the comfort of your home through a free online portal called [employer]. [employer] is a website that allows you to securely view your medical information including discharge summary, medications and follow-up visits. ??You can alsosend a secure electronic message to your doctor???s office to request appointments, renew medications or just ask a question. You can enroll at [email or web address] or register during your next office visit. [...] primary care provider, you may find a [facility] provider by calling [facility] Link at [phone]. [facility], in keeping with [facility] guidance, no longer requires face masks for staff, patientsor visitors in most situations. Similar to time spent indoors at other locations, there is the chance that you were exposed to respiratory viruses during your time with us (such as flu or COVID-19).? If you develop symptoms concerning for a viral respiratory infection, please seek testing (and treatment if indicated) from your medical provider or home test kit. For information about the plan of care [...] Team Personnel Name: Elmer Puentes MD Position: [facility] Physician - Primary Care Member Role: PCP Address: Address: [address] [place] [id number]- Name: Sidra Banda RN Position: [facility] AMB Nurse Member Role: Primary Care Nurse Name: Judith Duron RN Position: [facility] DOMINGA RN W/OE and Tasks Member Role: Primary Care Nurse Name: Jewell Polo Position: [facility] [place] Deaf And Hard Of Hearing Teacher Member Role: Social Worker Psychiatric Care Team Related Persons Name: ROBIN MOTA Address: home [address] [place] [id number]
--- OUTSIDE RECORDS SUMMARY | 2023-11-21 10:43 | XMS_ITS | Continuity of Care Document ---
Author Organization [facility] Address [address] [place] [address]- Care Team Providers Care School Social Worker Name Role Phone Deloris MEDINA, Elmer Bill Primary Care Physician [place] [facility] Date(s): 08/11/21 - 09/10/[address] [address]- Attending Physician: Nohemi Vinson Admitting Physician: Nohemi Vinson Referring Physician: AdmtrNohemi Allergies, Adverse Reactions, Alerts Substance Reaction Severity [...] Vaccine (oldterm) 06/24/99 Given 1Result Comment: [03/18/2017] [facility]: [id number] HIGH DOSE 2Admin Note: given by LB 3Admin Note: [employer] 4Admin Note: [employer] [facility] Medications allopurinol 300 mg oral tablet 1, tablet, By Mouth, Daily, # 90 tablet, Refills 1, Route to Pharmacy Electronically, [facility], 175.26, cm, 06/30/21 15:13:00 EST, Height, 84, kg, 10/31/20 13:29:00 EDT, Dry Weight Start Date: 07/14/21 Status: Ordered Diflucan 200 mg oral tablet 1 tablet = 200 mg, By Mouth, Daily, # 30 tablet, 0 Refills, Maintenance, 05/25/21 11:51:00 EST, Tablet, [facility]/pharmacy #[id number], Partial fill upon patient request if the prescription is for a schedule II opioid drug., 175.26, cm, 05/25/21 11:22:00 EST, Hei... Start Date: 05/25/21 Status: Ordered diltiazem 300 mg/24 hours oral capsule, extended release 300 mg, 1, capsule, By Mouth, Daily, # 90 capsule, Refills 3, Tot. Refills 3, Maintenance, :53:00 EDT, Route to Pharmacy Electronically, [facility]/pharmacy #[id number], Partial fill upon patient request if the prescription is for a schedule II opioid drBruno. Start Date: 11/18/20 Status: Ordered Eliquis 5 mg oral tablet 1 tablet, By Mouth, 2 times a day, # 60 tablet, 11 Refills, Maintenance, 02/20/21 9:23:00 EDT, [facility]/pharmacy #[id number], 175.26, cm, 01/30/21 16:19:00 EDT, Height, 84, kg, 10/31/20 13:29:00 EDT, Dry Weight Start Date: 02/20/21 Status: Ordered FLUoxetine 20 mg oral capsule 20 mg, 1, capsule, By Mouth, Daily, # 30 capsule, Refills 11, Tot. Refills 11, Maintenance, 05/25/21 11:49:00 EST, Route to Pharmacy Electronically, [facility]/pharmacy #[id number], Partial fill upon patient request if the prescription is for a schedule II opioid... Start Date: 05/25/21 Status: Ordered furosemide 40 mg oral tablet 80 mg, 2, tablet, By Mouth, Daily, # 90 tablet, Refills 3, Tot. Refills 3, Maintenance, 03/31/19 11:18:45 EDT, Route to Pharmacy Electronically, [facility]pharmacy #[id number] Start Date: 03/31/19 Status: Ordered Multivitamin By Mouth, Daily, 0 Refills, Maintenance Start Date: 08/19/12 Status: Ordered pravastatin 80 mg oral tablet 1 tablet, By Mouth, Daily, # 90 tablet, 1 Refills, [facility], 175.26, cm, 06/30/21 15:13:00 EST, Height, 84, kg, 10/31/20 13:29:00 EDT, Dry Weight Start Date: 07/14/21 Status: Ordered terazosin 2 mg oral capsule 2 mg, 1, capsule, By Mouth, Daily at bedtime, # 90 capsule, Refills 3, Tot. Refills 3, Maintenance,06/30/21 15:25:00 EST, Route to Pharmacy Electronically, [facility]/pharmacy #[id number], Partial fill upon patient request [...] 0, Maintenance, ASV EPAP 6 [facility], 01/05/18 12:43:07 EDT, Compound Start Date: 01/05/18 [...] Active 1Colonoscopy 2013 positive polyp, repeat 2018. 47320 negative, repeat 2012 3colo 2018 4Right knee 2013. 5colo 2018 6colo 2019 Social History Social History Type Response Smoking Status Former smoker; Tobac co user in household: Yes entered on: 06/03/14 Sex Male
--- OUTSIDE RECORDS SUMMARY | 2023-11-21 10:43 | XMS_ITS | Continuity of Care Document ---
Author Organization [facility] Vern Townsend Jcarlos Address [address] [place] [address]- Care Team Providers Care Flow Floor Attendant Name Role Phone Elmer Puentes MD Primary Care Physician [facility]23 - 05/12/23 [facility] Vern Townsend Adult [address] [place] [address]- Allergies, Adverse Reactions, Alerts Substance Reaction Severity [...] vaccine, inactivated 04/22/08 Give n SARS-CoV-2 mRNA ([id number]-wynt-[id number]) vax 2 03/23/22 Recorded SARS-CoV-2 (COVID-19) mRNA [...] (oldterm) 06/24/99 Given 1Result Comment: [03/18/2017] [facility]: [id number] HIGH DOSE 2Result Comment: Moderna Covid Bivalent Booster, [facility] 3Admin Note: given by LB 4Admin Note: [employer] 5Admin Note: Latio [facility] Medications acetaminophen 325 [...] 05/29/22 14:30:00 EST, Route to Pharmacy Electronically, [facility] 74272, 175.26, cm, 02/21/22 14:25:00 EDT, Height, 84, [...] Maintenance, 04/08/23 14:31:00 EDT, Tablet, [facility] # 50, Partial fill upon [...] tablet, 11 Refills, Maintenance, 04/08/23 14:30:00 EDT, [facility] # 50, 172, cm, 03/22/23 14:14:00 EDT, Height, 79.5, kg, 03/16/23 13:06:00 EDT, Dry Weight Start Date: 04/08/23 Status: Ordered FLUoxetine 40 mg oral capsule 1 capsule = 40 mg, By Mouth, Daily, # 30 capsule, 11 Refills, Maintenance, 04/08/23 11:49:00 EDT, Capsule, [facility] # 50, Partial fill upon patient request if the prescription is for a scheduleII opioid drug., 172, cm, 03/22/23 14:14:00 EDT, He... Start Date: 04/08/23 Stop Date: 04/02/24 Status: Ordered furosemide 40 mg oral tablet 40 mg, 1, tablet, By Mouth, Daily, # 90 tablet, Refills 3, Tot. Refills 3, Maintenance, 06/05/22 16:04:00 EST, Route to Pharmacy Electronically, [facility]/pharmacy #2336, 175.26, cm, 02/21/22 14:25:00 EDT,Height, 84, kg, 10/31/20 13:29:00 EDT, Dry Weight Start Date: 06/05/22 Stop Date: 05/31/23 Status: Ordered metoprolol 25 mg oral tablet, extended release 25 mg, 1, tablet, By Mouth, Daily, # 30 tablet, Refills 11, Tot. Refills 11, Maintenance, 04/08/23 14:32:00 EDT, Route to Pharmacy Electronically, [facility] # 50, Partial fill upon patient [...] 04/08/23 14:31:00 EDT, Route to Pharmacy Electronically, [facility] # 50, Partial fill upon patient request if the prescription is for a schedule II opio... Start Date: 04/08/23 Stop Date: 04/02/24 Status: Ordered terazosin 2 mg oral capsule 2 mg, 1, capsule, By Mouth, Daily at bedtime, # 90 capsule, Refills 3, Tot. Refills 3, Maintenance,11/21/22 13:39:00 EDT, Route to Pharmacy Electronically, [facility]/pharmacy #1171, Partial fill upon patient request if the prescription is for a schedule II... Start Date: 11/21/22 Stop Date: 11/16/23 Status: Ordered uses nightly uses nightly, See Instructions, # 1 each, Refills 0, Tot. Refills 0, Maintenance, ASV EPAP 6 [facility], 01/05/18 12:43:07 EDT, [...] Confirmed Active Coronary artery disease Confirmed Active Diastolic dysfunction Confirmed Active Diverticulosis [...] Team Personnel Name: Elmer Puentes MD Position: [facility] Physician - Primary Care Member Role: PCP Address: Address: [address] [place] [address]- Name: Sidra Banda RN Position: [facility] AMB Nurse Member Role: Primary Care Nurse Name: Judith Duron RN Position: [facility] ED RN W/OE and Tasks Member Role: Primary Care Nurse Name: Samy Arenas RN Position: [facility] RN Member Role: Primary Care Nurse Care Team Related Persons Name: ROBIN MOTA Address: home [address] [address]
--- OUTSIDE RECORDS SUMMARY | 2023-11-21 10:43 | XMS_ITS | Continuity of Care Document ---
Author Organization [facility] Address [address] [place] [address]- Care Team Providers Care Assistant Track Coach Name Role Phone Deloris MEDINA, Elmer Bill Primary Care Physician [phone] [facility] 01/13/21 - 02/12/[address] [address]- Allergies, Adverse Reactions, Alerts Substance Reaction Severity [...] (oldterm) 06/24/99 Given 1Result Comment: [03/18/2017] [facility]: [id number] HIGH DOSE 2Admin Note: given by LB 3Admin Note: [facility] [facility] 4Admin Note: [employer] [facility] Medications allopurinol 300 mg oral tablet 1, tablet, By Mouth, Daily, # 90 tablet, Refills 0, Tot. Refills 0, Maintenance, 12/22/20 11:49:00 EDT, Route to Pharmacy Electronically, [facility], 175.26, cm, 12/19/20 9:28:00 EDT, Height, 84, kg, 10/31/20 13:29:00 EDT, Dry Weight Start Date: 12/22/20 Status: Ordered diltiazem 300 mg/24 hours oral capsule, extended release 300 mg, 1, capsule, By Mouth, Daily, # 90 capsule, Refills 3, Tot. Refills 3, Maintenance, 219:53:00 EDT, Route to Pharmacy Electronically, [facility]/pharmacy #2071, Partial fill upon patient request if the prescription is for a schedule II opioid . Start Date: 11/18/20 Status: Ordered Eliquis 5 mg oral tablet 1 tablet, By Mouth, 2 times a day, # 180 tablet, 3 Refills, Maintenance, 01/16/21 14:07:00 EDT, [facility], 175.26, cm, 12/19/20 9:28:00 EDT, Height, 84, kg, 10/31/20 13:29:00 EDT, Dry Weight Start Date: 01/16/21 Status: Ordered furosemide 40 mg oral tablet 80 mg, 2, tablet, By Mouth, Daily, # 90 tablet, Refills 3, Tot. Refills 3, Maintenance, 03/31/19 11:18:45 EDT, Route to Pharmacy Electronically, [facility]/pharmacy #207 Start Date: 03/31/19 Status: Ordered Multivitamin By [...] Tot. Refills 0, Maintenance, ASV EPAP 6 [facility], 01/05/18 12:43:07 EDT, Compound Start [...] 2018 4Right knee 2013. 5colo 2018 6colo 2018 Social History Social History Type Response Smoking Status Former smoker; Tobac co user in household: Yes entered on: 06/03/14 Sex Male
--- OUTSIDE RECORDS SUMMARY | 2023-11-21 10:43 | XMS_ITS | Continuity of Care Document ---
Author Organization [facility] Kristian Jcarlos Address [address] [place] [address]- Care Team Providers Care Instrumentation Engineer Name Role Phone Deloris MEDINA, Elmer Bill Primary Care Physician [facility] 02[facility]22/23 - 03/24/23 [facility] Adult [address] [place] [address]- Allergies, Adverse Reactions, Alerts Substance Reaction Severity [...] vaccine, inactivated 04/22/08 Give n SARS-CoV-2 mRNA ([id number]-[id number]-[id number]) vax 2 03/23/22 Recorded SARS-CoV-2 (COVID-19) mRNA [...] Vaccine (oldterm) 06/24/99 Given 1Result Comment: [03/18/2017] [facility]: [id number] HIGH DOSE 2Result Comment: Moderna Covid Bivalent Booster, [facility] 3Admin Note: given by LB 4Admin Note: [employer] 5Admin Note: [facility] Medications acetaminophen 325 mg oral tablet 650 [...] 05/29/22 14:30:00 EST, Route to Pharmacy Electronically, [facility] 50510, 175.26, cm, 02/21/22 14:25:00 EDT, Height, 84, [...] 11 Refills, Maintenance, 03/12/22 18:53:00 EDT, [facility], 175.26, cm, 02/21/22 14:25:00 EDT, Height, 84, kg, 10/31/20 13:29:00 EDT, Dry Weight Start Date: 03/12/22 Status: Ordered FLUoxetine 20 mg oral capsule 1, capsule, By Mouth, Daily, # 30 capsule, Refills 12, Maintenance, 02/12/23 16:46:00 EDT, Route [facility]Pharmacy Electronically, [facility], 173, cm, 09/17/22 13:09:00 EDT, Height, 79.5, kg, 06/13/22 15:11:00 EST, Dry Weight Start Date: 02/12/23 Status: Ordered furosemide 40 mg oral tablet 40 mg, 1, tablet, By Mouth, Daily, # 90 tablet, Refills 3, Tot. Refills 3, Maintenance, 06/05/22 16:04:00 EST, Route to Pharmacy Electronically, [facility]/pharmacy #2071, 175.26, cm, 02/21/22 14:25:00 EDT,Height, [...] Maintenance,11/21/22 13:39:00 EDT, Route to Pharmacy Electronically, [facility]/pharmacy #2071, Partial fill upon patient request if the prescription is for a schedule II... Start Date: 11/21/22 Stop Date: 11/16/23 Status: Ordered traMADol 50 mg oral tablet 1 tablet = 50 mg, By Mouth, Every 6 hours, PRN as needed for pain, # 30 tablet, 1 Refills, Maintenance, 02/20/23 12:17:00 EDT, Tablet, [facility]/pharmacy #2071, Partial fill upon patient request if the prescription is for a schedule II opioid drug., 173, cm... Start Date: 02/20/23 Status: Ordered uses nightly uses nightly, See Instructions, # 1 each, Refills 0, Tot. Refills 0, Maintenance, ASV EPA 6 [facility], 01/05/18 12:43:07 EDT, Compound Start Date: 01/05/18 Status: Ordered valsartan 160 mg oral tablet 160 mg, 1, tablet, By Mouth, Daily, # 90 tablet, Refills 3, Tot. Refills 3, Maintenance, 02/26/23 11:16:00 EDT, Route to Pharmacy Electronically, [facility] # 50, 173, cm, 02/26/23 11:03:00 [...] Team Personnel Name: Elmer Puentes MD Position: [facility] Physician - Primary Care Member Role: PCP Address: Address: [address] [place] [address]- Name: Solo BURKS, Sidra Rosen Position: [facility] AMB Nurse Member Role: Primary Care Nurse Name: Alyssa Renteria RN Position: [facility] RN Member Role: Primary Care Nurse Name: Judith Duron RN Position: [facility] [place] RN W/OE and Tasks Member Role: Primary Care Nurse Name: Samy Arenas RN Position: [facility] RN Member Role: Primary Care Nurse Care Team Related Persons Name: ROBIN MOTA Address: home [address] [address]
--- OUTSIDE RECORDS SUMMARY | 2023-11-21 10:44 | XMS_ITS | Continuity of Care Document ---
Author Organization [facility] Jcarlos lt Address [address] [place] [address]- Care Team Providers Care Cover Mat Machine Operator Name Role Phone Deloris MEDINA, Elmer Bill Primary Care Physician [facility] 08/06/23 - 09/05/23 [facility] Adult [address] [place] [address]- Allergies, Adverse Reactions, Alerts Substance Reaction Severity [...] vaccine, inactivated 04/22/08 Give n SARS-CoV-2 mRNA (khitqum-xypw-etjqv) vax 2 03/23/22 Recorded SARS-CoV-2 (COVID-19) mRNA [...] Vaccine (oldterm) 06/24/99 Given 1Result Comment: [03/18/2017] [facility]: [id number] HIGH DOSE 2Result Comment: Moderna Covid Bivalent Booster, [facility] 3Admin Note: given by LB 4Admin Note: [employer] 5Admin Note: [employer] Medications acetaminophen 325 mg oral tablet 650 [...] tablet, 11 Refills, Maintenance, 04/08/23 14:30:00 EDT, [facility] # 50, 172, alexei, 03/22/23 14:14:00 EDT, Height, 79.5, kg, 03/16/23 [...] 06/10/23 6:07:00 EST, Route to Pharmacy Electronically, [facility], 172, cm, 05/17/23 14:43:00 EST, Height, 79.5, kg, 03/16/23 13:06:00 EDT, Dry Weight Start Date: 06/10/23 Status: Ordered metoprolol 25 mg oral tablet, extended release 25 mg, 1, tablet, By Mouth, Daily, # 30 tablet, Refills 11, Tot. Refills 11, Maintenance, 04/08/23 14:32:00 EDT, Route to Pharmacy Electronically, [facility] # 50, Partial fill upon [...] 04/08/23 14:31:00 EDT, Route to Pharmacy Electronically, [facility] # 50, Partial fill upon patient request if the prescription is for a schedule II opioid d... Start Date: 04/08/23 Stop Date: 04/02/24 Status: Ordered terazosin 2 mg oral capsule 2 mg, 1, capsule, By Mouth, Daily at bedtime, # 90 capsule, Refills 3, Tot. Refills 3, Maintenance,11/21/22 13:39:00 EDT, Route to Pharmacy Electronically, [facility]/pharmacy #0421, Partial fill upon patient request if the prescription is for a schedule II... Start Date: 11/21/22 Stop Date: 11/16/23 Status: Ordered traZODone 50 mg oral tablet 50 mg, 1, tablet, By Mouth, Daily at bedtime, # 30 tablet, Refills 11, Tot. Refills 11, Maintenance, 07/18/23 11:18:00 EST, Route to Pharmacy Electronically, [facility] # 50, Partial fill upon patient request if the prescription is for a schedule... Start Date: 07/18/23 Stop Date: 07/12/24 Status: Ordered uses nightly uses nightly, See Instructions, # 1 each, Refills 0, Tot. Refills 0, Maintenance, ASV EPAP 6 [facility], 01/05/18 12:43:07 EDT, Compound Start Date: 01/05/18 [...] Team Personnel Name: Elmer Puentes MD Position: [facility] Physician - Primary Care Member Role: PCP Address: Address: [address] [place] [address]- Name: Sidra Banda RN Position: [facility] Nurse Member Role: Primary Care Nurse Name: Judith Duron RN Position: [facility] ED RN W/OE and Tasks Member Role: Primary Care Nurse Name: Jewell Polo Position: [facility] MA Crown Blocker Member Role: Bulb Brander Care Team Related Persons Name: ROBIN MOTA Address: home [address] [address]
--- OUTSIDE RECORDS SUMMARY | 2023-11-21 10:44 | XMS_ITS | Continuity of Care Document ---
Author Organization [facility] Jcarlos Address [address] [place] [address]- Care Team Providers Care Cement Mason Apprentice Name Role Phone Elmer Puentes MD Primary Care Physician [phone] [facility] 12/30/19 - 01/29/20 [facility] Adult [address] [place] [address]- [facility] Allergies, Adverse Reactions, Alerts Substance Reaction Severity [...] 06/24/99 Given 1Result Comment: [03/18/2017] [facility]: [id number] HIGH DOSE 2Admin Note: given by LB 3Admin Note: [employer] 4Admin Note: [employer] Medications allopurinol 300 mg oral tablet 300 mg, 1, tablet, By Mouth, Daily, # 90 tablet, Refills 0, Tot. Refills 0, Maintenance, 01/19/20 16:22:00 EDT, [facility], 175.26, cm, 09/30/19 10:57:00 EDT, Height Start Date: 01/19/20 Status: Ordered diltiazem 240 mg/24 hours oral capsule, extended release 240 mg, 1, capsule, By Mouth, Daily, # 30 capsule, Refills 0, Tot. Refills 0, Maintenance, 09/02/2013:51:00 EDT, [facility] Pharm[facility]ically, [facility], 175.26, cm, 08/18/19 14:43:00 EST, Height Start Date: 09/03/19 Status: Ordered Eliquis 5 mg oral tablet 1 tablet = 5 mg, By Mouth, 2 times a day, # 180 tablet, 3 Refills, Maintenance, 12/30/19 15:45:00 EDT, Tablet, [facility], 175.26, cm, 09/30/19 10:57:00 EDT, Height Start Date: 12/30/19 Status: Ordered furosemide 40 mg oral tablet 80 mg, 2, tablet, By Mouth, Daily, # 90 tablet, Refills 3, Tot. Refills 3, Maintenance, 03/31/19 11:18:45 EDT, Route to Pharmacy Electronically, [facility]/pharmacy #2070 Start Date: 03/31/19 Status: Ordered losartan 50 mg oral tablet 50 mg, 1, tablet, By Mouth, Daily, # 90 tablet, Refills 3, Tot. Refills 3, Maintenance, 03/31/19 11:17:44 EDT, Route to Pharmacy Electronically, [id number], [facility]/pharmacy #[id number] Start Date: 03/31/19 Status: Ordered Multivitamin By Mouth, Daily, 0 Refills, Maintenance Start Date: 08/19/12 Status: Ordered pravastatin 80 mg oral tablet See Instructions, TAKE 1 TABLET BY MOUTH EVERY DAY, # 90 tablet, 1 Refills, Soft Stop, 01/24/20 22:04:00 EDT, [facility], 175.26, cm, 09/30/19 10:57:00 EDT, Height Start Date: 01/24/20 Status: Ordered turmeric 500 mg oral capsule 3 capsule = 1,500 mg, By Mouth, Daily, # 60 capsule, 0 Refills, Maintenance, 03/31/19 11:20:01 EDT,Capsule Start Date: 03/31/19 Status: Ordered uses nightly uses nightly, See Instructions, # 1 each, Refills 0, Tot. Refills 0, Maintenance, ASV EPAP 6 [facility], 01/05/18 12:43:07 EDT, Compound Start Date: [...] Active 1Colonoscopy 2012 positive polyp, repeat 2018. 29124 negative, repeat 2012 3colo 2019 4Right knee 2014. 5colo 2019 6colo 2019 Social History Social History Type Response Smoking Status Former smoker; Tobac co user in household: Yes entered on: 06/03/14 Sex
--- OUTSIDE RECORDS SUMMARY | 2023-11-21 10:44 | XMS_ITS | Continuity of Care Document ---
Author Organization [facility] Kristian Jcarlos Address [address] [place] [address]- Care Team Providers Care Lease Purchase Driver Name Role Phone Deloris MEDINA, Elmer Bill Primary Care Physician [phone] [facility] 06/14/22 - 07/14/22 [facility] Kristian Adult [address] [place] [address]- Allergies, Adverse Reactions, Alerts Substance Reaction Severity Status Bee Stings Active Immunizations Given and Recorded Vaccine Date Status Refusal Reason SARS-CoV-2 mRNA (iovspyk-blvg-qgnqx) vax 1 03/23/22 Recorded influenza virus vaccine, [...] Given 1Result Comment: Moderna Covid Bivalent Booster, [facility] Pharm[facility] 2Result Comment: [03/18/2017] [facility]: [id number] HIGH DOSE 3Admin Note: given by LB 4Admin Note: [employer] [facility] 5Admin Note: [employer] [facility] Medications allopurinol 300 mg oral tablet 1, tablet, By Mouth, Daily, # 90 tablet, Refills 3, Maintenance, 05/29/22 14:30:00 EST, Route to Pharmacy Electronically, [facility] 71614, 175.26, cm, 02/21/22 14:25:00 EDT, Height, 84, kg, 10/31/20 13:29:00 EDT, Dry Weight Start Date: 05/29/22 Status: Ordered apixaban 2.5 mg oral tablet 1 tablet = 2.5 mg, By Mouth, 2 times a day, # 10 tablet, 0 Refills, Maintenance, 06/13/22 14:47:00 EST, Tablet, [facility]/pharmacy #2071, Partial fill upon patient request if the prescription is for a schedule II opioid drug., 173, cm, 06/13/22 10:53:00 EST... Start Date: 06/13/22 Stop Date: 06/18/22 Status: Ordered celecoxib 200 mg oral capsule [...] EVERY DAY, # 90 capsule, 3 Refills, [facility], 175.26, cm, 11/03/21 10:48:00 EDT, Height, 84, kg, 10/31/20 13:29:00 EDT, Dry Weight Start Date: 12/19/21 Status: Ordered DilTIAZem (Eqv-Dilacor XR) 180 mg/24 hours oral capsule, extended release 1 capsule = 180 mg, By Mouth, Daily, # 8 capsule, 0 Refills, Maintenance, 06/14/22 11:15:00 EST, [facility]/pharmacy #[id number], Partial fill upon patient request if the prescription is for a schedule II opioid drug., 173, cm, 06/14/22 10:32:00 EST, Height, 79.5,... Start Date: 06/14/22 Stop Date: 06/22/22 Status: Ordered Eliquis 5 mg oral tablet 1 tablet, By Mouth, 2 times a day, # 60 tablet, 11 Refills, Maintenance, 03/12/22 18:53:00 EDT, [facility], 175.26, cm, 02/21/22 14:25:00 EDT, Height, 84, kg, 10/31/20 13:29:00 EDT, Dry Weight Start Date: 03/12/22 Status: Ordered FLUoxetine 20 mg oral capsule 1, capsule, By Mouth, Daily, # 30 capsule, Refills 6, Maintenance, 06/21/22 14:13:00 EST, Route to Pharmacy Electronically, [facility], 173, cm, 06/14/22 10:32:00 EST, Height, 79.5, kg, 06/13/2215:11:00 EST, Dry Weight Start Date: 06/21/22 Status: Ordered furosemide 40 mg oral tablet 2, tablet, By Mouth, Daily, # 180 tablet, Refills 3, Tot. Refills 3, Maintenance, 06/05/22 16:04:00EST, Route to Pharmacy Electronically, [facility]/pharmacy #2071, 175.26, cm, 02/21/22 14:25:00 EDT, Height, 84, kg, 10/31/20 13:29:00 EDT, Dry Weight Start Date: 06/05/22 Stop Date: 05/31/23 Status: Ordered Multivitamin By Mouth, Daily, 0 Refills, Maintenance Start Date: 08/19/12 Status: Ordered pravastatin 80 mg oral tablet 1 tablet, By Mouth, Daily, # 90 tablet, 1 Refills, 05/29/22 13:47:00 EST, [facility]/pharmacy #2071, 175.26, cm, 02/21/22 14:25:00 EDT, Height, 84, kg, 10/31/20 13:29:00 EDT, Dry Weight Start Date: 05/29/22 Status: Ordered terazosin 2 mg oral capsule 2 mg, 1, capsule, By Mouth, Daily at bedtime, # 90 capsule, Refills 3, Tot. Refills 3, Maintenance,06/30/21 15:25:00 EST, Route to Pharmacy Electronically, [facility]/pharmacy #[id number], Partial fill upon patient request if [...] each, Refills 0, Tot. Refills 0, Maintenance, [facility] 6 [facility], 01/05/18 12:43:07 EDT, Compound Start Date: 01/05/18 Status: Ordered valsartan 160 mg oral tablet See Instructions, TAKE 1 + 1/2 TABLET BY MOUTH EVERY DAY, # 135 tablet, Refills 0, Maintenance, 05/16/22 15:23:00 EST, Instructions Replace Required Details, Route to Pharmacy Electronically, [facility] 74344, 175.26, cm, 02/21/22 14:25:00 EDT, Height,... Start Date: 05/16/22 Status: Ordered Problem List Condition Confirmation Course [...] Active 1Colonoscopy 2013 positive polyp, repeat 2017. 62140 negative, repeat 2013 3colo 2018 4Right knee 2013. 5colo 2018 6colo 2018 Social History Social History Type Response Smoking Status Former smoker; Tobac co user in household: Yes entered on: 06/03/14 Sex Male Patient Care team information Care Team Personnel Name: Deloris MEDINA, Elmer Bill Position: [facility] Primary Care Physician Member Role: PCP Address: Address: [address] [place] [address]- Name: Sidra Banda RN Position: S RN Member Role: Primary Care Nurse Name: Judith Duron RN Position: S RN Member Role: Primary Care Nurse Care Team Related Persons Name: ROBIN MOTA Address: home [address] [address]
--- OUTSIDE RECORDS SUMMARY | 2023-11-21 10:44 | XMS_ITS | Continuity of Care Document ---
Author Organization [facility] Kristian Jcarlos Address [address] [place] [phone]- Care Team Providers Care Conference Manager Name Role Phone Elmer Puentes MD Primary Care Physician [phone] Encounter [facility] Date(s): 09/30/20 - 10/07/20 [facility] Kristian Adult [address] [place] [address]- Attending Physician: Elmer Puentes MD Allergies, Adverse Reactions, Alerts Substance Reaction Severity Status Bee Stings Active Immunizations Given and Recorded Vaccine Date Status Refusal Reason Influenza Virus Vaccine (oldterm) 03/24/20 Recorde d [...] Vaccine (oldterm) 06/24/99 Given 1Result Comment: [03/18/2017] [facility]: [id number] HIGH DOSE 2Admin Note: given by LB 3Admin Note: [employer] [facility] 4Admin Note: [employer] [facility] Medications allopurinol 300 mg oral tablet 300 mg, 1, tablet, By Mouth, Daily, # 90 tablet, Refills 0, Tot. Refills 0, Maintenance, 08/27/20 9:17:00 EST, [id number] 175.26, cm, 04/01/20 11:21:00 EDT,Height Start Date: 08/27/20 Status: Ordered diltiazem 240 mg/24 hours oral capsule, extended release 240 mg, 1, capsule, By Mouth, Daily, # 30 capsule, Refills 0, Tot. Refills 0, Maintenance, 09/02/2013:51:00 EDT, [facility] 175.26, cm, 08/18/19 14:43:00 EST, Height Start Date: 09/03/19 Status: Ordered Eliquis 5 mg oral tablet 1 tablet = 5 mg, By Mouth, 2 times a day, # 180 tablet, 3 Refills, Maintenance, 12/30/19 15:45:00 EDT, Tablet, [facility]/pharmacy #2070, 175.26, cm, 09/30/19 10:57:00 EDT, Height Start Date: 12/30/19 Status: Ordered furosemide 40 mg oral tablet 80 mg, 2, tablet, By Mouth, Daily, # 90 tablet, Refills 3, Tot. Refills 3, Maintenance, 03/31/19 11:18:45 EDT, Route to Pharmacy Electronically, [facility]/pharmacy #[id number] Start Date: 03/31/19 Status: Ordered losartan 100 mg oral tablet 1 tablet = 100 mg, By Mouth, Daily, # 90 tablet, 3 Refills, Maintenance, 09/30/20 11:09:00 EDT, Tablet, [facility]/pharmacy #[id number], Partial fill upon patient request if the prescription is for a schedule II opioid drug., 175.26, cm, 09/30/20 11:06:00 EDT, Height Start Date: 09/30/20 Status: Ordered Multivitamin By Mouth, Daily, 0 Refills, Maintenance Start Date: 08/19/12 Status: Ordered pravastatin 80 mg oral tablet See Instructions, TAKE 1 TABLET BY MOUTH EVERY DAY, # 90 tablet, 1 Refills, Soft Stop, 07/20/20 10:47:00 EST, [facility]/pharmacy #2071, 175.26, cm, 04/01/20 11:21:00 EDT, Height Start Date: 07/20/20 Status: Ordered turmeric 500 mg oral capsule 3 capsule = 1,500 mg, By Mouth, Daily, # 60 capsule, 0 Refills, Maintenance, 03/31/19 11:20:01 EDT,Capsule Start Date: 03/31/19 Status: Ordered uses nightly uses nightly, See Instructions, # 1 each, Refills 0, Tot. Refills 0, Maintenance, ASV EPAP 6 [facility], 01/05/18 12:43:07 EDT, Compound Start Date: [...] pain(Confirmed) Active Polyp of colon(Confirmed) 6 Active Pulmonary hypertension(Confirmed) Active Decreased right ventricular systolic function(Confirmed) Active Pain in right shoulder(Confirmed) Active Vertigo(Confirmed) Active 1Colonoscopy 2013 positive polyp, repeat 2018. 19117 negative, repeat 2012 3colo 2018 4Right knee 2013. 5colo 2018 6colo 2019 Vital Signs Most recent to oldest [Reference Range]: 1 2 Height 175.26 cm (09/30/20 11:06 AM) 175.26 cm (09/30/20 10:53 AM) Weight 85.7 kg (09/30/20 10:53 AM) Oxygen Saturation [94-100 %] 98 % (09/30/20 10:53 AM) Pulse Rate [55-90 bpm] 52 bpm *L* (09/30/20 10:53 AM) Body Mass Index [18.5-24.99] 27.9 *H* (09/30/20 10:53 AM) Blood Pressure [90-138/55-84 mm Hg] 151/ 84mm Hg *H* (09/30/20 11:06 AM) 150/93mm Hg *H* (09/30/20 10:53 AM) Mode of Delivery (Oxygen) Room air (09/30/20 10:53 AM) Blood pressure sites Arm, left (09/30/20 11:06 AM) Arm, left (09/30/20 10:53 AM) Weight Obtained Via Standing scale (09/30/20 10:53 AM) Social History Social History Type Response Smoking Status Former smoker; Tobac co user in household: Yes entered on: 06/03/14 Sex
--- OUTSIDE RECORDS SUMMARY | 2023-11-21 10:44 | XMS_ITS | Continuity of Care Document ---
Author Organization [facility] Kristian Jcarlos Address [address] [place] [address]- Care Team Providers Care Commercial Artist Lettering Name Role Phone Deloris MEDINA, Elmer Bill Primary Care Physician [facility] Date(s): 07/08/20 - 08/07/20 [facility] [place] Adult [address] [place] [address]- Allergies, Adverse Reactions, Alerts Substance Reaction Severity [...] (oldterm) 06/24/99 Given 1Result Comment: [03/18/2017] [facility]: [id number] HIGH DOSE 2Admin Note: given by LB 3Admin Note: [facility] 4Admin Note: [employer] [facility] Medications allopurinol 300 mg oral tablet 300 mg, 1, tablet, By Mouth, Daily, # 90 tablet, Refills 0, Tot. Refills 0, Maintenance, 07/21/20 8:39:00 EST, [facility] 175.[facility], cm, 04/01/20 11:21:00 EDT,Height Start Date: 07/21/20 Status: Ordered diltiazem 240 mg/24 hours oral capsule, extended release 240 mg, 1, capsule, By Mouth, Daily, # 30 capsule, Refills 0, Tot. Refills 0, Maintenance, 09/02/2013:51:00 EDT, [facility] 175.26, cm, 08/18/19 14:43:00 EST, Height Start Date: 09/03/19 Status: Ordered Eliquis 5 mg oral tablet 1 tablet = 5 mg, By Mouth, 2 times a day, # 180 tablet, 3 Refills, Maintenance, 12/30/19 15:45:00 EDT, Tablet, [facility] 175.26, cm, 09/30/19 10:57:00 EDT, Height Start Date: 12/30/19 Status: Ordered furosemide 40 mg oral tablet 80 mg, 2, tablet, By Mouth, Daily, # 90 tablet, Refills 3, Tot. Refills 3, Maintenance, 03/31/19 11:18:45 EDT, [id number] Start Date: 03/31/19 Status: Ordered losartan 50 mg oral tablet 50 mg, 1, tablet, By Mouth, Daily, # 90 tablet, Refills 1, Tot. Refills 1, Maintenance, 07/08/20 14:04:00 EST, [facility] 175.26, cm, 04/01/20 11:21:00 EDT,Height Start Date: 07/08/20 Status: Ordered Multivitamin By Mouth, Daily, 0 [...] Active 1Colonoscopy 2013 positive polyp, repeat 2018. 51546 negative, repeat 2013 3colo 2019 4Right knee 2014. 5colo 2019 6colo 2019 Social History Social History Type Response Smoking Status Former smoker; Tobac co user in household: Yes entered on: 06/03/14 Sex
--- OUTSIDE RECORDS SUMMARY | 2023-11-21 10:44 | XMS_ITS | Continuity of Care Document ---
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(Discharge Diagnosis) - 02/21/22 OA (osteoarthritis) of knee(Discharge Diagnosis) - 02/21/22 Obstructive sleep apnea(Discharge Diagnosis) - 02/21/22 Gout(Discharge Diagnosis) - 02/21/22 Dyspnea on exertion(Discharge Diagnosis) - 02/21/22 Attending Physician: Elmer Puentes MD Allergies, Adverse Reactions, Alerts Substance Reaction Severity Status Bee Stings Active Immunizations Given and Recorded Vaccine Date Status Refusal Reason SARS-CoV-2 (COVID-19) mRNA BNT-162b2 vac 11/03/21 Given [...] Vaccine (oldterm) 06/24/99 Given 1Result Comment: [03/18/2017] [facility]: [id number] HIGH DOSE 2Admin Note: given by LB 3Admin Note: [employer] 4Admin Note: [employer] Medications allopurinol 300 mg oral tablet 1, tablet, By Mouth, Daily, # 90 tablet, Refills 1, Route to Pharmacy Electronically, [facility], 175.26, cm, 06/30/21 15:13:00 EST, Height, 84, kg, 10/31/20 13:29:00 EDT, Dry Weight Start Date: 07/14/21 Status: Ordered celecoxib 200 mg oral capsule [...] # 90 capsule, 3 Refills, [facility], 175.26, cm, 11/03/21 10:48:00 EDT, Height, 84, kg, 10/31/20 13:29:00 EDT, Dry Weight Start Date: 12/19/21 Status: Ordered Eliquis 5 mg oral tablet 1 tablet, By Mouth, 2 times a day, # 60 tablet, 11 Refills, Maintenance, 02/20/21 9:23:00 EDT, [facility]/pharmacy #2071, 175.26, cm, 01/30/21 16:19:00 EDT, Height, 84, kg, 10/31/20 13:29:00 EDT, Dry Weight Start Date: 02/20/21 Status: Ordered FLUoxetine 20 mg oral capsule 20 mg, 1, capsule, By Mouth, Daily, # 30 capsule, Refills 11, Tot. Refills 11, Maintenance, 05/25/21 11:49:00 EST, Route to Pharmacy Electronically, [facility]/pharmacy #2071, Partial fill upon patient request if the prescription is for a schedule II opioid... Start Date: 05/25/21 Status: Ordered furosemide 40 mg oral tablet 80 mg, 2, tablet, By Mouth, Daily, # 90 tablet, Refills 3, Tot. Refills 3, Maintenance, 12/19/21 9:55:00 EDT, Route to Pharmacy Electronically, [facility]/pharmacy #2071, 175.26, cm, 11/03/21 10:48:00 EDT, Height, 84, kg, 10/31/20 13:29:00 EDT, Dry Weight Start Date: 12/19/21 Status: Ordered Multivitamin By Mouth, Daily, 0 Refills, Maintenance Start Date: 08/19/12 Status: Ordered pravastatin 80 mg oral tablet 1 tablet, By Mouth, Daily, # 90 tablet, 1 Refills, [facility] STORE 01885, 175.26, cm, 11/03/21 10:48:00 EDT, Height, 84, kg, 10/31/20 13:29:00 EDT, Dry Weight Start Date: 01/06/22 Status: Ordered terazosin 2 mg oral capsule 2 mg, 1, capsule, By Mouth, Daily at bedtime, # 90 capsule, Refills 3, Tot. Refills 3, Maintenance,06/30/21 15:25:00 EST, Route to Pharmacy Electronically, [facility]/pharmacy #2071, Partial fill upon patient request [...] 0, Maintenance, ASV EPAP 6 [facility], 01/05/18 12:43:07 EDT, Compound Start Date: 01/05/18 Status: Ordered valsartan 160 mg oral tablet 160 mg, 1, tablet, By Mouth, Daily, # 135 tablet, Refills 0, Route to Pharmacy Electronically, [facility] 95556, 175.26, cm, 09/18/21 13:21:00 EDT, Height, 84, kg, 10/31/20 13:29:00 EDT, Dry Weight Start Date: 10/02/21 Status: Ordered Problem List Condition Effective Dates [...] Active 1Colonoscopy 2013 positive polyp, repeat 2018. 49338 negative, repeat 2012 3colo 2018 4Right knee 2014. 5colo 2018 6colo 2018 Diagnosis Diagnosis Type Effective Dates Health Status Clinical Service Informant AF (atrial fibrillation) Discharge Diagnosis 02/21/22 HTN (hypertension) Discharge Diagnosis 02/21/22 Hypercholesterolemia Discharge Diagnosis 02/21/22 Major depression in complete remission Discharge Diagnosis 02/21/22 OA (osteoarthritis) of knee Discharge Diagnosis 02/21/22 Obstructive sleep apnea Discharge Diagnosis 02/21/22 Gout Discharge Diagnosis 02/21/22 Dyspnea on exertion Discharge Diagnosis 02/21/22 Vital Signs Most recent to oldest [Reference Range]: 1 Height 175.26 cm (02/21/22 2:25 PM) Weight 88.6 kg (02/21/22 2:25 PM) Oxygen Saturation [94-100 %] 94 % (02/21/22 2:25 PM) Pulse Rate [55-90 bpm] 59 bpm (02/21/22 2:25 PM) Body Mass Index [18.5-24.99] 28.84 *H* (02/21/22 2:25 PM) Blood Pressure [90-138/55-84 mm Hg] 112/ 72mm Hg (02/21/22 2:25 PM) Mode of Delivery (Oxygen) Nasal cannula (02/21/22 2:25 PM) Blood pressure sites Arm, left (02/21/22 2:25 PM) Weight Obtained Via Standing scale (02/21/22 2:25 PM) Social History Social History Type Response Smoking Status Former smoker; Tobac co user in household: Yes entered on: 06/03/14 Sex Male Care Team Personnel Name: Deloris MEDINA, Elmer Bill Address: [address] [place] [id number]
--- OUTSIDE RECORDS SUMMARY | 2023-11-21 10:44 | XMS_ITS | Continuity of Care Document ---
Author Organization [facility] Jcarlos lt Address [address] [place] [id number]- Care Team Providers Care Vinyl Installer Name Role Phone Deloris MEDINA, Elmer Bill Primary Care Physician En[place] [facility] Date(s): 11/20/22 - 12/20/22 [facility] Adult [address] [place] [address]- Allergies, Adverse Reactions, Alerts Substance Reaction Severity Status Bee Stings Active Immunizations Given and Recorded Vaccine Date Status Refusal Reason SARS-CoV-2 mRNA (sluseac-[id number]-vxebe) vax 1 03/23/22 Recorded influenza virus vaccine, [...] 07/25/20 R ecorded Influenza Virus Vaccine (oldterm) 10/1/20 Recorde d tetanus-diphtheria toxoids (Td) 09/30/19 Given pneumococcal 13-valent vaccine 10/08/14 Given Fluzone (oldterm) 03/10/14 Given Pneumococcal Vacc (oldterm) 10/23/12 Given Fluarix (oldterm) 3 04/14/12 Given FluLaval (oldterm) 4 03/14/11 Given FluLaval (oldterm) 5 04/07/10 Given tetanus/diphtheria/pertussis, acel(Tdap) 09/26/09 Given Zoster Vaccine Live 05/31/09 Given Tetanus Toxoid Vaccine (oldterm) 06/24/99 Given 1Result Comment: Moderna Covid Bivalent Booster, [facility] Pharmacy 2Result Comment: [03/18/2017] [facility]: [id number] HIGH DOSE 3Admin Note: given by LB 4Admin Note: [employer] [facility] 5Admin Note: [employer] [facility] Medications allopurinol 300 mg oral tablet 1, tablet, By Mouth, Daily, # 90 tablet, Refills 3, Maintenance, 05/29/22 14:30:00 EST, Route to Pharmacy Electronically, [facility] 37743, 175.26, cm, 02/21/22 14:25:00 EDT, Height, 84, [...] capsule, 3 Refills, Maintenance, 12/03/22 14:08:00 EDT, [facility] STORE 58445, 173, cm, 09/17/22 13:09:00 EDT, Height, 79.5, kg, 06/13/22 15:11:00 EST, Dry Weight Start Date: 12/03/22 Status: Ordered Eliquis 5 mg oral tablet 1 tablet, By Mouth, 2 times a day, # 60 tablet, 11 Refills, Maintenance, 03/12/22 18:53:00 EDT[facility], 175.26, cm, 02/21/22 14:25:00 EDT, Height, 84, kg, 10/31/20 13:29:00 EDT, Dry Weight Start Date: 03/12/22 Status: Ordered FLUoxetine 20 mg oral capsule 1, capsule, By Mouth, Daily, # 30 capsule, Refills 6, Maintenance, 06/21/22 14:13:00 EST, Route to Pharmacy Electronically, [facility] STORE 15268, 173, cm, 06/14/22 10:32:00 EST, Height, 79.5, kg, 06/13/2215:11:00 EST, Dry Weight Start Date: 06/21/22 Status: Ordered furosemide 40 mg oral tablet 2, tablet, By Mouth, Daily, # 180 tablet, Refills 3, Tot. Refills 3, Maintenance, 06/05/22 16:04:00EST, Route to Pharmacy Electronically, [facility]/pharmacy #2071, 175.26, cm, 02/21/22 14:25:00 EDT, Height, 84, kg, 10/31/20 13:29:00 EDT, Dry Weight Start Date: 06/05/22 Stop Date: 05/31/23 Status: Ordered Multivitamin By Mouth, Daily, 0 Refills, Maintenance Start Date: 08/19/12 Status: Ordered pravastatin 80 mg oral tablet 1 tablet, By Mouth, Daily, # 90 tablet, 1 Refills, 05/29/22 13:47:00 EST, [facility]/pharmacy #[id number], 175.26, cm, 02/21/22 14:25:00 EDT, Height, 84, kg, 10/31/20 13:29:00 EDT, Dry Weight Start Date: 05/29/22 Status: Ordered terazosin 2 mg oral capsule 2 mg, 1, capsule, By Mouth, Daily at bedtime, # 90 capsule, Refills 3, Tot. Refills 3, Maintenance,11/21/22 13:39:00 EDT, Route to Pharmacy Electronically, [facility]/pharmacy #[id number], Partial fill upon patient request if the prescription is for a schedule II... Start Date: 11/21/22 Stop Date: 11/16/23 Status: Ordered uses nightly uses nightly, See Instructions, # 1 each, Refills 0, Tot. Refills 0, Maintenance, ASV EPAP 6 [facility], 01/05/18 12:43:07 EDT, Compound Start Date: 01/05/18 Status: Ordered valsartan 160 mg oral tablet See Instructions, TAKE 1 + 1/2 TABLET BY MOUTH EVERY DAY, # 135 tablet, Refills 3, Tot. Refills 3, Maintenance, 11/21/22 13:40:00 EDT, Instructions Replace Required Details, Route to Pharmacy Electronically, [facility]/pharmacy #[id number], 173, cm, 09/17/22 13:09... Start Date: [...] Active 1Colonoscopy 2013 positive polyp, repeat 2018. 55790 negative, repeat 2012 3colo 2018 4Right knee 2014. 5colo 2019 6colo 2019 Social History Social History Type Response Smoking Status Former smoker; Tobac co user in household: Yes entered on: 06/03/14 Sex Male Patient Care team information Care Team Personnel Name: Elmer Puentes MD Position: [facility] Physician - Primary Care Member Role: PCP Address: Address: [address] [place] [address]- Name: Sidra Banda RN Position: [facility] AMB Nurse Member Role: Primary Care Nurse Name: Judith Duron RN Position: [facility] ED RN W/OE and Tasks Member Role: Primary Care Nurse Care Team Related Persons Name: ROBIN MOTA Address: home [address] [address]
--- OUTSIDE RECORDS SUMMARY | 2023-11-21 10:44 | XMS_ITS | Continuity of Care Document ---
Author Organization [facility] Vern Townsend Jcarlos Address [address] [place] [address]- Care Team Providers Care Wired Music Operator Name Role Phone Elmer Puentes MD Primary Care Physician Encounter [facility] Date(s): 04/01/20 - 04/08/20 [facility] Vern Townsend Adult [address] [place] [address]- [facility] Encounter Diagnosis AF (atrial fibrillation)(Discharge Diagnosis) - 04/01/20 Dyspnea on exertion(Discharge Diagnosis) - 04/01/20 HTN (hypertension)(Discharge Diagnosis) - 04/01/20 Hypercholesterolemia(Discharge Diagnosis) - 04/01/20 Gout(Discharge Diagnosis) - 04/01/20 Diastolic dysfunction(Discharge Diagnosis) - 04/01/20 Attending Physician: Elmer Puentes MD Allergies, Adverse [...] Comment: [03/18/2017] [facility]: [id number] HIGH DOSE 2Admin Note: given by LB 3Admin Note: [facility] 4Admin Note: [facility] Medications allopurinol 300 mg oral tablet 300 mg, 1, tablet, By Mouth, Daily, # 90 tablet, Refills 0, Tot. Refills 0, Maintenance, 01/19/20 16:22:00 EDT, [id number] 175.26, cm, 09/30/19 10:57:00 EDT, Height Start Date: 01/19/20 Status: Ordered diltiazem 240 mg/24 hours oral capsule, extended release 240 mg, 1, capsule, By Mouth, Daily, # 30 capsule, Refills 0, Tot. Refills 0, Maintenance, 09/02/2013:51:00 EDT, [id number] 175.26, cm, 08/18/19 14:43:00 EST, Height Start Date: 09/03/19 Status: Ordered Eliquis 5 mg oral tablet 1 tablet = 5 mg, By Mouth, 2 times a day, # 180 tablet, 3 Refills, Maintenance, 12/30/19 15:45:00 EDT, Tablet, [id number] 175.26, cm, 09/30/19 10:57:00 EDT, Height Start Date: 12/30/19 Status: Ordered furosemide 40 mg oral tablet 80 mg, 2, tablet, By Mouth, Daily, # 90 tablet, Refills 3, Tot. Refills 3, Maintenance, 03/31/19 11:18:45 EDT, [id number] Start Date: 03/31/19 Status: Ordered losartan 50 mg oral tablet 50 mg, 1, tablet, By Mouth, Daily, # 90 tablet, Refills 3, Tot. Refills 3, Maintenance, 03/31/19 11:17:44 EDT, Route to Pharmacy Electronically, [id number], [id number] Start Date: 03/31/19 Status: Ordered Multivitamin By Mouth, Daily, 0 Refills, Maintenance Start Date: 08/19/12 Status: Ordered pravastatin 80 mg oral tablet See Instructions, TAKE 1 TABLET BY MOUTH EVERY DAY, # 90 tablet, 1 Refills, Soft Stop, 01/24/20 22:04:00 EDT, [facility], 175.26, cm, 09/30/19 10:57:00 EDT, Height Start Date: 01/24/20 Status: Ordered turmeric 500 mg oral capsule 3 capsule = 1,500 mg, By Mouth, Daily, # 60 capsule, 0 Refills, Maintenance, 03/31/19 11:20:01 EDT,Capsule Start Date: 03/31/19 Status: Ordered uses nightly uses nightly, See Instructions, # 1 each, Refills 0, Tot. Refills 0, Maintenance, [facility]V EPAP 6 [facility], 01/05/18 12:43:07 EDT, Compound Start Date: 01/05/18 [...] Active 1Colonoscopy 2013 positive polyp, repeat 2018. 88510 negative, repeat 2012 3colo 2018 4Right knee 2014. 5colo 2018 6colo 2018 Diagnosis Diagnosis Type Effective Dates Health Status Clinical Service Informant AF (atrial fibrillation) Discharge Diagnosis 04/01/20 Dyspnea on exertion Discharge Diagnosis 04/01/20 HTN (hypertension) Discharge Diagnosis 04/01/20 Hypercholesterolemia Discharge Diagnosis 04/01/20 Gout Discharge Diagnosis 04/01/20 Diastolic dysfunction Discharge Diagnosis 04/01/20 Vital Signs Most recent to oldest [Reference Range]: 1 Height 175.26 cm (04/01/20 11:21 AM) Weight 86.4 kg (04/01/20 11:21 AM) Pulse Rate [55-90 bpm] 60 bpm (04/01/20 11:21 AM) Body Mass Index [18.5-24.99] 28.13 *H* (04/01/20 11:21 AM) Blood Pressure [90-138/55-84 mm Hg] 132/ 88mm Hg (04/01/20 11:21 AM) Mode of Delivery (Oxygen) Room air (04/01/20 11:21 AM) Blood pressure sites Arm, left (04/01/20 11:21 AM) Social History Social History Type Response Smoking Status Former smoker; Tobac co user in household: Yes entered on: 06/03/14 Sex
--- OUTSIDE RECORDS SUMMARY | 2023-11-21 10:44 | XMS_ITS | Continuity of Care Document ---
Author Organization [facility] Jcarlos Address [address] [place] [address]- Care Team Providers Care Cook [employer] Name Role Phone Deloris MEDINA, Elmer Bill Primary Care Physician En[facility] [place] Date(s): 02/22/22 - 03/24/22 [facility] Adult [address] [place] [address]- Allergies, Adverse Reactions, Alerts Substance Reaction Severity [...] Vaccine (oldterm) 06/24/99 Given 1Result Comment: [03/18/2017] [facility]: 32329-254-91 HIGH DOSE 2Admin Note: given by LB 3Admin Note: [facility] 4Admin Note: [facility] Medications allopurinol 300 mg oral tablet 1, tablet, By Mouth, Daily, # 90 tablet, Refills 1, Route to Pharmacy Electronically, [facility] 07955, 175.26, cm, 06/30/21 15:13:00 EST, Height, 84, [...] # 90 capsule, 3 Refills, [facility], 175.26, cm, 11/03/21 10:48:00 EDT, Height, 84, kg, 10/31/20 13:29:00 EDT, Dry Weight Start Date: 12/19/21 Status: Ordered Eliquis 5 mg oral tablet 1 tablet, By Mouth, 2 times a day, # 60 tablet, 11 Refills, Maintenance, 03/12/22 18:53:00 EDT, [facility], 175.26, cm, 02/21/22 14:25:00 EDT, Height, 84, kg, 10/31/20 13:29:00 EDT, Dry Weight Start Date: 03/12/22 Status: Ordered FLUoxetine 20 mg oral capsule 20 mg, 1, capsule, By Mouth, Daily, # 30 capsule, Refills 11, Tot. Refills 11, Maintenance, 05/25/21 11:49:00 EST, [id number] Partial fill upon patient request if the prescription is for a schedule II opioid... Start Date: 05/25/21 Status: Ordered furosemide 40 mg oral tablet 80 mg, 2, tablet, By Mouth, Daily, # 90 tablet, Refills 3, Tot. Refills 3, Maintenance, 12/19/21 9:55:00 EDT, Route to Pharmacy Electronically, [facility]/pharmacy #2071, 175.26, cm, 11/03/21 10:48:00 EDT, Height, 84, kg, 10/31/20 13:29:00 EDT, Dry Weight Start Date: 12/19/21 Status: Ordered Multivitamin By Mouth, Daily, 0 Refills, Maintenance Start Date: 08/19/12 Status: Ordered pravastatin 80 mg oral tablet 1 tablet, By Mouth, Daily, # 90 tablet, 1 Refills, [facility] 05221, 175.26, cm, 11/03/21 10:48:00 EDT, Height, 84, kg, 10/31/20 13:29:00 EDT, Dry Weight Start Date: 01/06/22 Status: Ordered terazosin 2 mg oral capsule 2 mg, 1, capsule, By Mouth, Daily at bedtime, # 90 capsule, Refills 3, Tot. Refills 3, Maintenance,06/30/21 15:25:00 EST, [facility], Partial fill upon patient request if [...] Refills 0, Maintenance, ASV EPAP 6 [facility], 01/05/18 12:43:07 EDT, Compound Start Date: 01/05/18 Status: Ordered valsartan 160 mg oral tablet 160 mg, 1, tablet, By Mouth, Daily, # 135 tablet, Refills 0, Route to Pharmacy Electronically, [facility] 86506, 175.26, cm, 09/18/21 13:21:00 EDT, Height, 84, kg, 10/31/20 13:29:00 EDT, Dry Weight Start Date: 10/02/21 Status: Ordered Problem List Condition Confirmation Course [...] 2012 3colo 2018 4Right knee 2013. 5colo 2019 6colo 2018 Social History Social History Type Response Smoking Status Former smoker; Tobac co user in household: Yes entered on: 06/03/14 Sex Male Patient Care team information Personnel Name: Deloris MEDINA, Elmer Bill Address: Address: [address] [place] [id number]
--- OUTSIDE RECORDS SUMMARY | 2023-11-21 10:44 | XMS_ITS | Continuity of Care Document ---
Author Organization [facility] Kristian Jcarlos lt Address [address] [place] [address]- Care Team Providers Care Act English Tutor Name Role Phone Deloris MEDINA, Elmer Bill Primary Care Physician [facility] Date[facility] 08/23/23 - 09/22/23 [facility] [place] Adult [address] [place] [address]- Allergies, Adverse Reactions, Alerts Substance Reaction Severity [...] vaccine, inactivated 04/22/08 Give n SARS-CoV-2 mRNA ([id number]) vax 2 03/23/22 Recorded SARS-CoV-2 (COVID-19) mRNA [...] (oldterm) 06/24/99 Given 1Result Comment: [03/18/2017] [facility]: 34821-455-10 HIGH DOSE 2Result Comment: Moderna Covid Bivalent Booster, [facility] Pharmacy 3Admin Note: given by LB 4Admin Note: [employer] 5Admin Note: [employer] Medications acetaminophen 325 mg oral tablet 650 [...] 06/10/23 6:07:00 EST, Route to Pharmacy Electronically, [facility] 55[facility], 172, cm, 05/17/23 14:43:00 EST, Height, 79.5, kg, 03/16/23 13:06:00 EDT, Dry Weight Start Date: 06/10/23 Status: Ordered metoprolol 25 mg oral tablet, extended release 25 mg, 1, tablet, By Mouth, Daily, # 30 tablet, Refills 11, Tot. Refills 11, Maintenance, 04/08/23 14:32:00 EDT, Route to Pharmacy Electronically, [facility] # [facility], Partial fill upon patient [...] 04/08/23 14:31:00 EDT, Route to Pharmacy Electronically, [facility] # [facility], Partial fill upon patient request if the prescription is for a schedule II opio... Start Date: 04/08/23 Stop Date: 04/02/24 Status: Ordered terazosin 2 mg oral capsule 2 mg, 1, capsule, By Mouth, Daily at bedtime, # 90 capsule, Refills 3, Tot. Refills 3, Maintenance,11/21/22 13:39:00 EDT, Route to Pharmacy Electronically, [facility]/pharmacy #2071, Partial fill upon patient request if the prescription is for a schedule II... Start Date: 11/21/22 Stop Date: 11/16/23 Status: Ordered traZODone 50 mg oral tablet 50 mg, 1, tablet, By Mouth, Daily at bedtime, # 30 tablet, Refills 11, Tot. Refills 11, Maintenance, 07/18/23 11:18:00 EST, Route to Pharmacy Electronically, [facility] # 50, Partial fill upon patient request if the prescription is for a schedule... Start Date: 07/18/23 Stop Date: 07/12/24 Status: Ordered uses nightly uses nightly, See Instructions, # 1 each, Refills 0, Tot. Refills 0, Maintenance, ASV EPA 6 [facility], 01/05/18 12:43:07 EDT, Compound Start [...] Team Personnel Name: Elmer Puentes MD Position: [facility] Physician - Primary Care Member Role: PCP Address: Address: [address] [place] [address]- [place] Name: Sidra Banda RN Position: [facility] AMB Nurse Member Role: Primary Care Nurse Name: Judith Duron RN Position: [facility] ED RN W/OE and Tasks Member Role: Primary Care Nurse Name: Jewell Polo Position: [facility] MA Outside Machinist Helper Member Role: Therapist Respiratory Care Team Related Persons Name: ROBIN MOTA Address: home [address] [address]
--- OUTSIDE RECORDS SUMMARY | 2023-11-21 10:44 | XMS_ITS | Continuity of Care Document ---
Author Organization [facility] Kristian Jcarlos Address [address] [place] [address]- Care Team Providers Care Electronic Scale Assembler And Tester Name Role Phone Deloris MEDINA, Elmer Bill Primary Care Physician [facility] Date[facility]s): 12/21/20 - 01/20/21 [facility] Adult [address] [place] [address]- Allergies, Adverse Reactions, Alerts Substance Reaction Severity [...] Vaccine (oldterm) 06/24/99 Given 1Result Comment: [03/18/2017] [facility]: 15357-827-77 HIGH DOSE 2Admin Note: given by LB 3Admin Note: [employer] [facility] 4Admin Note: [employer] [facility] Medications allopurinol 300 mg oral tablet 1, tablet, By Mouth, Daily, # 90 tablet, Refills 0, Tot. Refills 0, Maintenance, 12/22/20 11:49:00 EDT, Route to [facility]acy [facility]ically, [facility], 175.26, cm, 12/19/20 9:28:00 EDT, Height, 84, kg, 10/31/20 13:29:00 EDT, Dry Weight Start Date: 12/22/20 Status: Ordered diltiazem 300 mg/24 hours oral capsule, extended release 300 mg, 1, capsule, By Mouth, Daily, # 90 capsule, Refills 3, Tot. Refills 3, Maintenance, 219:53:00 EDT, Route to Pharmacy Electronically, [facility]/pharmacy #2071, Partial fill upon patient request if the prescription is for a schedule II opioid . Start Date: 11/18/20 Status: Ordered Eliquis 5 mg oral tablet 1 tablet, By Mouth, 2 times a day, # 180 tablet, 3 Refills, Maintenance, 01/16/21 14:07:00 EDT[facility], 175.26, cm, 12/19/20 9:28:00 EDT, Height, 84, kg, 10/31/20 13:29:00 EDT, Dry Weight Start Date: 01/16/21 Status: Ordered furosemide 40 mg oral tablet 80 mg, 2, tablet, By Mouth, Daily, # 90 tablet, Refills 3, Tot. Refills 3, Maintenance, 03/31/19 11:18:45 EDT, Route to Pharmacy Electronically, [facility]/pharmacy #2071 Start Date: 03/31/19 Status: Ordered Multivitamin [...] 0, Maintenance, ASV EPAP 6 [facility], 01/05/18 12:43:07 EDT, Compound Start Date: 01/05/18 [...]
--- OUTSIDE RECORDS SUMMARY | 2023-11-21 10:44 | XMS_ITS | Continuity of Care Document ---
Author Organization [facility] Jcarlos Address [address] [place] [address]- Care Team Providers Care Starch Cooker Name Role Phone Elmer Puentes MD Primary Care Physician [place] [facility]04[place] 11/11/20 [facility] Adult [address] [place] [address]- Attending Physician: Elmer Puentes MD Allergies, Adverse [...] Given 1Result Comment: [03/18/2017] [facility]: [id number] HIGH DOSE 2Admin Note: given by LB 3Admin Note: [facility] 4Admin Note: [facility] Medications allopurinol 300 mg oral tablet 300 mg, 1, tablet, By Mouth, Daily, # 90 tablet, Refills 0, Tot. Refills 0, Maintenance, 08/27/20 9:17:00 EST, [facility], 175.26, cm, 04/01/20 11:21:00 EDT,Height Start Date: 08/27/20 Status: Ordered diltiazem 240 mg/24 hours oral capsule, extended release 240 mg, 1, capsule, By Mouth, Daily, # 30 capsule, Refills 0, Tot. Refills 0, Maintenance, 09/02/2013:51:00 EDT, Route to Pharmacy Electronically, [facility]/pharmacy #1, 175.26, cm, 08/18/19 14:43:00 EST, Height Start Date: 09/03/19 Status: Ordered Eliquis 5 mg oral tablet 1 tablet = 5 mg, By Mouth, 2 times a day, # 180 tablet, 3 Refills, Maintenance, 12/30/19 15:45:00 EDT, Tablet, [facility]/pharmacy #1, 175.26, cm, 09/30/19 10:57:00 EDT, [...] Stop, 07/20/20 10:47:00 EST, [facility]/pharmacy #2070, 175.26, cm, 04/01/20 11:21:00 EDT, Height Start Date: 07/20/20 Status: Ordered turmeric 500 mg oral capsule 3 capsule = 1,500 mg, By Mouth, Daily, # 60 capsule, 0 Refills, Maintenance, 03/31/19 11:20:01 EDT,Capsule Start Date: 03/31/19 Status: Ordered uses nightly uses nightly, See Instructions, # 1 each, Refills 0, Tot. Refills 0, Maintenance, ASV EPAP 6 [facility], 01/05/18 12:43:07 EDT, Compound Start Date: 01/05/18 Status: Ordered valsartan 320 mg oral tablet 1 tablet = 320 mg, By Mouth, Daily, # 90 tablet, 3 Refills, Maintenance, 11/04/20 14:17:00 EDT, [facility]t, [facility], Partial fill upon patient request if [...] Active 1Colonoscopy 2013 positive polyp, repeat 2018. 35905 negative, repeat 2012 3colo 2018 4Right knee 2014. 5colo 2019 6colo 2019 Vital Signs Most recent to oldest [Reference Range]: 1 2 Height 175.26 cm (11/04/20 2:11 PM) 175.26 cm (11/04/20 1:47 PM) Weight 88.8 kg (11/04/20 1:47 PM) Oxygen Saturation [94-100 %] 98 % (11/04/20 1:47 PM) Pulse Rate [55-90 bpm] 72 bpm (11/04/20 1:47 PM) Body Mass Index [18.5-24.99] 28.91 *H* (11/04/20 1:47 PM) Blood Pressure [90-138/55-84 mm Hg] 150/ 82mm Hg *H* (11/04/20 2:11 PM) 152/90mm Hg *H* (11/04/20 1:47 PM) Respiratory Rate [16-30 br/min] 12 br/mi n *L* (11/04/20 1:47 PM) Mode of Delivery (Oxygen) Room air (11/04/20 1:47 PM) Blood pressure sites Arm, left (11/04/20 2:11 PM) Arm, left (11/04/20 1:47 PM) Weight Obtained Via Standing scale (11/04/20 1:47 PM) Social History Social History Type Response Smoking Status Former smoker; Tobac co user in household: Yes entered on: 06/03/14 Sex
--- OUTSIDE RECORDS SUMMARY | 2023-11-21 10:44 | XMS_ITS | Continuity of Care Document ---
Author Organization [facility] Address [address] [facility], [address] Floor, [address] [place] [address]- Care Team Providers Care Medication Manager Name Role Phone Deloris MEDINA, Elmer Bill Primary Care Physician [phone] [facility] Date[facility]s): 12/05/20 - 01/04/21 [facility] [address] [facility], 3rd Floor, [address] [place] [address]- Allergies, Adverse Reactions, Alerts Substance Reaction Severity [...] Vaccine (oldterm) 06/24/99 Given 1Result Comment: [03/18/2017] [facility]: [id number] HIGH DOSE 2Admin Note: given by LB 3Admin Note: [employer] [facility] 4Admin Note: [employer] [facility] Medications allopurinol 300 mg oral tablet 1, tablet, By Mouth, Daily, # 90 tablet, Refills 0, Tot. Refills 0, Maintenance, 12/22/20 11:49:00 EDT, Route to Pharmacy Electronically, [facility] STORE 87085, 175.26, cm, 12/19/20 9:28:00 EDT, Height, 84, kg, 10/31/20 13:29:00 EDT, Dry Weight Start Date: 12/22/20 Status: Ordered diltiazem 300 mg/24 hours oral capsule, extended release 300 mg, 1, capsule, By Mouth, Daily, # 90 capsule, Refills 3, Tot. Refills 3, Maintenance, 219:53:00 EDT, Route to Pharmacy Electronically, [facility]/pharmacy #207, Partial fill upon patient request if the prescription is for a schedule II opioid . Start Date: 11/18/20 Status: Ordered Eliquis 5 mg oral tablet 1 tablet = 5 mg, By Mouth, 2 times a day, # 180 tablet, 3 Refills, Maintenance, 12/30/19 15:45:00 EDT, Tablet, [facility]/pharmacy #2070, 175.26, cm, 09/30/19 10:57:00 EDT, Height Start Date: 12/30/19 Status: Ordered furosemide 40 mg oral tablet 80 mg, 2, tablet, By Mouth, Daily, # 90 tablet, Refills 3, Tot. Refills 3, Maintenance, 03/31/19 11:18:45 EDT, Route to Pharmacy Electronically, [facility]/pharmacy #207 Start Date: 03/31/19 Status: Ordered Multivitamin By Mouth, Daily, 0 Refills, Maintenance Start Date: 08/19/12 Status: Ordered pravastatin 80 mg oral tablet See Instructions, TAKE 1 TABLET BY MOUTH EVERY DAY, # 90 tablet, 1 Refills, Soft Stop, 07/20/20 10:47:00 EST, [facility]/pharmacy #2071, 175.26, cm, 04/01/20 11:21:00 EDT, Height Start Date: 07/20/20 Status: Ordered turmeric 500 mg oral capsule 3 capsule = 1,500 mg, By Mouth, Daily, # 60 capsule, 0 Refills, Maintenance, 03/31/19 11:20:01 EDT,Capsule Start Date: 03/31/19 Status: Ordered uses nightly uses nightly, See Instructions, # 1 each, Refills 0, Tot. Refills 0, Maintenance, ASV EPAP 6 [facility], 01/05/18 12:43:07 EDT, Compound Start Date: 01/05/18 Status: Ordered valsartan 320 mg oral tablet 1 tablet = 320 mg, By Mouth, Daily, # 90 tablet, 3 Refills, Maintenance, 11/04/20 14:17:00 EDT, Tablet, [facility]/pharmacy #2071, Partial fill upon patient request [...] polyp, repeat 2017. negative, repeat 2012 3colo 2019 4Right knee 2014. 5colo 2019 6colo 2019 Social History Social History Type Response Smoking Status Former smoker; Tobac co user in household: Yes entered on: 06/03/14 Sex
--- OUTSIDE RECORDS SUMMARY | 2023-11-21 10:44 | XMS_ITS | Continuity of Care Document ---
Author Organization [facility] Kristian Jcarlos Address [address] [place] [address]- Care Team Providers Care Heel Stiffener Name Role Phone Deloris MEDINA, Elmer Bill Primary Care Physician [phone] [facility] Date(s): 06/22/22 - 07/22/22 [facility] Adult [address] [place] [address]- Allergies, Adverse Reactions, Alerts Substance Reaction Severity Status Bee Stings Active Immunizations Given and Recorded Vaccine Date Status Refusal Reason SARS-CoV-2 mRNA ([id number]-[id number]-[id number]) vax 1 03/23/22 Recorded influenza virus vaccine, [...] Given 1Result Comment: Moderna Covid Bivalent Booster, [facility] Pharmacy 2Result Comment: [03/18/2017] [facility]: [id number] HIGH DOSE 3Admin Note: given by LB 4Admin Note: [employer] [facility] 5Admin Note: [employer] [facility] Medications allopurinol 300 mg oral tablet 1, tablet, By Mouth, Daily, # 90 tablet, Refills 3, Maintenance, 05/29/22 14:30:00 EST, Route to Pharmacy Electronically, [facility] STORE 72837, 175.26, cm, 02/21/22 14:25:00 EDT, Height, 84, kg, 10/31/20 13:29:00 EDT, Dry Weight Start Date: 05/29/22 Status: Ordered apixaban 2.5 mg oral tablet 1 tablet = 2.5 mg, By Mouth, 2 times a day, # 10 tablet, 0 Refills, Maintenance, 06/13/22 14:47:00 EST, Tablet, [facility]/pharmacy #2071, Partial fill upon patient request if [...] # 90 capsule, 3 Refills, [facility], 175.26, cm, 11/03/21 10:48:00 EDT, Height, 84, kg, 10/31/20 13:29:00 EDT, Dry Weight Start Date: 12/19/21 Status: Ordered DilTIAZem (Eqv-Dilacor XR) 180 mg/24 hours oral capsule, extended release 1 capsule = 180 mg, By Mouth, Daily, # 8 capsule, 0 Refills, Maintenance, 06/14/22 11:15:00 EST, [facility]/pharmacy #2071, Partial fill upon patient request if the prescription is for a schedule II opioid drug., 173, cm, 06/14/22 10:32:00 EST, Height, 79.5,... Start Date: 06/14/22 Stop Date: 06/22/22 Status: Ordered Eliquis 5 mg oral tablet 1 tablet, By Mouth, 2 times a day, # 60 tablet, 11 Refills, Maintenance, 03/12/22 18:53:00 EDT, [facility], 175.26, cm, 02/21/22 14:25:00 EDT, Height, 84, kg, 10/31/20 13:29:00 EDT, Dry Weight Start Date: 03/12/22 Status: Ordered FLUoxetine 20 mg oral capsule 1, capsule, By Mouth, Daily, # 30 capsule, Refills 6, Maintenance, 06/21/22 14:13:00 EST, Route to [facility], [facility], 173, cm, 06/14/22 10:32:00 EST, Height, 79.5, kg, 06/13/2215:11:00 EST, Dry Weight Start Date: 06/21/22 Status: Ordered furosemide 40 mg oral tablet 2, tablet, By Mouth, Daily, # 180 tablet, Refills 3, Tot. Refills 3, Maintenance, 06/05/22 16:04:00EST, Route to Pharmacy Electronically, [facility]/pharmacy #2071, 175.26, cm, 02/21/22 14:25:00 EDT, Height, 84, kg, 10/31/20 13:29:00 EDT, Dry Weight Start Date: 06/05/22 Stop Date: 05/31/23 Status: Ordered Multivitamin By Mouth, Daily, 0 Refills, Maintenance Start Date: 08/19/12 Status: Ordered pravastatin 80 mg oral tablet 1 tablet, By Mouth, Daily, # 90 tablet, 1 Refills, 05/29/22 13:47:00 EST, [facility]/pharmacy #2071, 175.26, cm, 02/21/22 14:25:00 EDT, Height, 84, kg, 10/31/20 13:29:00 EDT, Dry Weight Start Date: 05/29/22 Status: Ordered terazosin 2 mg oral capsule 2 mg, 1, capsule, By Mouth, Daily at bedtime, # 90 capsule, Refills 3, Tot. Refills 3, Maintenance,06/30/21 15:25:00 EST, Route to Pharmacy Electronically, [facility]/pharmacy #2071, Partial fill upon patient request if [...] each, Refills 0, Tot. Refills 0, Maintenance, [facility] 6 [facility], 01/05/18 12:43:07 EDT, Compound Start Date: 01/05/18 Status: Ordered valsartan 160 mg oral tablet See Instructions, TAKE 1 + 1/2 TABLET BY MOUTH EVERY DAY, # 135 tablet, Refills 0, Maintenance, 05/16/22 15:23:00 EST, Instructions Replace Required Details, Route to Pharmacy Electronically, [facility] STORE 13393, 175.26, cm, 02/21/22 14:25:00 EDT, Height,... Start [...] Active 1Colonoscopy 2013 positive polyp, repeat 2017. 49457 negative, repeat 2013 3colo 2018 4Right knee 2013. 5colo 2018 6colo 2018 Social History Social History Type Response Smoking Status Former smoker; Tobac co user in household: Yes entered on: 06/03/14 Sex Male Patient Care team information Care Team Personnel Name: Deloris MEDINA, Elmer Bill Position: [facility] Primary Care Physician Member Role: PCP Address: Address: [address] [place] [address]- Name: Sidra Banda RN Position: S RN Member Role: Primary Care Nurse Name: Judith Duron RN Position: S RN Member Role: Primary Care Nurse Care Team Related Persons Name: ROBIN MOTA Address: home [address] [address]
--- OUTSIDE RECORDS SUMMARY | 2023-11-21 10:44 | XMS_ITS | Continuity of Care Document ---
Author Organization [facility] Kristian Jcarlos lt Address [address] [place] [address]- Care Team Providers Care Medical Appliance Maker Name Role Phone Deloris MEDINA, Elmer Bill Primary Care Physician [facility] Date[facility]): 05/13/23 - 06/12/23 [facility] Adult [address] [place] [address]- Allergies, Adverse Reactions, Alerts Substance Reaction Severity [...] vaccine, inactivated 04/22/08 Give n SARS-CoV-2 mRNA (zubgemr-nqab-uvtkh) vax 2 03/23/22 Recorded SARS-CoV-2 (COVID-19) mRNA [...] (oldterm) 06/24/99 Given 1Result Comment: [03/18/2017] [facility]: [id number] HIGH DOSE 2Result Comment: Moderna Covid Bivalent Booster, [facility] 3Admin Note: given by LB 4Admin Note: [employer] 5Admin Note: [employer] [facility] Medications acetaminophen 325 mg oral tablet 650 [...] 05/29/22 14:30:00 EST, Route to Pharmacy Electronically, [facility] STORE 71484, 175.26, cm, 02/21/22 14:25:00 EDT, Height, 84, [...] tablet, 11 Refills, Maintenance, 04/08/23 14:30:00 EDT, [facility] # 50, 172, cm, [...] 06/10/23 6:07:00 EST, Route to Pharmacy Electronically, [facility] 74011, 172, cm, 05/17/23 14:43:00 EST, Height, 79.5, kg, 03/16/23 13:06:00 EDT, Dry Weight Start Date: 06/10/23 Status: Ordered metoprolol 25 mg oral tablet, extended release 25 mg, 1, tablet, By Mouth, Daily, # 30 tablet, Refills 11, Tot. Refills 11, Maintenance, 04/08/23 14:32:00 EDT, Route to Pharmacy Electronically, [facility] # [facility], Partial fill upon patient [...] 04/08/23 14:31:00 EDT, Route to Pharmacy Electronically, [facility] # 50, Partial fill upon patient request if the prescription is for a schedule II opio... Start Date: 04/08/23 Stop Date: 04/02/24 Status: Ordered terazosin 2 mg oral capsule 2 mg, 1, capsule, By Mouth, Daily at bedtime, # 90 capsule, Refills 3, Tot. Refills 3, Maintenance,11/21/22 13:39:00 EDT, Route to Pharmacy Electronically, [facility]/pharmacy #0961, Partial fill upon patient request if the prescription is for a schedule II... Start Date: 11/21/22 Stop Date: 11/16/23 Status: Ordered uses nightly uses nightly, See Instructions, # 1 each, Refills 0, Tot. Refills 0, Maintenance, ASV EPAP 6 [facility], 01/05/18 12:43:07 EDT, Compound Start Date: 01/05/18 Status: Ordered valsartan 160 mg oral tablet 160 mg, 1, tablet, By Mouth, Daily, for 90 days, # 90 tablet, Refills 3, Tot. Refills 3, Hard Stop 02/21/24 11:16:00 EDT, 02/26/23 11:16:00 EDT, Route to Pharmacy Electronically, [facility] # [facility],173, cm, 02/26/23 11:03:00 EDT, [...] Team Personnel Name: Elmer Puentes MD Position: [facility] Physician - Primary Care Member Role: PCP Address: Address: [address] [place] [address]- Name: Solo BURKS, Sidra Rosen Position: [facility] AMB Nurse Member Role: Primary Care Nurse Name: Judith Duron RN Position: [facility] ED RN W/OE and Tasks Member Role: Primary Care Nurse Name: Samy Arenas RN Position: [facility] RN Member Role: Primary Care Nurse Care Team Related Persons Name: ROBIN MOTA Address: home [address] [address]
--- OUTSIDE RECORDS SUMMARY | 2023-11-21 10:44 | XMS_ITS | Continuity of Care Document ---
Author Organization [facility] Kristian Jcarlos Address [address] [place] [address]- Care Team Providers Care Mathematics Academic Chair Name Role Phone Elmer Puentes MD Primary Care Physician [facility] Date[facility]s): 02/26/23 - 03/05/23 [facility] Adult [address] [place] [address]- Attending Physician: Elmer Puentes MD Allergies, Adverse Reactions, Alerts Substance Reaction Severity Status Bee Stings Active Immunizations Given and Recorded Vaccine Date Status Refusal Reason SARS-CoV-2 mRNA (qzxyhbx-ctvw-attsy) vax 1 03/23/22 Recorded influenza virus vaccine, [...] Given 1Result Comment: Moderna Covid Bivalent Booster, [facility] 2Result Comment: [03/18/2017] [facility]: [id number] HIGH DOSE 3Admin Note: given by LB 4Admin Note: [facility] 5Admin Note: [facility] Medications allopurinol 300 mg oral tablet 1, tablet, By Mouth, Daily, # 90 tablet, Refills 3, Maintenance, 05/29/22 14:30:00 EST, Route to Pharmacy Electronically, [facility] 42035, 175.26, cm, 02/21/22 14:25:00 EDT, Height, 84, kg, 10/31/20 13:29:00 EDT, Dry Weight Start Date: 05/29/22 Status: Ordered amiodarone 200 mg oral tablet 200 mg, 1, tablet, By Mouth, Daily, # 30 tablet, Refills 0, Maintenance, 02/20/23 12:16:00 EDT, Partial fill upon patient request if the prescription is for a schedule II opioid drug. Start Date: 02/20/23 Status: Ordered DilTIAZem (Eqv-Cardizem CD) 120 mg/24 hours oral capsule, extended release 1 capsule = 120 mg, By Mouth, Daily, # 90 capsule, 3 Refills, Maintenance, 02/26/23 11:09:00 EDT, [facility]/pharmacy #[id number], Partial fill upon patient request if the prescription is for a schedule II opioiddrug., 173, cm, 02/26/23 11:03:00 EDT, Height, 79.5... Start Date: 02/26/23 Status: Ordered Eliquis 5 mg oral tablet 1 tablet, By Mouth, 2 times a day, # 60 tablet, 11 Refills, Maintenance, 03/12/22 18:53:00 EDT, [facility], 175.26, cm, 02/21/22 14:25:00 EDT, Height, 84, kg, 10/31/20 13:29:00 EDT, Dry Weight Start Date: 03/12/22 Status: Ordered FLUoxetine 20 mg oral capsule 1, capsule, By Mouth, Daily, # 30 capsule, Refills 12, Maintenance, 02/12/23 16:46:00 EDT, Route toPharmacy Electronically, [facility] 61570, 173, cm, 09/17/22 13:09:00 EDT, Height, 79.5, kg, 06/13/22 15:11:00 EST, Dry Weight Start Date: 02/12/23 Status: Ordered furosemide 40 mg oral tablet 40 mg, 1, tablet, By Mouth, Daily, # 90 tablet, Refills 3, Tot. Refills 3, Maintenance, 06/05/22 16:04:00 EST, Route to Pharmacy Electronically, [facility]/pharmacy #2071, 175.26, cm, 02/21/22 14:25:00 EDT,Height, 84, kg, 10/31/20 13:29:00 EDT, Dry Weight Start Date: 06/05/22 Stop Date: 05/31/23 Status: Ordered Multivitamin By Mouth, Daily, 0 Refills, Maintenance Start Date: 08/19/12 Status: Ordered pravastatin 80 mg oral tablet 1 tablet, By Mouth, Daily, # 90 tablet, 1 Refills, Maintenance, 02/28/23 15:12:00 EDT, [facility] 83786, 173, cm, 02/26/23 11:03:00 EDT, Height, 79.5, kg, 06/13/22 15:11:00 EST, Dry Weight Start Date: 02/28/23 Status: Ordered terazosin 2 mg oral capsule 2 mg, 1, capsule, By Mouth, Daily at bedtime, # 90 capsule, Refills 3, Tot. Refills 3, Maintenance,11/21/22 13:39:00 EDT, Route to Pharmacy Electronically, [facility]/pharmacy #[id number], Partial fill upon patient request if the prescription is for a schedule II... Start Date: 11/21/22 Stop Date: 11/16/23 Status: Ordered traMADol 50 mg oral tablet 1 tablet = 50 mg, By Mouth, Every 6 hours, PRN as needed for pain, # 30 tablet, 1 Refills, Maintenance, 02/20/23 12:17:00 EDT, Tablet, [facility], Partial fill upon patient request if the prescription is for a schedule II opioid drug., 173, cm... Start Date: 02/20/23 Status: Ordered uses nightly uses nightly, See Instructions, # 1 each, Refills 0, Tot. Refills 0, Maintenance, ASV EPAP 6 [facility], 01/05/18 12:43:07 EDT, Compound Start Date: 01/05/18 Status: Ordered valsartan 160 mg oral tablet 160 mg, 1, tablet, By Mouth, Daily, # 90 tablet, Refills 3, Tot. Refills 3, Maintenance, 02/26/23 11:16:00 EDT, Route to Pharmacy Electronically, [facility] # [facility], 173, cm, 02/26/23 11:03:00 [...] femur fracture 2022 5Right knee 2013. 6colo 2019 7colo 2019 Vital Signs Most recent to oldest [Reference Range]: 1 2 Height 173 cm (02/26/23 11:03 AM) 173 cm (02/26/23 10:55 AM) Oxygen Saturation [94-100 %] 95 % (02/26/23 10:55 AM) Pulse Rate [55-90 bpm] 65 bpm (02/26/23 10:55 AM) Blood Pressure [90-138/55-84 mm Hg] 149/ 82mm Hg *H* (02/26/23 11:03 AM) 151/94mm Hg *H* (02/26/23 10:55 AM) Mode of Delivery (Oxygen) Room air (02/26/23 10:55 AM) Blood pressure sites Arm, left (02/26/23 11:03 AM) Arm, left (02/26/23 10:55 AM) Weight Obtained Via Standing scale (02/26/23 10:55 AM) Social History Social History Type Response Smoking Status Former smoker; Tobac co user in household: Yes entered on: 06/03/14 Sex Male Note * Janiya Coleman: PERFORM, SIGN, VERIFY Event Display: Patient Education/Instruction Authored Date: [id number] [facility] *BMP So [place]ian Yee Clinical Summary Name HILL MOTA Age 72 Years 1950 PCP Deloris MEDINA, Elmer Bill PCP Visit Date 02/26/2023 10:45:00 Additional Instructions: Scheduled Appointments?? Future Appointments ?*BMP??So??[place],??[address] ?Phone:??--?Fax:??-- ?Appt. Date:??04/17/2023?10:10 AM ?Scheduled Provider:??Elmer Puentes MD Follow-Up Instructions ?? With: Address: When: Elmer Puentes MD Comments: As scheduled Diagnosis Unspecified atrial fibrillation; Unspecified fracture of unspecified femur, initial encounter for closed fracture; Essential (primary) hypertension; Alcohol use, unspecified with withdrawal, unspecified Medications: Please continue your medications until treatment is completed or stopped by your provider. Discuss any questions related to medications with your provider. Medications to Continue Taking That Have Changed [facility] # [facility], [address] [place], [place] [id number], [phone] - Valsartan (valsartan 160 mg oral tablet) 1 tab(s) Oral Daily for 90 Days. Refills: 3. Next Dose: [facility], [address], [place] [id number], [phone] - Diltiazem (DilTIAZem (Eqv-Cardizem CD) 120 mg/24 hours oral capsule, extended release) 1 capsule Oral Daily. Refills: 3. Next Dose: These medications were not printed or sent to your pharmacy - Furosemide (furosemide 40 mg oral tablet) 1 tab(s) Oral Daily for 90 Days. Refills: 3. Next Dose: Medications to Continue with No Changes These medications were not printed or sent to your pharmacy Allopurinol (allopurinol 300 mg oral tablet) 1 tab(s) Oral Daily. Refills: 3. Next Dose: amiODARONE (amiodarone 200 mg oral tablet) 1 tab(s) Oral Daily. Next Dose: apixaban (Eliquis 5 mg oral tablet) 1 tab(s) Oral twice a day. Refills: 11. Next Dose: Durable Medical Equipment (uses nightly) ASV EPAP 6 [facility]. Refills: 0. Next Dose: Fluoxetine (FLUoxetine 20 mg oral capsule) 1 capsule Oral Daily. Refills: 12. Next Dose: Multivitamin Oral Daily. Next Dose: Pravastatin (pravastatin 80 mg oral tablet) 1 tab(s) Oral Daily. Refills: 1. Next Dose: Terazosin (terazosin 2 mg oral capsule) 1 capsule Oral Daily at Bedtime for 90 Days. Refills: 3. Next Dose: Tramadol (traMADol 50 mg oral tablet) 1 tab(s) Oral every 6 hours as needed as needed for pain. Refills: 1. Next Dose: Allergy Info:?? Bee Stings Medications Given This Visit Future Orders ?No future orders Vital Signs Height 173 cm Weight BMI Blood Pressure 149 mm Hg/82 mm Hg Temperature Pulse Rate 65 bpm Respiratory Rate 02 Sat Mode of Delivery 95 %/Room air You can now view a summary of your hospital visit from the comfort of your home through a free online portal called [employer]. [employer] is a website that allows you to securely view your medical information including discharge summary, medications and follow-up visits. ??You can alsosend a secure electronic message to your doctor???s office to request appointments, renew medications or just ask a question. You can enroll at [email or web address] or register during your next office visit. [...] primary care provider, you may find a [facility] provider by calling [facility] at [phone]. [facility], in keeping with [facility] guidance, no longer requires face masks for [...] Team Personnel Name: Elmer Puentes MD Position: [facility] Physician - Primary Care Member Role: PCP Address: Address: [address] [place] [address]- Name: Sidra Banda RN Position: [facility] AMB Nurse Member Role: Primary Care Nurse Name: Judith Duron RN Position: [facility] DOMINGA RN W/OE and Tasks Member Role: Primary Care Nurse Care Team Related Persons Name: ROBIN MOTA Address: home [address] [address]
--- OUTSIDE RECORDS SUMMARY | 2023-11-21 10:45 | XMS_ITS | Continuity of Care Document ---
Author Organization [facility] Kristian Jcarlos lt Address [address] [place] [address]- Care Team Providers Care Nurse College Name Role Phone Elmer Puentes MD Primary Care Physician [phone] Encounter [facility] Date(s): 05/17/23 - 05/24/23 [facility] Adult [address] [place] [address]- Attending Physician: Elmer Puentes MD Allergies, Adverse [...] vaccine, inactivated 04/22/08 Give n SARS-CoV-2 mRNA (ifsrklf-kell-olwlx) vax 2 03/23/22 Recorded SARS-CoV-2 (COVID-19) mRNA [...] (oldterm) 06/24/99 Given 1Result Comment: [03/18/2017] [facility]: 15493-068-80 HIGH DOSE 2Result Comment: Moderna Covid Bivalent Booster, [facility] Pharm[facility] 3Admin Note: given by LB 4Admin Note: [employer] [facility] 5Admin Note: [employer] [facility] Medications acetaminophen 325 mg oral tablet [...] 05/29/22 14:30:00 EST, Route to Pharmacy Electronically, [facility] STORE 43676, 175.26, cm, 02/21/22 14:25:00 EDT, Height, 84, [...] for a schedule II opioid drug., 172, alexei, 03/22/23 14:14:00... Start Date: 04/08/23 Stop Date: 04/02/24 Status: Ordered Bedside Commode See Instructions, # 1 each, Maintenance, Bedside commode for generalized weakness, 04/17/23 10:52:00 EDT, Supply Start Date: 04/17/23 Status: Ordered Eliquis 5 mg oral tablet 1 tablet, By Mouth, 2 times a day, # 60 tablet, 11 Refills, Maintenance, 04/08/23 14:30:00 EDT, [facility] # 50, 172, alexei, 03/22/23 14:14:00 [...] 06/05/22 16:04:00 EST, Route to Pharmacy Electronically, [facility]/pharmacy #2071, 175.26, cm, 02/21/22 14:25:00 EDT,Height, 84, kg, 10/31/20 13:29:00 EDT, Dry Weight Start Date: 06/05/22 Stop Date: 05/31/23 Status: Ordered metoprolol 25 mg oral tablet, extended release 25 mg, 1, tablet, By Mouth, Daily, # 30 tablet, Refills 11, Tot. Refills 11, Maintenance, 04/08/23 14:32:00 EDT, Route to Pharmacy Electronically, [facility] # 50, Partial fill upon patient [...] 04/08/23 14:31:00 EDT, Route to Pharmacy Electronically, [facility] # 50, Partial fill upon patient request if the prescription is for a schedule II opio... Start Date: 04/08/23 Stop Date: 04/02/24 Status: Ordered terazosin 2 mg oral capsule 2 mg, 1, capsule, By Mouth, Daily at bedtime, # 90 capsule, Refills 3, Tot. Refills 3, Maintenance,11/21/22 13:39:00 EDT, Route to Pharmacy Electronically, [facility]/pharmacy #[id number], Partial fill upon patient request if the prescription is for a schedule II... Start Date: 11/21/22 Stop Date: 11/16/23 Status: Ordered uses nightly uses nightly, See Instructions, # 1 each, Refills 0, Tot. Refills 0, Maintenance, [facility], 01/05/18 12:43:07 EDT, Compound Start Date: [...] recent to oldest [Reference Range]: 1 Height 172 cm (05/17/23 2:43 PM) Weight 76.3 kg (05/17/23 2:43 PM) Oxygen Saturation [94-100 %] 100 % (05/17/23 2:43 PM) Pulse Rate [55-90 bpm] 54 bpm *L* (05/17/23 2:43 PM) Body Mass Index [18.5-24.99 kg/m2] 25.79 kg/m2 *H* (05/17/23 2:43 PM) Blood Pressure [90-138/55-84 mm Hg] 132/ 84mm Hg (05/17/23 2:43 PM) Mode of Delivery (Oxygen) Room air (05/17/23 2:43 PM) Blood pressure sites Arm, right (05/17/23 2:43 PM) Weight Obtained Via Patient/family state d (05/17/23 2:43 PM) Social History Social History Type Response Smoking Status Former smoker; Tobac co user in household: Yes entered on: 06/03/14 Sex Patient Care team information Care Team Personnel Name: Elmer Puentes MD Position: [facility] Physician - Primary Care Member Role: PCP Address: Address: [address] [place] [id number] Name: Solo UBRKS, Sidra Rosen Position: [facility] AMB Nurse Member Role: Primary Care Nurse Name: Judith Duron RN Position: [facility] ED RN W/OE and Tasks Member Role: Primary Care Nurse Name: Samy Arenas RN Position: [facility] RN Member Role: Primary Care Nurse Care Team Related Persons Name: ROBIN MOTA Address: home [address] [address]
--- OUTSIDE RECORDS SUMMARY | 2023-11-21 10:45 | XMS_ITS | Continuity of Care Document ---
Author Organization [facility] [place] Jcarlos lt Address [address] [place] [address]- Care Team Providers Care Bullet Charging Machine Operator Name Role Phone Deloris MEDINA, Elmer Bill Primary Care Physician [facility] Date[facility]s): 08/21/23 - 09/20/23 [facility] Adult [address] [place] [address]- Allergies, Adverse Reactions, Alerts Substance Reaction Severity [...] vaccine, inactivated 04/22/08 Give n SARS-CoV-2 mRNA (nufsykb-fmhx-nhubl) vax 2 03/23/22 Recorded SARS-CoV-2 (COVID-19) mRNA [...] Vaccine (oldterm) 06/24/99 Given 1Result Comment: [03/18/2017] [facility]: [id number] HIGH DOSE 2Result Comment: Moderna Covid Bivalent Booster, [facility] Pharmacy 3Admin Note: given by LB 4Admin Note: [employer] 5Admin Note: [employer] Medications acetaminophen 325 mg oral tablet 650 [...] 06/10/23 6:07:00 EST, Route to Pharmacy Electronically, [facility] 6[facility]25, 172, cm, 05/17/23 14:43:00 EST, Height, 79.5, kg, 03/16/23 13:06:00 EDT, Dry Weight Start Date: 06/10/23 Status: Ordered metoprolol 25 mg oral tablet, extended release 25 mg, 1, tablet, By Mouth, Daily, # 30 tablet, Refills 11, Tot. Refills 11, Maintenance, 04/08/23 14:32:00 EDT, Route to Pharmacy Electronically, [facility] # 50, Partial fill upon patient [...] 04/08/23 14:31:00 EDT, Route to Pharmacy Electronically, [facility] # 50, Partial fill upon patient request if the prescription is for a schedule II opio... Start Date: 04/08/23 Stop Date: 04/02/24 Status: Ordered terazosin 2 mg oral capsule 2 mg, 1, capsule, By Mouth, Daily at bedtime, # 90 capsule, Refills 3, Tot. Refills 3, Maintenance,11/21/22 13:39:00 EDT, Route to Pharmacy Electronically, [facility]/pharmacy #2071, Partial fill upon patient request if the prescription is for a schedule II... Start Date: 11/21/22 Stop Date: 11/16/23 Status: Ordered traZODone 50 mg oral tablet 50 mg, 1, tablet, By Mouth, Daily at bedtime, # 30 tablet, Refills 11, Tot. Refills 11, Maintenance, 07/18/23 11:18:00 EST, Route to Pharmacy Electronically, [facility] # 50, Partial fill upon patient request if the prescription is for a schedule... Start Date: 07/18/23 Stop Date: 07/12/24 Status: Ordered uses nightly uses nightly, See Instructions, # 1 each, Refills 0, Tot. Refills 0, Maintenance, ASV [facility], 01/05/18 12:43:07 EDT, Compound Start Date: [...] Team Personnel Name: Elmer Puentes MD Position: [facility] Physician - Primary Care Member Role: PCP Address: Address: [address] [place] [address]- [place] Name: Sidra Banda RN Position: [facility] AMB Nurse Member Role: Primary Care Nurse Name: Judith Duron RN Position: [facility] ED RN W/OE and Tasks Member Role: Primary Care Nurse Name: Jewell Polo Position: [facility] [place] Penciller Member Role: Shell Maker Lockstitch Care Team Related Persons Name: ROBIN MOTA Address: home [address] [address]
--- OUTSIDE RECORDS SUMMARY | 2023-11-21 10:45 | XMS_ITS | Continuity of Care Document ---
Author Organization [facility] Address [address] [place] [address]- Care Team Providers Care Floor Molder Name Role Phone Deloris MEDINA, Elmer Bill Primary Care Physician [facility] [facility] Date(s): 05/01/22 - 05/31/[address] [address]- Allergies, Adverse Reactions, Alerts Substance Reaction Severity Status Bee Stings Active Immunizations Given and Recorded Vaccine Date Status Refusal Reason SARS-CoV-2 mRNA (qslowzf-rajy-gejjz) vax 1 03/23/22 Recorded influenza virus vaccine, [...] Given 1Result Comment: Moderna Covid Bivalent Booster, [facility] Pharmacy 2Result Comment: [03/18/2017] [facility]: [id number] HIGH DOSE 3Admin Note: given by LB 4Admin Note: [facility] 5Admin Note: [facility] [employer] [facility] Medications allopurinol 300 mg oral tablet 1, tablet, By Mouth, Daily, # 90 tablet, Refills 3, Maintenance, 05/29/22 14:30:00 EST, Route to Pharmacy Electronically, [facility] 05391, 175.26, cm, 02/21/22 14:25:00 EDT, Height, 84, [...] EVERY DAY, # 90 capsule, 3 Refills, [facility] 06044, 175.26, cm, 11/03/21 10:48:00 EDT, Height, 84, kg, 10/31/20 13:29:00 EDT, Dry Weight Start Date: 12/19/21 Status: Ordered Eliquis 5 mg oral tablet 1 tablet, By Mouth, 2 times a day, # 60 tablet, 11 Refills, Maintenance, 03/12/22 18:53:00 EDT, [facility], 175.26, cm, 02/21/22 14:25:00 EDT, Height, 84, kg, 10/31/20 13:29:00 EDT, Dry Weight Start Date: 03/12/22 Status: Ordered FLUoxetine 20 mg oral capsule 20 mg, 1, capsule, By Mouth, Daily, # 30 capsule, Refills 11, Tot. Refills 11, Maintenance, 05/25/21 11:49:00 EST, Route to Pharmacy Electronically, [facility]/pharmacy #2071, Partial fill upon patient request if the prescription is for a schedule II opioid... Start Date: 05/25/21 Status: Ordered furosemide 40 mg oral tablet 80 mg, 2, tablet, By Mouth, Daily, # 90 tablet, Refills 3, Tot. Refills 3, Maintenance, 12/19/21 9:55:00 EDT, Route to Pharmacy Electronically, [facility]/pharmacy #2071, 175.26, cm, 11/03/21 10:48:00 EDT, Height, 84, kg, 10/31/20 13:29:00 EDT, Dry Weight Start Date: 12/19/21 Status: Ordered Multivitamin By Mouth, Daily, 0 Refills, Maintenance Start Date: 08/19/12 Status: Ordered pravastatin 80 mg oral tablet 1 tablet, By Mouth, Daily, # 90 tablet, 1 Refills, 05/29/22 13:47:00 EST, [facility]/pharmacy #2071, 175.26, cm, 02/21/22 14:25:00 EDT, Height, 84, kg, 10/31/20 13:29:00 EDT, Dry Weight Start Date: 05/29/22 Status: Ordered terazosin 2 mg oral capsule 2 mg, 1, capsule, By Mouth, Daily at bedtime, # 90 capsule, Refills 3, Tot. Refills 3, Maintenance,06/30/21 15:25:00 EST, Route to Pharmacy Electronically, [facility]/pharmacy #2071, Partial fill upon patient request if the prescription is for a schedule II... Start Date: 06/30/21 Stop Date: 06/25/22 Status: Ordered turmeric 500 mg oral capsule 3 capsule = 1,500 mg, By Mouth, Daily, # 60 capsule, 0 Refills, Maintenance, 10/08/19 11:20:01 EDT,Capsule Start Date: 03/31/19 Status: Ordered uses nightly uses nightly, See Instructions, # 1 each, Refills 0, Tot. Refills 0, Maintenance, ASV EPAP 6 [facility], 01/05/18 12:43:07 EDT, Compound Start Date: 01/05/18 Status: Ordered valsartan 160 mg oral tablet See Instructions, TAKE 1 + 1/2 TABLET BY MOUTH EVERY DAY, # 135 tablet, Refills 0, Maintenance, 05/16/22 15:23:00 EST, Instructions Replace Required Details, Route to Pharmacy Electronically, [facility] 21125, 175.26, cm, 02/21/22 14:25:00 EDT, Height,... Start [...] polyp, repeat 2017. negative, repeat 2013 3colo 2019 4Right knee 2014. 5colo 2019 6colo 2019 Social History Social History Type Response Smoking Status Former smoker; Tobac co user in household: Yes entered on: 06/03/14 Sex Male Patient Care team information Care Team Personnel Name: Elmer Puentes MD Position: S Primary Care Physician Member Role: PCP Address: Address: [address] [place] [address]- Care Team Related Persons Name: ROBIN MOTA Address: home [address] [address]
--- OUTSIDE RECORDS SUMMARY | 2023-11-21 10:45 | XMS_ITS | Continuity of Care Document ---
Author Organization [facility] Address [address] [place] [address]- Care Team Providers Care Pot Filler Name Role Phone Deloris MEDINA, Elmer Bill Primary Care Physician [phone] [place] [facility] [place]20 - 07/27/20 [facility] [address] [place] [address]- Attending Physician: Nohemi Vinson Admitting Physician: AdmtrNohemi Referring Physician: Admtr, Ar8 [...] Vaccine (oldterm) 06/24/99 Given 1Result Comment: [03/18/2017] ndc: 29807-147-37 HIGH DOSE 2Admin Note: given by LB 3Admin Note: [employer] [facility] 4Admin Note: [employer] [facility] Medications allopurinol 300 mg oral tablet 300 mg, 1, tablet, By Mouth, Daily, # 90 tablet, Refills 0, Tot. Refills 0, Maintenance, 07/21/20 8:39:00 EST, [facility] 175.[facility], cm, 04/01/20 11:21:00 EDT,Height Start Date: 07/21/20 Status: Ordered diltiazem 240 mg/24 hours oral capsule, extended release 240 mg, 1, capsule, By Mouth, Daily, # 30 capsule, Refills 0, Tot. Refills 0, Maintenance, 09/02/2013:51:00 EDT, [facility] 175.26, cm, 08/18/19 14:43:00 EST, Height Start Date: 09/03/19 Status: Ordered Eliquis 5 mg oral tablet 1 tablet = 5 mg, By Mouth, 2 times a day, # 180 tablet, 3 Refills, Maintenance, 12/30/19 15:45:00 EDT, [facility] 175.26, cm, 09/30/19 10:57:00 EDT, Height Start Date: 12/30/19 Status: Ordered furosemide 40 mg oral tablet 80 mg, 2, tablet, By Mouth, Daily, # 90 tablet, Refills 3, Tot. Refills 3, Maintenance, 03/31/19 11:18:45 EDT, [facility] Start Date: 03/31/19 Status: Ordered losartan 50 mg oral tablet 50 mg, 1, tablet, By Mouth, Daily, # 90 tablet, Refills 1, Tot. Refills 1, Maintenance, 07/08/20 14:04:00 EST, [facility] 175.26, cm, 04/01/20 11:21:00 EDT,Height Start Date: 07/08/20 Status: Ordered Multivitamin By Mouth, Daily, 0 Refills, Maintenance Start Date: 08/19/12 Status: Ordered pravastatin 80 mg oral tablet See Instructions, TAKE 1 TABLET BY MOUTH EVERY DAY, # 90 tablet, 1 Refills, Soft Stop, 07/20/20 10:47:00 EST, [facility]/pharmacy #2071, 175.26, cm, 04/01/20 11:21:00 EDT, Height Start Date: 07/20/20 Status: Ordered turmeric 500 mg oral capsule 3 capsule = 1,500 mg, By Mouth, Daily, # 60 capsule, 0 Refills, Maintenance, 03/31/19 11:20:01 EDT,Capsule Start Date: 03/31/19 Status: Ordered uses nightly uses nightly, See Instructions, # 1 each, Refills 0, Tot. Refills 0, Maintenance, ASV EPAP 6 [facility], 01/05/18 12:43:07 EDT, Compound Start Date: [...] Active 1Colonoscopy 2013 positive polyp, repeat 2018. 81753 negative, repeat 2012 3colo 2018 4Right knee 2014. 5colo 2018 6colo 2018 Social History Social History Type Response Smoking Status Former smoker; Tobac co user in household: Yes entered on: 06/03/14 Sex
--- OUTSIDE RECORDS SUMMARY | 2023-11-21 10:45 | XMS_ITS | Continuity of Care Document ---
Author Organization [facility] ter Address [address] [place] [address]- Care Team Providers Care Collet Maker Name Role Phone Deloris MEDINA, Elmer Bill Primary Care Physician [place] [facility] [place](s[place] 07/10/23 - 10/20/[address] [address]- Attending Physician: Cara PEMBERTON, Johanna Escalante Admitting Physician: Cara PEMBERTON, Johanna Escalante Referring Physician: Johanna Marroquin NP Allergies, Adverse Reactions, Alerts Substance Reaction Severity [...] vaccine, inactivated 04/22/08 Give n SARS-CoV-2 mRNA ([id number]) vax 2 03/23/22 Recorded SARS-CoV-2 (COVID-19) mRNA [...] Vaccine (oldterm) 06/24/99 Given 1Result Comment: [03/18/2017] [facility]: [id number] HIGH DOSE 2Result Comment: Moderna Covid Bivalent Booster, [facility] 3Admin Note: given by LB 4Admin Note: [employer] [facility] 5Admin Note: [employer] [facility] Medications acetaminophen 325 mg oral tablet [...] is for a schedule II opioid drug., 172alexei, 03/22/23 14:14:00... Start Date: 04/08/23 Stop Date: [...] is for a scheduleII opioid drug., 172, alexei, 03/22/23 14:14:00 EDT, He... Start Date: 04/08/23 Stop Date: 04/02/24 Status: Ordered furosemide 40 mg oral tablet 60 mg, 1.5, tablet, By Mouth, Daily, # 180 tablet, Refills 1, Maintenance, 06/10/23 6:07:00 EST, Route to Pharmacy Electronically, [facility] [address], alexei Thomas, 05/17/23 14:43:00 EST, Height, 79.5, kg, 03/16/23 13:06:00 EDT, Dry Weight Start Date: 06/10/23 Status: Ordered metoprolol 25 mg oral tablet, extended release 25 mg, 1, tablet, By Mouth, Daily, # 30 tablet, Refills 11, Tot. Refills 11, Maintenance, 04/08/23 14:32:00 EDT, Route to Pharmacy Electronically, [facility] # [facility], Partial fill upon patient [...] 04/08/23 14:31:00 EDT, Route to Pharmacy Electronically, [facility], Partial fill upon patient request if the prescription is for a schedule II opio... Start Date: 04/08/23 Stop Date: 04/02/24 Status: Ordered terazosin 2 mg oral capsule 2 mg, 1, capsule, By Mouth, Daily at bedtime, # 90 capsule, Refills 3, Tot. Refills 3, Maintenance,11/21/22 13:39:00 EDT, Route to Pharmacy Electronically, [facility]/pharmacy #[id number], Partial fill upon patient request if the prescription is for a schedule II... Start Date: 11/21/22 Stop Date: 11/16/23 Status: Ordered traZODone 50 mg oral tablet 50 mg, 1, tablet, By Mouth, Daily at bedtime, # 30 tablet, Refills 11, Tot. Refills 11, Maintenance, 07/18/23 11:18:00 EST, Route to Pharmacy Electronically, [facility], Partial fill upon patient request if the prescription is for a schedule... Start Date: 07/18/23 Stop Date: 07/12/24 Status: Ordered uses nightly uses nightly, See Instructions, # 1 each, Refills 0, Tot. Refills 0, Maintenance, ASV EPAP 6 [facility], 01/05/18 12:43:07 EDT, Compound Start Date: 01/05/18 [...] Active 1Colonoscopy 2012 positive polyp, repeat 2017. 39022 negative, repeat 2012 3colo 2018 4Left femur fracture 2022 5Right knee 2013. 6colo 2018 7colo 2018 Social History Social History Type Response Smoking Status Former smoker; Tobac co user in household: Yes entered on: 06/03/14 Sex Patient Care team information Care Team Personnel Name: Elmer Puentes MD Position: [facility] Physician - Primary Care Member Role: PCP Address: Address: [address] [place] [address]- Name: Sidra Banda RN Position: [facility] AMB Nurse Member Role: Primary Care Nurse Name: Fidelia (Aristeo) Jenni Position: [facility] first coat operator Member Role: Guide Tour Name: Domi BURKS, Judith Position: [facility] ED RN W/OE and Tasks Member Role: Primary Care Nurse Name: Jewell Polo Position: [facility] MA Vice President Network Development Member Role: Guide Tour Care Team Related Persons Name: ROBIN MOTA Address: home [address] [address]
--- OUTSIDE RECORDS SUMMARY | 2023-11-21 10:45 | XMS_ITS | Continuity of Care Document ---
Author Organization [facility] Jcarlos Address [address] [place] [address]- Care Team Providers Care System Safety Manager Name Role Phone Deloris MEDINA, Elmer Bill Primary Care Physician [phone] Encounter [facility] [place] Date(s): 09/18/21 - 09/25/21 [facility] Adult [address] [place] [address]- Encounter Diagnosis HTN (hypertension)(Discharge Diagnosis) - 09/19/21 Attending Physician: Diane Rose Allergies, Adverse Reactions, Alerts Substance Reaction Severity [...] Vaccine (oldterm) 06/24/99 Given 1Result Comment: [03/18/2017] [facility]: [id number] HIGH DOSE 2Admin Note: given by LB 3Admin Note: [employer] 4Admin Note: [employer] [facility] Medications allopurinol 300 mg oral tablet 1, tablet, By Mouth, Daily, # 90 tablet, Refills 1, Route to Pharmacy Electronically, [facility], 175.26, cm, 06/30/21 15:13:00 EST, Height, 84, kg, 10/31/20 13:29:00 EDT, Dry Weight Start Date: 07/14/21 Status: Ordered Diflucan 200 mg oral tablet 1 tablet = 200 mg, By Mouth, Daily, # 30 tablet, 0 Refills, Maintenance, 05/25/21 11:51:00 EST, Tablet, [facility]/pharmacy #2071, Partial fill upon patient request if the prescription is for a schedule II opioid drug., 175.26, cm, 05/25/21 11:22:00 EST, Hei... Start Date: 05/25/21 Status: Ordered diltiazem 300 mg/24 hours oral capsule, extended release 300 mg, 1, capsule, By Mouth, Daily, # 90 capsule, Refills 3, Tot. Refills 3, Maintenance, :53:00 EDT, Route to Pharmacy Electronically, [facility]/pharmacy #2071, Partial fill upon patient request if the prescription is for a schedule II opioid dr... Start Date: 11/18/20 Status: Ordered Eliquis 5 mg oral tablet 1 tablet, By Mouth, 2 times a day, # 60 tablet, 11 Refills, Maintenance, 02/20/21 9:23:00 EDT, [facility]/pharmacy #2071, 175.26, cm, 01/30/21 16:19:00 EDT, Height, 84, kg, 10/31/20 13:29:00 EDT, Dry Weight Start Date: 02/20/21 Status: Ordered FLUoxetine 20 mg oral capsule 20 mg, 1, capsule, By Mouth, Daily, # 30 capsule, Refills 11, Tot. Refills 11, Maintenance, 05/25/21 11:49:00 EST, Route to Pharmacy Electronically, [facility]/pharmacy #2071, Partial fill upon patient request if the prescription is for a schedule II opioid... Start Date: 05/25/21 Status: Ordered furosemide 40 mg oral tablet 80 mg, 2, tablet, By Mouth, Daily, # 90 tablet, Refills 3, Tot. Refills 3, Maintenance, 03/31/19 11:18:45 EDT, Route to Pharmacy Electronically, [facility]/pharmacy #2071 Start Date: 03/31/19 Status: Ordered Multivitamin By Mouth, Daily, 0 Refills, Maintenance Start Date: 08/19/12 Status: Ordered pravastatin 80 mg oral tablet 1 tablet, By Mouth, Daily, # 90 tablet, 1 Refills, [facility] [address]000, 175.26, cm, 06/30/21 15:13:00 EST, Height, 84, [...] Refills 0, Maintenance, ASV EPAP 6 [facility], 01/05/18 12:43:07 EDT, Compound Start Date: 01/05/18 Status: Ordered valsartan 160 mg oral tablet 240 mg, 1.5, tablet, By Mouth, Daily, # 135 tablet, Refills 0, Tot. Refills 0, Maintenance, 09/18/21 13:41:00 EDT, Route to Pharmacy Electronically, [facility]/pharmacy #0257, Partial fill upon patient request if the prescription is for a schedule II opioid... Start Date: 09/18/21 Status: Ordered Problem List Condition Effective Dates [...] Active 1Colonoscopy 2013 positive polyp, repeat 2018. 37831 negative, repeat 2012 3colo 2018 4Right knee 2014. 5colo 2019 6colo 2019 Diagnosis Diagnosis Type Effective Dates Health Status Cl inical Service Informant HTN (hypertension) Discharge Diagnosis 09/19/21 Vital Signs Most recent to oldest [Reference Range]: 1 Height 175.26 cm (09/18/21 1:21 PM) Weight 84.4 kg (09/18/21 1:21 PM) Pulse Rate [55-90 bpm] 94 bpm *H* (09/18/21 1:21 PM) Body Mass Index [18.5-24.99] 27.48 *H* (09/18/21 1:21 PM) Blood Pressure [90-138/55-84 mm Hg] 110/ 70mm Hg (09/18/21 1:21 PM) Respiratory Rate [16-30 br/min] 14 br/mi n *L* (09/18/21 1:21 PM) Temperature [96.8-100.4 DegF] 97.6 DegF (09/18/21 1:21 PM) Blood pressure sites Arm, right (09/18/21 1:21 PM) Temperature Route Oral (09/18/21 1:21 PM) Weight Obtained Via Standing scale (09/18/21 1:21 PM) Social History Social History Type Response Smoking Status Former smoker; Tobac co user in household: Yes entered on: 06/03/14 Sex Male
--- OUTSIDE RECORDS SUMMARY | 2023-11-21 10:45 | XMS_ITS | Continuity of Care Document ---
Author Organization [facility] Kristian Jcarlos Address [address] [place] [address]- Care Team Providers Care Web Site Developer Name Role Phone Deloris MEDINA, Elmer Bill Primary Care Physician Encounter [facility] Date(s): 10/09/21 - 11/22/21 [facility] Adult [address] [place] [address]- Attending Physician: Diane Rose Referring Physician: Amor Pearl MD Allergies, Adverse Reactions, Alerts Substance Reaction [...] Given 1Result Comment: [03/18/2017] [facility]: [id number] HIGH DOSE 2Admin Note: given by LB 3Admin Note: [employer] 4Admin Note: [employer] [facility] Medications allopurinol 300 mg oral tablet 1, tablet, By Mouth, Daily, # 90 tablet, Refills 1, Route to Pharmacy Electronically, [facility] 61698, 175.26, cm, 06/30/21 15:13:00 EST, Height, 84, kg, 10/31/20 13:29:00 EDT, Dry Weight Start Date: 07/14/21 Status: Ordered Diflucan 200 mg oral tablet 1 tablet = 200 mg, By Mouth, Daily, # 30 tablet, 0 Refills, Maintenance, 05/25/21 11:51:00 EST, Tablet, [facility]/pharmacy #2071, Partial fill upon patient request if the prescription is for a schedule II opioid drug., 175.26, cm, 05/25/21 11:22:00 EST, Hei... Start Date: 05/25/21 Status: Ordered diltiazem 300 mg/24 hours oral capsule, extended release 300 mg, 1, capsule, By Mouth, Daily, # 90 capsule, Refills 3, Tot. Refills 3, Maintenance, :53:00 EDT, Route to Pharmacy Electronically, [facility]/pharmacy #[id number], Partial fill upon patient request if the prescription is for a schedule II opioid drBruno. Start Date: 11/18/20 Status: Ordered Eliquis 5 mg oral tablet 1 tablet, By Mouth, 2 times a day, # 60 tablet, 11 Refills, Maintenance, 02/20/21 9:23:00 EDT, [facility]/pharmacy #2071, 175.26, cm, 01/30/21 16:19:00 EDT, Height, 84, kg, 10/31/20 13:29:00 EDT, Dry Weight Start Date: 02/20/21 Status: Ordered FLUoxetine 20 mg oral capsule 20 mg, 1, capsule, By Mouth, Daily, # 30 capsule, Refills 11, Tot. Refills 11, Maintenance, 05/25/21 11:49:00 EST, Route to Pharmacy Electronically, [facility]/pharmacy #2071, Partial fill upon patient request if the prescription is for a schedule II opioid... Start Date: 05/25/21 Status: Ordered furosemide 40 mg oral tablet 80 mg, 2, tablet, By Mouth, Daily, # 90 tablet, Refills 3, Tot. Refills 3, Maintenance, 03/31/19 11:18:45 EDT, Route to Pharmacy Electronically, [facility]/pharmacy #2071 Start Date: 03/31/19 Status: Ordered Multivitamin By Mouth, Daily, 0 Refills, Maintenance Start Date: 08/19/12 Status: Ordered pravastatin 80 mg oral tablet 1 tablet, By Mouth, Daily, # 90 tablet, 1 Refills, [facility] 90648, 175.26, cm, 06/30/21 15:13:00 EST, Height, 84, kg, 10/31/20 13:29:00 EDT, Dry Weight Start Date: 07/14/21 Status: Ordered terazosin 2 mg oral capsule 2 mg, 1, capsule, By Mouth, Daily at bedtime, # 90 capsule, Refills 3, Tot. Refills 3, Maintenance,06/30/21 15:25:00 EST, [facility] to Pharmacy Electronically, [facility] [...] each, Refills 0, Tot. Refills 0, Maintenance, AS EPA 6 [facility], 01/05/18 12:43:07 EDT, Compound Start Date: 01/05/18 Status: Ordered valsartan 160 mg oral tablet 160 mg, 1, tablet, By Mouth, Daily, # 135 tablet, Refills 0, Route to Pharmacy Electronically, [facility] 70624, 175.26, cm, 09/18/21 13:21:00 EDT, Height, 84, [...] Active 1Colonoscopy 2012 positive polyp, repeat 2018. negative, repeat 2012 3colo 2019 4Right knee 2014. 5colo 2019 6colo 2019 Social History Social History Type Response Smoking Status Former smoker; Tobac co user in household: Yes entered on: 06/03/14 Sex Male
--- OUTSIDE RECORDS SUMMARY | 2023-11-21 10:45 | XMS_ITS | Continuity of Care Document ---
Author Organization [facility] Kristian Jcarlos Address [address] [place] [address]- Care Team Providers Care Forensic Structural Engineer Name Role Phone Elmer Puentes MD Primary Care Physician Encounter [facility] Date(s): 08/02/21 - 08/09/21 [facility] Adult [address] [place] [address]- Attending Physician: Elmer Puentes MD Allergies, Adverse [...] (oldterm) 06/24/99 Given 1Result Comment: [03/18/2017] [facility]: [id number] HIGH DOSE 2Admin Note: given by LB 3Admin Note: [employer] [facility] 4Admin Note: [employer] [facility] Medications allopurinol 300 mg oral tablet 1, tablet, By Mouth, Daily, # 90 tablet, Refills 1, Route to Pharmacy Electronically, [facility] 23834, 175.26, cm, 06/30/21 15:13:00 EST, Height, 84, kg, 10/31/20 13:29:00 EDT, Dry Weight Start Date: 07/14/21 Status: Ordered Diflucan 200 mg oral tablet 1 tablet = 200 mg, By Mouth, Daily, # 30 tablet, 0 Refills, Maintenance, 05/25/21 11:51:00 EST, Tablet, [facility]/pharmacy #2071, Partial fill upon patient request if the prescription is for a schedule II opioid drug., 175.26, cm, 05/25/21 11:22:00 EST, Hei... Start Date: 05/25/21 Status: Ordered diltiazem 300 mg/24 hours oral capsule, extended release 300 mg, 1, capsule, By Mouth, Daily, # 90 capsule, Refills 3, Tot. Refills 3, Maintenance, :53:00 EDT, Route to Pharmacy Electronically, [facility]/pharmacy #[id number], Partial fill upon patient request if the prescription is for a schedule II opioid drBruno. Start Date: 11/18/20 Status: Ordered Eliquis 5 mg oral tablet 1 tablet, By Mouth, 2 times a day, # 60 tablet, 11 Refills, Maintenance, 02/20/21 9:23:00 EDT, [facility]/pharmacy #2071, 175.26, cm, 01/30/21 16:19:00 EDT, Height, 84, kg, 10/31/20 13:29:00 EDT, Dry Weight Start Date: 02/20/21 Status: Ordered FLUoxetine 20 mg oral capsule 20 mg, 1, capsule, By Mouth, Daily, # 30 capsule, Refills 11, Tot. Refills 11, Maintenance, 05/25/21 11:49:00 EST, Route to Pharmacy Electronically, [facility]/pharmacy #2071, Partial fill upon patient request if the prescription is for a schedule II opioid... Start Date: 05/25/21 Status: Ordered furosemide 40 mg oral tablet 80 mg, 2, tablet, By Mouth, Daily, # 90 tablet, Refills 3, Tot. Refills 3, Maintenance, 03/31/19 11:18:45 EDT, Route to Pharmacy Electronically, [facility]/pharmacy #2071 Start Date: 03/31/19 Status: Ordered Multivitamin By Mouth, Daily, 0 Refills, Maintenance Start Date: 08/19/12 Status: Ordered pravastatin 80 mg oral tablet 1 tablet, By Mouth, Daily, # 90 tablet, 1 Refills, [facility] 86946, 175.26, cm, 06/30/21 15:13:00 EST, Height, 84, kg, 10/31/20 13:29:00 EDT, Dry Weight Start Date: 07/14/21 Status: Ordered terazosin 2 mg oral capsule 2 mg, 1, capsule, By Mouth, Daily at bedtime, # 90 capsule, Refills 3, Tot. Refills 3, Maintenance,06/30/21 15:25:00 EST, Route to Pharmacy Electronically, [facility]/pharmacy #[id number], Partial fill upon patient [...] Tot. Refills 0, Maintenance, ASV EPA 6 [facility], 01/05/18 12:43:07 EDT, Compound Start Date: 01/05/18 Status: Ordered valsartan 320 mg oral tablet 1 tablet = 320 mg, By Mouth, Daily, # 90 tablet, 3 Refills, Maintenance, 11/04/20 14:17:00 EDT, Tablet, [facility]7955, Partial fill upon patient request if the prescription is for a schedule II opioid drug., 175.26, cm, 11/04/20 14:11:00 EDT, Mary. Start Date: 11/04/20 Status: Ordered Problem List [...] Active 1Colonoscopy 2012 positive polyp, repeat 2018. 85658 negative, repeat 2012 3colo 2019 4Right knee 2014. 5colo 2019 6colo 2019 Vital Signs Most recent to oldest [Reference Range]: 1 Blood Pressure [90-138/55-84 mm Hg] 118/ 72mm Hg (08/02/21 1:42 PM) Blood pressure sites Arm, left (08/02/21 1:42 PM) Social History Social History Type Response Smoking Status Former smoker; Tobac co user in household: Yes entered on: 06/03/14 Sex Male
--- OUTSIDE RECORDS SUMMARY | 2023-11-21 10:45 | XMS_ITS | Continuity of Care Document ---
Author Organization [facility] Address [address] [place] [address]- Care Team Providers Care Sales Hunter Name Role Phone Elmer Puentes MD Primary Care Physician En[place] [facility] [place] Date(s): 07/21/21 - 08/20/21 [facility] [address] [place] [address]- Attending Physician: Admchristo, Nohemi Admitting Physician: AdmtrNohemi Referring Physician: Admtr, Ar8 [...] Vaccine (oldterm) 06/24/99 Given 1Result Comment: [03/18/2017] [facility]: [id number] HIGH DOSE 2Admin Note: given by LB 3Admin Note: [employer] 4Admin Note: [employer] [facility] Medications allopurinol 300 mg oral tablet 1, tablet, By Mouth, Daily, # 90 tablet, Refills 1, Route to Pharmacy Electronically, [facility] 48225, 175.26, cm, 06/30/21 15:13:00 EST, Height, 84, kg, 10/31/20 13:29:00 EDT, Dry Weight Start Date: 07/14/21 Status: Ordered Diflucan 200 mg oral tablet 1 tablet = 200 mg, By Mouth, Daily, # 30 tablet, 0 Refills, Maintenance, 05/25/21 11:51:00 EST, Tablet, [facility]/pharmacy #2071, Partial fill upon patient request if the prescription is for a schedule II opioid drug., 175.26, cm, 05/25/21 11:22:00 EST, Hei... Start Date: 05/25/21 Status: Ordered diltiazem 300 mg/24 hours oral capsule, extended release 300 mg, 1, capsule, By Mouth, Daily, # 90 capsule, Refills 3, Tot. Refills 3, Maintenance, :53:00 EDT, Route to Pharmacy Electronically, [facility]/pharmacy #2071, Partial fill upon patient request if the prescription is for a schedule II opioid dr... Start Date: 11/18/20 Status: Ordered Eliquis 5 mg oral tablet 1 tablet, By Mouth, 2 times a day, # 60 tablet, 11 Refills, Maintenance, 02/20/21 9:23:00 EDT, [facility]/pharmacy #2071, 175.26, cm, 01/30/21 16:19:00 EDT, Height, 84, kg, 10/31/20 13:29:00 EDT, Dry Weight Start Date: 02/20/21 Status: Ordered FLUoxetine 20 mg oral capsule 20 mg, 1, capsule, By Mouth, Daily, # 30 capsule, Refills 11, Tot. Refills 11, Maintenance, 05/25/21 11:49:00 EST, Route to Pharmacy Electronically, [facility]/pharmacy #2071, Partial fill upon patient request if the prescription is for a schedule II opioid... Start Date: 05/25/21 Status: Ordered furosemide 40 mg oral tablet 80 mg, 2, tablet, By Mouth, Daily, # 90 tablet, Refills 3, Tot. Refills 3, Maintenance, 03/31/19 11:18:45 EDT, Route to Pharmacy Electronically, [facility]/pharmacy #2071 Start Date: 03/31/19 Status: Ordered Multivitamin By Mouth, Daily, 0 Refills, Maintenance Start Date: 08/19/12 Status: Ordered pravastatin 80 mg oral tablet 1 tablet, By Mouth, Daily, # 90 tablet, 1 Refills, [facility] 77919, 175.26, cm, 06/30/21 15:13:00 EST, Height, 84, kg, 10/31/20 13:29:00 EDT, Dry Weight Start Date: 07/14/21 Status: Ordered terazosin 2 mg oral capsule 2 mg, 1, capsule, By Mouth, Daily at bedtime, # 90 capsule, Refills 3, Tot. Refills 3, Maintenance,06/30/21 15:25:00 EST, Route to Pharmacy Electronically, [facility]/pharmacy #[id number], Partial fill upon patient request if [...] EPAP 6 [facility], [...] Active 1Colonoscopy 2013 positive polyp, repeat 2018. 69434 negative, repeat 2012 3colo 2019 4Right knee 2014. 5colo 2019 6colo 2019 Social History Social History Type Response Smoking Status Former smoker; Tobac co user in household: Yes entered on: 06/03/14 Sex Male
--- OUTSIDE RECORDS SUMMARY | 2023-11-21 10:45 | XMS_ITS | Continuity of Care Document ---
Author Organization [facility] Walker Jcarlos lt Address [address] [place] [address]- Care Team Providers Care Rotoprinter Name Role Phone Elmer Puentes MD Primary Care Physician Encounter [facility] Date(s): 10/03/23 - 10/10/23 [facility] Adult [address] [place] [address]- Attending Physician: Elmer Puentes MD Allergies, Adverse [...] vaccine, inactivated 04/22/08 Give n SARS-CoV-2 mRNA ([id number]) vax 2 03/23/22 Recorded SARS-CoV-2 (COVID-19) mRNA [...] Vaccine (oldterm) 06/24/99 Given 1Result Comment: [03/18/2017] [facility]: [id number] HIGH DOSE 2Result Comment: Moderna Covid Bivalent Booster, [facility] 3Admin Note: given by LB 4Admin Note: [employer] [facility] 5Admin Note: [facility] Medications acetaminophen 325 mg oral tablet [...] 06/10/23 6:07:00 EST, Route to Pharmacy Electronically, [facility] STORE [facility], 172, alexei, 05/17/23 14:43:00 EST, Height, 79.5, kg, 03/16/23 13:06:00 EDT, Dry Weight Start Date: 06/10/23 Status: Ordered metoprolol 25 mg oral tablet, extended release 25 mg, 1, tablet, By Mouth, Daily, # 30 tablet, Refills 11, Tot. Refills 11, Maintenance, 04/08/23 14:32:00 EDT, Route to Pharmacy Electronically, [facility] # [facility], Partial fill upon [...] 04/08/23 14:31:00 EDT, Route to Pharmacy Electronically, [facility] # 50, Partial fill upon patient request if the prescription is for a schedule II opio... Start Date: 04/08/23 Stop Date: 04/02/24 Status: Ordered terazosin 2 mg oral capsule 2 mg, 1, capsule, By Mouth, Daily at bedtime, # 90 capsule, Refills 3, Tot. Refills 3, Maintenance,11/21/22 13:39:00 EDT, Route to Pharmacy Electronically, [facility]/pharmacy #[id number], Partial fill upon patient request if the prescription is for a schedule II... Start Date: 11/21/22 Stop Date: 11/16/23 Status: Ordered traZODone 50 mg oral tablet 50 mg, 1, tablet, By Mouth, Daily at bedtime, # 30 tablet, Refills 11, Tot. Refills 11, Maintenance, 07/18/23 11:18:00 EST, Route to Pharmacy Electronically, [facility] # 50, Partial fill upon patient request if the prescription is for a schedule... Start Date: 07/18/23 Stop Date: 07/12/24 Status: Ordered uses nightly uses nightly, See Instructions, # 1 each, Refills 0, Tot. Refills 0, Maintenance, ASV EPAP 6 [facility], 01/05/18 12:43:07 EDT, Compound Start [...] Active 1Colonoscopy 2012 positive polyp, repeat 2017. 96532 negative, repeat 2013 3colo 2018 4Left femur fracture 2022 5Right knee 2013. 6colo 2019 7colo 2019 Vital Signs Most recent to oldest [Reference Range]: 1 Height 170 cm (10/03/23 9:53 AM) Social History Social History Type Response Smoking Status Former smoker; Tobac co user in household: Yes entered on: 06/03/14 Sex Patient Care team information Care Team Personnel Name: Elmer Puentes MD Position: [facility] Physician - Primary Care Member Role: PCP Address: Address: [address] [place] [phone]- Name: Sidra Banda RN Position: [facility] AMB Nurse Member Role: Primary Care Nurse Name: Fidelia (Baymanuela) Jenni Position: [facility] hand zipper trimmer Member Role: Shellfish Meat Separator Operator Name: Domi BURKS, Judith Position: [facility] ED RN W/OE and Tasks Member Role: Primary Care Nurse Name: Jewell Polo Position: [facility] MELANI Graduate Engineer Member Role: Shellfish Meat Separator Operator Care Team Related Persons Name: ROBIN MOTA Address: home [address] [address]
--- OUTSIDE RECORDS SUMMARY | 2023-11-21 10:45 | XMS_ITS | Continuity of Care Document ---
Author Organization [facility] Address [address] [place] [address] [address] [place] [address]- Care Team Providers Care Meat Loiner Name Role Phone Elmer Puentes MD Primary Care Physician Encounter [facility] Date(s): 10/31/20 - 11/30/20 [facility] [address] [place] [address]- Attending Physician: Nohemi Vinson Admitting Physician: Nohemi [...] Given 1Result Comment: [03/18/2017] [facility]: 26645-091-74 HIGH DOSE 2Admin Note: given by LB 3Admin Note: [facility] 4Admin Note: [facility] [facility] Medications allopurinol 300 mg oral tablet 300 mg, 1, tablet, By Mouth, Daily, # 90 tablet, Refills 0, Tot. Refills 0, Maintenance, 08/27/20 9:17:00 EST, Route to Pharmacy Electronically, [facility]/pharmacy #[id number], 175.26, cm, 04/01/20 11:21:00 EDT,Height Start Date: 08/27/20 Status: Ordered diltiazem 300 mg/24 hours oral capsule, extended release 300 mg, 1, capsule, By Mouth, Daily, # 90 capsule, Refills 3, Tot. Refills 3, Maintenance, 219:53:00 EDT, Route to Pharmacy Electronically, [facility]/pharmacy #[id number], Partial fill upon patient request if the prescription is for a schedule II opioid . Start Date: 11/18/20 Status: Ordered Eliquis 5 mg oral tablet 1 tablet = 5 mg, By Mouth, 2 times a day, # 180 tablet, 3 Refills, Maintenance, 12/30/19 15:45:00 EDT, Tablet, [facility]/pharmacy #[id number], 175.26, cm, 09/30/19 10:57:00 EDT, Height Start Date: 12/30/19 Status: Ordered furosemide 40 mg oral tablet 80 mg, 2, tablet, By Mouth, Daily, # 90 tablet, Refills 3, Tot. Refills 3, Maintenance, 03/31/19 11:18:45 EDT, Route to Pharmacy Electronically, [facility]/pharmacy #207 Start Date: 03/31/19 Status: Ordered Multivitamin [...] 0, Maintenance, ASV EPAP 6 [facility], 01/05/18 12:43:07 EDT, Compound Start Date: 01/05/18 Status: Ordered valsartan 320 mg oral tablet 1 tablet = 320 mg, By Mouth, Daily, # 90 tablet, 3 Refills, Maintenance, 11/04/20 14:17:00 EDT, Tablet, [facility]/pharmacy #[id number], Partial fill upon patient request [...] Vertigo(Confirmed) Active 1Colonoscopy 2012 positive polyp, repeat negative, repeat 2012 3colo 2018 4Right knee 2014. 5colo 2019 6colo 2019 Social History Social History Type Response Smoking Status Former smoker; Tobac co user in household: Yes entered on: 06/03/14 Sex
--- OUTSIDE RECORDS SUMMARY | 2023-11-21 10:45 | XMS_ITS | Continuity of Care Document ---
Author Organization [facility] Jcarlos lt Address [address] [place] [address]- Care Team Providers Care Cad Operator Name Role Phone Deloris MEDINA, Elmer Bill Primary Care Physician Encounter [facility] Date(s): 08/07/23 - 09/06/23 [facility] Adult [address] [place] [address]- Allergies, Adverse Reactions, Alerts Substance Reaction Severity [...] vaccine, inactivated 04/22/08 Give n SARS-CoV-2 mRNA ([id number]) vax 2 03/23/22 Recorded SARS-CoV-2 (COVID-19) mRNA [...] (oldterm) 06/24/99 Given 1Result Comment: [03/18/2017] [facility]: [id number] HIGH DOSE 2Result Comment: Moderna Covid Bivalent Booster, [facility] Pharmacy 3Admin Note: given by LB 4Admin Note: [employer] 5Admin Note: [employer] Medications acetaminophen 325 mg oral tablet 650 [...] Maintenance, 04/08/23 14:30:00 EDT, [facility] # 50, 172, alexei, 03/22/23 14:14:00 [...] 06/10/23 6:07:00 EST, Route to Pharmacy Electronically, [facility] 64[facility], 172, cm, 05/17/23 14:43:00 EST, Height, 79.5, kg, 03/16/23 13:06:00 EDT, Dry Weight Start Date: 06/10/23 Status: Ordered metoprolol 25 mg oral tablet, extended release 25 mg, 1, tablet, By Mouth, Daily, # 30 tablet, Refills 11, Tot. Refills 11, Maintenance, 04/08/23 14:32:00 EDT, Route to Pharmacy Electronically, [facility] # 50, Partial fill [...] 04/08/23 14:31:00 EDT, Route to Pharmacy Electronically, [facility] # 50, Partial fill upon patient request if the prescription is for a schedule II opioid d... Start Date: 04/08/23 Stop Date: 04/02/24 Status: Ordered terazosin 2 mg oral capsule 2 mg, 1, capsule, By Mouth, Daily at bedtime, # 90 capsule, Refills 3, Tot. Refills 3, Maintenance,11/21/22 13:39:00 EDT, Route to Pharmacy Electronically, [facility]/pharmacy #[id number], Partial fill upon patient request if the prescription is for a schedule II... Start Date: 11/21/22 Stop Date: 11/16/23 Status: Ordered traZODone 50 mg oral tablet 50 mg, 1, tablet, By Mouth, Daily at bedtime, # 30 tablet, Refills 11, Tot. Refills 11, Maintenance, 07/18/23 11:18:00 EST, Route to Pharmacy Electronically, [facility] # [facility], Partial fill upon patient [...] Team Personnel Name: Elmer Puentes MD Position: [facility] Physician - Primary Care Member Role: PCP Address: Address: [address] [place] [address]- Name: Sidra Banda RN Position: [facility] Nurse Member Role: Primary Care Nurse Name: Judith Duron RN Position: [facility] ED RN W/OE and Tasks Member Role: Primary Care Nurse Name: Jewell Polo Position: [facility] [place] Multimedia Journalist Member Role: Assistant Professor Care Team Related Persons Name: ROBIN MOTA Address: home [address] [address]
--- OUTSIDE RECORDS SUMMARY | 2023-11-21 10:45 | XMS_ITS | Continuity of Care Document ---
Author Organization [facility] Kristian Jcarlos Address [address] [place] [address]- Care Team Providers Care Warp Spooler Name Role Phone Deloris MEDINA, Elmer Bill Primary Care Physician [facility]counter [facility] Date(s): 12/18/21 - 01/17/22 [facility] Adult [address] [place] [address]- Allergies, Adverse Reactions, Alerts Substance Reaction Severity [...] Vaccine (oldterm) 06/24/99 Given 1Result Comment: [03/18/2017] [facility]: 52159-548-78 HIGH DOSE 2Admin Note: given by LB 3Admin Note: [employer] 4Admin Note: [email or web address] [facility] Medications allopurinol 300 mg oral tablet 1, tablet, By Mouth, Daily, # 90 tablet, Refills 1, Route to Pharmacy Electronically, [facility] 87143, 175.26, cm, 06/30/21 15:13:00 EST, Height, 84, [...] EVERY DAY, # 90 capsule, 3 Refills, [facility]ORE 24665, 175.26, cm, 11/03/21 10:48:00 EDT, Height, 84, kg, 10/31/20 13:29:00 EDT, Dry Weight Start Date: 12/19/21 Status: Ordered diltiazem 300 mg/24 hours oral capsule, extended release 300 mg, 1, capsule, By Mouth, Daily, # 90 capsule, Refills 3, Tot. Refills 3, Maintenance, :53:00 EDT, Route to Pharmacy Electronically, [facility]/pharmacy #[id number], Partial fill upon patient request if the prescription is for a schedule II opioid Start Date: 11/18/20 Status: Ordered Eliquis 5 mg oral tablet 1 tablet, By Mouth, 2 times a day, # 60 tablet, 11 Refills, Maintenance, 02/20/21 9:23:00 EDT, [facility]/pharmacy #[id number], 175.26, cm, 01/30/21 16:19:00 EDT, Height, 84, kg, 10/31/20 13:29:00 EDT, Dry Weight Start Date: 02/20/21 Status: Ordered FLUoxetine 20 mg oral capsule 20 mg, 1, capsule, By Mouth, Daily, # 30 capsule, Refills 11, Tot. Refills 11, Maintenance, 05/25/21 11:49:00 EST, Route to Pharmacy Electronically, [facility]/pharmacy #[id number], Partial fill upon patient request if the prescription is for a schedule II opioid... Start Date: 05/25/21 Status: Ordered furosemide 40 mg oral tablet 80 mg, 2, tablet, By Mouth, Daily, # 90 tablet, Refills 3, Tot. Refills 3, Maintenance, 12/19/21 9:55:00 EDT, Route to Pharmacy Electronically, [facility]/pharmacy #[id number], 175.26, cm, 11/03/21 10:48:00 EDT, Height, 84, kg, 10/31/20 13:29:00 EDT, Dry Weight Start Date: 12/19/21 Status: Ordered Multivitamin By Mouth, Daily, 0 Refills, Maintenance Start Date: 08/19/12 Status: Ordered pravastatin 80 mg oral tablet 1 tablet, By Mouth, Daily, # 90 tablet, 1 Refills, [facility] STORE 14905, 175.26, cm, 11/03/21 10:48:00 EDT, Height, 84, kg, 10/31/20 13:29:00 EDT, Dry Weight Start Date: 01/06/22 Status: Ordered terazosin 2 mg oral capsule 2 mg, 1, capsule, By Mouth, Daily at bedtime, # 90 capsule, Refills 3, Tot. Refills 3, Maintenance,06/30/21 15:25:00 EST, Route to Pharmacy Electronically, [facility]/pharmacy #[id number], Partial fill upon patient request [...] Refills 0, Maintenance, ASV EPAP 6 [facility], 01/05/18 12:43:07 EDT, Compound Start Date: 01/05/18 Status: Ordered valsartan 160 mg oral tablet 160 mg, 1, tablet, By Mouth, Daily, # 135 tablet, Refills 0, Route to Pharmacy Electronically, [facility] 44[facility], 175.26, cm, 09/18/21 13:21:00 EDT, Height, 84, [...]
--- OUTSIDE RECORDS SUMMARY | 2023-11-21 10:45 | XMS_ITS | Continuity of Care Document ---
Author Organization [facility] Jcarlos lt Address [address] [place] [address]- Care Team Providers Care Licensing And Registration Director Name Role Phone Elmer Puentes MD Primary Care Physician [phone] Encounter [facility] Date(s): 06/30/21 - 07/07/21 [facility] Adult [address] [place] [address]- Encounter Diagnosis HTN (hypertension)(Discharge Diagnosis) - 06/30/21 Attending Physician: Elmer Puentes MD Allergies, Adverse [...] (oldterm) 06/24/99 Given 1Result Comment: [03/18/2017] [facility]: 42076-909-83 HIGH DOSE 2Admin Note: given by LB 3Admin Note: [employer] 4Admin Note: [employer] [facility] Medications allopurinol 300 mg oral tablet 1, tablet, By Mouth, Daily, # 90 tablet, Refills 1, Route to Pharmacy Electronically, [facility] STORE 63566, 175.26, cm, 01/30/21 16:19:00 EDT, Height, 84, kg, 10/31/20 13:29:00 EDT, Dry Weight Start Date: 02/21/21 Status: Ordered Diflucan 200 mg oral tablet 1 tablet = 200 mg, By Mouth, Daily, # 30 tablet, 0 Refills, Maintenance, 05/25/21 11:51:00 EST, Tablet, [facility]/pharmacy #[id number], Partial fill upon patient request if the prescription is for a schedule II opioid drug., 175.26, cm, 05/25/21 11:22:00 EST, Hei... Start Date: 05/25/21 Status: Ordered diltiazem 300 mg/24 hours oral capsule, extended release 300 mg, 1, capsule, By Mouth, Daily, # 90 capsule, Refills 3, Tot. Refills 3, Maintenance, :53:00 EDT, Route to Pharmacy Electronically, [facility]/pharmacy #[id number], Partial fill upon patient request if the prescription is for a schedule II opioid dr... Start Date: 11/18/20 Status: Ordered Eliquis 5 mg oral tablet 1 tablet, By Mouth, 2 times a day, # 60 tablet, 11 Refills, Maintenance, 02/20/21 9:23:00 EDT, [facility]/pharmacy #[id number], 175.26, cm, 01/30/21 16:19:00 EDT, Height, 84, kg, 10/31/20 13:29:00 EDT, Dry Weight Start Date: 02/20/21 Status: Ordered FLUoxetine 20 mg oral capsule 20 mg, 1, capsule, By Mouth, Daily, # 30 capsule, Refills 11, Tot. Refills 11, Maintenance, 05/25/21 11:49:00 EST, Route to Pharmacy Electronically, [facility]/pharmacy #[id number], Partial fill upon patient request if the prescription is for a schedule II opioid... Start Date: 05/25/21 Status: Ordered furosemide 40 mg oral tablet 80 mg, 2, tablet, By Mouth, Daily, # 90 tablet, Refills 3, Tot. Refills 3, Maintenance, 03/31/19 11:18:45 EDT, Route to Pharmacy Electronically, [facility]/pharmacy #[id number] Start Date: 03/31/19 Status: Ordered Multivitamin By Mouth, Daily, 0 Refills, Maintenance Start Date: 08/19/12 Status: Ordered pravastatin 80 mg oral tablet See Instructions, TAKE 1 TABLET BY MOUTH EVERY DAY, # 90 tablet, 1 Refills, Soft Stop, 01/10/21 9:51:00 EDT, [facility]/pharmacy #[id number], 175.26, cm, 12/19/20 9:28:00 EDT, Height, 84, kg, 10/31/20 13:29:00 EDT, Dry Weight Start Date: 01/10/21 Status: Ordered terazosin 2 mg oral capsule 2 mg, 1, capsule, By Mouth, Daily at bedtime, # 90 capsule, Refills 3, Tot. Refills 3, Maintenance,06/30/21 15:25:00 EST, Route to Pharmacy Electronically, [facility] Tot. Refills 0, Maintenance, [facility], 01/05/18 12:43:07 EDT, Compound Start Date: 01/05/18 Status: Ordered valsartan 320 mg oral tablet 1 tablet = 320 mg, By Mouth, Daily, # 90 tablet, 3 Refills, Maintenance, 11/04/20 14:17:00 EDT, Tablet, [facility]/pharmacy #[id number], Partial fill upon patient request if the [...] Active Insomnia(Confirmed) Active Internal hemorrhoids(Confirmed) 5 Active Depression, major, in partia l remission(Confirmed) Active OA (osteoarthritis) of knee(Confirmed) Active [...] inical Service Informant HTN (hypertension) Discharge Diagnosis 06/30/21 Vital Signs Most recent to oldest [Reference Range]: 1 Height 175.26 cm (06/30/21 3:13 PM) Social History Social History Type Response Smoking Status Former smoker; Tobac co user in household: Yes entered on: 06/03/14 Sex Male
--- OUTSIDE RECORDS SUMMARY | 2023-11-21 10:45 | XMS_ITS | Continuity of Care Document ---
Author Organization [facility] Address [address] [place] [address]- Care Team Providers Care Stave Cutting Supervisor Name Role Phone Elmer Puentes MD Primary Care Physician [phone] Encounter [facility] Date(s): 06/26/19 - 07/03/19 [facility] [address] [place] [address] [facility] Attending Physician: oJhnna PEMBERTON, Treasure Escalante Admitting Physician: Johnna PEMBERTON, Treasure Escalante Referring Physician: Elmer Puentes MD Allergies, Adverse Reactions, Alerts Substance Reaction Severity Status Bee Stings Active Immunizations Given and Recorded Vaccine Date Status Refusal Reason influenza virus vaccine, inactivated 03/21/18 Give n [...] Vaccine (oldterm) 06/24/99 Given 1Result Comment: [03/18/2017] [facility]: 13121-802-86 HIGH DOSE 2Admin Note: given by LB 3Admin Note: [facility] 4Admin Note: [facility] Medications allopurinol 300 mg oral tablet 300 mg, 1, tablet, By Mouth, Daily, # 90 tablet, Refills 3, Tot. Refills 3, Maintenance, 01/21/19 16:49:02 EDT, Route to Pharmacy Electronically, [id number], [facility]/pharmacy #207 Start Date: 01/21/19 Status: Ordered cloNIDine 0.1 mg oral tablet See Instructions, TAKE 1 TABLET BY MOUTH TWICE A DAY, # 180 tablet, Refills 1, Tot. Refills 1, [facility], 05/25/19 12:25:53 EST, Instructions Replace Required Details, Route to Pharmacy Electronically, [id number], [facility]/pharmac... Start Date: 05/25/19 Status: Ordered diltiazem 240 mg/24 hours oral capsule, extended release 240 mg, 1, capsule, By Mouth, Daily, # 90 capsule, Refills 3, Tot. Refills 3, Maintenance, 09/26/1910:33:05 EDT, Do Not Route Start Date: 09/26/18 Status: Ordered Eliquis 5 mg oral tablet 1 tablet = 5 mg, By Mouth, 2 times a day, lot # [id number] exp 08/15 4 box, # 60 tablet, 0 Refills, Maintenance, 06/12/19 13:39:00 EST, Tablet Start Date: 06/12/19 Status: Ordered Eliquis 5 mg oral tablet 1 tablet = 5 mg, By Mouth, 2 times a day, # 180 tablet, 3 Refills, Maintenance, 11/21/18 9:37:08 EDT, Tablet Start Date: 11/21/18 Stop Date: 11/16/19 Status: Ordered furosemide 40 mg oral tablet 120 mg, 3, tablet, By Mouth, Daily, # 90 tablet, Refills 3, Tot. Refills 3, Maintenance, 03/31/19 11:18:45 EDT, Route to Pharmacy Electronically, [id number], [facility]/pharmacy #[id number] Start Date: 03/31/19 Status: Ordered losartan 50 mg oral tablet 50 mg, 1, tablet, By Mouth, Daily, # 90 tablet, Refills 3, Tot. Refills 3, Maintenance, 03/31/19 11:17:44 EDT, Route to Pharmacy Electronically, [id number], [facility]/pharmacy #2070 Start Date: 03/31/19 Status: Ordered Multivitamin By Mouth, Daily, 0 Refills, Maintenance Start Date: 08/19/12 Status: Ordered pravastatin 80 mg oral tablet See Instructions, # 90 tablet, Refills 1 Tot. Refills 1, TAKE 1 TABLET BY MOUTH EVERY DAY, [facility]/pharmacy #[id number] Start Date: 01/18/19 Status: Ordered terazosin 5 mg oral capsule 5 mg, 1, capsule, By Mouth, Daily at bedtime, # 90 capsule, Refills 3, Tot. Refills 3, Maintenance,03/31/19 11:18:21 EDT, Route to Pharmacy Electronically, [id number], [facility]/pharmacy #2070 Start Date: 03/31/19 Status: Ordered turmeric 500 mg oral capsule 3 capsule = 1,500 mg, By Mouth, Daily, # 60 capsule, 0 Refills, Maintenance, 03/31/19 11:20:01 EDT,Capsule Start Date: 03/31/19 Status: Ordered uses nightly uses nightly, See Instructions, # 1 each, Refills 0, Tot. Refills 0, Maintenance, [facility], 01/05/18 12:43:07 EDT, Compound Start Date: [...] Active 1Colonoscopy 2013 positive polyp, repeat 2017. 19737 negative, repeat 2013 3colo 2018 4Right knee 2013. 5colo 2018 6colo 2018 Vital Signs Most recent to oldest [Reference Range]: 1 Height 175.26 cm (06/26/19 2:39 PM) Weight 79.38 kg (06/26/19 2:39 PM) Body Mass Index [18.5-24.99] 25.84 *H* (06/26/19 2:39 PM) Blood Pressure [90-138/55-84 mm Hg] 124/ 80mm Hg (06/26/19 2:39 PM) Blood pressure sites Arm, left (06/26/19 2:39 PM) Weight Obtained Via Patient/family state d (06/26/19 2:39 PM) Social History Social History Type Response Smoking Status Former smoker; Tobac co user in household: Yes entered on: 06/03/14 Sex
--- OUTSIDE RECORDS SUMMARY | 2023-11-21 10:46 | XMS_ITS | Continuity of Care Document ---
Author Organization [facility] Jcarlos Address [address] [place] [id number]- Care Team Providers Care Forms Designer Name Role Phone Deloris MEDINA, Elmer Bill Primary Care Physician [phone] [facility]20 - 11/18/20 [facility] Adult [address] [place] [address]- Allergies, Adverse Reactions, Alerts Substance Reaction Severity [...] Comment: [03/18/2017] [facility]: [id number] HIGH DOSE 2Admin Note: given by LB 3Admin Note: [employer] [facility] 4Admin Note: [employer] [facility] Medications allopurinol 300 mg oral tablet 300 mg, 1, tablet, By Mouth, Daily, # 90 tablet, Refills 0, Tot. Refills 0, Maintenance, 08/27/20 9:17:00 EST, Route to Pharmacy Electronically, [facility]/pharmacy #2070, 175.26, cm, 04/01/20 11:21:00 EDT,Height Start Date: 08/27/20 Status: Ordered diltiazem 300 mg/24 hours oral capsule, extended release 300 mg, 1, capsule, By Mouth, Daily, # 90 capsule, Refills 3, Tot. Refills 3, Maintenance, :53:00 EDT, [facility], Partial fill upon patient request if the prescription is for a schedule II opioid . Start Date: 11/18/20 Status: Ordered Eliquis 5 mg oral tablet 1 tablet = 5 mg, By Mouth, 2 times a day, # 180 tablet, 3 Refills, Maintenance, 12/30/19 15:45:00 EDT, Tablet, [facility]/pharmacy #2070, 175.26, cm, 09/30/19 10:57:00 EDT, Height Start Date: 12/30/19 Status: Ordered furosemide 40 mg oral tablet 80 mg, 2, tablet, By Mouth, Daily, # 90 tablet, Refills 3, Tot. Refills 3, Maintenance, 03/31/19 11:18:45 EDT, Route to Pharmacy Electronically, [facility]/pharmacy #207 Start Date: 03/31/19 Status: Ordered Multivitamin By Mouth, Daily, 0 Refills, Maintenance Start Date: 08/19/12 Status: Ordered pravastatin 80 mg oral tablet See Instructions, TAKE 1 TABLET BY MOUTH EVERY DAY, # 90 tablet, 1 Refills, Soft Stop, 07/20/20 10:47:00 EST, [facility]/pharmacy #1, 175.26, cm, 04/01/20 11:21:00 EDT, Height Start Date: 07/20/20 Status: Ordered turmeric 500 mg oral capsule 3 capsule = 1,500 mg, By Mouth, Daily, # 60 capsule, 0 Refills, Maintenance, 03/31/19 11:20:01 EDT,Capsule Start Date: 03/31/19 Status: Ordered uses nightly uses nightly, See Instructions, # 1 each, Refills 0, Tot. Refills 0, Maintenance, ASV EPAP 6 [facility], 01/05/18 12:43:07 EDT, Compound Start Date: 01/05/18 Status: Ordered valsartan 320 mg oral tablet 1 tablet = 320 mg, By Mouth, Daily, # 90 tablet, 3 Refills, Maintenance, 11/04/20 14:17:00 EDT, Tablet, [facility]/pharmacy #5371, Partial fill upon patient request if the [...] Active 1Colonoscopy 2012 positive polyp, repeat 2018. 52908 negative, repeat 2012 3colo 2018 4Right knee 2014. 5colo 2018 6colo 2018 Social History Social History Type Response Smoking Status Former smoker; Tobac co user in household: Yes entered on: 06/03/14 Sex
--- OUTSIDE RECORDS SUMMARY | 2023-11-21 10:46 | XMS_ITS | Continuity of Care Document ---
Author Organization [facility] Vern Townsend Jcarlos Address [address] [place] [phone]- Care Team Providers Care Professor Of Radiology Name Role Phone Elmer Puentes MD Primary Care Physician [phone] [facility] 04[facility]10[facility]23 - 05/10/23 [facility] Vern Townsend Adult [address] [place] [address]- Allergies, Adverse Reactions, Alerts Substance Reaction Severity [...] vaccine, inactivated 04/22/08 Give n SARS-CoV-2 mRNA (wdihgnp-[id number]) vax 2 03/23/22 Recorded SARS-CoV-2 (COVID-19) mRNA [...] 1Result Comment: [03/18/2017] [facility]: [id number] HIGH DOSE 2Result Comment: Moderna Covid Bivalent Booster, [facility] 3Admin Note: given by LB 4Admin Note: [employer] 5Admin Note: [employer] [facility] Medications acetaminophen 325 mg oral tablet 650 [...] 05/29/22 14:30:00 EST, Route to Pharmacy Electronically, [facility] STORE 65776, 175.26, cm, 02/21/22 14:25:00 EDT, Height, 84, [...] 11 Refills, Maintenance, 04/08/23 14:31:00 EDT, Tablet, [facility] # [facility], Partial fill upon [...] tablet, 11 Refills, Maintenance, 04/08/23 14:30:00 EDT, [facility] # 50, 172, cm, 03/22/23 14:14:00 EDT, Height, 79.5, kg, 03/16/23 13:06:00 EDT, Dry Weight Start Date: 04/08/23 Status: Ordered FLUoxetine 40 mg oral capsule 1 capsule = 40 mg, By Mouth, Daily, # 30 capsule, 11 Refills, Maintenance, 04/08/23 11:49:00 EDT, Capsule, [facility] # 50, Partial fill upon patient request if the prescription is for a scheduleII opioid drug., 172, cm, 03/22/23 14:14:00 EDT, He... Start Date: 04/08/23 Stop Date: 04/02/24 Status: Ordered furosemide 40 mg oral tablet 40 mg, 1, tablet, By Mouth, Daily, # 90 tablet, Refills 3, Tot. Refills 3, Maintenance, 06/05/22 16:04:00 EST, Route to Pharmacy Electronically, [facility]/pharmacy #7225, 175.26, cm, 02/21/22 14:25:00 EDT,Height, 84, kg, 10/31/20 13:29:00 EDT, Dry Weight Start Date: 06/05/22 Stop Date: 05/31/23 Status: Ordered metoprolol 25 mg oral tablet, extended release 25 mg, 1, tablet, By Mouth, Daily, # 30 tablet, Refills 11, Tot. Refills 11, Maintenance, 04/08/23 14:32:00 EDT, Route to Pharmacy Electronically, [facility] # [facility], Partial fill upon patient [...] 04/08/23 14:31:00 EDT, Route to Pharmacy Electronically, [facility] # 50, Partial fill upon patient request if the prescription is for a schedule II opio... Start Date: 04/08/23 Stop Date: 04/02/24 Status: Ordered terazosin 2 mg oral capsule 2 mg, 1, capsule, By Mouth, Daily at bedtime, # 90 capsule, Refills 3, Tot. Refills 3, Maintenance,11/21/22 13:39:00 EDT, Route to Pharmacy Electronically, [facility]/pharmacy #4121, Partial fill upon patient request if the prescription is for a schedule II... Start Date: 11/21/22 Stop Date: 11/16/23 Status: Ordered uses nightly uses nightly, See Instructions, # 1 each, Refills 0, Tot. Refills 0, Maintenance, ASV EPAP 6 [facility] [place], 01/05/18 12:43:07 EDT, Compound Start Date: 01/05/18 [...] Team Personnel Name: Elmer Puentes MD Position: [facility] Physician - Primary Care Member Role: PCP Address: Address: [address] [place] [address]- Name: Sidra Banda RN Position: [facility] AMB Nurse Member Role: Primary Care Nurse Name: Judith Duron RN Position: [facility] ED RN W/OE and Tasks Member Role: Primary Care Nurse Name: Samy Arenas RN Position: [facility] RN Member Role: Primary Care Nurse Care Team Related Persons Name: ROBIN MOTA Address: home [address] [address]
--- OUTSIDE RECORDS SUMMARY | 2023-11-21 10:46 | XMS_ITS | Continuity of Care Document ---
Author Organization [facility] Jcarlos lt Address [address] [place] [address]- Care Team Providers Care Financial Engineer Name Role Phone Deloris MEDINA, Elmer Bill Primary Care Physician Encounter [facility] Date(s): 07/23/23 - 08/22/23 [facility] Adult [address] [place] [address]- Allergies, Adverse Reactions, Alerts Substance Reaction Severity [...] vaccine, inactivated 04/22/08 Give n SARS-CoV-2 mRNA ([id number]-[id number]-[id number]) vax 2 03/23/22 Recorded SARS-CoV-2 (COVID-19) mRNA [...] [03/18/2017] [facility]: [id number] HIGH DOSE 2Result Comment: Moderna Covid Bivalent Booster, [facility] Pharmacy 3Admin Note: given by LB 4Admin Note: [employer] 5Admin Note: [employer] Medications acetaminophen 325 mg oral tablet 650 [...] tablet, 11 Refills, Maintenance, 04/08/23 14:30:00 EDT, [facility] # 50, 172, alexei, 03/22/23 14:14:00 [...] 06/10/23 6:07:00 EST, Route to Pharmacy Electronically, [facility] 0[facility], 172, cm, 05/17/23 14:43:00 EST, Height, 79.5, kg, 03/16/23 13:06:00 EDT, Dry Weight Start Date: 06/10/23 Status: Ordered metoprolol 25 mg oral tablet, extended release 25 mg, 1, tablet, By Mouth, Daily, # 30 tablet, Refills 11, Tot. Refills 11, Maintenance, 04/08/23 14:32:00 EDT, Route to Pharmacy Electronically, [facility] # 50, Partial fill upon patient [...] 04/08/23 14:31:00 EDT, Route to Pharmacy Electronically, [facility] # 50, Partial fill upon patient request if the prescription is for a schedule II opioid d... Start Date: 04/08/23 Stop Date: 04/02/24 Status: Ordered terazosin 2 mg oral capsule 2 mg, 1, capsule, By Mouth, Daily at bedtime, # 90 capsule, Refills 3, Tot. Refills 3, Maintenance,11/21/22 13:39:00 EDT, Route to Pharmacy Electronically, [facility]/pharmacy #[id number], Partial fill upon patient request if the prescription is for a schedule II... Start Date: 11/21/22 Stop Date: 11/16/23 Status: Ordered traZODone 50 mg oral tablet 50 mg, 1, tablet, By Mouth, Daily at bedtime, # 30 tablet, Refills 11, Tot. Refills 11, Maintenance, 07/18/23 11:18:00 EST, Route to Pharmacy Electronically, [facility] # 50, Partial fill upon patient request if the prescription is for a schedule... Start Date: 07/18/23 Stop Date: 07/12/24 Status: Ordered uses nightly uses nightly, See Instructions, # 1 each, Refills 0, Tot. Refills 0, Maintenance, ASV EPAP 6 [facility], 01/05/18 12:43:07 EDT, Compound Start [...] Primary Care Member Role: PCP Address: Address: [address] [place] [address]- Name: Sidra Banda RN Position: [facility] Nurse Member Role: Primary Care Nurse Name: Judith Duron RN Position: [facility] ED RN W/OE and Tasks Member Role: Primary Care Nurse Name: Jewell Polo Position: [facility] [place] Language Teacher Member Role: Tip Length Checker Care Team Related Persons Name: ROBIN MOTA Address: home [address] [address]
--- OUTSIDE RECORDS SUMMARY | 2023-11-21 10:46 | XMS_ITS | Continuity of Care Document ---
Author Organization [facility] Jcarlos Address [address] [place] [address]- Care Team Providers Care Tobacco Checkout Clerk Name Role Phone Elmer Puentes MD Primary Care Physician [phone] [facility]s): 06/14/22 - 06/21/22 [facility] Adult [address] [place] [address]- Attending Physician: Elmer Puentes MD Allergies, Adverse Reactions, Alerts Substance Reaction Severity Status Bee Stings Active Immunizations Given and Recorded Vaccine Date Status Refusal Reason SARS-CoV-2 mRNA (tebblgx-fpbk-gshbm) vax 1 03/23/22 Recorded influenza virus vaccine, [...] Given 1Result Comment: Moderna Covid Bivalent Booster, [facility] Pharm[facility] 2Result Comment: [03/18/2017] [facility]: [id number] HIGH DOSE 3Admin Note: given by LB 4Admin Note: [facility] 5Admin Note: [facility] Medications allopurinol 300 mg oral tablet 1, tablet, By Mouth, Daily, # 90 tablet, Refills 3, Maintenance, 05/29/22 14:30:00 EST, Route to Pharmacy Electronically, [facility] STORE 04260, 175.26, cm, 02/21/22 14:25:00 EDT, Height, 84, kg, 10/31/20 13:29:00 EDT, Dry Weight Start Date: 05/29/22 Status: Ordered apixaban 2.5 mg oral tablet 1 tablet = 2.5 mg, By Mouth, 2 times a day, # 10 tablet, 0 Refills, Maintenance, 06/13/22 14:47:00 EST, Tablet, [facility]/pharmacy #2071, Partial fill upon patient [...] # 90 capsule, 3 Refills, [facility], 175.26, cm, 11/03/21 10:48:00 EDT, Height, 84, kg, 10/31/20 13:29:00 EDT, Dry Weight Start Date: 12/19/21 Status: Ordered DilTIAZem (Eqv-Dilacor XR) 180 mg/24 hours oral capsule, extended release 1 capsule = 180 mg, By Mouth, Daily, # 8 capsule, 0 Refills, Maintenance, 06/14/22 11:15:00 EST, [facility]/pharmacy #2071, Partial fill upon patient request if the prescription is for a schedule II opioid drug., 173, cm, 06/14/22 10:32:00 EST, Height, 79.5,... Start Date: 06/14/22 Stop Date: 06/22/22 Status: Ordered Eliquis 5 mg oral tablet 1 tablet, By Mouth, 2 times a day, # 60 tablet, 11 Refills, Maintenance, 03/12/22 18:53:00 EDT, [facility], 175.26, cm, 02/21/22 14:25:00 EDT, Height, 84, kg, 10/31/20 13:29:00 EDT, Dry Weight Start Date: 03/12/22 Status: Ordered FLUoxetine 20 mg oral capsule 1, capsule, By Mouth, Daily, # 30 capsule, Refills 6, Maintenance, 06/21/22 14:13:00 EST, Route to Pharmacy Electronically, [facility], 173, cm, 06/14/22 10:32:00 EST, Height, 79.5, kg, 06/13/2215:11:00 EST, Dry Weight Start Date: 06/21/22 Status: Ordered furosemide 40 mg oral tablet 2, tablet, By Mouth, Daily, # 180 tablet, Refills 3, Tot. Refills 3, Maintenance, 06/05/22 16:04:00EST, Route to Pharmacy Electronically, [facility]/pharmacy #2071, 175.26, cm, 02/21/22 14:25:00 EDT, Height, 84, kg, 10/31/20 13:29:00 EDT, Dry Weight Start Date: 06/05/22 Stop Date: 05/31/23 Status: Ordered Multivitamin By Mouth, Daily, 0 Refills, Maintenance Start Date: 08/19/12 Status: Ordered pravastatin 80 mg oral tablet 1 tablet, By Mouth, Daily, # 90 tablet, 1 Refills, 05/29/22 13:47:00 EST, [facility]/pharmacy #2071, 175.26, cm, 02/21/22 14:25:00 EDT, [...] Replace Required Details, Route to Pharmacy Electronically, [facility] 28079, 175.26, cm, 02/21/22 14:25:00 EDT, Height,... Start [...] Active 1Colonoscopy 2013 positive polyp, repeat 2017. 06909 negative, repeat 2013 3colo 2018 4Right knee 2013. 5colo 2018 6colo 2018 Vital Signs Most recent to oldest [Reference Range]: 1 Height 173 cm (06/14/22 10:32 AM) Mode of Delivery (Oxygen) Room air (06/14/22 10:32 AM) Social History Social History Type Response Smoking Status Former smoker; Tobac co user in household: Yes entered on: 06/03/14 Sex Male Patient Care team information Care Team Personnel Name: Elmer Puentes MD Position: [facility] Primary Care Physician Member Role: PCP Address: Address: [address] [place] [id number]- Name: Sidra Banda RN Position: S RN Member Role: Primary Care Nurse Name: Judith Duron RN Position: S RN Member Role: Primary Care Nurse Care Team Related Persons Name: ROBIN MOTA Address: home [address] [address]
--- OUTSIDE RECORDS SUMMARY | 2023-11-21 10:46 | XMS_ITS | Continuity of Care Document ---
Author Organization [facility] Kristian Jcarlos Address [address] [place] [address]- Care Team Providers Care Manager Of Photography Name Role Phone Deloris MEDINA, Elmer Bill Primary Care Physician [facility]s): 07/31/22 - 08/30/22 [facility] Adult [address] [place] [address]- Allergies, Adverse Reactions, Alerts Substance Reaction Severity Status Bee Stings Active Immunizations Given and Recorded Vaccine Date Status Refusal Reason SARS-CoV-2 mRNA (mmeokjv-ldmb-mxoar) vax 1 03/23/22 Recorded influenza virus vaccine, [...] Given 1Result Comment: Moderna Covid Bivalent Booster, [facility] 2Result Comment: [03/18/2017] [facility]: [id number] HIGH DOSE 3Admin Note: given by LB 4Admin Note: [employer] [facility] 5Admin Note: [employer] [facility] Medications allopurinol 300 mg oral tablet 1, tablet, By Mouth, Daily, # 90 tablet, Refills 3, Maintenance, 05/29/22 14:30:00 EST, Route to Pharmacy Electronically, [facility]ORE 84973, 175.26, cm, 02/21/22 14:25:00 EDT, Height, 84, kg, 10/31/20 13:29:00 EDT, Dry Weight Start Date: 05/29/22 Status: Ordered apixaban 2.5 mg oral tablet 1 tablet = 2.5 mg, By Mouth, 2 times a day, # 10 tablet, 0 Refills, Maintenance, 06/13/22 14:47:00 EST, Tablet, [facility]/pharmacy #2071, Partial fill upon patient request if [...] # 90 capsule, 3 Refills, [facility], 175.26, cm, 11/03/21 10:48:00 EDT, Height, 84, kg, 10/31/20 13:29:00 EDT, Dry Weight Start Date: 12/19/21 Status: Ordered DilTIAZem (Eqv-Dilacor XR) 180 mg/24 hours oral capsule, extended release 1 capsule = 180 mg, By Mouth, Daily, # 8 capsule, 0 Refills, Maintenance, 06/14/22 11:15:00 EST, [facility]/pharmacy #2071, Partial fill upon patient request if the prescription is for a schedule II opioid drug., 173, cm, 06/14/22 10:32:00 EST, Height, 79.5,... Start Date: 06/14/22 Stop Date: 06/22/22 Status: Ordered Eliquis 5 mg oral tablet 1 tablet, By Mouth, 2 times a day, # 60 tablet, 11 Refills, Maintenance, 03/12/22 18:53:00 EDT, [facility], 175.26, cm, 02/21/22 14:25:00 EDT, Height, 84, kg, 10/31/20 13:29:00 EDT, Dry Weight Start Date: 03/12/22 Status: Ordered FLUoxetine 20 mg oral capsule 1, capsule, By Mouth, Daily, # 30 capsule, Refills 6, Maintenance, 06/21/22 14:13:00 EST, Route to Pharmacy Electronically, [facility], 173, cm, 06/14/22 10:32:00 EST, Height, 79.5, kg, 06/13/2215:11:00 EST, Dry Weight Start Date: 06/21/22 Status: Ordered furosemide 40 mg oral tablet 2, tablet, By Mouth, Daily, # 180 tablet, Refills 3, Tot. Refills 3, Maintenance, 06/05/22 16:04:00EST, Route to Pharmacy Electronically, [facility]/pharmacy #2071, 175.26, cm, 02/21/22 14:25:00 EDT, Height, 84, kg, 10/31/20 13:29:00 EDT, Dry Weight Start Date: 06/05/22 Stop Date: 05/31/23 Status: Ordered Multivitamin By Mouth, Daily, 0 Refills, Maintenance Start Date: 08/19/12 Status: Ordered pravastatin 80 mg oral tablet 1 tablet, By Mouth, Daily, # 90 tablet, 1 Refills, 05/29/22 13:47:00 EST, [facility]/pharmacy #2071, 175.26, cm, 02/21/22 14:25:00 EDT, Height, 84, kg, 10/31/20 13:29:00 EDT, Dry Weight Start Date: 05/29/22 Status: Ordered terazosin 2 mg oral capsule See Instructions, TAKE 1 CAPSULE BY MOUTH EVERYDAY AT BEDTIME, # 90 capsule, Refills 3, Maintenance, 07/31/22 14:24:00 EST, Instructions Replace Required Details, Route to Pharmacy Electronically, [facility], 173, cm, 06/14/22 10:32:00 EST, Heigh... Start Date: 07/31/22 Status: Ordered terazosin 2 mg oral capsule 2 mg, 1, capsule, By Mouth, Daily at bedtime, # 90 capsule, Refills 3, Tot. Refills 3, Maintenance,06/30/21 15:25:00 EST, Route to Pharmacy Electronically, [facility]/pharmacy #2071, Partial fill upon patient request if [...] 0, Maintenance, ASV EPAP 6 [facility], 01/05/18 12:43:07 EDT, Compound Start Date: 01/05/18 Status: Ordered valsartan 160 mg oral tablet See Instructions, TAKE 1 + 1/2 TABLET BY MOUTH EVERY DAY, # 135 tablet, Refills 0, Maintenance, 05/16/22 15:23:00 EST, Instructions Replace Required Details, Route to Pharmacy Electronically, [facility] 91503, 175.26, cm, 02/21/22 14:25:00 EDT, Height,... Start [...] Active 1Colonoscopy 2013 positive polyp, repeat 2018. 14013 negative, repeat 2012 3colo 2018 4Right knee 2013. 5colo 2019 6colo 2019 Social History Social History Type Response Smoking Status Former smoker; Tobac co user in household: Yes entered on: 06/03/14 Sex Male Patient Care team information Care Team Personnel Name: Elmer Puentes MD Position: [facility] Primary Care Physician Member Role: PCP Address: Address: [address] [place] [phone]- Name: Sidra Banda RN Position: S RN Member Role: Primary Care Nurse Name: Judith Duron RN Position: S RN Member Role: Primary Care Nurse Care Team Related Persons Name: NAKUL ROBIN Address: home [address] [address]
--- OUTSIDE RECORDS SUMMARY | 2023-11-21 10:46 | XMS_ITS | Continuity of Care Document ---
Author Organization [facility] Jcarlos Address [address] [place] [address]- Care Team Providers Care Automobile Accessories Installer Name Role Phone Elmer Puentes MD Primary Care Physician [facility] 12[facility]20 - 12/13/20 [facility] Adult [address] [place] [address]- Attending Physician: Elmer Puentes MD Allergies, Adverse [...] (oldterm) 06/24/99 Given 1Result Comment: [03/18/2017] [facility]: 52083-051-33 HIGH DOSE 2Admin Note: given by LB 3Admin Note: [employer] [facility] 4Admin Note: [employer] [facility] Medications allopurinol 300 mg oral tablet 300 mg, 1, tablet, By Mouth, Daily, # 90 tablet, Refills 0, Tot. Refills 0, Maintenance, 08/27/20 9:17:00 EST, Route to Pharmacy Electronically, [facility]/pharmacy #2070, 175.26, cm, 04/01/20 11:21:00 EDT,Height Start Date: 08/27/20 Status: Ordered diltiazem 300 mg/24 hours oral capsule, extended release 300 mg, 1, capsule, By Mouth, Daily, # 90 capsule, Refills 3, Tot. Refills 3, Maintenance, :53:00 EDT, [facility] fill upon patient request if the prescription is for a schedule II opioid . Start Date: 11/18/20 Status: Ordered Eliquis 5 mg oral tablet 1 tablet = 5 mg, By Mouth, 2 times a day, # 180 tablet, 3 Refills, Maintenance, 12/30/19 15:45:00 EDT, Tablet, [facility]/pharmacy #2070, 175.26, cm, 09/30/19 10:57:00 EDT, Height Start Date: 12/30/19 Status: Ordered furosemide 40 mg oral tablet 80 mg, 2, tablet, By Mouth, Daily, # 90 tablet, Refills 3, Tot. Refills 3, Maintenance, 03/31/19 11:18:45 EDT, Route to Pharmacy Electronically, [facility]/pharmacy #207 Start Date: 03/31/19 Status: Ordered Multivitamin By Mouth, Daily, 0 Refills, Maintenance Start Date: 08/19/12 Status: Ordered pravastatin 80 mg oral tablet See Instructions, TAKE 1 TABLET BY MOUTH EVERY DAY, # 90 tablet, 1 Refills, Soft Stop, 07/20/20 10:47:00 EST, [facility]/pharmacy #1, 175.26, cm, 10/09/20 11:21:00 EDT, Height Start Date: 07/20/20 Status: Ordered turmeric 500 mg oral capsule 3 capsule = 1,500 mg, By Mouth, Daily, # 60 capsule, 0 Refills, Maintenance, 03/31/19 11:20:01 EDT,Capsule Start Date: 03/31/19 Status: Ordered uses nightly uses nightly, See Instructions, # 1 each, Refills 0, Tot. Refills 0, Maintenance, ASV EPAP 6 [facility], 01/05/18 12:43:07 EDT, Compound Start Date: 01/05/18 Status: Ordered valsartan 320 mg oral tablet 1 tablet = 320 mg, By Mouth, Daily, # 90 tablet, 3 Refills, Maintenance, 11/04/20 14:17:00 EDT, Tablet, [facility], Partial fill upon patient request if the [...] Active 1Colonoscopy 2013 positive polyp, repeat 2018. 99799 negative, repeat 2012 3colo 2018 4Right knee 2013. 5colo 2018 6colo 2019 Vital Signs Most recent to oldest [Reference Range]: 1 Blood Pressure [90-138/55-84 mm Hg] 146/ 82mm Hg *H* (12/06/20 10:13 AM) Blood pressure sites Arm, left (12/06/20 10:13 AM) Social History Social History Type Response Smoking Status Former smoker; Tobac co user in household: Yes entered on: 06/03/14 Sex
--- OUTSIDE RECORDS SUMMARY | 2023-11-21 10:46 | XMS_ITS | Continuity of Care Document ---
Author Organization [facility] Jcarlos Address [address] [place] [address]- Care Team Providers Care Surgery Scheduler Name Role Phone Deloris MEDINA, Elmer Bill Primary Care Physician [phone] [place] [facility] [place] 10[place]09[place]21 - 10/16/21 [facility] Adult [address] [place] [address]- Encounter Diagnosis HTN (hypertension)(Discharge Diagnosis) - 10/10/21 Dyspnea on exertion(Discharge Diagnosis) - 10/10/21 Attending Physician: Diane Rose Allergies, Adverse Reactions, [...] 1Result Comment: [03/18/2017] [facility]: [id number] HIGH DOSE 2Admin Note: given by LB 3Admin Note: [employer]ical [employer] [facility] 4Admin Note: [employer] [facility] Medications allopurinol 300 mg oral tablet 1, tablet, By Mouth, Daily, # 90 tablet, Refills 1, Route to Pharmacy Electronically, [facility] 19567, 175.26, cm, 06/30/21 15:13:00 EST, Height, 84, kg, 10/31/20 13:29:00 EDT, Dry Weight Start Date: 07/14/21 Status: Ordered Diflucan 200 mg oral tablet 1 tablet = 200 mg, By Mouth, Daily, # 30 tablet, 0 Refills, Maintenance, 05/25/21 11:51:00 EST, Tablet, [facility]/pharmacy #[id number], Partial fill upon patient request if the prescription is for a schedule II opioid drug., 175.26, cm, 05/25/21 11:22:00 EST, Hei... Start Date: 05/25/21 Status: Ordered diltiazem 300 mg/24 hours oral capsule, extended release 300 mg, 1, capsule, By Mouth, Daily, # 90 capsule, Refills 3, Tot. Refills 3, Maintenance, :53:00 EDT, Route to Pharmacy Electronically, [facility]/pharmacy #[id number], Partial fill upon patient request if the prescription is for a schedule II opioid drBarbara.. Start Date: 11/18/20 Status: Ordered Eliquis 5 mg oral tablet 1 tablet, By Mouth, 2 times a day, # 60 tablet, 11 Refills, Maintenance, 02/20/21 9:23:00 EDT, [facility]/pharmacy #[id number], 175.26, cm, 01/30/21 16:19:00 EDT, Height, 84, kg, 10/31/20 13:29:00 EDT, Dry Weight Start Date: 02/20/21 Status: Ordered FLUoxetine 20 mg oral capsule 20 mg, 1, capsule, By Mouth, Daily, # 30 capsule, Refills 11, Tot. Refills 11, Maintenance, 05/25/21 11:49:00 EST, Route to Pharmacy Electronically, [facility]/pharmacy #[id number], Partial fill upon patient request if the prescription is for a schedule II opioid... Start Date: 05/25/21 Status: Ordered furosemide 40 mg oral tablet 80 mg, 2, tablet, By Mouth, Daily, # 90 tablet, Refills 3, Tot. Refills 3, Maintenance, 03/31/19 11:18:45 EDT, Route to Pharmacy Electronically, [facility]/pharmacy #[id number] Start Date: 03/31/19 Status: Ordered Multivitamin By Mouth, Daily, 0 Refills, Maintenance Start Date: 08/19/12 Status: Ordered pravastatin 80 mg oral tablet 1 tablet, By Mouth, Daily, # 90 tablet, 1 Refills, [facility] 82298, 175.26, cm, 06/30/21 15:13:00 EST, Height, 84, kg, 10/31/20 13:29:00 EDT, Dry Weight Start Date: 07/14/21 Status: Ordered terazosin 2 mg oral capsule 2 mg, 1, capsule, By Mouth, Daily at bedtime, # 90 capsule, Refills 3, Tot. Refills 3, Maintenance,06/30/21 15:25:00 EST, Route to Pharmacy Electronically, [facility]/pharmacy #2071, Partial fill upon patient request if [...] Tot. Refills 0, Maintenance, ASV EPAP 6 [facility], 01/05/18 12:43:07 EDT, Compound Start Date: 01/05/18 Status: Ordered valsartan 160 mg oral tablet See Instructions, TAKE 1 + 1/2 TABLET BY MOUTH EVERY DAY, # 135 tablet, Refills 0, Instructions Replace Required Details, Route to Pharmacy Electronically, [facility], 175.26, cm, 09/18/21 13:21:00 EDT, Height, 84, kg, 10/31/20 13:29:00 EDT, Dry... Start Date: 10/02/21 Status: Ordered Problem List [...] polyp, repeat 2018. negative, repeat 2012 3colo 2018 4Right knee 2014. 5colo 2019 6colo 2019 Diagnosis Diagnosis Type Effective Dates Health Status Cl inical Service Informant HTN (hypertension) Discharge Diagnosis 10/10/21 Dyspnea on exertion Discharge Diagnosis 10/10/21 Vital Signs Most recent to oldest [Reference Range]: 1 Height 175.26 cm (10/09/21 12:49 PM) Weight 85.0 kg (10/09/21 12:49 PM) Oxygen Saturation [94-100 %] 98 % (10/09/21 12:49 PM) Pulse Rate [55-90 bpm] 65 bpm (10/09/21 12:49 PM) Body Mass Index [18.5-24.99] 27.67 *H* (10/09/21 12:49 PM) Blood Pressure [90-138/55-84 mm Hg] 104/ 64mm Hg (10/09/21 12:49 PM) Temperature [96.8-100.4 DegF] 97.4 DegF (10/09/21 12:49 PM) Mode of Delivery (Oxygen) Room air (10/09/21 12:49 PM) Blood pressure sites Arm, right (10/09/21 12:49 PM) Temperature Route Oral (10/09/21 12:49 PM) Weight Obtained Via Standing scale (10/09/21 12:49 PM) Social History Social History Type Response Smoking Status Former smoker; Tobac co user in household: Yes entered on: 06/03/14 Sex Male
--- OUTSIDE RECORDS SUMMARY | 2023-11-21 10:46 | XMS_ITS | Continuity of Care Document ---
Author Organization [facility] Kristian Jcarlos Address [address] [place] [address]- Care Team Providers Care Television Installer Helper Name Role Phone Deloris MEDINA, Elmer Bill Primary Care Physician [phone] [facility] Date[facility]s): 04/08/23 - 05/08/23 [facility] Adult [address] [place] [address]- Allergies, Adverse Reactions, Alerts Substance Reaction Severity [...] vaccine, inactivated 04/22/08 Give n SARS-CoV-2 mRNA (vmevewp-uask-ddhck) vax 2 03/23/22 Recorded SARS-CoV-2 (COVID-19) mRNA [...] [03/18/2017] [facility]: [id number] HIGH DOSE 2Result Comment: Moderna Covid Bivalent Booster, [facility] Pharmacy 3Admin Note: given by LB 4Admin Note: [employer] 5Admin Note: [employer] Scheduling [facility] Medications acetaminophen 325 mg oral tablet 650 [...] Electronically, [facility] STORE 68020, 175.26, cm, 02/21/22 14:25:00 EDT, Height, 84, [...] 11 Refills, Maintenance, 04/08/23 14:31:00 EDT, Tablet, [facility] # 50, Partial fill [...] tablet, 11 Refills, Maintenance, 04/08/23 14:30:00 EDT, [facility] # 50, 172, cm, 03/22/23 14:14:00 EDT, Height, 79.5, kg, 03/16/23 13:06:00 EDT, Dry Weight Start Date: 04/08/23 Status: Ordered FLUoxetine 40 mg oral capsule 1 capsule = 40 mg, By Mouth, Daily, # 30 capsule, 11 Refills, Maintenance, 04/08/23 11:49:00 EDT, Capsule, [facility] # 50, Partial fill [...] Pharmacy Electronically, [facility]/pharmacy #2929, 175.26, cm, 02/21/22 14:25:00 EDT,Height, 84, kg, 10/31/20 13:29:00 EDT, Dry Weight Start Date: 06/05/22 Stop Date: 05/31/23 Status: Ordered metoprolol 25 mg oral tablet, extended release 25 mg, 1, tablet, By Mouth, Daily, # 30 tablet, Refills 11, Tot. Refills 11, Maintenance, 04/08/23 14:32:00 EDT, Route to Pharmacy Electronically, [facility] # [facility], Partial fill upon patient [...] 04/08/23 14:31:00 EDT, Route to Pharmacy Electronically, [facility] # 50, Partial fill upon patient request if the prescription is for a schedule II opio... Start Date: 04/08/23 Stop Date: 04/02/24 Status: Ordered terazosin 2 mg oral capsule 2 mg, 1, capsule, By Mouth, Daily at bedtime, # 90 capsule, Refills 3, Tot. Refills 3, Maintenance,11/21/22 13:39:00 EDT, Route to Pharmacy Electronically, [facility]/pharmacy #7991, Partial fill upon patient request if the prescription is for a schedule II... Start Date: 11/21/22 Stop Date: 11/16/23 Status: Ordered uses nightly uses nightly, See Instructions, # 1 each, Refills 0, Tot. Refills 0, Maintenance, ASV [facility] 6 [facility], 01/05/18 12:43:07 EDT, Compound Start Date: [...] team information Care Team Personnel Name: Elmer Puentse MD Position: [facility] Physician - Primary Care Member Role: PCP Address: Address: [address] [place] [address]- Name: Solo BURKS, Sidra Rosen Position: [facility] AMB Nurse Member Role: Primary Care Nurse Name: Judith Duron RN Position: [facility] ED RN W/OE and Tasks Member Role: Primary Care Nurse Name: Samy Arenas RN Position: [facility] RN Member Role: Primary Care Nurse Care Team Related Persons Name: ROBIN MOTA Address: home [address] [address]
--- OUTSIDE RECORDS SUMMARY | 2023-11-21 10:46 | XMS_ITS | Continuity of Care Document ---
Author Organization [facility] Kristian Jcarlos Address [address] [place] [address]- Care Team Providers Care Front Maker Lockstitch Name Role Phone Deloris MEDINA, Elmer Bill Primary Care Physician [phone] [facility] Date(s): 02/27/23 - 03/29/23 [facility] [address] [place] [address]- Allergies, Adverse Reactions, Alerts Substance Reaction Severity [...] vaccine, inactivated 04/22/08 Give n SARS-CoV-2 mRNA (getvkex-kbhs-cdgjq) vax 2 03/23/22 Recorded SARS-CoV-2 (COVID-19) mRNA [...] Comment: [03/18/2017] [facility]: [id number] HIGH DOSE 2Result Comment: Moderna Covid Bivalent Booster, [facility] Pharmacy 3Admin Note: given by LB 4Admin Note: [employer] 5Admin Note: [facility] Medications acetaminophen 325 mg oral tablet 650 [...] 05/29/22 14:30:00 EST, Route to Pharmacy Electronically, [facility] STORE 02099, 175.26, cm, 02/21/22 14:25:00 EDT, Height, 84, [...] 11 Refills, Maintenance, 03/12/22 18:53:00 EDT, [facility], 175.26, cm, 02/21/22 14:25:00 EDT, Height, 84, kg, 10/31/20 13:29:00 EDT, Dry Weight Start Date: 03/12/22 Status: Ordered FLUoxetine 20 mg oral capsule 1, capsule, By Mouth, Daily, # 30 capsule, Refills 12, Maintenance, 02/12/23 16:46:00 EDT, Route toPharmacy Electronically, [facility], 173, cm, 09/17/22 13:09:00 EDT, Height, 79.5, kg, 06/13/22 15:11:00 EST, Dry Weight Start Date: 02/12/23 Status: Ordered furosemide 40 mg oral tablet 40 mg, 1, tablet, By Mouth, Daily, # 90 tablet, Refills 3, Tot. Refills 3, Maintenance, 06/05/22 16:04:00 EST, Route to Pharmacy Electronically, [facility]/pharmacy #2071, 175.26, cm, 02/21/22 14:25:00 EDT,Height, [...] Maintenance,11/21/22 13:39:00 EDT, Route to Pharmacy Electronically, [facility]/pharmacy #2071, Partial fill upon patient request if the prescription is for a schedule II... Start Date: 11/21/22 Stop Date: 11/16/23 Status: Ordered traMADol 50 mg oral tablet 1 tablet = 50 mg, By Mouth, Every 6 hours, PRN as needed for pain, # 30 tablet, 1 Refills, Maintenance, 02/20/23 12:17:00 EDT, Tablet, [facility]/pharmacy #2071, Partial fill upon patient request [...] 02/26/23 11:16:00 EDT, Route to Pharmacy Electronically, [facility] # [facility], 173, cm, 02/26/23 11:03:00 [...] 4Left femur fracture 2022 5Right knee 2013. 6c2018 7c2018 Social History Social History Type Response Smoking Status Former smoker; Tobac co user in household: Yes entered on: 06/03/14 Sex Male Note * Miriam Puente RN: PERFORM Event Display: Discharge/Transfer Note Hospital Authored Date: [id number] Post Discharge Phone Call Entered On: 03/27/2023 16:56 EDT Performed On: 03/27/2023 16:55 EDT by Miriam Puente RN Post Discharge Phone Call Post Discharge Caller : Patient Post Discharge Call Category : Other: post procedure phone call Post Discharge Message Status : Other: SNF Miriam Puente RN - 03/27/2023 16:55 EDT Patient Care team information Care Team Personnel Name: Elmer Puentes MD Position: [facility] Physician - Primary Care Member Role: PCP Address: Address: [address] [place] [address]- Name: Sidra Banda RN Position: [facility] AMB Nurse Member Role: Primary Care Nurse Name: Alyssa Renteria RN Position: [facility] RN Member Role: Primary Care Nurse Name: Judith Duron RN Position: [facility] ED RN W/OE and Tasks Member Role: Primary Care Nurse Name: Samy Arenas RN Position: [facility] RN Member Role: Primary Care Nurse Care Team Related Persons Name: ROBIN MOTA Address: home [address] [address]
--- OUTSIDE RECORDS SUMMARY | 2023-11-21 10:46 | XMS_ITS | Continuity of Care Document ---
Author Organization [facility] Jcarlos lt Address [address] [place] [address]- Care Team Providers Care Object Oriented Developer Name Role Phone Deloris MEDINA, Elmer Bill Primary Care Physician [facility] Date(s): 09/29/20 - 10/29/20 [facility] Adult [address] [place] [address]- Allergies, Adverse Reactions, Alerts Substance Reaction Severity [...] Vaccine (oldterm) 06/24/99 Given 1Result Comment: [03/18/2017] [facility]: [id number] HIGH DOSE 2Admin Note: given by LB 3Admin Note: [facility] [place] [facility] 4Admin Note: [employer] [facility] Medications allopurinol 300 mg oral tablet 300 mg, 1, tablet, By Mouth, Daily, # 90 tablet, Refills 0, Tot. Refills 0, Maintenance, 08/27/20 9:17:00 EST, [facility] 175.[facility], cm, 04/01/20 11:21:00 EDT,Height Start Date: 08/27/20 Status: Ordered diltiazem 240 mg/24 hours oral capsule, extended release 240 mg, 1, capsule, By Mouth, Daily, # 30 capsule, Refills 0, Tot. Refills 0, Maintenance, 09/02/2013:51:00 EDT, [facility] 175.26, cm, 08/18/19 14:43:00 EST, Height Start Date: 09/03/19 Status: Ordered Eliquis 5 mg oral tablet 1 tablet = 5 mg, By Mouth, 2 times a day, # 180 tablet, 3 Refills, Maintenance, 12/30/19 15:45:00 EDT, Tablet, [facility]/pharmacy #1, 175.26, cm, 09/30/19 10:57:00 EDT, Height Start Date: 12/30/19 Status: Ordered furosemide 40 mg oral tablet 80 mg, 2, tablet, By Mouth, Daily, # 90 tablet, Refills 3, Tot. Refills 3, Maintenance, 03/31/19 11:18:45 EDT, Route to Pharmacy Electronically, [facility]/pharmacy #2070 Start Date: 03/31/19 Status: Ordered losartan 100 mg oral tablet 1 tablet = 100 mg, By Mouth, Daily, # 90 tablet, 3 Refills, Maintenance, 09/30/20 11:09:00 EDT, Tablet, [facility]/pharmacy #207, Partial fill upon patient request if the prescription is for a schedule II opioid drug., 175.26, cm, 09/30/20 11:06:00 EDT, Height Start Date: 09/30/20 Status: Ordered Multivitamin By Mouth, Daily, 0 Refills, Maintenance Start Date: 08/19/12 Status: Ordered pravastatin 80 mg oral tablet See Instructions, TAKE 1 TABLET BY MOUTH EVERY DAY, # 90 tablet, 1 Refills, Soft Stop, 07/20/20 10:47:00 EST, [facility]/pharmacy #2071, 175.26, cm, 04/01/20 11:21:00 EDT, Height Start Date: 07/20/20 Status: Ordered turmeric 500 mg oral capsule 3 capsule = 1,500 mg, By Mouth, Daily, # 60 capsule, 0 Refills, Maintenance, 03/31/19 11:20:01 EDT,Capsule Start Date: 03/31/19 Status: Ordered uses nightly uses nightly, See Instructions, # 1 each, Refills 0, Tot. Refills 0, Maintenance, ASV EPAP 6 [facility], 01/05/18 12:43:07 EDT, Compound [...] Active 1Colonoscopy 2013 positive polyp, repeat 2017. 37921 negative, repeat 2012 3colo 2019 4Right knee 2014. 5colo 2018 6colo 2018 Social History Social History Type Response Smoking Status Former smoker; Tobac co user in household: Yes entered on: 06/03/14 Sex
--- OUTSIDE RECORDS SUMMARY | 2023-11-21 10:46 | XMS_ITS | Continuity of Care Document ---
Author Organization [facility] Noel Jcarlos lt Address [address] [place] [address]- Care Team Providers Care Sterilization Tech Name Role Phone Deloris MEDINA, Elmer Bill Primary Care Physician Encounter [facility] Date(s): 08/13/23 - 09/12/23 [facility] Adult [address] [place] [address]- Allergies, Adverse Reactions, Alerts Substance Reaction Severity Status Bee Stings Active Immunizations Given and Recorded Vaccine Date Status Refusal Reason RSV vaccine preF3, recombinant 04/27/23 Recorded influenza virus vaccine, inactivated 03/17/23 Give n influenza virus vaccine, inactivated 03/23/22 Adnrea rded influenza virus vaccine, inactivated 03/29/21 Andrea [...] vaccine, inactivated 04/22/08 Give n SARS-CoV-2 mRNA (emqxrek-kveq-ubnxx) vax 2 03/23/22 Recorded SARS-CoV-2 (COVID-19) mRNA [...] Given 1Result Comment: [03/18/2017] [facility]: [id number] HIGH DOSE 2Result Comment: Moderna Covid Bivalent Booster, [facility] Pharmacy 3Admin Note: given by LB 4Admin Note: [employer] 5Admin Note: [employer] [facility] Medications acetaminophen 325 mg oral tablet 650 [...] 06/10/23 6:07:00 EST, Route to Pharmacy Electronically, [facility] 12784, 172, cm, 05/17/23 14:43:00 EST, Height, 79.5, kg, 03/16/23 13:06:00 EDT, Dry Weight Start Date: 06/10/23 Status: Ordered metoprolol 25 mg oral tablet, extended release 25 mg, 1, tablet, By Mouth, Daily, # 30 tablet, Refills 11, Tot. Refills 11, Maintenance, 04/08/23 14:32:00 EDT, Route to Pharmacy Electronically, [facility] # 50, Partial fill upon patient [...] 04/08/23 14:31:00 EDT, Route to Pharmacy Electronically, [facility] # 50, Partial fill upon patient request if the prescription is for a schedule II opio... Start Date: 04/08/23 Stop Date: 04/02/24 Status: Ordered terazosin 2 mg oral capsule 2 mg, 1, capsule, By Mouth, Daily at bedtime, # 90 capsule, Refills 3, Tot. Refills 3, Maintenance,11/21/22 13:39:00 EDT, Route to Pharmacy Electronically, [facility]/pharmacy #6251, Partial fill upon patient request if the prescription is for a schedule II... Start Date: 11/21/22 Stop Date: 11/16/23 Status: Ordered traZODone 50 mg oral tablet 50 mg, 1, tablet, By Mouth, Daily at bedtime, # 30 tablet, Refills 11, Tot. Refills 11, Maintenance, 07/18/23 11:18:00 EST, Route to Pharmacy Electronically, [facility] # [facility], Partial fill upon patient request if the prescription is for a schedule... Start Date: 07/18/23 Stop Date: 07/12/24 Status: Ordered uses nightly uses nightly, See Instructions, # 1 each, Refills 0, Tot. Refills 0, Maintenance, ASV EPAP 6 [facility], 01/05/18 12:43:07 EDT, Compound Start [...] Name: Elmer Puentes MD Position: [facility] Physician - Primary Care Member Role: PCP Address: Address: [address] [place] [address]- [place] Name: Sidra Banda RN Position: [facility] AMB Nurse Member Role: Primary Care Nurse Name: Judith Duron RN Position: [facility] ED RN W/OE and Tasks Member Role: Primary Care Nurse Name: Jewell Polo [facility] Vice President Business Development Member Role: Cripple Cutter Care Team Related Persons Name: ROBIN MOTA Address: home [address] [address]
--- OUTSIDE RECORDS SUMMARY | 2023-11-21 10:46 | XMS_ITS | Continuity of Care Document ---
Author Organization [facility] Kristian Jcarlos Address [address] [place] [address]- Care Team Providers Care Senior Net Engineer Name Role Phone Deloris MEDINA, Elmer Bill Primary Care Physician [facility] Date(s): 01/21/23 - 02/20/23 [facility] Adult [address] [place] [address]- Allergies, Adverse Reactions, Alerts Substance Reaction Severity Status Bee Stings Active Immunizations Given and Recorded Vaccine Date Status Refusal Reason SARS-CoV-2 mRNA (dvbazby-leff-lsnvd) vax 1 03/23/22 Recorded influenza virus vaccine, [...] Given 1Result Comment: Moderna Covid Bivalent Booster, [facility] Pharmacy 2Result Comment: [03/18/2017] [facility]: [id number] HIGH DOSE 3Admin Note: given by LB 4Admin Note: [employer] [facility] [place] 5Admin Note: [facility] Medications allopurinol 300 mg oral tablet 1, tablet, By Mouth, Daily, # 90 tablet, Refills 3, Maintenance, 05/29/22 14:30:00 EST, Route to Pharmacy Electronically, [facility] 99924, 175.26, cm, 02/21/22 14:25:00 EDT, Height, 84, kg, 10/31/20 13:29:00 EDT, Dry Weight Start Date: 05/29/22 Status: Ordered amiodarone 200 mg oral tablet 200 mg, 1, tablet, By Mouth, Daily, # 30 tablet, Refills 0, Maintenance, 02/20/23 12:16:00 EDT, Partial fill upon patient request if the prescription is for a schedule II opioid drug. Start Date: 02/20/23 Status: Ordered DilTIAZem (Eqv-Cardizem CD) 300 mg/24 hours oral capsule, extended release 1 capsule, By Mouth, Daily, # 90 capsule, 3 Refills, Maintenance, 12/03/22 14:08:00 EDT, [facility] 590[facility], 173, cm, 09/17/22 13:09:00 EDT, Height, 79.5, kg, 06/13/22 15:11:00 EST, Dry Weight Start Date: 12/03/22 Status: Ordered Eliquis 5 mg oral tablet 1 tablet, By Mouth, 2 times a day, # 60 tablet, 11 Refills, Maintenance, 03/12/22 18:53:00 EDT[facility], 175.26, cm, 02/21/22 14:25:00 EDT, Height, 84, kg, 10/31/20 13:29:00 EDT, Dry Weight Start Date: 03/12/22 Status: Ordered FLUoxetine 20 mg oral capsule 1, capsule, By Mouth, Daily, # 30 capsule, Refills 12, Maintenance, 02/12/23 16:46:00 EDT, Route toPharmacy Electronically, [facility], 173, cm, 09/17/22 13:09:00 EDT, Height, 79.5, kg, 06/13/22 15:11:00 EST, Dry Weight Start Date: 02/12/23 Status: Ordered furosemide 40 mg oral tablet 2, tablet, By Mouth, Daily, # 180 tablet, Refills 3, Tot. Refills 3, Maintenance, 06/05/22 16:04:00EST, Route to Pharmacy Electronically, [facility]/pharmacy #2071, 175.26, cm, 02/21/22 14:25:00 EDT, Height, 84, kg, 10/31/20 13:29:00 EDT, Dry Weight Start Date: 06/05/22 Stop Date: 05/31/23 Status: Ordered Multivitamin By Mouth, Daily, 0 Refills, Maintenance Start Date: 08/19/12 Status: Ordered pravastatin 80 mg oral tablet 1 tablet, By Mouth, Daily, # 90 tablet, 1 Refills, 05/29/22 13:47:00 EST, [facility]/pharmacy #2071, 175.26, cm, 02/21/22 14:25:00 EDT, [...] 1 Refills, Maintenance, 02/20/23 12:17:00 EDT, Tablet, [facility]/pharmacy #2071, Partial fill upon patient request if the prescription is for a schedule II opioid drug., 173, cm... Start Date: 02/20/23 Status: Ordered uses nightly uses nightly, See Instructions, # 1 each, Refills 0, Tot. Refills 0, Maintenance, ASV [facility] 6 [facility], 01/05/18 12:43:07 EDT, Compound Start Date: 01/05/18 Status: Ordered valsartan 160 mg oral tablet See Instructions, TAKE 1 + 1/2 TABLET BY MOUTH EVERY DAY, # 135 tablet, Refills 3, Tot. Refills 3, Maintenance, 11/21/22 13:40:00 EDT, Instructions Replace Required Details, Route to Pharmacy Electronically, [facility] #2071, 173, cm, 09/17/22 13:09... Start Date: [...] Team Personnel Name: Elmer Puentes MD Position: [facility] Physician - Primary Care Member Role: PCP Address: Address: [address] [place] [address]- [place] Name: Solo BURKS, Sidra Rosen Position: [facility] AMB Nurse Member Role: Primary Care Nurse Name: Judith Duron RN Position: [facility] ED RN W/OE and Tasks Member Role: Primary Care Nurse Care Team Related Persons Name: ROBIN MOTA Address: home [address] [address]
--- OUTSIDE RECORDS SUMMARY | 2023-11-21 10:46 | XMS_ITS | Continuity of Care Document ---
Author Organization [facility] Jcarlos Address [address] [place] [address]- Care Team Providers Care Small Stock Facer Name Role Phone Deloris MEDINA, Elmer Bill Primary Care Physician [phone] Encounter [facility] Date(s): 06/12/22 - 06/19/22 [facility] Adult [address] [place] [address]- Encounter Diagnosis COVID-19(Discharge Diagnosis) - 06/12/22 Attending Physician: Not on Staff, Attending MD Allergies, Adverse Reactions, Alerts Substance Reaction Severity Status Bee Stings Active Immunizations Given and Recorded Vaccine Date Status Refusal Reason SARS-CoV-2 mRNA ([id number]) vax 1 03/23/22 Recorded influenza virus vaccine, [...] 1Result Comment: Moderna Covid Bivalent Booster, [facility] 2Result Comment: [03/18/2017] [facility]: [id number] HIGH DOSE 3Admin Note: given by LB 4Admin Note: [employer] [facility] 5Admin Note: [facility] Medications allopurinol 300 mg oral tablet 1, tablet, By Mouth, Daily, # 90 tablet, Refills 3, Maintenance, 05/29/22 14:30:00 EST, Route to Pharmacy Electronically, [facility] STORE [facility], 175.26, cm, 02/21/22 14:25:00 EDT, Height, 84, kg, 10/31/20 13:29:00 EDT, Dry Weight Start Date: 05/29/22 Status: Ordered apixaban 2.5 mg oral tablet 1 tablet = 2.5 mg, By Mouth, 2 times a day, # 10 tablet, 0 Refills, Maintenance, 06/13/22 14:47:00 EST, Tablet, [facility]/pharmacy #[id number], Partial fill upon patient request if [...] # 90 capsule, 3 Refills, [facility], 175.26, cm, 11/03/21 10:48:00 EDT, Height, 84, kg, 10/31/20 13:29:00 EDT, Dry Weight Start Date: 12/19/21 Status: Ordered DilTIAZem (Eqv-Dilacor XR) 180 mg/24 hours oral capsule, extended release 1 capsule = 180 mg, By Mouth, Daily, # 8 capsule, 0 Refills, Maintenance, 06/14/22 11:15:00 EST, [facility]/pharmacy #[id number], Partial fill upon patient request if the prescription is for a schedule II opioid drug., 173, cm, 06/14/22 10:32:00 EST, Height, 79.5,... Start Date: 06/14/22 Stop Date: 06/22/22 Status: Ordered Eliquis 5 mg oral tablet 1 tablet, By Mouth, 2 times a day, # 60 tablet, 11 Refills, Maintenance, 03/12/22 18:53:00 EDT, [facility], 175.26, cm, 02/21/22 14:25:00 EDT, Height, 84, kg, 10/31/20 13:29:00 EDT, Dry Weight Start Date: 03/12/22 Status: Ordered FLUoxetine 20 mg oral capsule 20 mg, 1, capsule, By Mouth, Daily, # 30 capsule, Refills 11, Tot. Refills 11, Maintenance, 05/25/21 11:49:00 EST, Route to Pharmacy Electronically, [facility]/pharmacy #[id number], Partial fill upon patient request if the prescription is for a schedule II opioid... Start Date: 05/25/21 Status: Ordered furosemide 40 mg oral tablet 2, tablet, By Mouth, Daily, # 180 tablet, Refills 3, Tot. Refills 3, Maintenance, 06/05/22 16:04:00EST, Route to Pharmacy Electronically, [facility]/pharmacy #2071, 175.26, cm, 02/21/22 14:25:00 EDT, Height, 84, kg, 10/31/20 13:29:00 EDT, Dry Weight Start Date: 06/05/22 Stop Date: 05/31/23 Status: Ordered Multivitamin By Mouth, Daily, 0 Refills, Maintenance Start Date: 08/19/12 Status: Ordered pravastatin 80 mg oral tablet 1 tablet, By Mouth, Daily, # 90 tablet, 1 Refills, 05/29/22 13:47:00 EST, [facility]/pharmacy #2071, 175.26, cm, 02/21/22 14:25:00 EDT, Height, [...] Tot. Refills 0, Maintenance, ASV EPA 6 [facility] Ed, 01/05/18 12:43:07 EDT, Compound Start Date: 01/05/18 Status: Ordered valsartan 160 mg oral tablet See Instructions, TAKE 1 + 1/2 TABLET BY MOUTH EVERY DAY, # 135 tablet, Refills 0, Maintenance, 05/16/22 15:23:00 EST, Instructions Replace Required Details, Route to Pharmacy Electronically, [facility] STORE 38445, 175.26, cm, 02/21/22 14:25:00 EDT, Height,... Start [...] 4Right knee 2013. 5colo 2018 6colo 2018 Diagnosis Diagnosis Type Effective Dates Health Status Clini orin Service Informant COVID-19 Discharge Diagnosis 06/12/22 Social History Social History Type Response Smoking Status Former smoker; Tob[employer] user in household: Yes entered on: 06/03/14 Sex Male Note * Theresa Coronado: PERFORM, SIGN, VERIFY Event Display: Patient Education/Instruction Authored Date: [id number] [facility] *BMP So Kristian Yee Clinical Summary Name HILL MOTA Age 72 Years 1950 PCP Deloris MEDINA, Elmer Bill PCP Visit Date 06/12/2022 08:10:00 Additional Instructions: Scheduled Appointments?? Future Appointments ?No Future Appointments Scheduled Follow-Up Instructions ?? Diagnosis COVID-19 Medications: Please continue your medications until treatment is completed or stopped by your provider. Discuss any questions related to medications with your provider. Medications to Continue with No Changes These medications were not printed or sent to your pharmacy Allopurinol (allopurinol 300 mg oral tablet) 1 tab(s) Oral Daily. Refills: 3. Next Dose: apixaban (Eliquis 5 mg oral tablet) 1 tab(s) Oral twice a day. Refills: 11. Next Dose: Celecoxib (celecoxib 200 mg oral capsule) 1 capsule Oral twice a day. Next Dose: Diltiazem (DilTIAZem (Eqv-Cardizem CD) 300 mg/24 hours oral capsule, extended release) TAKE 1 CAPSULE BY MOUTH EVERY DAY. Refills: 3. Next Dose: Durable Medical Equipment (uses nightly) ASV EPAP 6 [facility]. Refills: 0. Next Dose: Fluoxetine (FLUoxetine 20 mg oral capsule) 1 capsule Oral Daily. Refills: 11. Next Dose: Furosemide (furosemide 40 mg oral tablet) 2 tab(s) Oral Daily for 90 Days. Refills: 3. Next Dose: Multivitamin Oral Daily. Next Dose: Pravastatin (pravastatin 80 mg oral tablet) 1 tab(s) Oral Daily. Refills: 1. Next Dose: Terazosin (terazosin 2 mg oral capsule) 1 capsule Oral Daily at Bedtime for 90 Days. Refills: 3. Next Dose: turmeric (turmeric 500 mg oral capsule) 3 capsule Oral Daily. Next Dose: Valsartan (valsartan 160 mg oral tablet) TAKE 1 + 1/2 TABLET BY MOUTH EVERY DAY. Refills: 0. Next Dose: Allergy Info:?? Bee Stings Medications Given This Visit Future Orders ?No future orders Vital Signs Height Weight BMI Blood Pressure / Temperature Pulse Rate Respiratory Rate 02 Sat Mode of Delivery / You can now view a summary of your hospital visit from the comfort of your home through a free online portal called [facility]. [facility] is a website that allows you to securely view your medical information including discharge summary, medications and follow-up visits. ??You can alsosend a secure electronic message to your doctor???s office to request appointments, renew medications or just ask a question. You can enroll at [email or web address] or register during your next office visit. [...] primary care provider, you may find a [facility] provider by calling [facility] [employer] at [phone]. For information about the plan of care [...] Team Personnel Name: Elmer Puentes MD Position: [facility] Primary Care Physician Member Role: PCP Address: Address: [address] [place] [address]- Name: Sidra Banda RN Position: S RN Member Role: Primary Care Nurse Name: Judith Duron RN Position: S RN Member Role: Primary Care Nurse Care Team Related Persons Name: ROBIN MOTA Address: home [address] [address]
--- OUTSIDE RECORDS SUMMARY | 2023-11-21 10:46 | XMS_ITS | Continuity of Care Document ---
Author Organization [facility] Address [address] [place] [address]- Care Team Providers Care Postie Name Role Phone Deloris MEDINA, Elmer Bill Primary Care Physician [phone] Encounter [facility] Date(s): 08/18/19 - 08/28/19 [facility] [address] [place] [address]- [facility] Attending Physician: Nohemi Vinson Admitting Physician: Nohemi Vinson Referring Physician: Nohemi Vinson Allergies, Adverse Reactions, Alerts Substance Reaction Severity [...] Given 1Result Comment: [03/18/2017] [facility]: [id number] HIGH DOSE 2Admin Note: given by LB 3Admin Note: [employer] [facility] 4Admin Note: [employer] [facility] Medications allopurinol 300 mg oral tablet 300 mg, 1, tablet, By Mouth, Daily, # 90 tablet, Refills 3, Tot. Refills 3, Maintenance, 01/21/19 16:49:02 EDT, Route to Pharmacy Electronically, [id number], [facility]/pharmacy #207 Start Date: 01/21/19 Status: Ordered cloNIDine 0.1 mg oral tablet See Instructions, TAKE 1 TABLET BY MOUTH TWICE A DAY, # 180 tablet, Refills 1, Tot. Refills 1, SoftStop, 05/25/19 12:25:53 EST, Instructions Replace Required Details, Route to Pharmacy Electronically, [id number], [facility]/pharmac... Start Date: 05/25/19 Status: Ordered diltiazem 240 mg/24 hours oral capsule, extended release 240 mg, 1, capsule, By Mouth, Daily, # 90 capsule, Refills 3, Tot. Refills 3, Maintenance, 09/26/1910:33:05 EDT, Do Not Route Start Date: 09/26/18 Status: Ordered Eliquis 5 mg oral tablet 1 tablet = 5 mg, By Mouth, 2 times a day, lot # [id number] exp 08/15 4 box, # 60 tablet, [...] 03/31/19 11:18:45 EDT, Route to Pharmacy Electronically, [id number], [facility]/pharmacy #2071 Start Date: 03/31/19 Status: Ordered losartan 50 mg oral tablet 50 mg, 1, tablet, By Mouth, Daily, # 90 tablet, Refills 3, Tot. Refills 3, Maintenance, 03/31/19 11:17:44 EDT, Route to Pharmacy Electronically, [id number], [facility]/pharmacy #2071 Start Date: 03/31/19 Status: Ordered Multivitamin By Mouth, Daily, 0 Refills, Maintenance Start Date: 08/19/12 Status: Ordered pravastatin 80 mg oral tablet See Instructions, TAKE 1 TABLET BY MOUTH EVERY DAY, # 90 tablet, 1 Refills, Soft Stop, 07/09/19 14:02:00 EST, [facility]/pharmacy #2071, 175.26, cm, 06/26/19 14:39:00 EST, Height Start Date: 07/09/19 Status: Ordered terazosin 5 mg oral capsule 5 mg, 1, capsule, By Mouth, Daily at bedtime, # 90 capsule, Refills 3, Tot. Refills 3, Maintenance,03/31/19 11:18:21 EDT, Route to Pharmacy Electronically, [id number], [facility]/pharmacy #2070 Start Date: 03/31/19 Status: Ordered turmeric [...] Active 1Colonoscopy 2013 positive polyp, repeat 2018. 03619 negative, repeat 2012 3colo 2018 4Right knee 2014. 5colo 2019 6colo 2019 Social History Social History Type Response Smoking Status Former smoker; Tobac co user in household: Yes entered on: 06/03/14 Sex
--- OUTSIDE RECORDS SUMMARY | 2023-11-21 10:46 | XMS_ITS | Continuity of Care Document ---
Author Organization [facility] Address [address] [address]- Care Team Providers Care Radio Intelligence Operator Name Role Phone Deloris MEDINA, Elmer Bill Primary Care Physician [phone] [place] [facility] Date(s): 07/29/19 - 08/08/19 [facility] [address] [address]- [place] Attending Physician: Nohemi Vinson Admitting Physician: Nohemi [...] (oldterm) 06/24/99 Given 1Result Comment: [03/18/2017] [facility]: [id number] HIGH DOSE 2Admin Note: given by LB 3Admin Note: [employer] [facility] 4Admin Note: [employer] [facility] Medications allopurinol 300 mg oral tablet 300 mg, 1, tablet, By Mouth, Daily, # 90 tablet, Refills 3, Tot. Refills 3, Maintenance, 01/21/19 16:49:02 EDT, Route to Pharmacy Electronically, [id number], [facility]/pharmacy #1 Start Date: 01/21/19 Status: Ordered cloNIDine 0.1 mg oral tablet See Instructions, TAKE 1 TABLET BY MOUTH TWICE A DAY, # 180 tablet, Refills 1, Tot. Refills 1, SoftStop, 05/25/19 12:25:53 EST, Instructions Replace Required Details, Route to Pharmacy Electronically, [id number], [facility]/pharmac... Start Date: 05/25/19 Status: Ordered diltiazem 240 mg/24 hours oral capsule, extended release 240 mg, 1, capsule, By Mouth, Daily, # 90 capsule, Refills 3, Tot. Refills 3, Maintenance, 09/26/1910:33:05 EDT, Do Not Route Start Date: 09/26/18 Status: Ordered Eliquis 5 mg oral tablet 1 tablet = 5 mg, By Mouth, 2 times a day, lot # [id number] exp 08/15 4 box, # 60 tablet, [...] 03/31/19 11:18:45 EDT, Route to Pharmacy Electronically, [id number], [facility]/pharmacy #207 Start Date: 03/31/19 Status: Ordered losartan 50 mg oral tablet 50 mg, 1, tablet, By Mouth, Daily, # 90 tablet, Refills 3, Tot. Refills 3, Maintenance, 03/31/19 11:17:44 EDT, Route to Pharmacy Electronically, [id number], [facility]/pharmacy #2071 Start Date: 03/31/19 Status: Ordered Multivitamin By Mouth, Daily, 0 Refills, Maintenance Start Date: 08/19/12 Status: Ordered pravastatin 80 mg oral tablet See Instructions, TAKE 1 TABLET BY MOUTH EVERY DAY, # 90 tablet, 1 Refills, Soft Stop, 07/09/19 14:02:00 EST, [facility]/pharmacy #2071, 175.26, cm, 06/26/19 14:39:00 EST, Height Start Date: 07/09/19 Status: Ordered terazosin 5 mg oral capsule 5 mg, 1, capsule, By Mouth, Daily at bedtime, # 90 capsule, Refills 3, Tot. Refills 3, Maintenance,03/31/19 11:18:21 EDT, Route to Pharmacy Electronically, [id number], [facility]/pharmacy #2071 Start Date: 03/31/19 Status: Ordered turmeric 500 mg oral capsule 3 capsule = 1,500 mg, By Mouth, Daily, # 60 capsule, 0 Refills, Maintenance, 03/31/19 11:20:01 EDT,Capsule Start Date: 03/31/19 Status: Ordered uses nightly uses nightly, See Instructions, # 1 each, Refills 0, Tot. Refills 0, Maintenance, ASV EPAP 6 [facility], 01/05/18 12:43:07 [...] 2013 positive polyp, repeat 2017. negative, repeat 2013 3colo 2019 4Right knee 2014. 5colo 2019 6colo 2019 Social History Social History Type Response Smoking Status Former smoker; Tobac co user in household: Yes entered on: 06/03/14 Sex
--- OUTSIDE RECORDS SUMMARY | 2023-11-21 10:47 | XMS_ITS | Continuity of Care Document ---
Author Organization [facility] Kristian Jcarlos Address [address] [place] [address]- Care Team Providers Care Typesetter Apprentice Name Role Phone Deloris MEDINA, Elmer Bill Primary Care Physician Encounter [facility] Date(s): 07/21/20 - 08/20/20 [facility] [facility] [address] [place] [address]- Allergies, Adverse Reactions, Alerts Substance Reaction Severity [...] Vaccine (oldterm) 06/24/99 Given 1Result Comment: [03/18/2017] [facility]: [id number] HIGH DOSE 2Admin Note: given by LB 3Admin Note: [employer] 4Admin Note: [employer] [facility] Medications allopurinol 300 mg oral tablet 300 mg, 1, tablet, By Mouth, Daily, # 90 tablet, Refills 0, Tot. Refills 0, Maintenance, 07/21/20 8:39:00 EST, [facility] 175.26, cm, 04/01/20 11:21:00 EDT,Height Start Date: 07/21/20 Status: Ordered diltiazem 240 mg/24 hours oral capsule, extended release 240 mg, 1, capsule, By Mouth, Daily, # 30 capsule, Refills 0, Tot. Refills 0, Maintenance, 09/02/2013:51:00 EDT, [facility] 175.26, cm, 08/18/19 14:43:00 EST, Height Start Date: 09/03/19 Status: Ordered Eliquis 5 mg oral tablet 1 tablet = 5 mg, By Mouth, 2 times a day, # 180 tablet, 3 Refills, Maintenance, 12/30/19 15:45:00 EDT, Tablet, [facility] 175.26, cm, 09/30/19 10:57:00 EDT, Height Start Date: 12/30/19 Status: Ordered furosemide 40 mg oral tablet 80 mg, 2, tablet, By Mouth, Daily, # 90 tablet, Refills 3, Tot. Refills 3, Maintenance, 03/31/19 11:18:45 EDT, [facility] Start Date: 03/31/19 Status: Ordered losartan 50 mg oral tablet 50 mg, 1, tablet, By Mouth, Daily, # 90 tablet, Refills 1, Tot. Refills 1, Maintenance, 07/08/20 14:04:00 EST, [facility] 175.26, cm, 04/01/20 11:21:00 EDT,Height [...] 0, Maintenance, ASV EPAP 6 [facility], 01/05/18 12:43:07 EDT, Compound Start [...] Active 1Colonoscopy 2013 positive polyp, repeat 2018. [address]349 negative, repeat 2013 3colo 2019 4Right knee 2014. 5colo 2019 6colo 2019 Social History Social History Type Response Smoking Status Former smoker; Tobac co user in household: Yes entered on: 06/03/14 Sex
--- OUTSIDE RECORDS SUMMARY | 2023-11-21 10:47 | XMS_ITS | Continuity of Care Document ---
Author Organization [facility] Address [address] [address]- Care Team Providers Care Ammonium Nitrate Crystallizer Name Role Phone Elmer Puentes MD Primary Care Physician Encounter [facility] Date(s): 07/29/19 - 08/05/19 [facility] [address] [address]- [place] Attending Physician: Elmer Puentes MD Admitting Physician: Elmer Puentes MD Referring Physician: Elmer Puentes MD Allergies, [...] (oldterm) 06/24/99 Given 1Result Comment: [03/18/2017] [facility]: [id number] HIGH DOSE 2Admin Note: given by LB 3Admin Note: [facility] [facility] 4Admin Note: [employer] [facility] Medications allopurinol 300 mg oral tablet 300 mg, 1, tablet, By Mouth, Daily, # 90 tablet, Refills 3, Tot. Refills 3, Maintenance, 01/21/19 16:49:02 EDT, Route to Pharmacy Electronically, [id number], [facility]/pharmacy #1 Start Date: 01/21/19 Status: Ordered cloNIDine 0.1 mg oral tablet See Instructions, TAKE 1 TABLET BY MOUTH TWICE A DAY, # 180 tablet, Refills 1, Tot. Refills 1, SoftStop, 05/25/19 12:25:53 EST, Instructions Replace Required Details, Route to Pharmacy Electronically, [id number], [facility]/pharmac... Start Date: 05/25/19 Status: Ordered diltiazem 240 mg/24 hours oral capsule, extended release 240 mg, 1, capsule, By Mouth, Daily, # 90 capsule, Refills 3, Tot. Refills 3, Maintenance, 09/26/1910:33:05 EDT, Do Not Route Start Date: 09/26/18 Status: Ordered Eliquis 5 mg oral tablet 1 tablet = 5 mg, By Mouth, 2 times a day, lot # [id number] exp 08/15 4 box, # 60 tablet, [...] 03/31/19 11:18:45 EDT, Route to Pharmacy Electronically, [id number], [facility]/pharmacy #2070 Start Date: 03/31/19 Status: Ordered losartan 50 mg oral tablet 50 mg, 1, tablet, By Mouth, Daily, # 90 tablet, Refills 3, Tot. Refills 3, Maintenance, 03/31/19 11:17:44 EDT, Route to Pharmacy Electronically, [id number], [facility]/pharmacy #2071 Start Date: 03/31/19 Status: Ordered Multivitamin By Mouth, Daily, 0 Refills, Maintenance Start Date: 08/19/12 Status: Ordered pravastatin 80 mg oral tablet See Instructions, TAKE 1 TABLET BY MOUTH EVERY DAY, # 90 tablet, 1 Refills, Soft Stop, 07/09/19 14:02:00 EST, [facility]/pharmacy #2071, 175.26, cm, 06/26/19 14:39:00 EST, Height Start Date: 07/09/19 Status: Ordered terazosin 5 mg oral capsule 5 mg, 1, capsule, By Mouth, Daily at bedtime, # 90 capsule, Refills 3, Tot. Refills 3, Maintenance,03/31/19 11:18:21 EDT, Route to Pharmacy Electronically, [id number], [facility]/pharmacy #2071 Start Date: 03/31/19 Status: Ordered turmeric 500 mg oral capsule 3 capsule = 1,500 mg, By Mouth, Daily, # 60 capsule, 0 Refills, Maintenance, 03/31/19 11:20:01 EDT,Capsule Start Date: 03/31/19 Status: Ordered uses nightly uses nightly, See Instructions, # 1 each, Refills 0, Tot. Refills 0, Maintenance, ASV EPAP 6 [facility], 01/05/18 12:43:07 [...]
--- OUTSIDE RECORDS SUMMARY | 2023-11-21 10:47 | XMS_ITS | Continuity of Care Document ---
Author Organization [facility] Kristian Jcarlos Address [address] [place] [address]- Care Team Providers Care Project Production Engineer Name Role Phone Deloris MEDINA, Elmer Bill Primary Care Physician [place] [facility]03[place]21 - 11/10/21 [facility] Adult [address] [place] [address]- Encounter Diagnosis AF (atrial fibrillation)(Discharge Diagnosis) - 11/03/21 Dyspnea on exertion(Discharge Diagnosis) - 11/03/21 HTN (hypertension)(Discharge Diagnosis) - 11/03/21 Hypercholesterolemia(Discharge Diagnosis) - 11/03/21 Major depression in complete remission(Discharge Diagnosis) - 11/03/21 Obstructive sleep apnea(Discharge Diagnosis) - 11/03/21 Gout(Discharge Diagnosis) - 11/03/21 Attending Physician: Elmer Puentes MD Allergies, Adverse [...] Vaccine (oldterm) 06/24/99 Given 1Result Comment: [03/18/2017] [facility]: [id number] HIGH DOSE 2Admin Note: given by LB 3Admin Note: [employer] 4Admin Note: [employer] Medications allopurinol 300 mg oral tablet 1, tablet, By Mouth, Daily, # 90 tablet, Refills 1, Route to Pharmacy Electronically, [facility], 175.26, cm, 06/30/21 15:13:00 EST, Height, 84, kg, 10/31/20 13:29:00 EDT, Dry Weight Start Date: 07/14/21 Status: Ordered Diflucan 200 mg oral tablet 1 tablet = 200 mg, By Mouth, Daily, # 30 tablet, 0 Refills, Maintenance, 05/25/21 11:51:00 EST, Tablet, [facility]/pharmacy #[id number], Partial fill upon patient request if the prescription is for a schedule II opioid drug., 175.26, cm, 05/25/21 11:22:00 EST, Hei... Start Date: 05/25/21 Status: Ordered diltiazem 300 mg/24 hours oral capsule, extended release 300 mg, 1, capsule, By Mouth, Daily, # 90 capsule, Refills 3, Tot. Refills 3, Maintenance, :53:00 EDT, Route to Pharmacy Electronically, [facility]/pharmacy #[id number], Partial fill upon patient request if the prescription is for a schedule II opioid drArnel Start Date: 11/18/20 Status: Ordered Eliquis 5 mg oral tablet 1 tablet, By Mouth, 2 times a day, # 60 tablet, 11 Refills, Maintenance, 02/20/21 9:23:00 EDT, [facility]/pharmacy #[id number], 175.26, cm, 01/30/21 16:19:00 EDT, Height, 84, kg, 10/31/20 13:29:00 EDT, Dry Weight Start Date: 02/20/21 Status: Ordered FLUoxetine 20 mg oral capsule 20 mg, 1, capsule, By Mouth, Daily, # 30 capsule, Refills 11, Tot. Refills 11, Maintenance, 05/25/21 11:49:00 EST, [facility] Electronically, [facility]/pharmacy #[id number] Start Date: 03/31/19 Status: Ordered Multivitamin By Mouth, Daily, 0 Refills, Maintenance Start Date: 08/19/12 Status: Ordered pravastatin 80 mg oral tablet 1 tablet, By Mouth, Daily, # 90 tablet, 1 Refills, [facility] STORE 29145, 175.26, cm, 06/30/21 15:13:00 EST, Height, 84, kg, 10/31/20 13:29:00 EDT, Dry Weight Start Date: 07/14/21 Status: Ordered terazosin 2 mg oral capsule 2 mg, 1, capsule, By Mouth, Daily at bedtime, # 90 capsule, Refills 3, Tot. Refills 3, Maintenance,06/30/21 15:25:00 EST, [facility] 0, Maintenance, ASV EPAP 6 [facility], 01/05/18 12:43:07 EDT, Compound Start Date: 01/05/18 Status: Ordered valsartan 160 mg oral tablet 160 mg, 1, tablet, By Mouth, Daily, # 135 tablet, Refills 0, Route to Pharmacy Electronically, [facility], 175.26, cm, 09/18/21 13:21:00 EDT, Height, 84, [...] Service Informant AF (atrial fibrillation) Discharge Diagnosis 11/03/21 Dyspnea on exertion Discharge Diagnosis 11/03/21 HTN (hypertension) Discharge Diagnosis 11/03/21 Hypercholesterolemia Discharge Diagnosis 11/03/21 Major depression in complete remission Discharge Diagnosis 11/03/21 Obstructive sleep apnea Discharge Diagnosis 11/03/21 Gout Discharge Diagnosis 11/03/21 Vital Signs Most recent to oldest [Reference Range]: 1 Height 175.26 cm (11/03/21 10:48 AM) Weight 84.7 kg (11/03/21 10:48 AM) Body Mass Index [18.5-24.99] 27.58 *H* (11/03/21 10:48 AM) Blood Pressure [90-138/55-84 mm Hg] 112/ 86mm Hg (11/03/21 10:48 AM) Mode of Delivery (Oxygen) Room air (11/03/21 10:48 AM) Blood pressure sites Arm, left (11/03/21 10:48 AM) Weight Obtained Via Standing scale (11/03/21 10:48 AM) Social History Social History Type Response Smoking Status Former smoker; Tobac co user in household: Yes entered on: 06/03/14 Sex Male
--- OUTSIDE RECORDS SUMMARY | 2023-11-21 10:47 | XMS_ITS | Continuity of Care Document ---
Author Organization [facility] Address [address] [place] [address]- Care Team Providers Care Loss Prevention Associate Name Role Phone Elmer Puentes MD Primary Care Physician Encounter [facility] [place] Date(s): 06/27/20 - 07/04/20 [facility] [address] [place] [address]- Attending Physician: Johnna PEMBERTON, Treasure Escalante Admitting [...] 1Result Comment: [03/18/2017] [facility]: [id number] HIGH DOSE 2Admin Note: given by GERMAN 3Admin Note: [employer] [facility] 4Admin Note: [employer] [facility] Medications allopurinol 300 mg oral tablet 300 mg, 1, tablet, By Mouth, Daily, # 90 tablet, Refills 0, Tot. Refills 0, Maintenance, 01/19/20 16:22:00 EDT, [facility], 175.26, cm, 09/30/19 10:57:00 EDT, Height Start Date: 01/19/20 Status: Ordered diltiazem 240 mg/24 hours oral capsule, extended release 240 mg, 1, capsule, By Mouth, Daily, # 30 capsule, Refills 0, Tot. Refills 0, Maintenance, 09/02/2013:51:00 EDT, [facility], 175.26, cm, 08/18/19 14:43:00 EST, Height Start Date: 09/03/19 Status: Ordered Eliquis 5 mg oral tablet 1 tablet = 5 mg, By Mouth, 2 times a day, # 180 tablet, 3 Refills, Maintenance, 12/30/19 15:45:00 EDT, Tablet, [facility]/pharmacy #1, 175.26, cm, 09/30/19 10:57:00 EDT, Height Start Date: 12/30/19 Status: Ordered furosemide 40 mg oral tablet 80 mg, 2, tablet, By Mouth, Daily, # 90 tablet, Refills 3, Tot. Refills 3, Maintenance, 03/31/19 11:18:45 EDT, Route to Pharmacy Electronically, [facility]/pharmacy #207 Start Date: 03/31/19 Status: Ordered losartan 50 mg oral tablet 50 mg, 1, tablet, By Mouth, Daily, # 90 tablet, Refills 0, Tot. Refills 0, Maintenance, 04/11/20 10:26:00 EDT, [facility] Pharm[facility]ically, [facility], 175.26, cm, 04/01/20 11:21:00 EDT,Height Start Date: 04/11/20 Status: Ordered Multivitamin By Mouth, Daily, 0 Refills, Maintenance Start Date: 08/19/12 Status: Ordered pravastatin 80 mg oral tablet See Instructions, TAKE 1 TABLET BY MOUTH EVERY DAY, # 90 tablet, 1 Refills, Soft Stop, 01/24/20 22:04:00 EDT, [facility]/pharmacy #2071, 175.26, cm, 09/30/19 10:57:00 EDT, Height [...]
--- OUTSIDE RECORDS SUMMARY | 2023-11-21 10:47 | XMS_ITS | Continuity of Care Document ---
Author Organization [facility] Kristian Jcarlos Address [address] [place] [address]- Care Team Providers Care Dinker Name Role Phone Elmer Puentes MD Primary Care Physician Encounter [facility] [place] Date(s): 09/30/19 - 10/07/19 [facility] Adult [address] [place] [address]- [facility] Attending Physician: Elmer Puentes MD Allergies, [...] 06/24/99 Given 1Result Comment: [03/18/2017] [facility]: [id number] HIGH DOSE 2Admin Note: given by LB 3Admin Note: [employer] [facility] 4Admin Note: [employer] [facility] Medications allopurinol 300 mg oral tablet 300 mg, 1, tablet, By Mouth, Daily, # 90 tablet, Refills 3, Tot. Refills 3, Maintenance, 01/21/19 16:49:02 EDT, Route to Pharmacy Electronically, [id number], [facility]/pharmacy #2071 Start Date: 01/21/19 Status: Ordered diltiazem 240 mg/24 hours oral capsule, extended release 240 mg, 1, capsule, By Mouth, Daily, # 30 capsule, Refills 0, Tot. Refills 0, Maintenance, 09/02/2013:51:00 EDT, [facility], 175.26, cm, 08/18/19 14:43:00 EST, Height [...] [id number] Start Date: 03/31/19 Status: Ordered losartan 50 mg oral tablet 50 mg, 1, tablet, By Mouth, Daily, # 90 tablet, Refills 3, Tot. Refills 3, Maintenance, 03/31/19 11:17:44 EDT, Route to Pharmacy Electronically, [id number], [facility]/pharmacy #207 Start Date: 03/31/19 Status: Ordered [...] 0, Maintenance, ASV EPAP 6 [facility], 01/05/18 [...] oldest [Reference Range]: 1 Height 175.26 cm (09/30/19 10:57 AM) Weight 84.7 kg (09/30/19 10:57 AM) Pulse Rate [55-90 bpm] 60 bpm (09/30/19 10:57 AM) Body Mass Index [18.5-24.99] 27.58 *H* (09/30/19 10:57 AM) Blood Pressure [90-138/55-84 mm Hg] 120/ 82mm Hg (09/30/19 10:57 AM) Respiratory Rate [16-30 br/min] 12 br/mi n *L* (09/30/19 10:57 AM) Temperature [96.8-100.4 DegF] 97.4 DegF (09/30/19 10:57 AM) Mode of Delivery (Oxygen) Room air (09/30/19 10:57 AM) Blood pressure sites Arm, left (09/30/19 10:57 AM) Temperature Route Oral (09/30/19 10:57 AM) Weight Obtained Via Standing scale (09/30/19 10:57 AM) Social History Social History Type Response Smoking Status Former smoker; Tobac co user in household: Yes entered on: 06/03/14 Sex
--- OUTSIDE RECORDS SUMMARY | 2023-11-21 10:47 | XMS_ITS | Continuity of Care Document ---
Author Organization [facility] Kristian Jcarlos lt Address [address] [place] [address]- Care Team Providers Care Wig Dresser Name Role Phone Deloris MEDINA, Elmer Bill Primary Care Physician Encounter [facility] Date(s): 08/23/23 - 09/22/23 [facility] Adult [address] [place] [address]- Allergies, Adverse Reactions, Alerts Substance Reaction Severity [...] vaccine, inactivated 04/22/08 Give n SARS-CoV-2 mRNA ([id number]) vax 2 03/23/22 Recorded SARS-CoV-2 (COVID-19) mRNA [...] 06/24/99 Given 1Result Comment: [03/18/2017] [facility]: [id number] HIGH DOSE 2Result Comment: Moderna Covid Bivalent Booster, [facility] 3Admin Note: given by LB 4Admin Note: [employer] 5Admin Note: [employer] Medications acetaminophen 325 mg oral tablet 650 [...] 06/10/23 6:07:00 EST, Route to Pharmacy Electronically, [facility], 172, cm, 05/17/23 14:43:00 EST, Height, 79.5, kg, 03/16/23 13:06:00 EDT, Dry Weight Start Date: 06/10/23 Status: Ordered metoprolol 25 mg oral tablet, extended release 25 mg, 1, tablet, By Mouth, Daily, # 30 tablet, Refills 11, Tot. Refills 11, Maintenance, 04/08/23 14:32:00 EDT, Route to Pharmacy Electronically, [facility] # [facility], Partial fill upon patient [...] 04/08/23 14:31:00 EDT, Route to Pharmacy Electronically, [facility] # 50, Partial fill upon patient [...] 07/18/23 11:18:00 EST, Route to Pharmacy Electronically, [facility] # 50, Partial fill upon patient request if the prescription is for a schedule... Start Date: 07/18/23 Stop Date: 07/12/24 Status: Ordered uses nightly uses nightly, See Instructions, # 1 each, Refills 0, Tot. Refills 0, Maintenance, ASV EPA 6 [facility], 01/05/18 12:43:07 EDT, [...] Team Personnel Name: Elmer Puentes MD Position: [facility] Physician - Primary Care Member Role: PCP Address: Address: [address] [place] [address]- [place] Name: Sidra Banda RN Position: [facility] AMB Nurse Member Role: Primary Care Nurse Name: Judith Duron RN Position: [facility] ED RN W/OE and Tasks Member Role: Primary Care Nurse Name: Jewell Polo Position: [facility] [place] Drug Worker Member Role: Car Cooper Care Team Related Persons Name: ROBIN MOTA Address: home [address] [address]
--- OUTSIDE RECORDS SUMMARY | 2023-11-21 10:47 | XMS_ITS | Continuity of Care Document ---
Author Organization [facility] Jcarlos Address [address] [place] [address]- Care Team Providers Care Configurator Name Role Phone Deloris MEDINA, Elmer Bill Primary Care Physician [phone] Encounter [facility] [place] Date(s): 08/02/21 - 09/01/21 [facility] Adult [address] [place] [address]- Attending Physician: Admtr, Ar8 Admitting Physician: Admtr, Ar8 Referring Physician: Admtr, Ar8 Allergies, Adverse Reactions, [...] Vaccine (oldterm) 06/24/99 Given 1Result Comment: [03/18/2017] [facility]: [id number] HIGH DOSE 2Admin Note: given by LB 3Admin Note: [employer] 4Admin Note: [employer] [facility] Medications allopurinol 300 mg oral tablet 1, tablet, By Mouth, Daily, # 90 tablet, Refills 1, Route to Pharmacy Electronically, [facility] 404[facility], 175.26, cm, 06/30/21 15:13:00 EST, Height, 84, kg, 10/31/20 13:29:00 EDT, Dry Weight Start Date: 07/14/21 Status: Ordered Diflucan 200 mg oral tablet 1 tablet = 200 mg, By Mouth, Daily, # 30 tablet, 0 Refills, Maintenance, 05/25/21 11:51:00 EST, Tablet, [facility]/pharmacy #2071, Partial fill upon patient request if the prescription is for a schedule II opioid drug., 175.26, cm, 05/25/21 11:22:00 EST, Hei... Start Date: 05/25/21 Status: Ordered diltiazem 300 mg/24 hours oral capsule, extended release 300 mg, 1, capsule, By Mouth, Daily, # 90 capsule, Refills 3, Tot. Refills 3, Maintenance, :53:00 EDT, Route to Pharmacy Electronically, [facility]/pharmacy #[id number], Partial fill upon patient request if the prescription is for a schedule II opioid dr... Start Date: 11/18/20 Status: Ordered Eliquis 5 mg oral tablet 1 tablet, By Mouth, 2 times a day, # 60 tablet, 11 Refills, Maintenance, 02/20/21 9:23:00 EDT, [facility]/pharmacy #2071, 175.26, cm, 01/30/21 16:19:00 EDT, Height, 84, kg, 10/31/20 13:29:00 EDT, Dry Weight Start Date: 02/20/21 Status: Ordered FLUoxetine 20 mg oral capsule 20 mg, 1, capsule, By Mouth, Daily, # 30 capsule, Refills 11, Tot. Refills 11, Maintenance, 05/25/21 11:49:00 EST, Route to Pharmacy Electronically, [facility]/pharmacy #2071, Partial fill upon patient request if the prescription is for a schedule II opioid... Start Date: 05/25/21 Status: Ordered furosemide 40 mg oral tablet 80 mg, 2, tablet, By Mouth, Daily, # 90 tablet, Refills 3, Tot. Refills 3, Maintenance, 03/31/19 11:18:45 EDT, Route to Pharmacy Electronically, [facility]/pharmacy #2071 Start Date: 03/31/19 Status: Ordered Multivitamin By Mouth, Daily, 0 Refills, Maintenance Start Date: 08/19/12 Status: Ordered pravastatin 80 mg oral tablet 1 tablet, By Mouth, Daily, # 90 tablet, 1 Refills, [facility] 8[facility], 175.26, cm, 06/30/21 15:13:00 EST, Height, 84, kg, 10/31/20 13:29:00 EDT, Dry Weight Start Date: 07/14/21 Status: Ordered terazosin 2 mg oral capsule 2 mg, 1, capsule, By Mouth, Daily at bedtime, # 90 capsule, Refills 3, Tot. Refills 3, Maintenance,06/30/21 15:25:00 EST, Route to Pharmacy Electronically, [facility]/pharmacy #[id number], Partial fill upon patient request if [...] EPAP 6 [facility], 01/05/18 12:43:07 EDT, Compound Start Date: [...] Active 1Colonoscopy 2013 positive polyp, repeat 2018. [address]308 negative, repeat 2012 3colo 2018 4Right knee 2013. 5colo 2018 6colo 2019 Vital Signs Most recent to oldest [Reference Range]: 1 Blood Pressure [90-138/55-84 mm Hg] 140/ 100mm Hg *H* (01/08/14 9:43 AM) Blood pressure sites Arm, left (01/08/14 9:43 AM) Social History Social History Type Response Smoking Status Former smoker; Tob[employer] co user in household: Yes entered on: 06/03/14 Sex Male
--- OUTSIDE RECORDS SUMMARY | 2023-11-21 10:47 | XMS_ITS | Continuity of Care Document ---
Author Organization [facility] Jcarlos Address [address] [place] [address]- Care Team Providers Care Cement Tile Maker Name Role Phone Elmer Puentes MD Primary Care Physician Encounter [facility] Date(s): 11/18/20 - 11/25/20 [facility] Adult [address] [place] [address]- Attending Physician: Elmer Puentes MD Allergies, Adverse [...] FluLaval (oldterm) 4 04/07/10 Given tetanus/diphtheria/pertussis, acel(Tdap) 4/5/10 Given Zoster Vaccine Live 05/31/09 Given Tetanus Toxoid Vaccine (oldterm) 06/24/99 Given 1Result Comment: [03/18/2017] [facility]: [id number] HIGH DOSE 2Admin Note: given by LB 3Admin Note: [employer] [facility] 4Admin Note: [employer] [facility] Medications allopurinol 300 mg oral tablet 300 mg, 1, tablet, By Mouth, Daily, # 90 tablet, Refills 0, Tot. Refills 0, Maintenance, 08/27/20 9:17:00 EST, Route to Pharmacy Electronically, [facility]/pharmacy #1, 175.26, cm, 04/01/20 11:21:00 EDT,Height Start Date: 08/27/20 Status: Ordered diltiazem 300 mg/24 hours oral capsule, extended release 300 mg, 1, capsule, By Mouth, Daily, # 90 capsule, Refills 3, Tot. Refills 3, Maintenance, 219:53:00 EDT, Route to Pharmacy Electronically, [facility]/pharmacy #207, Partial fill upon patient request if the prescription is for a schedule II opioid . Start Date: 11/18/20 Status: Ordered Eliquis 5 mg oral tablet 1 tablet = 5 mg, By Mouth, 2 times a day, # 180 tablet, 3 Refills, Maintenance, 12/30/19 15:45:00 EDT, Tablet, [facility]/pharmacy #1, 175.26, cm, 09/30/19 10:57:00 EDT, Height Start Date: 12/30/19 Status: Ordered furosemide 40 mg oral tablet 80 mg, 2, tablet, By Mouth, Daily, # 90 tablet, Refills 3, Tot. Refills 3, Maintenance, 03/31/19 11:18:45 EDT, Route to Pharmacy Electronically, [facility]/pharmacy #2070 Start Date: 03/31/19 Status: Ordered Multivitamin By Mouth, Daily, 0 Refills, Maintenance Start Date: 08/19/12 Status: Ordered pravastatin 80 mg oral tablet See Instructions, TAKE 1 TABLET BY MOUTH EVERY DAY, # 90 tablet, 1 Refills, Soft Stop, 07/20/20 10:47:00 EST, [facility]/pharmacy #1, 175.26, cm, 04/01/20 11:21:00 EDT, Height Start Date: 07/20/20 Status: Ordered turmeric 500 mg oral capsule 3 capsule = 1,500 mg, By Mouth, Daily, # 60 capsule, 0 Refills, Maintenance, 03/31/19 11:20:01 EDT,Capsule Start Date: 03/31/19 Status: Ordered uses nightly uses nightly, See Instructions, # 1 each, Refills 0, Tot. Refills 0, Maintenance, ASV EPAP 6 [facility], 01/05/18 12:43:07 EDT, Compound Start Date: 01/05/18 Status: Ordered valsartan 320 mg oral tablet 1 tablet = 320 mg, By Mouth, Daily, # 90 tablet, 3 Refills, Maintenance, 11/04/20 14:17:00 EDT, Tablet, [facility]12[facility], Partial fill upon patient request if the [...] Active 1Colonoscopy 2013 positive polyp, repeat 2018. 51911 negative, repeat 2012 3colo 2018 4Right knee 2014. 5colo 2019 6colo 2019 Vital Signs Most recent to oldest [Reference Range]: 1 2 Blood Pressure [90-138/55-84 mm Hg] 144/ 96mm Hg *H* (11/18/20 9:39 AM) 138/92mm Hg (11/18/20 9:39 AM) Blood pressure sites Arm, right (11/18/20 9:39 AM) Arm, right (11/18/20 9:39 AM) Social History Social History Type Response Smoking Status Former smoker; Tobac co user in household: Yes entered on: 06/03/14 Sex
--- OUTSIDE RECORDS SUMMARY | 2023-11-21 10:47 | XMS_ITS | Continuity of Care Document ---
Author Organization [facility] Address [address] [place] [address]- Care Team Providers Care Financial Advisor Trainee Name Role Phone Deloris MEDINA, Elmer Bill Primary Care Physician [phone] Encounter [facility] Date(s): 08/27/23 - 09/03/23 [facility] [address] [place] [address]- Attending Physician: Isaiah Jc MD Admitting Physician: Isaiah Jc MD Referring Physician: Elmer Puentes MD Allergies, [...] vaccine, inactivated 04/22/08 Give n SARS-CoV-2 mRNA ([id number]-[id number]-[id number]) vax 2 03/23/22 Recorded SARS-CoV-2 (COVID-19) mRNA [...] 06/24/99 Given 1Result Comment: [03/18/2017] [facility]: 02008-579-45 HIGH DOSE 2Result Comment: Moderna Covid Bivalent Booster, [facility] 3Admin Note: given by LB 4Admin Note: [employer] [facility] 5Admin Note: [employer] [facility] Medications acetaminophen 325 mg oral tablet [...] 11 Refills, Maintenance, 04/08/23 14:31:00 EDT, Tablet, [facility] # [facility], Partial fill [...] tablet, 11 Refills, Maintenance, 04/08/23 14:30:00 EDT, [facility] # 50, 172, cm, 03/22/23 14:14:00 EDT, Height, 79.5, kg, 03/16/23 13:06:00 EDT, Dry Weight Start Date: 04/08/23 Status: Ordered FLUoxetine 40 mg oral capsule 1 capsule = 40 mg, By Mouth, Daily, # 30 capsule, 11 Refills, Maintenance, 04/08/23 11:49:00 EDT, Capsule, [facility] # 50, Partial fill upon patient request if the prescription is for a scheduleII opioid drug., 172, cm, 03/22/23 14:14:00 EDT, He... Start Date: 04/08/23 Stop Date: 04/02/24 Status: Ordered furosemide 40 mg oral tablet 60 mg, 1.5, tablet, By Mouth, Daily, # 180 tablet, Refills 1, Maintenance, 06/10/23 6:07:00 EST, Route to Pharmacy Electronically, [facility] STORE [id number], 172, cm, 05/17/23 14:43:00 EST, Height, 79.5, kg, 03/16/23 13:06:00 EDT, Dry Weight Start Date: 06/10/23 Status: Ordered metoprolol 25 mg oral tablet, extended release 25 mg, 1, tablet, By Mouth, Daily, # 30 tablet, Refills 11, Tot. Refills 11, Maintenance, 04/08/23 14:32:00 EDT, Route to Pharmacy Electronically, [facility] # [facility], Partial fill upon patient [...] 04/08/23 14:31:00 EDT, Route to Pharmacy Electronically, [facility] # 50, Partial fill upon patient request if the prescription is for a schedule II opioid d... Start Date: 04/08/23 Stop Date: 04/02/24 Status: Ordered terazosin 2 mg oral capsule 2 mg, 1, capsule, By Mouth, Daily at bedtime, # 90 capsule, Refills 3, Tot. Refills 3, Maintenance,11/21/22 13:39:00 EDT, Route to Pharmacy Electronically, [facility]/pharmacy #[id number], Partial fill upon patient request if the prescription is for a schedule II... Start Date: 11/21/22 Stop Date: 11/16/23 Status: Ordered traZODone 50 mg oral tablet 50 mg, 1, tablet, By Mouth, Daily at bedtime, # 30 tablet, Refills 11, Tot. Refills 11, Maintenance, 07/18/23 11:18:00 EST, Route to Pharmacy Electronically, [facility], Partial fill upon patient [...] oldest [Reference Range]: 1 Height 170 cm (08/27/23 10:25 AM) Weight 73.48 kg (08/27/23 10:25 AM) Body Mass Index [18.5-24.99 kg/m2] 25.43 kg/m2 *H* (08/27/23 10:25 AM) Blood Pressure [90-138/55-84 mm Hg] 132/ 74mm Hg (08/27/23 10:25 AM) Blood pressure sites Arm, left (08/27/23 10:25 AM) Weight Obtained Via Patient/family state d (08/27/23 10:25 AM) Social History Social History Type Response Smoking Status Former smoker; Tobac co user in household: Yes entered on: 06/03/14 Sex Note * Bety Torres: PERFORM, SIGN, VERIFY Event Display: Patient Education/Instruction Authored Date: [id number] [facility] *BVS [address] Clinical Summary Name HILL MOTA Age 73 Years 1950 PCP Elmer Puentes MD PCP Visit Date 08/27/2023 10:00:00 Additional Instructions: Scheduled Appointments?? Future Appointments ?*BMP??[facility] ?[address],??[address] ?Phone:??--?Fax:??-- ?Appt. Date:??09/10/2023?11:30 AM ?Scheduled Provider:??Elmer Puentes MD ?[facility]RAD ?[address]??[place],??[place],??[address] ?Phone:??[phone]?Fax:??-- ?Appt. Date:??09/20/2023?2:30 PM ?Scheduled Provider:??[facility] 1.5T ?*[facility]MP??[facility] ?[address],??[address] ?Phone:??--?Fax:??-- ?Appt. Date:??10/24/2023?10:30 AM ?Scheduled Provider:??Elmer Puentes MD Follow-Up Instructions ?? With: Address: When: Isaiah Jc MD Within 3 months Comments: F/U 3 months with ALINA and bilateral arterial duplex Diagnosis Medications: Please continue your medications until [...] twice a day. Refills: 11. Next Dose: Aspirin (aspirin 81 mg oral tablet, chewable) 81 Milligram Oral Daily. Next Dose: Atorvastatin (atorvastatin 80 mg oral tablet) 1 tab(s) Oral Daily at Bedtime for 30 Days. Refills: 11. Next Dose: Carbidopa-Levodopa (Sinemet 10 mg-100 mg oral tablet) 1 tab(s) Oral 3 times a day. Refills: 11. Next Dose: Durable Medical Equipment (Bedside Commode) Bedside commode for generalized weakness. Refills: 0. Next Dose: Durable Medical Equipment (uses nightly) [facility] 6 [facility]. Refills: 0. Next Dose: [...] Next Dose: Multivitamin Oral Daily. Next Dose: Spironolactone (spironolactone 25 mg oral tablet) 1 tab(s) Oral Daily for 30 Days. Refills: 11. Next Dose: Terazosin (terazosin 2 mg oral capsule) 1 capsule Oral Daily at Bedtime for 90 Days. Refills: 3. Next Dose: Trazodone (traZODone 50 mg oral tablet) 1 tab(s) Oral Daily at Bedtime for 30 Days. Refills: 11. Next Dose: Allergy Info:?? Bee Stings Medications Given This Visit Future Orders ?VL Arterial Duplex Bilat Scan? Order Date:08/27/23?- Complete by?08/27/23 ?VL Ankle Brachial Indices? Order Date:08/27/23?- Complete by?08/27/23 Vital Signs Height 170 cm Weight 73.48 kg BMI 25.43 kg/m2 Blood Pressure 132 mm Hg/74 mm Hg Temperature Pulse Rate Respiratory Rate 02 Sat Mode of Delivery / You can now view a summary of your hospital visit from the comfort of your home through a free online portal called [employer]. [employer] is a website that allows you to securely view your medical information including discharge summary, medications and follow-up visits. ??You can alsosend a secure electronic message to your doctor???s office to request appointments, renew medications or just ask a question. You can enroll at [email or web address] or register during your next office visit. [...] primary care provider, you may find a [facility] provider by calling [facility] at [phone]. [facility], in keeping with [facility] guidance, no longer requires face masks [...] Team Personnel Name: Elmer Puentes MD Position: [facility] Physician - Primary Care Member Role: PCP Address: Address: [address] [place] [address]- Name: Sidra Banda RN Position: [facility] ISABELLA Nurse Member Role: Primary Care Nurse Name: Judith Duron RN Position: [facility] DOMINGA RN W/OE and Tasks Member Role: Primary Care Nurse Name: Jewell Polo Position: [facility] Cutter Operator Asbestos Shingle Member Role: Patient Day Coordinator Care Team Related Persons Name: JU MOTAEEN Address: home [address] [address]
--- OUTSIDE RECORDS SUMMARY | 2023-11-21 10:47 | XMS_ITS | Continuity of Care Document ---
Author Organization [facility] Kristian Jcarlos Address [address] [place] [address]- Care Team Providers Care Material Handler Floorperson Name Role Phone Elmer Puentes MD Primary Care Physician [facility]counter [facility] Date(s): 01/18/21 - 01/25/21 [facility] Adult [address] [place] [address]- Attending Physician: Elmer Puentes MD Allergies, Adverse [...] Vaccine (oldterm) 06/24/99 Given 1Result Comment: [03/18/2017] [facility]: [id number] HIGH DOSE 2Admin Note: given by LB 3Admin Note: [employer] [facility] 4Admin Note: [employer] [facility] Medications allopurinol 300 mg oral tablet 1, tablet, By Mouth, Daily, # 90 tablet, Refills 0, Tot. Refills 0, Maintenance, 12/22/20 11:49:00 EDT, Route to Pharmacy Electronically, [facility], 175.26, cm, 12/19/20 9:28:00 EDT, Height, 84, kg, 10/31/20 13:29:00 EDT, Dry Weight Start Date: 12/22/20 Status: Ordered diltiazem 300 mg/24 hours oral capsule, extended release 300 mg, 1, capsule, By Mouth, Daily, # 90 capsule, Refills 3, Tot. Refills 3, Maintenance, 219:53:00 EDT, Route to Pharmacy Electronically, [facility]/pharmacy #2071, Partial fill upon patient request if the prescription is for a schedule II opioid . Start Date: 11/18/20 Status: Ordered Eliquis 5 mg oral tablet 1 tablet, By Mouth, 2 times a day, # 180 tablet, 3 Refills, Maintenance, 01/16/21 14:07:00 [facility], 175.26, cm, 12/19/20 9:28:00 EDT, Height, 84, kg, 10/31/20 13:29:00 EDT, Dry Weight Start Date: 01/16/21 Status: Ordered furosemide 40 mg oral tablet 80 mg, 2, tablet, By Mouth, Daily, # 90 tablet, Refills 3, Tot. Refills 3, Maintenance, 03/31/19 11:18:45 EDT, Route to Pharmacy Electronically, [facility]/pharmacy #2078 Start Date: 03/31/19 Status: Ordered Multivitamin By [...] Tot. Refills 0, Maintenance, [facility]V [facility], 01/05/18 12:43:07 EDT, Compound Start Date: 01/05/18 Status: Ordered valsartan 320 mg oral tablet 1 tablet = 320 mg, By Mouth, Daily, # 90 tablet, 3 Refills, Maintenance, 11/04/20 14:17:00 EDT, Tablet, [facility]/pharmacy #2071, Partial fill upon patient request [...] oldest [Reference Range]: 1 Height 175.26 cm (01/18/21 8:41 AM) Social History Social History Type Response Smoking Status Former smoker; Tobac co user in household: Yes entered on: 06/03/14 Sex Male
--- OUTSIDE RECORDS SUMMARY | 2023-11-21 10:47 | XMS_ITS | Continuity of Care Document ---
Author Organization [facility] Carter Jcarlos lt Address [address] [place] [address]- Care Team Providers Care Braid Folder Name Role Phone Deloris MEDINA, Elmer Bill Primary Care Physician [phone] [facility]counter [facility] Date(s): 09/30/20 - 10/30/20 [facility] Adult [address] [place] [address]- Allergies, Adverse Reactions, Alerts Substance Reaction Severity [...] Given 1Result Comment: [03/18/2017] [facility]: 83204-314-63 HIGH DOSE 2Admin Note: given by LB 3Admin Note: [facility] 4Admin Note: [facility] Medications allopurinol 300 mg oral tablet 300 mg, 1, tablet, By Mouth, Daily, # 90 tablet, Refills 0, Tot. Refills 0, Maintenance, 08/27/20 9:17:00 EST, [facility] 175.26, cm, 04/01/20 11:21:00 EDT,Height Start Date: 08/27/20 Status: Ordered diltiazem 240 mg/24 hours oral capsule, extended release 240 mg, 1, capsule, By Mouth, Daily, # 30 capsule, Refills 0, Tot. Refills 0, Maintenance, 09/02/2013:51:00 EDT, [facility] 175.26, cm, 08/18/19 14:43:00 EST, Height Start Date: 09/03/19 Status: Ordered Eliquis 5 mg oral tablet 1 tablet = 5 mg, By Mouth, 2 times a day, # 180 tablet, 3 Refills, Maintenance, 12/30/19 15:45:00 EDT, Tablet, [facility]/pharmacy #1, 175.26, cm, 09/30/19 10:57:00 EDT, Height Start Date: 12/30/19 Status: Ordered furosemide 40 mg oral tablet 80 mg, 2, tablet, By Mouth, Daily, # 90 tablet, Refills 3, Tot. Refills 3, Maintenance, 03/31/19 11:18:45 EDT, Route to Pharmacy Electronically, [facility]/pharmacy #2070 Start Date: 03/31/19 Status: Ordered losartan 100 mg oral tablet 1 tablet = 100 mg, By Mouth, Daily, # 90 tablet, 3 Refills, Maintenance, 09/30/20 11:09:00 EDT, Tablet, [facility]/pharmacy #207, Partial fill upon patient request [...] 1 Refills, Soft Stop, 07/20/20 10:47:00 EST, [facility]/pharmacy #2071, 175.26, cm, 04/01/20 11:21:00 EDT, Height Start Date: 07/20/20 Status: Ordered turmeric 500 mg oral capsule 3 capsule = 1,500 mg, By Mouth, Daily, # 60 capsule, 0 Refills, Maintenance, 03/31/19 11:20:01 EDT,Capsule Start Date: 03/31/19 Status: Ordered uses nightly uses nightly, See Instructions, # 1 each, Refills 0, Tot. Refills 0, Maintenance, ASV EPAP 6 [facility], 01/05/18 12:43:07 EDT, Compound Start Date: 01/05/18 [...] Active 1Colonoscopy 2013 positive polyp, repeat 2017. 30319 negative, repeat 2012 3colo 2019 4Right knee 2014. 5colo 2018 6colo 2018 Social History Social History Type Response Smoking Status Former smoker; Tobac co user in household: Yes entered on: 06/03/14 Sex
--- OUTSIDE RECORDS SUMMARY | 2023-11-21 10:47 | XMS_ITS | Continuity of Care Document ---
Author Organization [facility] Address [address] [place] [address]- Care Team Providers Care Winchman/Crane Operator Name Role Phone Deloris MEDINA, Elmer Bill Primary Care Physician [phone] Encounter [facility] Date(s): 10/05/20 - 11/04/[address] [address]- Attending Physician: Nohemi Vinson Admitting Physician: Nohemi [...] [03/18/2017] [facility]: [id number] HIGH DOSE 2Admin Note: given by LB 3Admin Note: [employer] [facility] 4Admin Note: [employer] [facility] Medications allopurinol 300 mg oral tablet 300 mg, 1, tablet, By Mouth, Daily, # 90 tablet, Refills 0, Tot. Refills 0, Maintenance, 08/27/20 9:17:00 EST, [facility] 175.26, cm, 04/01/20 11:21:00 EDT,Height Start Date: 08/27/20 Status: Ordered diltiazem 240 mg/24 hours oral capsule, extended release 240 mg, 1, capsule, By Mouth, Daily, # 30 capsule, Refills 0, Tot. Refills 0, Maintenance, 09/02/2013:51:00 EDT, [facility], 175.26, cm, 08/18/19 14:43:00 EST, Height Start Date: 09/03/19 Status: Ordered Eliquis 5 mg oral tablet 1 tablet = 5 mg, By Mouth, 2 times a day, # 180 tablet, 3 Refills, Maintenance, 12/30/19 15:45:00 EDT, Tablet, [facility], 175.26, cm, 09/30/19 10:57:00 EDT, Height Start Date: 12/30/19 Status: Ordered furosemide 40 mg oral tablet 80 mg, 2, tablet, By Mouth, Daily, # 90 tablet, Refills 3, Tot. Refills 3, Maintenance, 03/31/19 11:18:45 EDT, [facility] Start Date: 03/31/19 Status: Ordered Multivitamin [...] Tot. Refills 0, Maintenance, ASV EPAP 6 [facility], 01/05/18 12:43:07 EDT, Compound Start Date: 01/05/18 Status: Ordered valsartan 320 mg oral tablet 1 tablet = 320 mg, By Mouth, Daily, # 90 tablet, 3 Refills, Maintenance, 11/04/20 14:17:00 EDT, Tablet, [facility]/pharmacy #2071, Partial fill upon [...]
--- OUTSIDE RECORDS SUMMARY | 2023-11-21 10:47 | XMS_ITS | Continuity of Care Document ---
Author Organization [facility] Kristian Jcarlos lt Address [address] [place] [address]- Care Team Providers Care Music Arranger Name Role Phone Deloris MEDINA, Elmer Bill Primary Care Physician [phone] Encounter [facility] Date(s): 07/19/23 - 08/18/23 [facility] Adult [address] [place] [address]- Allergies, Adverse Reactions, Alerts Substance Reaction Severity [...] vaccine, inactivated 04/22/08 Give n SARS-CoV-2 mRNA ([id number]) vax 2 03/23/22 Recorded SARS-CoV-2 (COVID-19) mRNA [...] Given 1Result Comment: [03/18/2017] [facility]: [id number] HIGH DOSE 2Result Comment: Moderna Covid Bivalent Booster, [facility] Pharmacy 3Admin Note: given by LB 4Admin Note: [employer] 5Admin Note: [employer] Medications acetaminophen 325 mg oral tablet 650 [...] EDT, [facility] # 50, 172, alexei, 03/22/23 [...] 06/10/23 6:07:00 EST, Route to Pharmacy Electronically, [facility], 172, cm, 05/17/23 14:43:00 EST, Height, 79.5, kg, 03/16/23 13:06:00 EDT, Dry Weight Start Date: 06/10/23 Status: Ordered metoprolol 25 mg oral tablet, extended release 25 mg, 1, tablet, By Mouth, Daily, # 30 tablet, Refills 11, Tot. Refills 11, Maintenance, 04/08/23 14:32:00 EDT, Route to Pharmacy Electronically, [facility] # 50, Partial fill upon patient [...] 04/08/23 14:31:00 EDT, Route to Pharmacy Electronically, [facility] # 50, Partial fill upon patient request if the prescription is for a schedule II opioid d... Start Date: 04/08/23 Stop Date: 04/02/24 Status: Ordered terazosin 2 mg oral capsule 2 mg, 1, capsule, By Mouth, Daily at bedtime, # 90 capsule, Refills 3, Tot. Refills 3, Maintenance,11/21/22 13:39:00 EDT, Route to Pharmacy Electronically, [facility]/pharmacy #8641, Partial fill upon patient request if the prescription is for a schedule II... Start Date: 11/21/22 Stop Date: 11/16/23 Status: Ordered traZODone 50 mg oral tablet 50 mg, 1, tablet, By Mouth, Daily at bedtime, # 30 tablet, Refills 11, Tot. Refills 11, Maintenance, 07/18/23 11:18:00 EST, Route to Pharmacy Electronically, [facility], Partial fill upon patient request if the prescription is for a schedule... Start Date: 07/18/23 Stop Date: 07/12/24 Status: Ordered uses nightly uses nightly, See Instructions, # 1 each, Refills 0, Tot. Refills 0, Maintenance, [facility], 01/05/18 12:43:07 EDT, Compound [...] Personnel Name: Deloris MEDINA, Elmer Bill Position: [facility] Physician - Primary Care Member Role: PCP Address: Address: [address] [place] [address]- Name: Solo BURKS, Sidra Rosen Position: [facility] AMB Nurse Member Role: Primary Care Nurse Name: Judith Duron RN Position: [facility] ED RN W/OE and Tasks Member Role: Primary Care Nurse Care Team Related Persons Name: ROBIN MOTA Address: home [address] [address]
--- OUTSIDE RECORDS SUMMARY | 2023-11-21 10:47 | XMS_ITS | Continuity of Care Document ---
Author Organization [facility] Jcarlos lt Address [address] [place] [address]- Care Team Providers Care Corporate Director Talent Assessment Name Role Phone Deloris MEDINA, Elmer Bill Primary Care Physician [facility] Date(s): 10/01/23 - 10/31/23 [facility] [place] [address] [place] [address]- Allergies, Adverse Reactions, Alerts Substance Reaction Severity [...] vaccine, inactivated 04/22/08 Give n SARS-CoV-2 mRNA ([id number]) vax 2 03/23/22 Recorded SARS-CoV-2 (COVID-19) mRNA [...] Vaccine (oldterm) 06/24/99 Given 1Result Comment: [03/18/2017] [facility]: 27755-550-19 HIGH DOSE 2Result Comment: Moderna Covid Bivalent Booster, [facility] Pharmacy 3Admin Note: given by LB 4Admin Note: [employer] 5Admin Note: [employer] [facility] Medications acetaminophen 325 mg oral tablet 650 [...] 06/10/23 6:07:00 EST, Route to Pharmacy Electronically, [facility], 172, cm, 05/17/23 14:43:00 EST, Height, 79.5, kg, 03/16/23 13:06:00 EDT, Dry Weight Start Date: 06/10/23 Status: Ordered metoprolol 25 mg oral tablet, extended release 25 mg, 1, tablet, By Mouth, Daily, # 30 tablet, Refills 11, Tot. Refills 11, Maintenance, 04/08/23 14:32:00 EDT, Route to Pharmacy Electronically, [facility], Partial fill upon patient [...] 04/08/23 14:31:00 EDT, Route to Pharmacy Electronically, [facility] # [facility], Partial fill upon patient request if the prescription is for a schedule II opio... Start Date: 04/08/23 Stop Date: 04/02/24 Status: Ordered terazosin 2 mg oral capsule 2 mg, 1, capsule, By Mouth, Daily at bedtime, # 90 capsule, Refills 3, Tot. Refills 3, Maintenance,11/21/22 13:39:00 EDT, Route to Pharmacy Electronically, [facility]/pharmacy #5551, Partial fill upon patient request if the prescription is for a schedule II... Start Date: 11/21/22 Stop Date: 11/16/23 Status: Ordered traZODone 50 mg oral tablet 50 mg, 1, tablet, By Mouth, Daily at bedtime, # 30 tablet, Refills 11, Tot. Refills 11, Maintenance, 07/18/23 11:18:00 EST, Route to Pharmacy Electronically, [facility] # [facility], Partial fill upon [...] Active 1Colonoscopy 2012 positive polyp, repeat 2017. 70081 negative, repeat 2012 3colo 2018 4Left femur fracture 2022 5Right knee 2013. 6colo 2018 7colo 2018 Social History Social History Type Response Smoking Status Former smoker; Tobac co user in household: Yes entered on: 06/03/14 Sex Patient Care team information Care Team Personnel Name: Elmer Puentes MD Position: [facility] Physician - Primary Care Member Role: PCP Address: Address: [address] [place] [address]- Name: Sidra Banda RN Position: [facility] ISABELLA Nurse Member Role: Primary Care Nurse Name: Fidelia (Aristeo) Jenni Position: [facility] child welfare caseworker Member Role: Vacuum Truck Driver Name: Judith Duron RN Position: [facility] ED RN W/OE and Tasks Member Role: Primary Care Nurse Name: Jewell Polo Position: [facility] MA [employer] Sales Consultant Member Role: Vacuum Truck Driver Care Team Related Persons Name: ROBIN MOTA Address: home [address] [address]
--- OUTSIDE RECORDS SUMMARY | 2023-11-21 10:47 | XMS_ITS | Continuity of Care Document ---
Author Organization [facility] [place] Jcarlos Address [address] [place] [address]- Care Team Providers Care Optical Mechanic Apprentice Name Role Phone Deloris MEDINA, Elmer Bill Primary Care Physician [phone] Encounter [facility] Date(s): 12/19/20 - 12/26/20 [facility] [place] Adult [address] [place] [address]- Encounter Diagnosis Preop examination(Discharge Diagnosis) - 12/19/20 Attending Physician: Leelee Yanez NP Referring Physician: Vikas Negron MD Allergies, Adverse Reactions, Alerts Substance Reaction [...] Vaccine (oldterm) 06/24/99 Given 1Result Comment: [03/18/2017] [facility]: [id number] HIGH DO[place] 2Admin Note: given by LB 3Admin Note: [facility] 4Admin Note: [facility] Medications allopurinol 300 mg oral tablet 1, tablet, By Mouth, Daily, # 90 tablet, Refills 0, Tot. Refills 0, Maintenance, 12/22/20 11:49:00 EDT, Route to Pharmacy Electronically, [facility] STORE 48184, 175.26, cm, 12/19/20 9:28:00 EDT, Height, 84, [...] Maintenance, 12/30/19 15:45:00 EDT, Tablet, [facility]/pharmacy #2071, 175.26, cm, 09/30/19 10:57:00 EDT, Height Start Date: 12/30/19 Status: Ordered furosemide 40 mg oral tablet 80 mg, 2, tablet, By Mouth, Daily, # 90 tablet, Refills 3, Tot. Refills 3, Maintenance, 03/31/19 11:18:45 EDT, Route to Pharmacy Electronically, [facility]/pharmacy #[id number] Start Date: 03/31/19 Status: Ordered [...] Tot. Refills 0, Maintenance, ASV EPAP 6 [facility], 01/05/18 12:43:07 EDT, [...] Effective Dates Health Status Clinical Service Informant Preop examination Discharge Diagnosis 12/19/20 Vital Signs Most recent to oldest [Reference Range]: 1 Height 175.26 cm (12/19/20 9:28 AM) Weight 87.0 kg (12/19/20 9:28 AM) Oxygen Saturation [94-100 %] 99 % (12/19/20 9:28 AM) Pulse Rate [55-90 bpm] 51 bpm *L* (12/19/20 9:28 AM) Body Mass Index [18.5-24.99] 28.32 *H* (12/19/20 9:28 AM) Blood Pressure [90-138/55-84 mm Hg] 124/ 82mm Hg (12/19/20 9:28 AM) Blood pressure sites Arm, right (12/19/20 9:28 AM) Social History Social History Type Response Smoking Status Former smoker; Tobac co user in household: Yes entered on: 06/03/14 Sex
--- OUTSIDE RECORDS SUMMARY | 2023-11-21 10:47 | XMS_ITS | Continuity of Care Document ---
Author Organization [facility] Address [address] [place] [address]- Care Team Providers Care Wound Care Physician Name Role Phone Elmer Puentes MD Primary Care Physician [phone] Encounter [facility] Date(s): 06/12/22 - 07/12/[address] [address]- Allergies, Adverse Reactions, Alerts Substance Reaction Severity Status Bee Stings Active Immunizations Given and Recorded Vaccine Date Status Refusal Reason SARS-CoV-2 mRNA (fpkexwn-tqau-ijxol) vax 1 03/23/22 Recorded influenza virus vaccine, [...] [facility] 2Result Comment: [03/18/2017] [facility]: [id number] H[place] DO[place] 3Admin Note: given by LB 4Admin Note: [facility] 5Admin Note: [employer] [facility] Medications allopurinol 300 mg oral tablet 1, tablet, By Mouth, Daily, # 90 tablet, Refills 3, Maintenance, 05/29/22 14:30:00 EST, Route to Pharmacy Electronically, [facility] STORE 87590, 175.26, cm, 02/21/22 14:25:00 EDT, Height, 84, [...] # 90 capsule, 3 Refills, [facility], 175.26, cm, 11/03/21 10:48:00 EDT, Height, 84, [...] EDT[facility], 175.26, cm, 02/21/22 14:25:00 EDT, Height, 84, kg, 10/31/20 13:29:00 EDT, Dry Weight Start Date: 03/12/22 Status: Ordered FLUoxetine 20 mg oral capsule 1, capsule, By Mouth, Daily, # 30 capsule, Refills 6, Maintenance, 06/21/22 14:13:00 EST, Route to Pharmacy Electronically, [facility], 173, cm, 06/14/22 10:32:00 EST, Height, 79.5, [...] EST, [id number] Partial fill upon patient request [...] each, Refills 0, Tot. Refills 0, Maintenance, [facility] 6 [facility], 01/05/18 12:43:07 EDT, Compound Start Date: 01/05/18 Status: Ordered valsartan 160 mg oral tablet See Instructions, TAKE 1 + 1/2 TABLET BY MOUTH EVERY DAY, # 135 tablet, Refills 0, Maintenance, 05/16/22 15:23:00 EST, Instructions Replace Required Details, Route to Pharmacy Electronically, [facility] 21096, 175.26, cm, 02/21/22 14:25:00 EDT, Height,... Start [...] Active 1Colonoscopy 2013 positive polyp, repeat 2017. 49943 negative, repeat 2012 3colo 2018 4Right knee 2013. 5colo 2018 6colo 2018 Social History Social History Type Response Smoking Status Former smoker; Tobac co user in household: Yes entered on: 06/03/14 Sex Male Patient Care team information Care Team Personnel Name: Elmer Puentes MD Position: [facility] Primary Care Physician Member Role: PCP Address: Address: [address] [place] [address]- Name: Sidra Banda RN Position: S RN Member Role: Primary Care Nurse Name: Judith Duron RN Position: S RN Member Role: Primary Care Nurse Care Team Related Persons Name: NAKUL ROBIN Address: home [address] [address]
--- OUTSIDE RECORDS SUMMARY | 2023-11-21 10:47 | XMS_ITS | Continuity of Care Document ---
Author Organization [facility] Kristian Jcarlos lt Address [address] [place] [address]- Care Team Providers Care Dry Press Operator Helper Name Role Phone Deloris MEDINA, Elmer Bill Primary Care Physician [phone] [facility]counter [facility] Date(s): 05/09/23 - 06/08/23 [facility] Adult [address] [place] [address]- Allergies, Adverse Reactions, Alerts Substance Reaction Severity [...] vaccine, inactivated 04/22/08 Give n SARS-CoV-2 mRNA (gnpclyb-ivqu-buqaw) vax 2 03/23/22 Recorded SARS-CoV-2 (COVID-19) mRNA [...] Vaccine (oldterm) 06/24/99 Given 1Result Comment: [03/18/2017] [facility]: [id number] HIGH DO[place] 2Result Comment: Moderna Covid Bivalent Booster, [facility] Pharmacy 3Admin Note: given by LB 4Admin Note: [employer] 5Admin Note: [facility] Medications acetaminophen 325 mg oral tablet 650 [...] 05/29/22 14:30:00 EST, Route to Pharmacy Electronically, [facility] STORE 66918, 175.26, cm, 02/21/22 14:25:00 EDT, Height, 84, [...] tablet, 11 Refills, Maintenance, 04/08/23 14:30:00 EDT, [facility] # 50, 172, cm, 03/22/23 14:14:00 EDT, Height, 79.5, kg, 03/16/23 13:06:00 EDT, Dry Weight Start Date: 04/08/23 Status: Ordered FLUoxetine 40 mg oral capsule 1 capsule = 40 mg, By Mouth, Daily, # 30 capsule, 11 Refills, Maintenance, 04/08/23 11:49:00 EDT, Capsule, [facility] # [facility], Partial fill upon patient request if the prescription is for a scheduleII opioid drug., 172, cm, 03/22/23 14:14:00 EDT, He... Start Date: 04/08/23 Stop Date: 04/02/24 Status: Ordered furosemide 40 mg oral tablet 40 mg, 1, tablet, By Mouth, Daily, # 90 tablet, Refills 3, Tot. Refills 3, Maintenance, 06/05/22 16:04:00 EST, Route to Pharmacy Electronically, [facility]/pharmacy #2071, 175.26, cm, 02/21/22 14:25:00 EDT,Height, 84, kg, 10/31/20 13:29:00 EDT, Dry Weight Start Date: 06/05/22 Stop Date: 05/31/23 Status: Ordered metoprolol 25 mg oral tablet, extended release 25 mg, 1, tablet, By Mouth, Daily, # 30 tablet, Refills 11, Tot. Refills 11, Maintenance, 04/08/23 14:32:00 EDT, Route to Pharmacy Electronically, [facility] # [facility], Partial fill upon patient [...] 04/08/23 14:31:00 EDT, Route to Pharmacy Electronically, [facility] # 50, Partial fill upon patient [...] each, Refills 0, Tot. Refills 0, Maintenance, [facility], [...] 2022 5Right knee 2013. 6colo 2019 7colo 2018 Social History Social History Type Response Smoking Status Former smoker; Tobac co user in household: Yes entered on: 06/03/14 Sex Patient Care team information Care Team Personnel Name: Deloris MEDINA, Elmer Bill Position: [facility] Physician - Primary Care Member Role: PCP Address: Address: [address] [place] [address]- [place] Name: Sidra Banda RN Position: [facility] AMB Nurse Member Role: Primary Care Nurse Name: Judith Duron RN Position: [facility] DOMINGA RN W/OE and Tasks Member Role: Primary Care Nurse Name: Samy Arenas RN Position: [facility] RN Member Role: Primary Care Nurse Care Team Related Persons Name: ROBIN MOTA Address: home [address] [address]
--- OUTSIDE RECORDS SUMMARY | 2023-11-21 10:48 | XMS_ITS | Continuity of Care Document ---
Author Organization [facility] Kristian Jcarlos Address [address] [place] [address]- Care Team Providers Care Deputy Sheriff K9 Handler Name Role Phone Deloris MEDINA, Elmer Bill Primary Care Physician [facility]counter [facility] Date(s): 04/05/23 - 05/05/23 [facility] Kristian Adult [address] [place] [address]- Allergies, Adverse Reactions, Alerts Substance Reaction Severity [...] vaccine, inactivated 04/22/08 Give n SARS-CoV-2 mRNA (ateknka-kozp-sjypt) vax 2 03/23/22 Recorded SARS-CoV-2 (COVID-19) mRNA [...] (oldterm) 06/24/99 Given 1Result Comment: [03/18/2017] [facility]: [id number] HIGH DOSE 2Result Comment: Moderna Covid Bivalent Booster, [facility] 3Admin Note: given by LB 4Admin Note: [employer] 5Admin Note: [facility] Medications acetaminophen 325 mg oral tablet 650 [...] 14:30:00 EST, Route to Pharmacy Electronically, [facility] STORE 55429, 175.26, cm, 02/21/22 14:25:00 EDT, Height, 84, [...] 11 Refills, Maintenance, 04/08/23 14:31:00 EDT, Tablet, [facility] # 50, Partial fill upon [...] tablet, 11 Refills, Maintenance, 04/08/23 14:30:00 EDT, [facility] # 50, 172, cm, 03/22/23 14:14:00 EDT, Height, 79.5, kg, 03/16/23 13:06:00 EDT, Dry Weight Start Date: 04/08/23 Status: Ordered FLUoxetine 40 mg oral capsule 1 capsule = 40 mg, By Mouth, Daily, # 30 capsule, 11 Refills, Maintenance, 04/08/23 11:49:00 EDT, Capsule, [facility] # 50, Partial fill upon patient request if the prescription is for a scheduleII opioid drug., 172, cm, 03/22/23 14:14:00 EDT, He... Start Date: 04/08/23 Stop Date: 04/02/24 Status: Ordered furosemide 40 mg oral tablet 40 mg, 1, tablet, By Mouth, Daily, # 90 tablet, Refills 3, Tot. Refills 3, Maintenance, 06/05/22 16:04:00 EST, Route to Pharmacy Electronically, [facility]/pharmacy #8687, 175.26, cm, 02/21/22 14:25:00 EDT,Height, 84, kg, 10/31/20 13:29:00 EDT, Dry Weight Start Date: 06/05/22 Stop Date: 05/31/23 Status: Ordered metoprolol 25 mg oral tablet, extended release 25 mg, 1, tablet, By Mouth, Daily, # 30 tablet, Refills 11, Tot. Refills 11, Maintenance, 04/08/23 14:32:00 EDT, Route to Pharmacy Electronically, [facility] # 50, Partial fill upon patient [...] 04/08/23 14:31:00 EDT, Route to Pharmacy Electronically, [facility] # 50, Partial fill upon patient request if the prescription is for a schedule II opio... Start Date: 04/08/23 Stop Date: 04/02/24 Status: Ordered terazosin 2 mg oral capsule 2 mg, 1, capsule, By Mouth, Daily at bedtime, # 90 capsule, Refills 3, Tot. Refills 3, Maintenance,11/21/22 13:39:00 EDT, Route to Pharmacy Electronically, [facility]/pharmacy #9431, Partial fill upon patient request if the prescription is for a schedule II... Start Date: 11/21/22 Stop Date: 11/16/23 Status: Ordered uses nightly uses nightly, See Instructions, # 1 each, Refills 0, Tot. Refills 0, Maintenance, [facility] 6 [facility], 01/05/18 12:43:07 EDT, Compound Start Date: 01/05/18 [...] Team Personnel Name: Elmer Puentes MD Position: [facility] Physician - Primary Care Member Role: PCP Address: Address: [address] [place] [address]- Name: Solo BURKS, Sidra Rosen Position: [facility] AMB Nurse Member Role: Primary Care Nurse Name: Judith Duron RN Position: [facility] ED RN W/OE and Tasks Member Role: Primary Care Nurse Name: Samy Arenas RN Position: [facility] RN Member Role: Primary Care Nurse Care Team Related Persons Name: ROBIN MOTA Address: home [address] [address]
--- OUTSIDE RECORDS SUMMARY | 2023-11-21 10:48 | XMS_ITS | Patient Health Record ---
Author Organization [facility] Address [address] [place] [address] Care Team Providers Care Knife Cutter Name Role Phone Elmer Puentes MD Primary Care Provider Traci Angela Unavailable [phone] ALLERGIES Allergen (clinical drug ingredient) Drug/Non Drug Allergy documented on EMR Reaction Allergy Type Onset Date Status Bee Sting Unknown Allergy Active REASON FOR REFERRAL No Information MEDICATIONS Medication SIG (Take, Route, Frequency, Duration) Notes Start Date End Date Status Furosemide 40 MG 1 tablet Orally Once a day Active Pravastatin Sodium 80 MG 1 tablet Orally Once a day Active Fluoxetine Active Ketoconazole 2 % 1 application [employer] ally Once a day for 14 days Active eliquis 5 mg Active Valsartan 160 MG 1 tablet Orally Once a day Active Fluoxetine Active Amiodarone HCl 200 MG 1 tablet Orally Once a day Active Pravastatin Sodium 80 MG 1 tablet Orally Once a day for 30 day(s) Active Dilt-XR 120 MG 1 capsule Orally Once a day Active Furosemide 40 MG 1 tablet Orally Once a day for 30 day(s) Active dilTIAZem HCl ER Act ira Amiodarone HCl 200 MG 1 tablet Orally On ce a day for 30 day(s) Active Allopurinol 300 MG 1 tablet Orally Once a day for 30 day(s) Active Terazosin HCl 2 MG 1 capsule at bedtime Orally Once a day for 30 day(s) Active Eliquis 5 MG 1 tablet Orally Twic e a day for 30 day(s) Active SOCIAL HISTORY Tobacco Use: Social History Observation Description Date Details (start date - stop date) Former Smoker NA - NA Sex Assigned At : Social History Observation Description Sex Assigned At Unknown Tobacco Use/Smoking Question Answer Notes Are you a: former smoker Additional Findings: Tobacco Non-User Current no n-smoker Alcohol Screen Question Answer Notes Did you have a drink contain ing alcohol in the past year? Yes How often did you have a dri nk containing alcohol in the past year? 4 or more times a week (4 points) Points 4 Interpretation Positive Tobacco use other than smoking: Question Answer Notes Are you an other tobacco user? No VITAL SIGNS Blood pressure diastolic 80 mm Hg 01/15/2023 Height 5 ft 8 in in 01/23/2023 Blood pressure systolic 130 mm Hg 01/15/2023 Weight 180 lbs 01/23/2023 BMI 27.37 kg/m2 01/23/2023 Encounters Encounter Location Date Provider Diagnosis [facility] [address] 01/15/2023 Traci Kunz Onychomycosis B35.1 ; Tinea pedis of both feet B35.3 ; Pain of toe of right foot M79.674 and Pain of toe of left foot M79.675 [facility] [address] 01/23/2023 Traci Kunz [facility] [address] 08/01/2023 Traci Kunz [address] [address] 08/06/2023 Traci Kunz ASSESSMENTS Encounter Date Diagnosis Assessment Notes Treatment Notes Treatment Clinical Notes 01/15/2023 Onychomycosis (ICD-1 0 - B35.1) 01/15/2023 Tinea pedis of both feet (ICD-10 - B35.3) 01/15/2023 Pain of toe of right foot (ICD-10 - M79.674) 01/15/2023 Pain of toe of left foot (ICD-10 - M79.675) PLAN OF TREATMENT No Information Insurance Providers Payer Name Payer Address Payer Phone Subscriber Number Group Number Insured Name Patient Relationship to Insured Coverage Start Date Coverage End Date Medicare National [employer] [address] [place] [address] [id number] Carlos Castro Self - patient is the insured [facility] [address] [place] [address] [phone] [id number] Carlos Castro Self - patient is the insured MEDICAL (GENERAL) HISTORY Medical History History ICD Code Arthritis Cholesterol Cataracts covid-19 Depression Gout Heart disease High blood pressure Macular degeneration Bone implants/screws Transfusions A fib Sleep apnea Cognitive impairment leaking heart valve Back,Hip,and Knee pain Surgical History Surgery Date(Month/Year) knee replacement 09/2016
--- OUTSIDE RECORDS SUMMARY | 2023-11-21 10:48 | XMS_ITS | Continuity of Care Document ---
Author Organization [facility] Vern Townsend Jcarlos Address [address] [place] [address]- Care Team Providers Care Sider Name Role Phone eDloris MEDINA, Elmer Bill Primary Care Physician [facility] Date(s): 05/10/20 - 06/09/20 [facility] Vern Townsend Adult [address] [place] [address]- Allergies, Adverse Reactions, Alerts Substance Reaction Severity [...] Given 1Result Comment: [03/18/2017] [facility]: [id number] HIGH DOSE 2Admin Note: given by LB 3Admin Note: [employer] 4Admin Note: [facility] Medications allopurinol 300 mg oral tablet 300 mg, 1, tablet, By Mouth, Daily, # 90 tablet, Refills 0, Tot. Refills 0, Maintenance, 01/19/20 16:22:00 EDT, [facility] 175.26, cm, 09/30/19 10:57:00 EDT, Height Start Date: 01/19/20 Status: Ordered diltiazem 240 mg/24 hours oral capsule, extended release 240 mg, 1, capsule, By Mouth, Daily, # 30 capsule, Refills 0, Tot. Refills 0, Maintenance, 09/02/2013:51:00 EDT, [facility] 175.26, cm, 08/18/19 14:43:00 EST, Height Start Date: 09/03/19 Status: Ordered Eliquis 5 mg oral tablet 1 tablet = 5 mg, By Mouth, 2 times a day, # 180 tablet, 3 Refills, Maintenance, 12/30/19 15:45:00 EDT, Tablet, [facility]/pharmacy #1, 175.26, cm, 09/30/19 10:57:00 EDT, Height Start Date: 12/30/19 Status: Ordered furosemide 40 mg oral tablet 80 mg, 2, tablet, By Mouth, Daily, # 90 tablet, Refills 3, Tot. Refills 3, Maintenance, 03/31/19 11:18:45 EDT, [facility] Start Date: 03/31/19 Status: Ordered losartan 50 mg oral tablet 50 mg, 1, tablet, By Mouth, Daily, # 90 tablet, Refills 0, Tot. Refills 0, Maintenance, 04/11/20 10:26:00 EDT, [facility] 175.26, cm, 04/01/20 11:21:00 EDT,Height Start Date: 04/11/20 Status: Ordered Multivitamin By Mouth, Daily, 0 Refills, Maintenance Start Date: 08/19/12 Status: Ordered pravastatin 80 mg oral tablet See Instructions, TAKE 1 TABLET BY MOUTH EVERY DAY, # 90 tablet, 1 Refills, Soft Stop, 01/24/20 22:04:00 EDT, [facility], 175.26, cm, 09/30/19 10:57:00 EDT, Height Start Date: 01/24/20 Status: Ordered turmeric 500 mg oral capsule 3 capsule = 1,500 mg, By Mouth, Daily, # 60 capsule, 0 Refills, Maintenance, 03/31/19 11:20:01 EDT,Capsule Start Date: 03/31/19 Status: Ordered uses nightly uses nightly, See Instructions, # 1 each, Refills 0, Tot. Refills 0, Maintenance, ASV EPAP 6 [facility], 01/05/18 12:43:07 EDT, Compound Start [...] Active 1Colonoscopy 2013 positive polyp, repeat 2018. 19964 negative, repeat 2013 3colo 2019 4Right knee 2014. 5colo 2019 6colo 2019 Social History Social History Type Response Smoking Status Former smoker; Tobac co user in household: Yes entered on: 06/03/14 Sex
--- OUTSIDE RECORDS SUMMARY | 2023-11-21 10:48 | XMS_ITS | Continuity of Care Document ---
Author Organization [facility] Jcarlos Address [address] [place] [address]- Care Team Providers Care Supervisory Geographer Name Role Phone Elmer Puentes MD Primary Care Physician [facility] Date[facility]s): 08/[facility]21 - 08/08/21 [facility] Adult [address] [place] [address]- Attending Physician: Elmer Puentes MD Allergies, Adverse [...] Given 1Result Comment: [03/18/2017] [facility]: [id number] HIGH DOSE 2Admin Note: given by LB 3Admin Note: [employer] 4Admin Note: [employer] [facility] Medications allopurinol 300 mg oral tablet 1, tablet, By Mouth, Daily, # 90 tablet, Refills 1, Route to Pharmacy Electronically, [facility] STORE 07483, 175.26, cm, 06/30/21 15:13:00 EST, Height, 84, kg, 10/31/20 13:29:00 EDT, Dry Weight Start Date: 07/14/21 Status: Ordered Diflucan 200 mg oral tablet 1 tablet = 200 mg, By Mouth, Daily, # 30 tablet, 0 Refills, Maintenance, 05/25/21 11:51:00 EST, Tablet, [facility]/pharmacy #[id number], Partial fill upon patient request if the prescription is for a schedule II opioid drug., 175.26, cm, 05/25/21 11:22:00 EST, Hei... Start Date: 05/25/21 Status: Ordered diltiazem 300 mg/24 hours oral capsule, extended release 300 mg, 1, capsule, By Mouth, Daily, # 90 capsule, Refills 3, Tot. Refills 3, Maintenance, :53:00 EDT, Route to Pharmacy Electronically, [facility]/pharmacy #2071, Partial fill upon patient request if the prescription is for a schedule II opioid drArnel Start Date: 11/18/20 Status: Ordered Eliquis 5 mg oral tablet 1 tablet, By Mouth, 2 times a day, # 60 tablet, 11 Refills, Maintenance, 02/20/21 9:23:00 EDT, [facility]/pharmacy #2071, 175.26, cm, 01/30/21 16:19:00 EDT, Height, 84, kg, 10/31/20 13:29:00 EDT, Dry Weight Start Date: 02/20/21 Status: Ordered FLUoxetine 20 mg oral capsule 20 mg, 1, capsule, By Mouth, Daily, # 30 capsule, Refills 11, Tot. Refills 11, Maintenance, 05/25/21 11:49:00 EST, Route to Pharmacy Electronically, [facility]/pharmacy #[id number], Partial fill upon patient request if the prescription is for a schedule II opioid... Start Date: 05/25/21 Status: Ordered furosemide 40 mg oral tablet 80 mg, 2, tablet, By Mouth, Daily, # 90 tablet, Refills 3, Tot. Refills 3, Maintenance, 03/31/19 11:18:45 EDT, Route to Pharmacy Electronically, [facility]/pharmacy #2071 Start Date: 03/31/19 Status: Ordered Multivitamin By Mouth, Daily, 0 Refills, Maintenance Start Date: 08/19/12 Status: Ordered pravastatin 80 mg oral tablet 1 tablet, By Mouth, Daily, # 90 tablet, 1 Refills, [facility] 33217, 175.26, cm, 06/30/21 15:13:00 EST, Height, 84, kg, 10/31/20 13:29:00 EDT, Dry Weight Start Date: 07/14/21 Status: Ordered terazosin 2 mg oral capsule 2 mg, 1, capsule, By Mouth, Daily at bedtime, # 90 capsule, Refills 3, Tot. Refills 3, Maintenance,06/30/21 15:25:00 EST, [id number] fill upon patient request [...] Refills, Maintenance, 11/04/20 14:17:00 EDT, [facility]t, [facility], Partial fill upon patient request if the [...] Active 1Colonoscopy 2013 positive polyp, repeat 2018. 27154 negative, repeat 2012 3colo 2019 4Right knee 2014. 5colo 2019 6colo 2019 Vital Signs Most recent to oldest [Reference Range]: 1 Height 175.26 cm (08/01/21 4:27 PM) Social History Social History Type Response Smoking Status Former smoker; Tobac co user in household: Yes entered on: 06/03/14 Sex Male
--- OUTSIDE RECORDS SUMMARY | 2023-11-21 10:48 | XMS_ITS | Continuity of Care Document ---
Author Organization [facility] Kristian Jcarlos lt Address [address] [place] [address]- Care Team Providers Care Bid Writer Name Role Phone Elmer Puentes MD Primary Care Physician [facility] - 10/10/19 [facility] [place] Adult [address] [place] [address]- [facility] Attending Physician: Admchristo, Nohemi Admitting Physician: AdmtrNohemi Referring Physician: Admtr, [id number] Allergies, Adverse Reactions, Alerts Substance Reaction Severity [...] Vaccine (oldterm) 06/24/99 Given 1Result Comment: [03/18/2017] [facility]: 12886-833-94 HIGH DOSE 2Admin Note: given by LB 3Admin Note: [facility] 4Admin Note: [facility] Medications allopurinol 300 mg oral tablet 300 mg, 1, tablet, By Mouth, Daily, # 90 tablet, Refills 3, Tot. Refills 3, Maintenance, 01/21/19 16:49:02 EDT, Route to Pharmacy Electronically, [id number], [facility]/pharmacy #1 Start Date: 01/21/19 Status: Ordered diltiazem 240 mg/24 hours oral capsule, extended release 240 mg, 1, capsule, By Mouth, Daily, # 30 capsule, Refills 0, Tot. Refills 0, Maintenance, 09/02/2013:51:00 EDT, Route to Pharmacy Electronically, [facility]/pharmacy #2070, 175.26, cm, 08/18/19 14:43:00 EST, Height [...] 11:18:45 EDT, Route to Pharmacy Electronically, [facility]/pharmacy #2070 Start Date: 03/31/19 Status: Ordered losartan 50 mg oral tablet 50 mg, 1, tablet, By Mouth, Daily, # 90 tablet, Refills 3, Tot. Refills 3, Maintenance, 03/31/19 11:17:44 EDT, Route to Pharmacy Electronically, [id number], [facility]/pharmacy #2070 Start Date: 03/31/19 Status: Ordered Multivitamin [...] Refills 0, Maintenance, ASV EPAP 6 [facility] [place], 01/05/18 12:43:07 [...] Active 1Colonoscopy 2013 positive polyp, repeat 2018. 05130 negative, repeat 2012 3colo 2019 4Right knee [...]
--- OUTSIDE RECORDS SUMMARY | 2023-11-21 10:48 | XMS_ITS | Continuity of Care Document ---
Author Organization [facility] Jcarlos lt Address [address] [place] [address]- Care Team Providers Care Auto Adjudication Specialist Name Role Phone Deloris MEDINA, Elmer Bill Primary Care Physician [facility] 09[facility]23 - 10/04/23 [facility] Adult [address] [place] [address]- Allergies, Adverse Reactions, Alerts Substance Reaction Severity [...] vaccine, inactivated 04/22/08 Give n SARS-CoV-2 mRNA ([id number]-[id number]-[id number]) vax 2 03/23/22 Recorded SARS-CoV-2 (COVID-19) mRNA [...] Given 1Result Comment: [03/18/2017] [facility]: [id number] HIGH DOSE 2Result Comment: Moderna Covid Bivalent Booster, [facility] Pharmacy 3Admin Note: given by LB 4Admin Note: [employer] 5Admin Note: [employer] Medications acetaminophen 325 mg oral tablet 650 [...] 06/10/23 6:07:00 EST, Route to Pharmacy Electronically, [facility], 172, cm, 05/17/23 14:43:00 EST, Height, 79.5, kg, 03/16/23 13:06:00 EDT, Dry Weight Start Date: 06/10/23 Status: Ordered metoprolol 25 mg oral tablet, extended release 25 mg, 1, tablet, By Mouth, Daily, # 30 tablet, Refills 11, Tot. Refills 11, Maintenance, 04/08/23 14:32:00 EDT, Route to Pharmacy Electronically, [facility] # [facility], Partial fill upon patient [...] 04/08/23 14:31:00 EDT, Route to Pharmacy Electronically, [facility] # 50, Partial fill upon patient request if the prescription is for a schedule II opio... Start Date: 04/08/23 Stop Date: 04/02/24 Status: Ordered terazosin 2 mg oral capsule 2 mg, 1, capsule, By Mouth, Daily at bedtime, # 90 capsule, Refills 3, Tot. Refills 3, Maintenance,11/21/22 13:39:00 EDT, Route to Pharmacy Electronically, [facility]/pharmacy #2071, Partial fill upon patient request if the prescription is for a schedule II... Start Date: 11/21/22 Stop Date: 11/16/23 Status: Ordered traZODone 50 mg oral tablet 50 mg, 1, tablet, By Mouth, Daily at bedtime, # 30 tablet, Refills 11, Tot. Refills 11, Maintenance, 07/18/23 11:18:00 EST, Route to Pharmacy Electronically, [facility] # [facility], Partial fill upon patient [...] Team Personnel Name: Elmer Puentes MD Position: [facility] Physician - Primary Care Member Role: PCP Address: Address: [address] [place] [address]- Name: Sidra Banda RN Position: [facility] ISABELLA Nurse Member Role: Primary Care Nurse Name: Fidelia (Aristeo) Jenni Position: [facility] livestock dealer Member Role: Web Development Consultant Name: Judith Duron RN Position: [facility] ED RN W/OE and Tasks Member Role: Primary Care Nurse Name: Jewell Polo Position: [facility] [place] Aircraft Cleaning Supervisor Member Role: Web Development Consultant Care Team Related Persons Name: ROBIN MOTA Address: home [address] [address]
--- OUTSIDE RECORDS SUMMARY | 2023-11-21 10:48 | XMS_ITS | Continuity of Care Document ---
Author Organization [facility] Kristian Jcarlos lt Address [address] [place] [address]- Care Team Providers Care Buyer Broker Name Role Phone Deloris MEDINA, Elmer Bill Primary Care Physician [facility] 04/18/23 - 05/18/23 [facility] Adult [address] [place] [address]- Allergies, Adverse Reactions, Alerts Substance Reaction Severity [...] vaccine, inactivated 04/22/08 Give n SARS-CoV-2 mRNA ([id number]-[id number]-[id number]) vax 2 03/23/22 Recorded SARS-CoV-2 (COVID-19) mRNA [...] (oldterm) 06/24/99 Given 1Result Comment: [03/18/2017] [facility] [place]: 48438-864-36 HIGH DOSE 2Result Comment: Moderna Covid Bivalent Booster, [facility] Pharmacy 3Admin Note: given by LB 4Admin Note: [employer] 5Admin Note: [facility] Medications acetaminophen 325 mg oral tablet 650 [...] 05/29/22 14:30:00 EST, Route to Pharmacy Electronically, [facility] STORE 52297, 175.26, cm, 02/21/22 14:25:00 EDT, Height, 84, [...] tablet, 11 Refills, Maintenance, 04/08/23 14:30:00 EDT, [facility] # 50, 172, cm, 03/22/23 14:14:00 EDT, Height, 79.5, kg, 03/16/23 13:06:00 EDT, Dry Weight Start Date: 04/08/23 Status: Ordered FLUoxetine 40 mg oral capsule 1 capsule = 40 mg, By Mouth, Daily, # 30 capsule, 11 Refills, Maintenance, 04/08/23 11:49:00 EDT, Capsule, [facility], Partial fill upon patient request if the prescription is for a scheduleII opioid drug., 172, cm, 03/22/23 14:14:00 EDT, He... Start Date: 04/08/23 Stop Date: 04/02/24 Status: Ordered furosemide 40 mg oral tablet 40 mg, 1, tablet, By Mouth, Daily, # 90 tablet, Refills 3, Tot. Refills 3, Maintenance, 06/05/22 16:04:00 EST, Route to Pharmacy Electronically, [facility]/pharmacy #2071, 175.26, cm, 02/21/22 14:25:00 EDT,Height, 84, kg, 10/31/20 13:29:00 EDT, Dry Weight Start Date: 06/05/22 Stop Date: 05/31/23 Status: Ordered metoprolol 25 mg oral tablet, extended release 25 mg, 1, tablet, By Mouth, Daily, # 30 tablet, Refills 11, Tot. Refills 11, Maintenance, 04/08/23 14:32:00 EDT, Route to Pharmacy Electronically, [facility] # [facility], Partial fill upon patient [...] 04/08/23 14:31:00 EDT, Route to Pharmacy Electronically, [facility] # [facility], Partial fill upon patient [...] each, Refills 0, Tot. Refills 0, Maintenance, [facility], 01/05/18 12:43:07 [...] Personnel Name: Deloris MEDINA, Elmer Bill Position: [facility] Physician - Primary Care Member Role: PCP Address: Address: [address] [place] [address]- [place] Name: Sidra Banda RN Position: [facility] AMB Nurse Member Role: Primary Care Nurse Name: Judith Duron RN Position: [facility] DOMING[place] RN W/OE and Tasks Member Role: Primary Care Nurse Name: Samy Arenas RN Position: [facility] RN Member Role: Primary Care Nurse Care Team Related Persons Name: ROBIN MOTA Address: home [address] [address]
--- OUTSIDE RECORDS SUMMARY | 2023-11-21 10:48 | XMS_ITS | Continuity of Care Document ---
Author Organization [facility] Kristian Jcarlos Address [address] [place] [address]- Care Team Providers Care Photofinishing Laboratory Worker Name Role Phone Elmer Puentes MD Primary Care Physician [phone] [facility] Date[facility]s): 09[facility]17/22 - 10/17/22 [facility] [place] Adult [address] [place] [address]- Attending Physician: Admtr, Ar8 Admitting Physician: Admtr, Ar8 Referring Physician: Admtr, Ar8 Allergies, Adverse Reactions, Alerts Substance Reaction Severity Status Bee Stings Active Immunizations Given and Recorded Vaccine Date Status Refusal Reason SARS-CoV-2 mRNA (rgbpheo-[id number]-fhlzq) vax 1 03/23/22 Recorded influenza virus vaccine, [...] Given 1Result Comment: Moderna Covid Bivalent Booster, [facility] Pharmacy 2Result Comment: [03/18/2017] [facility]: [id number] HIGH DOSE 3Admin Note: given by LB 4Admin Note: [employer] [facility] 5Admin Note: [employer] [place] Medications allopurinol 300 mg oral tablet 1, tablet, By Mouth, Daily, # 90 tablet, Refills 3, Maintenance, 05/29/22 14:30:00 EST, Route to Pharmacy Electronically, [facility] 625[facility], 175.26, cm, 02/21/22 14:25:00 EDT, Height, 84, [...] EVERY DAY, # 90 capsule, 3 Refills, [facility] 557[facility], 175.26, cm, 11/03/21 10:48:00 EDT, Height, 84, kg, 10/31/20 13:29:00 EDT, Dry Weight Start Date: 12/19/21 Status: Ordered Eliquis 5 mg oral tablet 1 tablet, By Mouth, 2 times a day, # 60 tablet, 11 Refills, Maintenance, 03/12/22 18:53:00 EDT, [facility], 175.26, cm, 02/21/22 14:25:00 EDT, Height, 84, kg, 10/31/20 13:29:00 EDT, Dry Weight Start Date: 03/12/22 Status: Ordered FLUoxetine 20 mg oral capsule 1, capsule, By Mouth, Daily, # 30 capsule, Refills 6, Maintenance, 06/21/22 14:13:00 EST, Route to Pharmacy Electronically, [facility] 16245, 173, cm, 06/14/22 10:32:00 EST, Height, 79.5, kg, 06/13/2215:11:00 EST, Dry Weight Start Date: 06/21/22 Status: Ordered furosemide 40 mg oral tablet 2, tablet, By Mouth, Daily, # 180 tablet, Refills 3, Tot. Refills 3, Maintenance, 06/05/22 16:04:00EST, Route to Pharmacy Electronically, [facility]/pharmacy #207, 175.26, cm, 02/21/22 14:25:00 EDT, Height, 84, kg, 10/31/20 13:29:00 EDT, Dry Weight Start Date: 06/05/22 Stop Date: 05/31/23 Status: Ordered Multivitamin By Mouth, Daily, 0 Refills, Maintenance Start Date: 08/19/12 Status: Ordered pravastatin 80 mg oral tablet 1 tablet, By Mouth, Daily, # 90 tablet, 1 Refills, 05/29/22 13:47:00 EST, [facility]/pharmacy #2071, 175.26, cm, 02/21/22 14:25:00 EDT, Height, 84, kg, 10/31/20 13:29:00 EDT, Dry Weight Start Date: 05/29/22 Status: Ordered terazosin 2 mg oral capsule 2 mg, 1, capsule, By Mouth, Daily at bedtime, # 90 capsule, Refills 3, Tot. Refills 3, Maintenance,06/30/21 15:25:00 EST, Route to Pharmacy Electronically, [facility]/pharmacy #2071, Partial fill upon patient request if the prescription is for a schedule II... Start Date: 06/30/21 Stop Date: 06/25/22 Status: Ordered uses nightly uses nightly, See Instructions, # 1 each, Refills 0, Tot. Refills 0, Maintenance, ASV EPAP [address] [facility], 01/05/18 12:43:07 EDT, Compound Start Date: 01/05/18 Status: Ordered valsartan 160 mg oral tablet See Instructions, TAKE 1 + 1/2 TABLET BY MOUTH EVERY DAY, # 135 tablet, Refills 3, Maintenance, 09/18/22 16:21:00 EDT, Instructions Replace Required Details, Route to Pharmacy Electronically, [facility] 387[facility], 173, cm, 09/17/22 13:09:00 EDT, Height, 79... [...] 06/03/14 Sex Male Note * Event Display: Cardiology Office Note, Non-BH Authored Date: * Event Display: Non BH Cardiovascular Results Authored Date: * Event Display: Non BH Lab Results Authored Date: * Event Display: Radiology Result Scanned Authored Date: * Edith Murray: PERFORM Event Display: Radiology Results Scanned Authored Date: * Lesli Epperson: PERFORM Event Display: Radiology Results Scanned Authored Date: EKG study * Event Display: EKG Authored Date: * Event Display: EKG Authored Date: Cardiology Consult note * Event Display: Consult Note Cardiology Authored Date: * Event Display: Consult Note Cardiology Authored Date: Patient Care team information Care Team Personnel Name: Elmer Puentes MD Position: [facility] Primary Care Physician Member Role: PCP Address: Address: [address] [place] [address]- Name: Sidra Banda RN Position: [facility] RN Member Role: Primary Care Nurse Name: Judith Duron RN Position: [facility] ED RN W/OE and Tasks Member Role: Primary Care Nurse Care Team Related Persons Name: NAKUL ROBIN Address: home [address] [address]
--- OUTSIDE RECORDS SUMMARY | 2023-11-21 10:48 | XMS_ITS | Continuity of Care Document ---
Author Organization [facility] Jcarlos lt Address [address] [place] [address]- Care Team Providers Care Hospice Office Coordinator Name Role Phone Deloris MEDINA, Elmer Bill Primary Care Physician [phone] Encounter [facility] Date(s): 10/30/22 - 11/29/22 [facility] Adult [address] [place] [address]- Allergies, Adverse Reactions, Alerts Substance Reaction Severity Status Bee Stings Active Immunizations Given and Recorded Vaccine Date Status Refusal Reason SARS-CoV-2 mRNA ([id number]-[id number]-[id number]) vax 1 03/23/22 Recorded influenza virus vaccine, [...] Given 1Result Comment: Moderna Covid Bivalent Booster, [facility] Pharmacy 2Result Comment: [03/18/2017] [facility]: [id number] HIGH DOSE 3Admin Note: given by LB 4Admin Note: [facility] 5Admin Note: [facility] [facility] Medications allopurinol 300 mg oral tablet 1, tablet, By Mouth, Daily, # 90 tablet, Refills 3, Maintenance, 05/29/22 14:30:00 EST, Route to Pharmacy Electronically, [facility], 175.26, cm, 02/21/22 14:25:00 EDT, Height, 84, [...] EVERY DAY, # 90 capsule, 3 Refills, [facility] 7[facility], 175.26, cm, 11/03/21 10:48:00 EDT, Height, 84, kg, 10/31/20 13:29:00 EDT, Dry Weight Start Date: 12/19/21 Status: Ordered Eliquis 5 mg oral tablet 1 tablet, By Mouth, 2 times a day, # 60 tablet, 11 Refills, Maintenance, 03/12/22 18:53:00 EDT, [facility], 175.26, cm, 02/21/22 14:25:00 EDT, Height, 84, kg, 10/31/20 13:29:00 EDT, Dry Weight Start Date: 03/12/22 Status: Ordered FLUoxetine 20 mg oral capsule 1, capsule, By Mouth, Daily, # 30 capsule, Refills 6, Maintenance, 06/21/22 14:13:00 EST, Route to Pharmacy Electronically, [facility] 93696, 173, cm, 06/14/22 10:32:00 EST, Height, 79.5, kg, 06/13/2215:11:00 EST, Dry Weight Start Date: 06/21/22 Status: Ordered furosemide 40 mg oral tablet 2, tablet, By Mouth, Daily, # 180 tablet, Refills 3, Tot. Refills 3, Maintenance, 06/05/22 16:04:00EST, Route to Pharmacy Electronically, [facility]/pharmacy #2071, 175.26, cm, 02/21/22 14:25:00 EDT, Height, 84, kg, 10/31/20 13:29:00 EDT, Dry Weight Start Date: 06/05/22 Stop Date: 05/31/23 Status: Ordered Multivitamin By Mouth, Daily, 0 Refills, Maintenance Start Date: 08/19/12 Status: Ordered pravastatin 80 mg oral tablet 1 tablet, By Mouth, Daily, # 90 tablet, 1 Refills, 05/29/22 13:47:00 EST, [facility]/pharmacy #2071, 175.26, cm, 02/21/22 14:25:00 EDT, Height, 84, kg, 10/31/20 13:29:00 EDT, Dry Weight Start Date: 05/29/22 Status: Ordered terazosin 2 mg oral capsule 2 mg, 1, capsule, By Mouth, Daily at bedtime, # 90 capsule, Refills 3, Tot. Refills 3, Maintenance,11/21/22 13:39:00 EDT, Route to Pharmacy Electronically, [facility]/pharmacy #2071, Partial fill upon patient [...] Replace Required Details, Route to Pharmacy Electronically, [facility]/pharmacy #2071, 173, cm, 09/17/22 13:09... [...] Active 1Colonoscopy 2013 positive polyp, repeat 2018. 45132 negative, repeat 2012 3colo 2018 4Right knee 2014. 5colo 2019 6colo 2019 Social History Social History Type Response Smoking Status Former smoker; Tobac co user in household: Yes entered on: 06/03/14 Sex Male Patient Care team information Care Team Personnel Name: Elmer Puentes MD Position: [facility] Physician - Primary Care Member Role: PCP Address: Address: [address] [place] [phone]- Name: Sidra Banda RN Position: [facility] AMB Nurse Member Role: Primary Care Nurse Name: Domi BURKS, Judith Position: [facility] ED RN W/OE and Tasks Member Role: Primary Care Nurse Care Team Related Persons Name: ROBIN MOTA Address: home [address] [address]
--- OUTSIDE RECORDS SUMMARY | 2023-11-21 10:48 | XMS_ITS | Continuity of Care Document ---
Author Organization [facility] Address [address] [place] [address]- Care Team Providers Care Forensic Science Technician Name Role Phone Deloris MEDINA, Elmer Bill Primary Care Physician [phone] Encounter [facility] Date(s): 03/28/21 - 07/26/21 [facility] [address] [place] [address]- Attending Physician: Johnna PEMBERTON, Treasure Escalante Admitting Physician: Treasure Oropeza NP Referring Physician: Treasure Oropeza NP Allergies, Adverse Reactions, Alerts Substance Reaction [...] Vaccine (oldterm) 06/24/99 Given 1Result Comment: [03/18/2017] [facility]: [id number] HIGH DOSE 2Admin Note: given by LB 3Admin Note: [employer] 4Admin Note: [employer] [facility] Medications allopurinol 300 mg oral tablet 1, tablet, By Mouth, Daily, # 90 tablet, Refills 1, Route to Pharmacy Electronically, [facility] 48682, 175.26, cm, 06/30/21 15:13:00 EST, Height, 84, kg, 10/31/20 13:29:00 EDT, Dry Weight Start Date: 07/14/21 Status: Ordered Diflucan 200 mg oral tablet 1 tablet = 200 mg, By Mouth, Daily, # 30 tablet, 0 Refills, Maintenance, 05/25/21 11:51:00 EST, Tablet, [facility]/pharmacy #2071, Partial fill upon patient request if the prescription is for a schedule II opioid drug., 175.26, cm, 05/25/21 11:22:00 EST, Hei... Start Date: 05/25/21 Status: Ordered diltiazem 300 mg/24 hours oral capsule, extended release 300 mg, 1, capsule, By Mouth, Daily, # 90 capsule, Refills 3, Tot. Refills 3, Maintenance, :53:00 EDT, Route to Pharmacy Electronically, [facility]/pharmacy #2071, Partial fill upon patient request if the prescription is for a schedule II opioid drBruno. Start Date: 11/18/20 Status: Ordered Eliquis 5 mg oral tablet 1 tablet, By Mouth, 2 times a day, # 60 tablet, 11 Refills, Maintenance, 02/20/21 9:23:00 EDT, [facility]/pharmacy #2071, 175.26, cm, 01/30/21 16:19:00 EDT, Height, 84, kg, 10/31/20 13:29:00 EDT, Dry Weight Start Date: 02/20/21 Status: Ordered FLUoxetine 20 mg oral capsule 20 mg, 1, capsule, By Mouth, Daily, # 30 capsule, Refills 11, Tot. Refills 11, Maintenance, 05/25/21 11:49:00 EST, Route to Pharmacy Electronically, [facility]/pharmacy #2071, Partial fill upon patient request if the prescription is for a schedule II opioid... Start Date: 05/25/21 Status: Ordered furosemide 40 mg oral tablet 80 mg, 2, tablet, By Mouth, Daily, # 90 tablet, Refills 3, Tot. Refills 3, Maintenance, 03/31/19 11:18:45 EDT, Route to Pharmacy Electronically, [facility]/pharmacy #2071 Start Date: 03/31/19 Status: Ordered Multivitamin By Mouth, Daily, 0 Refills, Maintenance Start Date: 08/19/12 Status: Ordered pravastatin 80 mg oral tablet 1 tablet, By Mouth, Daily, # 90 tablet, 1 Refills, [facility] 46822, 175.26, cm, 06/30/21 15:13:00 EST, Height, 84, kg, 10/31/20 13:29:00 EDT, Dry Weight Start Date: 07/14/21 Status: Ordered terazosin 2 mg oral capsule 2 mg, 1, capsule, By Mouth, Daily at bedtime, # 90 capsule, Refills 3, Tot. Refills 3, Maintenance,06/30/21 15:25:00 EST, Route to Pharmacy Electronically, [facility]/pharmacy #2071, Partial fill upon patient request if [...] Refills 0, Maintenance, ASV EPAP 6 [facility], 01/05/18 12:43:07 EDT, Compound Start Date: 01/05/18 Status: Ordered valsartan 320 mg oral tablet 1 tablet = 320 mg, By Mouth, Daily, # 90 tablet, 3 Refills, Maintenance, 11/04/20 14:17:00 EDT, Tablet, [facility]/pharmacy #1651, Partial fill upon patient request if the [...]
--- OUTSIDE RECORDS SUMMARY | 2023-11-21 10:48 | XMS_ITS | Continuity of Care Document ---
Author Organization [facility] Kristian Jcarlos Address [address] [place] [address]- Care Team Providers Care Special Procedure Tech Name Role Phone Deloris MEDINA, Elmer Bill Primary Care Physician [facility] Date(s): 02/19/23 - 03/21/23 [facility] Kristian Adult [address] [place] [address]- Allergies, Adverse Reactions, Alerts Substance Reaction Severity [...] vaccine, inactivated 04/22/08 Give n SARS-CoV-2 mRNA (sammujn-hwyc-plsjd) vax 2 03/23/22 Recorded SARS-CoV-2 (COVID-19) mRNA [...] Given 1Result Comment: [03/18/2017] [facility]: [id number] HIGH DOSE 2Result Comment: Moderna Covid Bivalent Booster, [facility] Pharmacy 3Admin Note: given by LB 4Admin Note: [facility] 5Admin Note: [employer] [facility] Medications allopurinol 300 mg oral tablet 1, tablet, By Mouth, Daily, # 90 tablet, Refills 3, Maintenance, 05/29/22 14:30:00 EST, Route to Pharmacy Electronically, [facility] STORE [id number], 175.26, cm, 02/21/22 14:25:00 EDT, Height, 84, [...] capsule, 3 Refills, Maintenance, 02/26/23 11:09:00 EDT, [facility]/pharmacy #[id number], Partial fill upon patient request if the prescription is for a schedule II opioiddrug., 173, cm, 02/26/23 11:03:00 EDT, Height, 79.5... Start Date: 02/26/23 Status: Ordered Eliquis 5 mg oral tablet 1 tablet, By Mouth, 2 times a day, # 60 tablet, 11 Refills, Maintenance, 03/12/22 18:53:00 EDT, [facility], 175.26, cm, 02/21/22 14:25:00 EDT, Height, 84, kg, 10/31/20 13:29:00 EDT, Dry Weight Start Date: 03/12/22 Status: Ordered FLUoxetine 20 mg oral capsule 1, capsule, By Mouth, Daily, # 30 capsule, Refills 12, Maintenance, 02/12/23 16:46:00 EDT, Route toPharmacy Electronically, [facility] STORE 13548, 173, cm, 09/17/22 13:09:00 EDT, Height, 79.5, kg, 06/13/22 15:11:00 EST, Dry Weight Start Date: 02/12/23 Status: Ordered furosemide 40 mg oral tablet 40 mg, 1, tablet, By Mouth, Daily, # 90 tablet, Refills 3, Tot. Refills 3, Maintenance, 06/05/22 16:04:00 EST, Route to Pharmacy Electronically, [facility]/pharmacy #[id number], 175.26, cm, 02/21/22 14:25:00 EDT,Height, 84, kg, 10/31/20 13:29:00 EDT, Dry Weight Start Date: 06/05/22 Stop Date: 05/31/23 Status: Ordered Multivitamin By Mouth, Daily, 0 Refills, Maintenance Start Date: 08/19/12 Status: Ordered pravastatin 80 mg oral tablet 1 tablet, By Mouth, Daily, # 90 tablet, 1 Refills, Maintenance, 02/28/23 15:12:00 EDT, [facility] STORE 42209, 173, cm, 02/26/23 11:03:00 EDT, Height, 79.5, kg, 06/13/22 15:11:00 EST, Dry Weight Start Date: 02/28/23 Status: Ordered terazosin 2 mg oral capsule 2 mg, 1, capsule, By Mouth, Daily at bedtime, # 90 capsule, Refills 3, Tot. Refills 3, Maintenance,11/21/22 13:39:00 EDT, Route to Pharmacy Electronically, [facility]/pharmacy #[id number], Partial fill upon patient request if the prescription is for a schedule II... Start Date: 11/21/22 Stop Date: 11/16/23 Status: Ordered traMADol 50 mg oral tablet 1 tablet = 50 mg, By Mouth, Every 6 hours, PRN as needed for pain, # 30 tablet, 1 Refills, Maintenance, 02/20/23 12:17:00 EDT, Tablet, [facility]/pharmacy #[id number], Partial fill upon patient request if the prescription is for a schedule II opioid drug., 173, cm... Start Date: 02/20/23 Status: Ordered uses nightly uses nightly, See Instructions, # 1 each, Refills 0, Tot. Refills 0, Maintenance, ASV EPAP 6 [facility], 01/05/18 12:43:07 EDT, Compound Start Date: 01/05/18 Status: Ordered valsartan 160 mg oral tablet 160 mg, 1, tablet, By Mouth, Daily, # 90 tablet, Refills 3, Tot. Refills 3, Maintenance, 02/26/23 11:16:00 EDT, Route to Pharmacy Electronically, [facility] # 50, 173, cm, 02/26/23 11:03:00 [...] 2018 4Left femur fracture 2022 5Right knee 2014. 6colo 2019 7colo 2019 Social History Social History Type Response Smoking Status Former smoker; Tobac co user in household: Yes entered on: 06/03/14 Sex Male Patient Care team information Care Team Personnel Name: Elmer Puentes MD Position: [facility] Physician - Primary Care Member Role: PCP Address: Address: [address] [place] [phone]- Name: Sidra Banda RN Position: [facility] Nurse Member Role: Primary Care Nurse Name: Alyssa Renteria RN Position: [facility] RN Member Role: Primary Care Nurse Name: Judith Duron RN Position: [facility] ED RN W/OE and Tasks Member Role: Primary Care Nurse Name: Samy Arenas RN Position: [facility] RN Member Role: Primary Care Nurse Care Team Related Persons Name: ROBIN MOTA Address: home [address] [address]
--- OUTSIDE RECORDS SUMMARY | 2023-11-21 10:48 | XMS_ITS | Continuity of Care Document ---
Author Organization [facility] Kristian Jcarlos Address [address] [place] [address]- Care Team Providers Care Underpresser Hand Name Role Phone Deloris MEDINA, Elmer Bill Primary Care Physician [phone] Encounter [facility] Date(s): 02/22/23 - 03/24/23 [facility] Adult [address] [place] [address]- Allergies, Adverse Reactions, Alerts Substance Reaction Severity [...] vaccine, inactivated 04/22/08 Give n SARS-CoV-2 mRNA (wvmzyla-sevj-zaxti) vax 2 03/23/22 Recorded SARS-CoV-2 (COVID-19) mRNA [...] 1Result Comment: [03/18/2017] [facility]: [id number] HIGH DOSE 2Result Comment: Moderna Covid Bivalent Booster, [facility] Pharmacy 3Admin Note: given by LB 4Admin Note: [employer] 5Admin Note: [employer] [facility] Medications acetaminophen 325 mg oral tablet 650 [...] 05/29/22 14:30:00 EST, Route to Pharmacy Electronically, [facility] STORE 22646, 175.26, cm, 02/21/22 14:25:00 EDT, Height, 84, [...] 11 Refills, Maintenance, 03/12/22 18:53:00 EDT, [facility], 175.26, cm, 02/21/22 14:25:00 EDT, Height, 84, kg, 10/31/20 13:29:00 EDT, Dry Weight Start Date: 03/12/22 Status: Ordered FLUoxetine 20 mg oral capsule 1, capsule, By Mouth, Daily, # 30 capsule, Refills 12, Maintenance, 02/12/23 16:46:00 EDT, Route toPharmacy Electronically, [facility], 173, cm, 09/17/22 13:09:00 EDT, Height, 79.5, kg, 06/13/22 15:11:00 EST, Dry Weight Start Date: 02/12/23 Status: Ordered furosemide 40 mg oral tablet 40 mg, 1, tablet, By Mouth, Daily, # 90 tablet, Refills 3, Tot. Refills 3, Maintenance, 06/05/22 16:04:00 EST, Route to Pharmacy Electronically, [facility]/pharmacy #[id number], 175.26, cm, 02/21/22 14:25:00 EDT,Height, 84, [...] Maintenance,11/21/22 13:39:00 EDT, Route to Pharmacy Electronically, [facility]/pharmacy #[id number], Partial fill upon patient request if the prescription is for a schedule II... Start Date: 11/21/22 Stop Date: 11/16/23 Status: Ordered traMADol 50 mg oral tablet 1 tablet = 50 mg, By Mouth, Every 6 hours, PRN as needed for pain, # 30 tablet, 1 Refills, Maintenance, 02/20/23 12:17:00 EDT, Tablet, [facility]/pharmacy #[id number], Partial fill upon patient request if the prescription is for a schedule II opioid drug., 173, cm... Start Date: 02/20/23 Status: Ordered uses nightly uses nightly, See Instructions, # 1 each, Refills 0, Tot. Refills 0, Maintenance, ASV EPA 6 [facility], 01/05/18 12:43:07 EDT, Compound Start Date: 01/05/18 Status: Ordered valsartan 160 mg oral tablet 160 mg, 1, tablet, By Mouth, Daily, # 90 tablet, Refills 3, Tot. Refills 3, Maintenance, 02/26/23 11:16:00 EDT, Route to Pharmacy Electronically, [facility] # 50, 173, cm, 02/26/23 11:03:00 [...] Team Personnel Name: Elmer Puentes MD Position: [facility] Physician - Primary Care Member Role: PCP Address: Address: [address] [place] [phone]- Name: Solo BURKS, Sidra Rosen Position: [facility] AMB Nurse Member Role: Primary Care Nurse Name: Alyssa Renteria RN Position: [facility] RN Member Role: Primary Care Nurse Name: Judith Duron RN Position: [facility] [place] RN W/OE and Tasks Member Role: Primary Care Nurse Name: Samy Arenas RN Position: [facility] RN Member Role: Primary Care Nurse Care Team Related Persons Name: ROBIN MOTA Address: home [address] [address]
--- OUTSIDE RECORDS SUMMARY | 2023-11-21 10:48 | XMS_ITS | Continuity of Care Document ---
Author Organization [facility] Jcarlos lt Address [address] [place] [address]- Care Team Providers Care Visual Manager Name Role Phone Deloris MEDINA, Elmer Bill Primary Care Physician [facility] Date(s): 05/15/22 - 06/14/22 [facility] Adult [address] [place] [address]- Allergies, Adverse Reactions, Alerts Substance Reaction Severity Status Bee Stings Active Immunizations Given and Recorded Vaccine Date Status Refusal Reason SARS-CoV-2 mRNA (bmoxsau-smkg-mlugi) vax 1 03/23/22 Recorded influenza virus vaccine, [...] Given 1Result Comment: Moderna Covid Bivalent Booster, [facility] Pharmacy 2Result Comment: [03/18/2017] [facility]: [id number] HIGH DOSE 3Admin Note: given by LB 4Admin Note: [facility] 5Admin Note: [facility] Medications allopurinol 300 mg oral tablet 1, tablet, By Mouth, Daily, # 90 tablet, Refills 3, Maintenance, 05/29/22 14:30:00 EST, Route to Pharmacy Electronically, [facility] STORE 68518, 175.26, cm, 02/21/22 14:25:00 EDT, Height, 84, kg, 10/31/20 13:29:00 EDT, Dry Weight Start Date: 05/29/22 Status: Ordered apixaban 2.5 mg oral tablet 1 tablet = 2.5 mg, By Mouth, 2 times a day, # 10 tablet, 0 Refills, Maintenance, 06/13/22 14:47:00 EST, Tablet, [facility]/pharmacy #[id number], Partial fill upon patient [...] # 90 capsule, 3 Refills, [facility], 175.26, cm, 11/03/21 10:48:00 EDT, Height, 84, kg, 10/31/20 13:29:00 EDT, Dry Weight Start Date: 12/19/21 Status: Ordered DilTIAZem (Eqv-Dilacor XR) 180 mg/24 hours oral capsule, extended release 1 capsule = 180 mg, By Mouth, Daily, # 8 capsule, 0 Refills, Maintenance, 06/14/22 11:15:00 EST, [facility]/pharmacy #[id number], Partial fill upon patient request if the prescription is for a schedule II opioid drug., 173, cm, 06/14/22 10:32:00 EST, Height, 79.5,... Start Date: 06/14/22 Stop Date: 06/22/22 Status: Ordered Eliquis 5 mg oral tablet 1 tablet, By Mouth, 2 times a day, # 60 tablet, 11 Refills, Maintenance, 03/12/22 18:53:00 EDT, [facility], 175.26, cm, 02/21/22 14:25:00 EDT, Height, 84, kg, 10/31/20 13:29:00 EDT, Dry Weight Start Date: 03/12/22 Status: Ordered FLUoxetine 20 mg oral capsule 20 mg, 1, capsule, By Mouth, Daily, # 30 capsule, Refills 11, Tot. Refills 11, Maintenance, 05/25/21 11:49:00 EST, Route to Pharmacy Electronically, [facility]/pharmacy #[id number], Partial fill upon patient request if the prescription is for a schedule II opioid... Start Date: 05/25/21 Status: Ordered furosemide 40 mg oral tablet 2, tablet, By Mouth, Daily, # 180 tablet, Refills 3, Tot. Refills 3, Maintenance, 06/05/22 16:04:00EST, Route to Pharmacy Electronically, [facility]/pharmacy #[id number], 175.26, cm, 02/21/22 14:25:00 EDT, Height, 84, kg, 10/31/20 13:29:00 EDT, Dry Weight Start Date: 06/05/22 Stop Date: 05/31/23 Status: Ordered Multivitamin By Mouth, Daily, 0 Refills, Maintenance Start Date: 08/19/12 Status: Ordered Paxlovid 150 mg-100 mg (150 mg-100 mg Dose) oral tablet See Instructions, By Mouth 2 times a day Take 150 mg nirmatrelvir (one 150 mg tablet) and 100 mg ritonavir (one 100 mg tablet), taking both tablets together, orally twice daily for 5 days, # 1 pack/packet, 0 Refills, Acute 06/17/22 17:00:00 EST, 05/25... Start Date: 06/13/22 Stop Date: 06/17/22 Status: Ordered pravastatin 80 mg oral tablet 1 tablet, By Mouth, Daily, # 90 tablet, 1 Refills, 05/29/22 13:47:00 EST, [facility]/pharmacy #[id number], 175.26, cm, 02/21/22 14:25:00 EDT, Height, 84, kg, 10/31/20 13:29:00 EDT, Dry Weight Start Date: 05/29/22 Status: Ordered terazosin 2 mg oral capsule 2 mg, 1, capsule, By Mouth, Daily at bedtime, # 90 capsule, Refills 3, Tot. Refills 3, Maintenance,06/30/21 15:25:00 EST, Route to Pharmacy Electronically, [facility]/pharmacy #[id number], Partial fill upon patient [...] Tot. Refills 0, Maintenance, ASV EPA 6 [facility], 01/05/18 12:43:07 EDT, Compound Start Date: 01/05/18 Status: Ordered valsartan 160 mg oral tablet See Instructions, TAKE 1 + 1/2 TABLET BY MOUTH EVERY DAY, # 135 tablet, Refills 0, Maintenance, 05/16/22 15:23:00 EST, Instructions Replace Required Details, Route to Pharmacy Electronically, [facility] STORE 46657, 175.26, cm, 02/21/22 14:25:00 EDT, Height,... Start [...] Puentes MD Position: [facility] Primary Care Physician Member Role: PCP Address: Address: [address] [place] [phone]- Name: Judith Duron RN Position: [facility] RN Member Role: Primary Care Nurse Care Team Related Persons Name: NAKUL ROBIN Address: home [address] [address]
--- OUTSIDE RECORDS SUMMARY | 2023-11-21 10:48 | XMS_ITS | Continuity of Care Document ---
Author Organization [facility] Kristian Jcarlos lt Address [address] [place] [address]- Care Team Providers Care Sap Functional Analyst Name Role Phone Deloris MEDINA, Elmer Bill Primary Care Physician Encounter [facility] Date(s): 05/17/23 - 06/16/23 [facility] Adult [address] [place] [address]- Attending Physician: AdmNohemi villafuerte Admitting Physician: AdmtrNohemi [...] vaccine, inactivated 04/22/08 Give n SARS-CoV-2 mRNA (evjnzvf-fxpt-zhyac) vax 2 03/23/22 Recorded SARS-CoV-2 (COVID-19) mRNA [...] Vaccine (oldterm) 06/24/99 Given 1Result Comment: [03/18/2017] [facility]: [id number] HIGH DOSE 2Result Comment: Moderna Covid Bivalent Booster, [facility] Pharmacy 3Admin Note: given by LB 4Admin Note: [facility] 5Admin Note: [facility] Medications acetaminophen 325 mg oral tablet [...] 05/29/22 14:30:00 EST, Route to Pharmacy Electronically, [facility] STORE 56217, 175.26, cm, 02/21/22 14:25:00 EDT, Height, 84, [...] 06/10/23 6:07:00 EST, Route to Pharmacy Electronically, [facility] 94947, 172, cm, 05/17/23 14:43:00 EST, Height, 79.5, kg, 03/16/23 13:06:00 EDT, Dry Weight Start Date: 06/10/23 Status: Ordered metoprolol 25 mg oral tablet, extended release 25 mg, 1, tablet, By Mouth, Daily, # 30 tablet, Refills 11, Tot. Refills 11, Maintenance, 04/08/23 14:32:00 EDT, Route to Pharmacy Electronically, [facility] # 50, Partial fill upon patient [...] 04/08/23 14:31:00 EDT, Route to Pharmacy Electronically, [facility] # 50, Partial fill upon patient request if the prescription is for a schedule II opio... Start Date: 04/08/23 Stop Date: 04/02/24 Status: Ordered terazosin 2 mg oral capsule 2 mg, 1, capsule, By Mouth, Daily at bedtime, # 90 capsule, Refills 3, Tot. Refills 3, Maintenance,11/21/22 13:39:00 EDT, Route to Pharmacy Electronically, [facility]/pharmacy #5521, Partial fill upon patient request if the prescription is for a schedule II... Start Date: 11/21/22 Stop Date: 11/16/23 Status: Ordered uses nightly uses nightly, See Instructions, # 1 each, Refills 0, Tot. Refills 0, Maintenance, ASV EPA 6 [facility], 01/05/18 12:43:07 EDT, Compound Start Date: 01/05/18 Status: Ordered valsartan 160 mg oral tablet 160 mg, 1, tablet, By Mouth, Daily, for 90 days, # 90 tablet, Refills 3, Tot. Refills 3, Hard Stop 08/30/24 11:16:00 EDT, 09/05/23 11:16:00 EDT, Route to Pharmacy Electronically, [facility] # [id number],173, cm, 02/26/23 11:03:00 [...] in household: Yes entered on: 06/03/14 Sex Cardiology * Event Display: Cardiology Office Note, Non-BH Authored Date: [id number] * Event Display: Cardiology Office Note, Non-BH Authored Date: * Event Display: Cardiology Office Note, Non-BH Authored Date: * Event Display: Non BH Cardiovascular Results Authored Date: EKG study * Event Display: EKG Authored Date: * Event Display: EKG Authored Date: Laboratory * Event Display: Non BH Lab Results Authored Date: Radiology * Event Display: Radiology Result Scanned Authored Date: * Edith Murray: PERFORM Event Display: Radiology Results Scanned Authored Date: * Lesli Epperson: PERFORM Event Display: Radiology Results Scanned Authored Date: Patient Care team information Care Team Personnel Name: Elmer Puentes MD Position: [facility] Physician - Primary Care Member Role: PCP Address: Address: [address] [place] [phone]- Name: Sidra Banda RN Position: [facility] AMB Nurse Member Role: Primary Care Nurse Name: Judith Duron RN Position: [facility] ED RN W/OE and Tasks Member Role: Primary Care Nurse Name: Samy Arenas RN Position: [facility] RN Member Role: Primary Care Nurse Care Team Related Persons Name: ROBIN MOTA Address: home [address] [address]
== END 2023-11-21 16:00 ==
LOC: HO.HSMS 10:41
PROVIDERS: PCP Internal Medicine; Visit Provider Psychiatry & Neurology Neurology
DX: R53.1 Weakness (principal); R13.10 Dysphagia, unspecified; R49.0 Dysphonia; G20.C Parkinsonism, unspecified
CPT/HCPCS: 99205

== ENCOUNTER → 2023-11-21 10:41 | Outpatient (BNVA) | payer MEDICARE, SELFPAY | PROVIDERS: PCP Internal Medicine; Visit Provider Psychiatry & Neurology Neurology ==